=== PATIENT | female | born 1950 | race Caucasian/White ===

== ENCOUNTER 2016-08-31 20:30 | Observation (INO) ==
[2016-08-31] MEDS ORDERED: *HR* Dextrose 50 % in Water (Syg) 50 ML SYRINGE IVP ONE (20:49)
--- NOTE | 2016-08-31 20:56 | Emergency Department Note ---
Disposition Clinical Impression: Hypoglycemia associated with type 2 diabetes mellitus Disposition: Admitted As Inpatient General Adult HPI - General Chief complaint: ED General Medical Stated complaint: Low Blood Sugar Time Seen by Provider: 08/31/16 20:34 Source: EMS Limitations: no limitations Nursing Notes Reviewed: Yes Vital Signs Reviewed: Yes - History of Present Illness HPI Narrative: This is a 65-year-old female with a past medical history of lung cancer, COPD, type 2 diabetes, CAD. She presents to the emergency department because noted that her blood sugar was 30 today at home. He states that he noticed that yesterday it was around 60 but came back up after eating. He states that she takes metformin and glimeperide. She took her medications at 9 am this morning. He says she is somewhat confused. She was recently diagnosed with a sinus infection. She was given Cipro as well as a methylprednisolone dosepak. She is on day 3 of that. Her metformin was recently reduced. The glimepiride however was not Pain Scale: 0 - Related Data Home Medications Medication Instructions Recorded Confirmed Apixaban [Eliquis] 5 mg PO BID 12/08/15 08/23/16 Aspirin Enteric Coated [Aspirin EC] 81 mg PO DAILY 12/08/15 08/23/16 Atorvastatin Calcium [Lipitor] 80 mg PO HS 12/08/15 08/23/16 DULoxetine [Cymbalta] 30 mg PO BID 12/08/15 08/23/16 Furosemide [Lasix] 40 mg PO DAILY PRN 12/08/15 08/23/16 Nitroglycerin [Nitrostat] 0.4 mg SL AD PRN 12/08/15 08/23/16 Cranberry Fruit Extract/Vit C [Azo 1 each PO DAILY 02/01/16 08/23/16 Cranberry Softgel] Loratadine [Claritin] 10 mg PO DAILY 02/01/16 08/23/16 Losartan [Cozaar] 25 mg PO DAILY 02/01/16 08/23/16 Meclizine [Antivert] 12.5 mg PO TID PRN 02/01/16 08/23/16 Previous Rx's Medication Instructions Recorded Ondansetron HCl [Zofran] 4 mg PO Q6H PRN #30 tablet 01/26/16 Prochlorperazine Maleate 10 mg PO Q6HR PRN #60 tablet 01/26/16 [Compazine] metFORMIN [Glucophage] 500 mg PO BIDWM #60 tablet 03/03/16 Docusate Sodium [Colace] 100 mg PO BID #60 capsule 03/29/16 Guaifenesin [Mucinex] 600 mg PO BID #20 tab.er.12h 03/29/16 Polyethylene Glycol 3350 [MiraLAX 1 scoop PO DAILY #510 gm 03/29/16 Powder Bulk 17.9 Oz] Lidocaine Patch [Lidoderm 5% patch] 1 each TP DAILY PRN #30 adh..patch 04/07/16 Folic Acid 1 mg PO DAILY #30 tablet 04/27/16 Gabapentin [Neurontin] 800 mg PO QID #120 tablet 04/27/16 Magnesium Oxide [Magnesium] 400 mg PO DAILY #30 tablet 04/27/16 Potassium Chloride [K-Tab ER] 10 meq PO DAILY #30 tablet.er 04/27/16 Omeprazole [PriLOSEC] 1 tab PO DAILY #30 cap 05/23/16 Glimepiride [Amaryl] 1 mg PO BID #60 tablet 05/26/16 OXcarbazepine [Trileptal] 150 mg PO BID #60 tablet 05/26/16 Albuterol Sulfate [Proair 90 mcg IH Q4H PRN #1 aer.pow.ba 06/26/16 Respiclick] Magic Mouthwash [Magic Mouthwash 10 ml PO QID PRN #240 ml 08/02/16 BLM] Oxycodone HCl/Acetaminophen 1 tab PO Q6H PRN #120 tablet 08/02/16 [Percocet 10-325 mg Tablet] Metoprolol [Lopressor] 1 tab PO DAILY #30 tablet 08/16/16 Fluticasone Propionate Nasal 2 spr NS BID PRN #1 bottle 08/18/16 [Flonase] GuaiFENesin/Codeine [ROBITUSSIN 10 ml PO Q6HR PRN #300 liquid 08/25/16 w/CODEINE] Allergies Allergy/AdvReac Type Severity Reaction Status Date / Time dofetilide [From Tikosyn] Allergy Unresponsiv Verified 08/31/16 20:33 e Iodinated Contrast- Oral and Allergy Palpitation Verified 08/31/16 20:33 IV Dye s [Iodinated Contrast Media - IV Dye] red dye AdvReac Rash Verified 08/31/16 20:33 All systems ED: reviewed and negative except as stated. Constitutional: Reports: chills Cardiovascular: Denies: chest pain, palpitations, dyspnea on exertion Respiratory: Denies: cough, dyspnea, wheezes, hemoptysis Gastrointestinal: Denies: abdominal pain, nausea, vomiting Genitourinary: Denies: urgency, dysuria, frequency Musculoskeletal: Denies: back pain, neck pain, myalgia Integumentary: Denies: rash Neurological: Reports: weakness. Denies: headache Psychiatric: Denies: anxiety Endocrine: Reports: heat or cold intolerance (cold). Denies: fatigue Past Medical History - Past Medical History Medical history: Reports: arthritis, atrial fibrillation, cancer, CHF, COPD, coronary artery disease, diabetes, hypertension, myocardial infarction, RA Surgical history: Reports: cholecystectomy Psychiatric history: Reports: no psych history - Social History Smoking Status: Former smoker Smokeless Tobacco Status: No Alcohol use: Reports: none Drug use: Reports: none Physical Exam - General Limitations: no limitations General appearance: alert, other (This is a 65-year-old female that is diaphoretic, in moderate distress.) - Head Head exam: normocephalic - Eye Eye exam: Present: EOMI. Absent: scleral icterus, conjunctival injection - ENT ENT exam: normal oropharynx, mucous membranes moist - Neck Neck exam: Present: normal inspection, full ROM, trachea midline - Chest Chest inspection: Present: symmetric chest wall rise - Respiratory Respiratory exam: Present: normal lung sounds bilaterally. Absent: respiratory distress, wheezes, stridor - Cardiovascular Cardiovascular exam: Present: regular rate, normal rhythm, normal heart sounds - Abdominal Exam Abdominal exam: Present: soft, Non-Tender. Absent: distention, guarding, rebound, rigidity - Back Exam Back exam: Present: normal inspection, full ROM - Neurological Exam Neurological exam: Present: alert, oriented X3 (However her speech is a little sluggish.), other - Psychiatric Psychiatric exam: Present: normal affect, normal mood - Skin Skin exam: Present: intact, diaphoresis Course - Reevaluation(s) Reevaluation #1: One amp of D50 was given and this raised her blood glucose to 150. Her speech is more clear, she is no longer diaphoretic. Time: 21:19 Vital Signs Temperature 0 F L 08/31/16 20:33 Pulse Rate 79 08/31/16 20:33 Respiratory Rate 16 08/31/16 20:33 Blood Pressure 148/106 08/31/16 20:33 O2 Sat by Pulse Oximetry 97 08/31/16 20:33 Temperature 0 F L 08/31/16 20:33 Pulse Rate 79 08/31/16 21:22 Respiratory Rate 16 08/31/16 21:22 Blood Pressure 124/71 08/31/16 21:22 O2 Sat by Pulse Oximetry 99 08/31/16 21:22 Oxygen Delivery Oxygen Delivery Room Air Medical Decision Making - MDM Narrative Medical decision making narrative: This is a 65-year-old female with a past medical history of type 2 diabetes mellitus, breast cancer, and recent sinus infection. She presents to the emergency department with a blood glucose of 41 after her to take her blood glucose of 30. She immediately was provided R juice, crackers, peanut butter in an attempt to raise her blood glucose. After a second blood glucose of 43, she was provided 1 amp of D50. A repeat fingerstick glucose was performed, and it is now 150. She is no longer diaphoretic and her speech is clear. She currently takes glimepiride prior metformin for management of her diabetes. Our primary concern for this patient deals with the long half-life of glimepiride, I feel that it is in this patient's best interest to be admitted to the hospital for observation as a sulfonylurea can cause severe hypoglycemia later on. The hospitalist agreed to accept this admission. Vital Signs Temperature 0 F L 08/31/16 20:33 Pulse Rate 79 08/31/16 20:33 Respiratory Rate 16 08/31/16 20:33 Blood Pressure 148/106 08/31/16 20:33 O2 Sat by Pulse Oximetry 97 08/31/16 20:33 Temperature 0 F L 08/31/16 20:33 Pulse Rate 79 08/31/16 21:22 Respiratory Rate 16 08/31/16 21:22 Blood Pressure 124/71 08/31/16 21:22 O2 Sat by Pulse Oximetry 99 08/31/16 21:22 Oxygen Delivery Oxygen Delivery Room Air - Medical Records Medical records reviewed: Yes I reviewed the patient's medical records. - Lab Data Lab results reviewed: Yes I reviewed the patient's lab results. Result diagrams: 08/31/16 20:55 08/31/16 20:55 Lab Results 08/31/16 08/31/16 08/31/16 Range/Units 20:33 20:47 20:55 WBC 4.9 (4.3-11.1) K/mcL RBC 4.10 (3.82-4.97) M/mcL Hgb 11.0 L (11.5-15.4) g/dL Hct 36.0 (35.3-44.9) % MCV 87.8 (83.0-100.0) fL MCH 26.8 L (28.0-33.3) pg MCHC 30.6 L (31.6-35.5) g/dL RDW 16.7 H (11.5-14.5) % Plt Count 265 (140-400) K/mcL MPV 8.7 L (9.4-12.4) fL Immature Gran % 0.4 (0-4) % Seg Neutrophils % 69.3 % Lymphocytes % 14.8 % Monocytes % 13.1 % Eosinophils % 2.0 % Basophils % 0.4 % Neutrophils # 3.4 (1.6-8.9) K/mcL Lymphocytes # 0.7 (0.6-4.6) K/mcL Monocytes # 0.6 (0.0-1.3) K/mcL Eosinophils # 0.1 (0.0-0.6) K/mcL Basophils # 0.0 (0.0-0.2) K/mcL Sodium (136-145) mEq/L Potassium (3.5-4.5) mEq/L Chloride (98-109) mEq/L Carbon Dioxide (19-29) mEq/L BUN (7-20) mg/dL Creatinine (0.57-1.11) mg/dL Est GFR ( Amer) (> 60) Est GFR (Non-Af Amer) (> 60) BUN/Creatinine Ratio (6-26) Glucose (70-99) mg/dL POC Glucose 42 L* 43 L* (58-89) Calculated Osmolality (280-300) Calcium (8.6-10.8) mg/dL 08/31/16 08/31/16 08/31/16 Range/Units 20:55 21:17 21:56 WBC (4.3-11.1) K/mcL RBC (3.82-4.97) M/mcL Hgb (11.5-15.4) g/dL Hct (35.3-44.9) % MCV (83.0-100.0) fL MCH (28.0-33.3) pg MCHC (31.6-35.5) g/dL RDW (11.5-14.5) % Plt Count (140-400) K/mcL MPV (9.4-12.4) fL Immature Gran % (0-4) % Seg Neutrophils % % Lymphocytes % % Monocytes % % Eosinophils % % Basophils % % Neutrophils # (1.6-8.9) K/mcL Lymphocytes # (0.6-4.6) K/mcL Monocytes # (0.0-1.3) K/mcL Eosinophils # (0.0-0.6) K/mcL Basophils # (0.0-0.2) K/mcL Sodium 136 (136-145) mEq/L Potassium 3.6 (3.5-4.5) mEq/L Chloride 104 (98-109) mEq/L Carbon Dioxide 25 (19-29) mEq/L BUN 13 (7-20) mg/dL Creatinine 0.73 (0.57-1.11) mg/dL Est GFR ( Amer) > 60 (> 60) Est GFR (Non-Af Amer) > 60 (> 60) BUN/Creatinine Ratio 18 (6-26) Glucose 57 L (70-99) mg/dL POC Glucose 150 H 142 H (58-89) Calculated Osmolality 280 (280-300) Calcium 9.3 (8.6-10.8) mg/dL Attestation Statement - Attestation Attestation: I, Hilario Raman MD, personally evaluated this patient and discussed their management with the resident physician. I reviewed the resident's note and agree with the documented findings, medical decision making, and plan of care. 65-year-old female presents to the emergency department with an episode of hypoglycemia. Patient is diabetic and is on 2 oral agents. She is not on insulin. She denies any prior history of similar episodes. Patient apparently became very weak and confused and diaphoretic. Fingerstick blood sugar per EMS was around 40. On arrival here the patient was alert but somewhat confused. She was given orange juice and food but refuses to eat. She then received an amp of D50 with resolution of her symptoms. She denies any recent illness or vomiting or diarrhea. She is currently on chemotherapy for lung cancer. On examination the patient is a well-developed well-nourished elderly female in no acute distress. She is alert and oriented 3. There is no cyanosis or diaphoresis. Breath sounds are clear and equal bilaterally. Heart regular rate and rhythm. Abdomen soft and nontender with normal bowel sounds. Labs reviewed. The hospitalist, Dr. Grayson, was consulted and accepted admission of the patient.
[2016-08-31 21:05] LABS: Basophils % 0.4 %; Eosinophils # 0.1 K/mcL (0.0-0.6); Immature Granulocytes % 0.4 % (0-4); Lymphocytes # 0.7 K/mcL (0.6-4.6); Lymphocytes % 14.8 %; Mean Corpuscular HGB Conc 30.6 g/dL (31.6-35.5); Mean Corpuscular Hemoglobin 26.8 pg (28.0-33.3); Mean Corpuscular Volume 87.8 fL (83.0-100.0); Mean Platelet Volume 8.7 fL (9.4-12.4); Monocytes # 0.6 K/mcL (0.0-1.3); Monocytes % 13.1 %; Neutrophils # 3.4 K/mcL (1.6-8.9); Platelet Count 265 K/mcL (140-400); Red Cell Distribution Width 16.7 % (11.5-14.5); Segmented Neutrophils % 69.3 %
[2016-08-31 21:17] LABS: BUN/Creatinine Ratio 18 (6-26); Blood Urea Nitrogen 13 mg/dL (7-20); Calcium 9.3 mg/dL (8.6-10.8); Carbon Dioxide 25 mEq/L (19-29); Chloride 104 mEq/L (98-109); Glucose 57 mg/dL (70-99); Osmolality,Calculated 280 (280-300); Potassium 3.6 mEq/L (3.5-4.5); Sodium 136 mEq/L (136-145); eGFR For African Americans > 60 (> 60); eGFR For Non-African Americans > 60 (> 60)
[2016-08-31] MEDS ORDERED: Clotrimazole/Betameth Dip CRM 45 APPL/45 GM TUBE TP PRN (23:12)
[2016-08-31] MEDS ORDERED: Benzonatate 100 MG CAPSULE PO PRN (23:12)
[2016-08-31] MEDS ORDERED: Furosemide 40 MG TABLET PO PRN (23:12)
[2016-08-31] MEDS ORDERED: Fluticasone Propionate Nasal 50 MCG/SPRAY BOTTLE NS PRN (23:12)
[2016-08-31] MEDS ORDERED: Naloxone 0.4 MG/ML INJ IVP PRN ×2 (23:19→23:21)
[2016-08-31] MEDS ORDERED: Ondansetron ODT 4 MG TAB.RAPDIS SL PRN (23:21)
[2016-08-31] MEDS ORDERED: Magic Mouthwash 10 ML UD Cup PO PRN (23:22)
[2016-08-31] MEDS ORDERED: Polyethylene Glycol 3350 255 GM POWDER PO PRN (23:22)
[2016-08-31] MEDS ORDERED: Nitroglycerin 0.4 MG TAB.SUBL SL PRN (23:22)
[2016-08-31] MEDS ORDERED: Loratadine 10 MG TABLET PO PRN (23:22)
[2016-08-31] MEDS ORDERED: *HR* OxyCODONE/APAP 5/325 TABLET PO PRN (23:25)
[2016-08-31] MEDS ORDERED: NON-FORMULARY MEDICATION 1 EACH EACH (Oxygen [Oxygen] 3 L) NS SCH (23:30)
--- NOTE | 2016-08-31 23:32 | Internal Med History&Physical ---
<Doug Muniz - Last Filed: 09/01/16 03:33> Date of Encounter: 09/01/16 Time of Encounter: 23:00 Assessment and Plan (1) Hypoglycemia associated with type 2 diabetes mellitus Current visit: Yes Status: Acute Patient is known type II diabetic who is on a sulfonylurea and metformin for glucose control. She had been on these medications for a while but recently started having lower glucose levels and her stop giving her one of her metformin doses but continued the sulfonylurea. -Glucose as low as 30 upon arrival, most recent glucose check 140 after juice, crackers. Suspect hypoglycemia from sulfonylurea in the setting of immunocompromised patient. Plan: - Every hour glucose checks, address glucose less than 90 with oral intake this evening. - If patient remains stable continue to monitor but continue to hold her subcutaneous insulin unless patient demonstrates hyperglycemia. - Patient will likely need to discontinue sulfonylurea at the time of discharge for risk of hypoglycemic episodes (2) COPD (chronic obstructive pulmonary disease) Current visit: No Status: Acute 65-year-old female who quit smoking in November when she was diagnosed with adenocarcinoma of the lung. Prior she smoked from the age of [age] with a pack per day. ~Following function tests from April 2016: Spirometry shows moderate airway restrictive disease. Following Bronchodilator, there is 31 % increase in small airways/mid-flows. Lung Volumes are normal. Diffusion Capacity is moderately reduced. Flow Volume Loop: Restrictive. Plan: - Continue home inhalers - Duo nebs as necessary. Qualifiers: COPD type: emphysema Qualified Code(s): J43.0 - Unilateral pulmonary emphysema [MacLeod's syndrome] (3) Cutaneous abscess of abdominal wall Current visit: No Status: Acute Outpatient clinic chart reviewed. 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 - Stable. (4) Adenocarcinoma of right lung Current visit: No Status: Chronic Current adenocarcinoma of the right lung. Patient undergoing chemotherapy and radiation. (5) CAD (coronary artery disease) Current visit: No Status: Chronic No history of coronary artery disease with coronary stenting 2. Plan: - Continue to optimize cardiac medical therapy Qualifiers: Coronary Disease-Associated Artery/Lesion type: [place] artery [place] vs. transplanted heart: [place] heart Associated angina: without angina Qualified Code(s): I25.10 - Atherosclerotic heart disease of [place] coronary artery without angina pectoris (6) Sinusitis Current visit: Yes Status: Acute Recently diagnosed with Sinusitis. Continue levofloxacin 500mg PO daily. Qualifiers: Qualified Code(s): J01.01 - Acute recurrent maxillary sinusitis (7) Rheumatoid arthritis Current visit: No Status: Chronic Patient is a known history of rheumatoid arthritis with clinical exam findings. Patient is off Remicade and methotrexate due to chemotherapy and radiation. Qualifiers: Rheumatoid arthritis location: multiple sites Rheumatoid factor presence: with rheumatoid factor Qualified Code(s): M05.79 - Rheumatoid arthritis with rheumatoid factor of multiple sites without organ or systems involvement (8) DVT prophylaxis Current visit: Yes Status: Acute Patient on our request, will start SCDs. Internal Medicine - H&P: HPI Chief complaint: altered mental status Admitted From: Emergency Dept Plans for Post Hospital Care: Home History of present illness: Ms. Reynoso is a 65 year old female with current medical history of metastatic adenocarcinoma originating in the lung, type 2 diabetes, coronary artery disease presented to the emergency Department by squad after being found altered and hypoglycemic. Mrs. Reynoso is accompanied by her and family members at bedside. She says that she was not feeling well and was diaphoretic and having trouble with thoughts this evening. She had been taking her medications as usual a recently had reduced her metformin from 500 mg twice a day to once a day because her glucoses were in the 60s. She continues to take her sulfonylurea and 500 mg metformin daily. She had first noticed that her glucoses were low or since being diagnosed and treated for adenocarcinoma. She was recently diagnosed with a sinus infection due to having sinus pressure and green nasal discharge. She was placed on levofloxacin and a Medrol Dosepak 3 days ago. She been taking her medications as prescribed. She had improvement in her nasal discharge and sinus pressure. She denies ever having glucose levels this low in the past. She was diagnosed with adenocarcinoma of the lung in November 2015 and has been undergoing chemotherapy and radiation. She has had progression in metastatic spread. She recently saw Dr. Moreira in the outpatient setting due to a abdominal superficial mass for which she took a biopsy and resulted with adenocarcinoma. She says since arriving to the emergency department in having crackers and juice her glucoses been over 100 and stable. She denies any current blurry vision, altered mental status or trouble thinking, sweating or shaking. She denies any recent nausea, vomiting, diarrhea constipation, chest pains or palpitations or urinary changes. She denies use of any insulin or other medications. Past Med Surg Social Fam HX - Past Medical History Medical history: arthritis, atrial fibrillation, cancer, CHF, COPD, coronary artery disease, diabetes, hypertension, myocardial infarction, RA Psychiatric history: no psych history - Past Surgical History Surgical History: cholecystectomy - Social History Smoking Status: Former smoker Smokeless Tobacco Status: No Alcohol use: none Drug use: none - Family History Father Adopted: [place]: LEILANI Family Member Ethnicity: Non- Living Status: Age at : 69 Cause of : LUNG CANCER Hx Family Cardiac Disorders: Yes ([place]) Hx Family Respiratory Disorders: Yes Hx Family Cancer: Yes Hx Family GI Disorders: No Hx Family Genitourinary Disorders: No Hx Family Endocrine Disorder: No Hx Family Musculoskeletal Disorders: No Hx Family Neuromuscular Disorders: No Hx Family Neurologic Disorders: No Hx Family HEENT Disorders: No Hx Family Autoimmune Disorders: No Hx Family Reproductive Disorders: No Hx Family Psychosocial Disorders: No Hx Family Medical Disorders: No Internal Medicine - H&P: Meds Apixaban [Eliquis] 5 mg PO BID 12/08/15 [History] Aspirin Enteric Coated [Aspirin EC] 81 mg PO DAILY 12/08/15 [History] Atorvastatin Calcium [Lipitor] 80 mg PO HS 12/08/15 [History] DULoxetine [Cymbalta] 30 mg PO BID 12/08/15 [History] Furosemide [Lasix] 40 mg PO Q48H PRN 12/08/15 [History] Nitroglycerin [Nitrostat] 0.4 mg SL Q5M PRN 12/08/15 [History] Ondansetron HCl [Zofran] 4 mg PO Q6H PRN #30 tablet 01/26/16 [Rx] Prochlorperazine Maleate [Compazine] 10 mg PO Q6HR PRN #60 tablet 01/26/16 [Rx] Loratadine [Claritin] 10 mg PO DAILY PRN 02/01/16 [History] Meclizine [Antivert] 12.5 mg PO TID PRN 02/01/16 [History] metFORMIN [Glucophage] 500 mg PO BIDWM #60 tablet 03/03/16 [Rx] Guaifenesin [Mucinex] 600 mg PO BID #20 tab.er.12h 03/29/16 [Rx] Lidocaine Patch [Lidoderm 5% patch] 1 each TP DAILY PRN #30 adh..patch 04/07/16 [Rx] Folic Acid 1 mg PO DAILY #30 tablet 04/27/16 [Rx] Gabapentin [Neurontin] 800 mg PO QID #120 tablet 04/27/16 [Rx] Magnesium Oxide [Magnesium] 400 mg PO DAILY #30 tablet 04/27/16 [Rx] Potassium Chloride [K-Tab ER] 10 meq PO DAILY #30 tablet.er 04/27/16 [Rx] OXcarbazepine [Trileptal] 150 mg PO BID #60 tablet 05/26/16 [Rx] Magic Mouthwash [Magic Mouthwash BLM] 10 ml PO QID PRN #240 ml 08/02/16 [Rx] Oxycodone HCl/Acetaminophen [Percocet 10-325 mg Tablet] 1 tab PO Q6H PRN #120 tablet 08/02/16 [Rx] Fluticasone Propionate Nasal [Flonase] 2 spr NS BID PRN #1 bottle 08/18/16 [Rx] GuaiFENesin/Codeine [ROBITUSSIN w/CODEINE] 10 ml PO Q6HR PRN #300 liquid [Rx] Acetaminophen [Tylenol] 1,000 mg PO Q6HR PRN 08/31/16 [History] Albuterol Sulfate [Proair Respiclick] 2 puff IH Q4H PRN 08/31/16 [History] Benzonatate [Tessalon] 100 mg PO TID PRN 08/31/16 [History] Budesonide/Formoterol 160/4.5 [Symbicort 160/4.5] 2 puff IH BIDR 08/31/16 [ History] Clotrimazole 1% CRM [Lotrimin 1%] 1 appl TP HS 08/31/16 [History] Clotrimazole/Betamethasone Dip [Lotrisone Cream] 1 appl TP BID PRN 08/31/16 [ History] Cranberry Fruit [Cranberry] 400 mg PO DAILY 08/31/16 [History] Docusate Sodium [Colace] 100 mg PO DAILY 08/31/16 [History] Glimepiride [Amaryl] 4 mg PO DAILY 08/31/16 [History] Levofloxacin [Levaquin] 500 mg PO DAILY 08/31/16 [History] MethylPREDNISolone [MethylPREDNISolone Dose Pack] 4 mg PO PER PKG DI 08/31/16 [ History] Metoprolol [Lopressor] 50 mg PO DAILY 08/31/16 [History] Omeprazole [PriLOSEC] 20 mg PO DAILY 08/31/16 [History] Oxygen 3 l NS AD 08/31/16 [History] Polyethylene Glycol 3350 [MiraLAX Powder Bulk 17.9 Oz] 17 gm PO DAILY PRN [History] Psyllium Husk [Metamucil] 0.8 gm PO BID 08/31/16 [History] Tiotropium [Spiriva] 18 mcg IH 0700 08/31/16 [History] Allergies dofetilide [From Tikosyn] Allergy (Verified 08/31/16 20:33) Unresponsive Iodinated Contrast- Oral and IV Dye [Iodinated Contrast Media - IV Dye] Allergy (Verified 08/31/16 20:33) Palpitations lisinopril Adverse Reaction (Verified 08/31/16 22:16) See Comments unknown red dye Adverse Reaction (Verified 08/31/16 20:33) Rash All Systems PM: A 10-system review of systems was performed and is negative for pertinent findings except as documented above in the HPI. - Constitutional Constitutional: excessive sweating, lethargy, no chills, no fever(s), no night sweats - EENT Eyes: no change in vision, no discharge, no pain, no photophobia Ears: no ear discharge, no ear pain, no tinnitus Nose, mouth and throat: no dysphagia, no nasal discharge, no neck pain, no sore throat - Cardiovascular Cardiovascular ROS IM: no chest pain, no diaphoresis, no dyspnea, no lightheadedness, no palpitations, no syncope - Respiratory Respiratory: no cough, no dyspnea, no wheezing, no excessive phlegm production - Gastrointestinal Gastrointestinal: no abdominal pain, no diarrhea, no hematemesis, no hematochezia, no melena, no nausea, no vomiting - Genitourinary Genitourinary: no change in urinary stream, no dysuria, no flank pain, no hematuria - Musculoskeletal Musculoskeletal ROS IM: no numbness, no tingling - Integumentary Integumentary IM: no rash, no unusual bruising - Neurological Neurological ROS: tremor(s) (Resolved.), no confusion, no convulsions, no focal weakness, no numbness, no tingling - Hematologic/Lymphatic Hematologic/Lymphatic: no easy bruising - Constitutional Vitals: Temp Pulse Resp BP Pulse Ox 97.4 F L 79 16 146/85 100 08/31/16 23:19 08/31/16 23:19 08/31/16 23:19 08/31/16 23:19 08/31/16 23:19 General appearance: Present: A&O X 3 Exam: General: Patient alert, awake, oriented 3, interactive, in no acute distress HEENT: Normocephalic, atraumatic, pupils equal reactive to light, oral mucosa moist, neck supple trachea midline no palpable lymphadenopathy, no thyromegaly. Chest: Symmetric bilateral correlating with respiratory effort, effort nonlabored. Cardiac: Regular rate and rhythm, positive S1 and S2. no bruits appreciated bilateral carotids, Radial pulses 2+ bilateral, posterior tibial and dorsal pedal pulses 2+ bilateral. Respiratory: Patient is coughing frequently, diffuse inspiratory expiratory wheeze. Abdomen: Soft, nontender, positive bowel sounds, superficial erythematous mass in the right upper quadrant is nontender to palpation. Extremities: Symmetric bilateral, bilateral lower extremities without erythema or edema patient moving all 4 extremities spontaneously. She has olecranon bursa swelling bilaterally right greater than left Neurologic: No focal deficits appreciated on examination. Face symmetric, muscle strength symmetric bilateral upper and lower extremities. Internal Med - H&P Results - Labs CBC & Chem 7: 08/31/16 20:55 08/31/16 20:55 <Garcia Weinberg - Last Filed: 09/01/16 04:01> Date of Encounter: 09/01/16 Internal Medicine - H&P: HPI History of present illness: Ms. Reynoso is a 65 year old female All Systems PM: A 10-system review of systems was performed and is negative for pertinent findings except as documented above in the HPI. - Constitutional Vitals: Temp Pulse Resp BP Pulse Ox 98 F 92 18 135/82 99 09/01/16 03:11 09/01/16 03:11 09/01/16 03:11 09/01/16 03:11 07/21/17 03:11 Internal Med - H&P Results - Labs CBC & Chem 7: 08/31/16 20:55 08/31/16 20:55 - Attending Attestation I have seen and examined the patient. I have discussed about the patient with . I have reviewed the orders and the note. Patient is a 65-year-old female with past medical history of atrial fibrillation , CHF, COPD, coronary artery disease, diabetes, hypertension and metastatic adenocarcinoma of the lung. Patient presents to the ED with complaints of altered mental status. She was initially found to be altered and hypoglycemic. She was brought to the ED by EMS. Patient usually takes metformin and omeprazole for diabetes. She was initially found to be severely hypoglycemic. According to the patient's blood glucose has been running low ever since chemotherapy was started. Patient also complains of sinus infection with nasal discharge. Patient also has a small superficial abdominal mass which is due to metastatic adenocarcinoma. On examination patient is currently awake and alert. Not in any distress. Able to answer questions appropriately. No focal deficits. Patient is being admitted for hypoglycemia secondary to sulfonylurea use. She has been explained about her condition and plan of care. She understood and agreed. No unanswered questions. CODE STATUS full code.
[2016-09-01] MEDS ORDERED: Ipratropium/Albuterol Neb 3 ML IH PRN (03:36)
[2016-09-01] MEDS: Albuterol 2.5 MG/3 ML NEBULIZER IH SCH ×6 (03:38→23:23)
[2016-09-01 04:44] LABS: Basophils % 0.9 %; Eosinophils # 0.2 K/mcL (0.0-0.6); Eosinophils % 5.3 %; Hematocrit 31.7 % (35.3-44.9); Immature Granulocytes % 0.2 % (0-4); Lymphocytes # 0.9 K/mcL (0.6-4.6); Mean Corpuscular HGB Conc 31.5 g/dL (31.6-35.5); Mean Corpuscular Hemoglobin 27.2 pg (28.0-33.3); Mean Corpuscular Volume 86.1 fL (83.0-100.0); Mean Platelet Volume 8.6 fL (9.4-12.4); Monocytes # 0.6 K/mcL (0.0-1.3); Monocytes % 13.1 %; Neutrophils # 2.6 K/mcL (1.6-8.9); Platelet Count 237 K/mcL (140-400); Red Blood Count 3.68 M/mcL (3.82-4.97); Red Cell Distribution Width 16.5 % (11.5-14.5); Segmented Neutrophils % 59.5 %
[2016-09-01 04:58] LABS: BUN/Creatinine Ratio 17 (6-26); Blood Urea Nitrogen 12 mg/dL (7-20); Calcium 9.2 mg/dL (8.6-10.8); Carbon Dioxide 28 mEq/L (19-29); Chloride 103 mEq/L (98-109); Glucose 68 mg/dL (70-99); Osmolality,Calculated 282 (280-300); Potassium 3.4 mEq/L (3.5-4.5); Sodium 137 mEq/L (136-145); eGFR For African Americans > 60 (> 60); eGFR For Non-African Americans > 60 (> 60)
[2016-09-01] MEDS ORDERED: Tiotropium 18 MCG inhalation IH SCH (07:00)
[2016-09-01] MEDS: Gabapentin 400 MG CAPSULE PO SCH ×4 (07:46→21:26)
[2016-09-01] MEDS: Aspirin Enteric Coated 81 MG Tablet PO SCH (07:46)
[2016-09-01] MEDS: Magnesium Oxide 400 MG TABLET PO SCH (07:46)
[2016-09-01] MEDS: levoFLOXacin 500 MG TABLET PO SCH (07:46)
[2016-09-01] MEDS: APIXABAN 5 MG TABLET PO SCH ×2 (07:46→21:26)
[2016-09-01] MEDS: OXcarbazepine 150 MG TABLET PO SCH ×2 (07:46→21:26)
[2016-09-01] MEDS: Folic Acid 1 MG TABLET PO SCH (07:46)
[2016-09-01] MEDS: Budesonide/Formoterol 160/4.5 MDI IH SCH ×2 (08:00→20:12)
[2016-09-01] MEDS ORDERED: *HR* Dextrose 50 % in Water (Syg) 50 ML SYRINGE IVP PRN (08:05)
[2016-09-01] MEDS ORDERED: Dextrose Gel 15 GM PO PRN ×2 (08:05)
[2016-09-01] MEDS ORDERED: D5% in Water 1,000 ML IVC PRN (08:05)
[2016-09-01] MEDS: Insulin LISPRO 300 UNITS/3 ML VIAL SQ SCH ×5 (09:08→17:06)
--- NOTE | 2016-09-01 09:16 | Internal Med Progress Note ---
Date of Encounter: 09/01/16 Time of Encounter: 08:30 - Assessment and plan (1) Hypoglycemia associated with type 2 diabetes mellitus Current Visit: Yes Status: Acute Assessment and plan: BG improved will continue accuchecks q2h until Lunch time, if remain >100, will change to accuchecks ACHS continue sliding scale insulin algorithm monitor fingerstick and blood glucose closely continue to hold all oral antihyperglycemic agents at this time ADA diet (2) Hypokalemia Current Visit: No Status: Acute Assessment and plan: K supplemented continue to monitor electrolytes and replace as needed (3) Cutaneous abscess of abdominal wall Current Visit: No Status: Chronic Assessment and plan: secondary to metastatic disease outpatient follow up with primary oncology/surgery (4) Sinusitis Current Visit: Yes Status: Chronic Assessment and plan: continue home dose of levaquin Qualifiers: Sinusitis location: unspecified location Chronicity: chronic Qualified Code(s): J32.9 - Chronic sinusitis, unspecified (5) COPD (chronic obstructive pulmonary disease) Current Visit: No Status: Chronic Assessment and plan: not in acute exacerbation continue O2 supplementation and bronchodilator support Qualifiers: COPD type: emphysema Qualified Code(s): J43.0 - Unilateral pulmonary emphysema [MacLeod's syndrome] (6) CAD (coronary artery disease) Current Visit: No Status: Chronic Assessment and plan: No acute signs of angina present at this time continue home meds ASA, Plavix, Statin, BB Qualifiers: Coronary Disease-Associated Artery/Lesion type: [place] artery [place] vs. transplanted heart: [place] heart Associated angina: without angina Qualified Code(s): I25.10 - Atherosclerotic heart disease of [place] coronary artery without angina pectoris (7) Rheumatoid arthritis Current Visit: No Status: Chronic Qualifiers: Rheumatoid arthritis location: multiple sites Rheumatoid factor presence: with rheumatoid factor Qualified Code(s): M05.79 - Rheumatoid arthritis with rheumatoid factor of multiple sites without organ or systems involvement (8) Adenocarcinoma of right lung Current Visit: No Status: Chronic (9) Atrial fibrillation Current Visit: No Status: Chronic Assessment and plan: Rate controlled with BB anticoagulated with Eliquis Qualifiers: Atrial fibrillation type: paroxysmal Qualified Code(s): I48.0 - Paroxysmal atrial fibrillation (10) DVT prophylaxis Current Visit: Yes Status: Acute Assessment and plan: anticoagulated with Eliquis SCD as per patient's request - Subjective Interval history: Patient seen and examined at bedside. Resting in bed and reports of feeling better compared to previous day. Currently undergoing chemotherapy and had her last session last week. Complains of diffuse headache that is chronic in nature and is improved with tylenol. Denies any chest pain, sob, abd pain, n/v, fever or chills at this time. - Constitutional Vitals: Temp Pulse Resp BP Pulse Ox 97.7 F 98 18 115/69 98 09/01/16 07:26 09/01/16 07:26 09/01/16 07:26 09/01/16 07:26 09/01/16 07:55 General appearance: Present: disheveled, A&O X 3, no acute distress, answers questions appropriately - Head Head exam: Present: atraumatic, normocephalic - Eye Eye exam: Present: normal appearance, conjuntiva pink, sclera anicteric - Respiratory Respiratory exam: Present: CTAB. Absent: respiratory distress, wheezes - Cardiovascular Cardiovascular exam: Present: RRR, +S1, +S2. Absent: diastolic murmur, gallop, rubs, systolic murmur - GI/Abdominal GI/Abdominal exam: Present: normal bowel sounds, soft, no peritoneal signs. Absent: distended, tenderness - Extremities Exam Extremities exam: Present: warm, radial pulses palpable and symetrical. Absent : calf tenderness, cyanotic, pedal edema - Neurological Exam Neurological exam: Present: alert, oriented X3 - Psychiatric Psychiatric exam: Present: normal affect, normal mood Internal Medicine: Result - Labs CBC & Chem 7: 09/01/16 04:30 09/01/16 04:30 Labs: Short CBC 09/01/16 Range/Units 04:30 WBC 4.3 (4.3-11.1) K/mcL Hgb 10.0 L (11.5-15.4) g/dL Hct 31.7 L (35.3-44.9) % Plt Count 237 (140-400) K/mcL Neutrophils # 2.6 (1.6-8.9) K/mcL BMP 09/01/16 04:30 Sodium 137 Potassium 3.4 L Chloride 103 Carbon Dioxide 28 BUN 12 Creatinine 0.69 Glucose 68 L Calcium 9.2 Consult Discharge Plan - Plan Referrals: Bradley Montgomery MD [Primary Care Provider] -
[2016-09-01] MEDS ORDERED: Acetaminophen IV 1,000 MG/100 ML INFUS..BTL IVPB ONE (09:58)
[2016-09-01] MEDS ORDERED: methylPREDNISolone 4 MG TABLET PO ONE ×2 (12:30→21:00)
[2016-09-01] MEDS: Acetaminophen 325 MG TABLET PO PRN (17:06)
[2016-09-01] MEDS ORDERED: SUMAtriptan 6 MG/0.5 ML SQ ONE (17:45)
[2016-09-01] MEDS ORDERED: *HR* Promethazine 25 MG/ML VIAL IVP ONE (17:46)
[2016-09-01] MEDS ORDERED: Clotrimazole 1% CRM 15 GM TUBE TP SCH (21:00)
[2016-09-01] MEDS ORDERED: Insulin LISPRO 300 UNITS/3 ML VIAL SQ SCH (21:00)
[2016-09-02] MEDS: Acetaminophen 325 MG TABLET PO PRN (04:40)
[2016-09-02 04:46] LABS: Basophils % 0.8 %; Eosinophils # 0.2 K/mcL (0.0-0.6); Eosinophils % 4.2 %; Hematocrit 34.9 % (35.3-44.9); Hemoglobin 10.5 g/dL (11.5-15.4); Immature Granulocytes % 0.4 % (0-4); Lymphocytes % 20.4 %; Mean Corpuscular HGB Conc 30.1 g/dL (31.6-35.5); Mean Corpuscular Hemoglobin 26.1 pg (28.0-33.3); Mean Corpuscular Volume 86.8 fL (83.0-100.0); Mean Platelet Volume 8.6 fL (9.4-12.4); Monocytes # 0.6 K/mcL (0.0-1.3); Monocytes % 12.5 %; Neutrophils # 2.9 K/mcL (1.6-8.9); Platelet Count 238 K/mcL (140-400); Red Blood Count 4.02 M/mcL (3.82-4.97); Red Cell Distribution Width 16.8 % (11.5-14.5); Segmented Neutrophils % 61.7 %
[2016-09-02 04:55] LABS: BUN/Creatinine Ratio 14 (6-26); Blood Urea Nitrogen 12 mg/dL (7-20); Calcium 9.6 mg/dL (8.6-10.8); Carbon Dioxide 31 mEq/L (19-29); Chloride 104 mEq/L (98-109); Glucose 159 mg/dL (70-99); Osmolality,Calculated 293 (280-300); Phosphorous 3.4 mg/dL (2.3-4.7); Potassium 4.1 mEq/L (3.5-4.5); Sodium 140 mEq/L (136-145); eGFR For African Americans > 60 (> 60); eGFR For Non-African Americans > 60 (> 60)
[2016-09-02] MEDS: Albuterol 2.5 MG/3 ML NEBULIZER IH SCH ×2 (05:14→08:17)
[2016-09-02] MEDS ORDERED: methylPREDNISolone 4 MG TABLET PO SCH (07:30)
[2016-09-02 07:39] VITALS: BP 142/79
[2016-09-02] MEDS: levoFLOXacin 500 MG TABLET PO SCH (07:49)
[2016-09-02] MEDS: Aspirin Enteric Coated 81 MG Tablet PO SCH (07:49)
[2016-09-02] MEDS: Magnesium Oxide 400 MG TABLET PO SCH (07:50)
[2016-09-02] MEDS: APIXABAN 5 MG TABLET PO SCH (07:50)
[2016-09-02] MEDS: Gabapentin 400 MG CAPSULE PO SCH (07:50)
[2016-09-02] MEDS: Folic Acid 1 MG TABLET PO SCH (07:50)
[2016-09-02] MEDS: OXcarbazepine 150 MG TABLET PO SCH (07:50)
[2016-09-02] MEDS: Insulin LISPRO 300 UNITS/3 ML VIAL SQ SCH (07:51)
--- NOTE | 2016-09-02 08:12 | Discharge Summary ---
Date of Encounter: 09/02/16 Time of Encounter: 08:09 - Discharge Diagnosis (1) Hypoglycemia associated with type 2 diabetes mellitus Priority: Primary Status: Resolved (2) Hypokalemia Priority: Secondary Status: Resolved (3) Cutaneous abscess of abdominal wall Priority: Secondary Status: Chronic (4) Sinusitis Priority: Secondary Status: Chronic Qualifiers: Sinusitis location: unspecified location Chronicity: chronic Qualified Code(s): J32.9 - Chronic sinusitis, unspecified (5) COPD (chronic obstructive pulmonary disease) Priority: Secondary Status: Chronic Qualifiers: COPD type: emphysema Qualified Code(s): J43.0 - Unilateral pulmonary emphysema [MacLeod's syndrome] (6) CAD (coronary artery disease) Priority: Secondary Status: Chronic Qualifiers: Coronary Disease-Associated Artery/Lesion type: eek artery [place] vs. transplanted heart: eek heart Associated angina: without angina Qualified Code(s): I25.10 - Atherosclerotic heart disease of eek coronary artery without angina pectoris (7) Rheumatoid arthritis Priority: Secondary Status: Chronic Qualifiers: Rheumatoid arthritis location: multiple sites Rheumatoid factor presence: with rheumatoid factor Qualified Code(s): M05.79 - Rheumatoid arthritis with rheumatoid factor of multiple sites without organ or systems involvement (8) Adenocarcinoma of right lung Priority: Secondary Status: Chronic (9) Atrial fibrillation Priority: Secondary Status: Chronic Qualifiers: Atrial fibrillation type: paroxysmal Qualified Code(s): I48.0 - Paroxysmal atrial fibrillation (10) DVT prophylaxis Priority: Secondary Status: Acute - Discharge Medications Home Medications: Apixaban [Eliquis] 5 mg PO BID 12/08/15 [History] Aspirin Enteric Coated [Aspirin EC] 81 mg PO DAILY 12/08/15 [History] Atorvastatin Calcium [Lipitor] 80 mg PO HS 12/08/15 [History] DULoxetine [Cymbalta] 30 mg PO BID 12/08/15 [History] Furosemide [Lasix] 40 mg PO Q48H PRN 12/08/15 [History] Nitroglycerin [Nitrostat] 0.4 mg SL Q5M PRN 12/08/15 [History] Ondansetron HCl [Zofran] 4 mg PO Q6H PRN #30 tablet 01/26/16 [Rx] Prochlorperazine Maleate [Compazine] 10 mg PO Q6HR PRN #60 tablet 01/26/16 [Rx] Loratadine [Claritin] 10 mg PO DAILY PRN 02/01/16 [History] Meclizine [Antivert] 12.5 mg PO TID PRN 02/01/16 [History] metFORMIN [Glucophage] 500 mg PO BIDWM #60 tablet 03/03/16 [Rx] Guaifenesin [Mucinex] 600 mg PO BID #20 tab.er.12h 03/29/16 [Rx] Lidocaine Patch [Lidoderm 5% patch] 1 each TP DAILY PRN #30 adh..patch 04/07/16 [Rx] Folic Acid 1 mg PO DAILY #30 tablet 04/27/16 [Rx] Gabapentin [Neurontin] 800 mg PO QID #120 tablet 04/27/16 [Rx] Magnesium Oxide [Magnesium] 400 mg PO DAILY #30 tablet 04/27/16 [Rx] Potassium Chloride [K-Tab ER] 10 meq PO DAILY #30 tablet.er 04/27/16 [Rx] OXcarbazepine [Trileptal] 150 mg PO BID #60 tablet 05/26/16 [Rx] Magic Mouthwash [Magic Mouthwash BLM] 10 ml PO QID PRN #240 ml 08/02/16 [Rx] Oxycodone HCl/Acetaminophen [Percocet 10-325 mg Tablet] 1 tab PO Q6H PRN #120 tablet 08/02/16 [Rx] Fluticasone Propionate Nasal [Flonase] 2 spr NS BID PRN #1 bottle 08/18/16 [Rx] GuaiFENesin/Codeine [ROBITUSSIN w/CODEINE] 10 ml PO Q6HR PRN #300 liquid [Rx] Acetaminophen [Tylenol] 1,000 mg PO Q6HR PRN 08/31/16 [History] Albuterol Sulfate [Proair Respiclick] 2 puff IH Q4H PRN 08/31/16 [History] Benzonatate [Tessalon] 100 mg PO TID PRN 08/31/16 [History] Budesonide/Formoterol 160/4.5 [Symbicort 160/4.5] 2 puff IH BIDR 08/31/16 [ History] Clotrimazole 1% CRM [Lotrimin 1%] 1 appl TP HS 08/31/16 [History] Clotrimazole/Betamethasone Dip [Lotrisone Cream] 1 appl TP BID PRN 08/31/16 [ History] Cranberry Fruit [Cranberry] 400 mg PO DAILY 08/31/16 [History] Docusate Sodium [Colace] 100 mg PO DAILY 08/31/16 [History] Levofloxacin [Levaquin] 500 mg PO DAILY 08/31/16 [History] MethylPREDNISolone [MethylPREDNISolone Dose Pack] 4 mg PO PER PKG DI 08/31/16 [ History] Metoprolol [Lopressor] 50 mg PO DAILY 08/31/16 [History] Omeprazole [PriLOSEC] 20 mg PO DAILY 08/31/16 [History] Oxygen 3 l NS AD 08/31/16 [History] Polyethylene Glycol 3350 [MiraLAX Powder Bulk 17.9 Oz] 17 gm PO DAILY PRN [History] Psyllium Husk [Metamucil] 0.8 gm PO BID 08/31/16 [History] Tiotropium [Spiriva] 18 mcg IH 0700 08/31/16 [History] Allergies/Adverse Reactions: Allergies dofetilide [From Tikosyn] Allergy (Verified 08/31/16 20:33) Unresponsive Iodinated Contrast- Oral and IV Dye [Iodinated Contrast Media - IV Dye] Allergy (Verified 08/31/16 20:33) Palpitations lisinopril Adverse Reaction (Verified 08/31/16 22:16) See Comments unknown red dye Adverse Reaction (Verified 08/31/16 20:33) Rash Date of admission: 08/31/16 22:03 Primary care physician: Bradley Montgomery MD Discharging clinician: Roxana Griffin Anticipated date of discharge: 09/02/16 - Patient Status Disposition: Home, Self-Care Condition: Good Functional capacity at discharge: independent ambulation Overall status at discharge: patient is back to baseline - Discharge Instructions Follow Up With: Bradley Montgomery MD [Primary Care Provider] - Additional Instructions: Please follow up with your primary care physician within five days after your discharged from the hospital. Your home medication Glimipiride has been discontinued. Continue taking Metformin 500mg twice a day with meals. Closely monitor your fingerstick glucose at home and take this log with you to your primary care physician's appointment. If you are noted to have low blood glucose, please drink orange juice and inform your PCP. Please resume all your other medications as prescribed by your primary care physician. - Diet and Activity Activity: resume usual activities as tolerated, wear oxygen at all times Diet: diabetic diet Hospital course: Ms. 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 Patient was noted to be on Metformin and Glimepiride at home and states her fingerstick glucose were running low at home but she continued to take her oral antihyperglycemics. Patient's oral antihyperglycemics were placed on hold and she was closely monitored with frequent accuchecks. Her hypoglycemia resolved and she is back to her baseline health. She is AAO x 3 and demonstrates understanding of her diagnosis and treatment plan. Diabetic education is provided. At this time patient is hemodynamically stable and will be discharged to home with follow up with her PCP. - Time Spent with Patient Total time spent providing and/or coordinating discharge services: Less than 30 minutes - Constitutional Vitals: Temp Pulse Resp BP Pulse Ox 98.2 F 64 14 142/79 92 09/02/16 07:35 09/02/16 07:35 09/02/16 07:35 09/02/16 07:35 09/02/16 07:35 General appearance: Present: A&O X 3, no acute distress, answers questions appropriately - Head Head exam: Present: atraumatic, normocephalic - Eye Eye exam: Present: normal appearance, conjuntiva pink, sclera anicteric - Respiratory Respiratory exam: Present: CTAB. Absent: accessory muscle use, rales, rhonchi, wheezes - Cardiovascular Cardiovascular exam: Present: RRR, +S1, +S2. Absent: diastolic murmur, gallop, rubs, systolic murmur - GI/Abdominal GI/Abdominal exam: Present: normal bowel sounds, soft, no peritoneal signs. Absent: distended, tenderness - Extremities Exam Extremities exam: Present: warm, radial pulses palpable and symetrical. Absent : calf tenderness, cyanotic, pedal edema - Neurological Exam Neurological exam: Present: alert, oriented X3 - Psychiatric Psychiatric exam: Present: normal affect, normal mood
[2016-09-02] MEDS: Budesonide/Formoterol 160/4.5 MDI IH SCH (08:15)
[2016-09-03] MEDS ORDERED: methylPREDNISolone 4 MG TABLET PO ONE (07:30)
== END 2016-09-02 10:20 | disposition home or self-care (01) ==
LOC: EMEROO 20:30 → 3BNU 20:30
PROVIDERS: ADMIT Internal Medicine; ATTEND Registered Nurse

== ENCOUNTER 2016-09-23 10:05 | Inpatient (IN) ==
--- NOTE | 2016-09-23 10:31 | Emergency Department Note ---
Disposition Clinical Impression: Hemoptysis Disposition: Admitted As Inpatient Condition: Good Referrals: NONE,PCP [Non-Partnered Physician] - Forms: Work/School Release, ED Satisfaction Letter Time of Disposition: 13:06 General Adult HPI - General Chief complaint: ED General Medical Stated complaint: coughing blood Lung CA PT Time Seen by Provider: 09/23/16 10:14 Source: patient, family Limitations: no limitations Nursing Notes Reviewed: Yes Vital Signs Reviewed: Yes - History of Present Illness HPI Narrative: 65 year old female with metastatic lung cancer was diagnsoed on nov 15, 2015 at [facility] and followed through at [facility]. States that she has two complaints today: 1. Hemopytis: She has had intermittment episodes of light bright red blood that she has been coughing up but it it usually resolves. However since last night she has been couhging up continously bright red blood and small clots the size of pennies. She is currently on eliquis and another blood thinner for the two stents that she has in her heart. Patinet states that she does not have increased chest pain or shortness of breath at this time. 2. Patient is also expeiencing a headache which has been going on for the past one month and been followed up by ENT with a HCT last week which sohwed taht she had a met to the frontal sinus on the right side. Skynet states that her headache have been getting worse in character but not in location. Skynet denies any vision changes or neuro defecits at this time. Pain Scale: 8 - Related Data Home Medications Medication Instructions Recorded Confirmed Apixaban [Eliquis] 5 mg PO BID 12/08/15 09/18/16 Aspirin Enteric Coated [Aspirin EC] 81 mg PO DAILY 12/08/15 09/18/16 Atorvastatin Calcium [Lipitor] 80 mg PO HS 12/08/15 09/18/16 DULoxetine [Cymbalta] 30 mg PO BID 12/08/15 09/18/16 Furosemide [Lasix] 40 mg PO Q48H PRN 12/08/15 09/18/16 Nitroglycerin [Nitrostat] 0.4 mg SL Q5M PRN 12/08/15 09/18/16 Loratadine [Claritin] 10 mg PO DAILY PRN 02/01/16 09/18/16 Meclizine [Antivert] 12.5 mg PO TID PRN 02/01/16 09/18/16 Albuterol Sulfate [Proair 2 puff IH Q4H PRN 08/31/16 09/18/16 Respiclick] Benzonatate [Tessalon] 100 mg PO TID PRN 08/31/16 09/18/16 Budesonide/Formoterol 160/4.5 2 puff IH BIDR 08/31/16 09/18/16 [Symbicort 160/4.5] Clotrimazole 1% CRM [Lotrimin 1%] 1 appl TP HS 08/31/16 09/18/16 Clotrimazole/Betamethasone Dip 1 appl TP BID PRN 08/31/16 09/18/16 [Lotrisone Cream] Cranberry Fruit [Cranberry] 400 mg PO DAILY 08/31/16 09/18/16 Docusate Sodium [Colace] 100 mg PO DAILY PRN 08/31/16 09/05/16 Levofloxacin [Levaquin] 500 mg PO DAILY 08/31/16 09/18/16 MethylPREDNISolone 4 mg PO PER PKG DI 08/31/16 09/18/16 [MethylPREDNISolone Dose Pack] Metoprolol [Lopressor] 50 mg PO DAILY 08/31/16 09/18/16 Omeprazole [PriLOSEC] 20 mg PO DAILY 08/31/16 09/18/16 Oxygen 3 l NS AD 08/31/16 09/18/16 Polyethylene Glycol 3350 [MiraLAX 17 gm PO DAILY PRN 08/31/16 09/18/16 Powder Bulk 17.9 Oz] Psyllium Husk [Metamucil] 0.8 gm PO BID 08/31/16 09/18/16 Previous Rx's Medication Instructions Recorded Ondansetron HCl [Zofran] 4 mg PO Q6H PRN #30 tablet 01/26/16 Prochlorperazine Maleate 10 mg PO Q6HR PRN #60 tablet 01/26/16 [Compazine] metFORMIN [Glucophage] 500 mg PO BIDWM #60 tablet 03/03/16 Guaifenesin [Mucinex] 600 mg PO BID #20 tab.er.12h 03/29/16 Lidocaine Patch [Lidoderm 5% patch] 1 each TP DAILY PRN #30 adh..patch 04/07/16 Folic Acid 1 mg PO DAILY #30 tablet 04/27/16 Gabapentin [Neurontin] 800 mg PO QID #120 tablet 04/27/16 Magnesium Oxide [Magnesium] 400 mg PO DAILY #30 tablet 04/27/16 Potassium Chloride [K-Tab ER] 10 meq PO DAILY #30 tablet.er 04/27/16 OXcarbazepine [Trileptal] 150 mg PO BID #60 tablet 05/26/16 Oxycodone HCl/Acetaminophen 1 tab PO Q6H PRN #120 tablet 08/02/16 [Percocet 10-325 mg Tablet] Fluticasone Propionate Nasal 2 spr NS BID PRN #1 bottle 08/18/16 [Flonase] GuaiFENesin/Codeine [ROBITUSSIN 10 ml PO Q6HR PRN #300 liquid 08/25/16 w/CODEINE] Magic Mouthwash [Magic Mouthwash 10 ml PO QID PRN #240 ml 09/05/16 BLM] Allergies Allergy/AdvReac Type Severity Reaction Status Date / Time dofetilide [From Tikosyn] Allergy Unresponsiv Verified 09/23/16 10:09 e Iodinated Contrast- Oral and Allergy Palpitation Verified 09/23/16 10:09 IV Dye s [Iodinated Contrast Media - IV Dye] lisinopril AdvReac See Verified 09/23/16 10:09 Comments red dye AdvReac Rash Verified 09/23/16 10:09 Constitutional: Reports: weakness. Denies: fever, chills, weight change Eyes: Denies: eye pain, eye discharge, vision change ENT ED: Denies: ear pain, throat pain, dental pain, hearing loss, epistaxis, congestion, dysphagia Cardiovascular: Denies: chest pain, palpitations, dyspnea on exertion, edema, syncope Respiratory: Reports: hemoptysis. Denies: cough, dyspnea, wheezes, stridor Gastrointestinal: Denies: abdominal pain, nausea, vomiting, diarrhea, constipation, hematemesis, melena, hematochezia Genitourinary: Denies: dysuria, frequency, hematuria, discharge Musculoskeletal: Denies: back pain, neck pain, arthralgia, myalgia Integumentary: Denies: rash, abrasion, lesions Neurological: Reports: headache, weakness. Denies: numbness, paresthesias, confusion, abnormal gait, vertigo Psychiatric: Denies: anxiety, depression, suicidal thoughts, homicidal thoughts , auditory hallucinations, visual hallucinations Endocrine: Denies: fatigue Hematological/Lymphatic: Denies: easy bleeding, easy bruising Allergic/Immunologic: Denies: facial swelling, urticaria Past Medical History - Past Medical History Medical history: Reports: arthritis, atrial fibrillation, cancer, CHF, COPD, coronary artery disease, diabetes, hypertension, myocardial infarction, RA Surgical history: Reports: cholecystectomy Psychiatric history: Reports: no psych history 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 - Social History Smoking Status: Former smoker Smokeless Tobacco Status: No Alcohol use: Reports: none Drug use: Reports: none Physical Exam - General Limitations: no limitations General appearance: alert, in no apparent distress - Head Head exam: atraumatic, normocephalic, normal inspection, other (knot located on the right frontal sinus above the eyebrow, very tender to touch) - Eye Eye exam: Present: normal appearance, PERRL, EOMI - Expanded Eye Exam Pupils: Left: reactive - ENT ENT exam: normal exam, normal oropharynx, mucous membranes moist - Expanded ENT Exam External ear exam: Present: normal external inspection Mouth exam: Present: normal external inspection Teeth exam: Present: normal inspection Throat exam: Present: normal inspection - Neck Neck exam: Present: normal inspection, full ROM, trachea midline - Chest Chest inspection: Present: normal inspection, symmetric chest wall rise - Respiratory Respiratory exam: Present: normal lung sounds bilaterally - Cardiovascular Cardiovascular exam: Present: regular rate, normal rhythm, normal heart sounds - Abdominal Exam Abdominal exam: Present: soft, Non-Tender. Absent: tenderness, distention, guarding, rebound, rigidity - Extremities Exam Extremities exam: Present: normal inspection, full ROM. Absent: tenderness, pedal edema - Expanded Upper Extremity Exam Shoulder exam: Present: normal inspection, full ROM Arm exam: Present: normal inspection, full ROM Elbow exam: Present: normal inspection, full ROM Forearm/Wrist exam: Present: normal inspection, full ROM Hand exam: Present: normal inspection, full ROM Vascular exam: Normal: capillary refill, radial pulse - Expanded Lower Extremity Exam Hip/Pelvis exam: Present: normal inspection, full ROM Upper leg exam: Present: normal inspection, full ROM Knee exam: Present: normal inspection, full ROM Lower leg exam: Present: normal inspection, full ROM Ankle exam: Present: normal inspection, full ROM Foot/toe exam: Present: normal inspection, full ROM Neurovascular/Tendon exam: Absent: motor deficit, sensory deficit, tendon deficit - Back Exam Back exam: Present: normal inspection, full ROM. Absent: tenderness - Neurological Exam Neurological exam: Present: alert, oriented X3 - Expanded Neurological Exam Patient oriented to: Present: person, place, time Coma Scale Eye Opening: Spontaneous Coma Scale Motor Response: Obeys Commands Coma Scale Verbal Response: Oriented Coma Scale Total: 15 - Psychiatric Psychiatric exam: Present: normal affect, normal mood - Skin Skin exam: Present: warm, dry, intact, normal color Course Course Narrative: we will do a CT head and CTA chest. CT called stating that there was an allergy to the IV dye, upon discussion with patient she breaks out into a rash but denies any history of anaphylaxis or tongue swelling or difficulty in breathing or throat swelling. Marimar has agreed to do the allergy protocol before IV dye. - Consultations Consultation #1: discussed case with production welding supervisor pulmonolgist and he agrees that she needs to be admitted and kept NPO after midnight and treat any pulmonary infections of COPD excerbations there may be. We will admit to [facility]. Time: 13:06 Vital Signs Temperature 98.2 F 09/23/16 10:09 Pulse Rate 78 09/23/16 10:09 Respiratory Rate 15 09/23/16 10:09 Blood Pressure 101/70 09/23/16 10:09 O2 Sat by Pulse Oximetry 99 09/23/16 10:09 Temperature 98.2 F 09/23/16 10:09 Pulse Rate 73 09/23/16 12:16 Respiratory Rate 16 09/23/16 12:16 Blood Pressure 124/71 09/23/16 12:16 O2 Sat by Pulse Oximetry 96 09/23/16 12:16 Oxygen Delivery Oxygen Delivery Room Air Medical Decision Making - Lab Data Result diagrams: 09/23/16 10:37 09/23/16 10:37 Lab Results 09/23/16 09/23/16 09/23/16 Range/Units 10:37 10:37 10:37 WBC 1.8 L (4.3-11.1) K/mcL RBC 3.66 L (3.82-4.97) M/mcL Hgb 9.8 L (11.5-15.4) g/dL Hct 31.4 L (35.3-44.9) % MCV 85.8 (83.0-100.0) fL MCH 26.8 L (28.0-33.3) pg MCHC 31.2 L (31.6-35.5) g/dL RDW 16.7 H (11.5-14.5) % Plt Count 35 L (140-400) K/mcL MPV 10.0 (9.4-12.4) fL Seg Neutrophils % 30.0 % Lymphocytes % 40.0 % Monocytes % 14.0 % Eosinophils % 14.0 % Myelocytes % 2.0 H (0) % Neutrophils # 0.5 L (1.6-8.9) K/mcL Lymphocytes # 0.7 (0.6-4.6) K/mcL Monocytes # 0.3 (0.0-1.3) K/mcL Eosinophils # 0.3 (0.0-0.6) K/mcL Reactive Lymphocytes Present A (Not Present) PT 12.8 H (9.4-12.1) Seconds INR 1.2 APTT 80.9 H (26.0-36.0) Seconds Sodium (136-145) mEq/L Potassium (3.5-4.5) mEq/L Chloride (98-109) mEq/L Carbon Dioxide (19-29) mEq/L BUN (7-20) mg/dL Creatinine (0.57-1.11) mg/dL Est GFR ( Amer) (> 60) Est GFR (Non-Af Amer) (> 60) BUN/Creatinine Ratio (6-26) Glucose (70-99) mg/dL Calculated Osmolality (280-300) Calcium (8.6-10.8) mg/dL Total Bilirubin (0.2-1.2) mg/dL Direct Bilirubin (0.0-0.5) mg/dL Indirect Bilirubin (0.0-1.2) mg/dL AST (5-34) Units/L ALT (0-55) Units/L Alkaline Phosphatase (38-126) Units/L Troponin I (0-0.03) ng/mL B-Natriuretic Peptide 165 H (0-100) pg/mL Serum Total Protein (6.0-8.3) g/dL Albumin (3.5-5.0) g/dL Globulin (2.4-3.5) g/dL Albumin/Globulin Ratio (1.1-2.2) Lipase (8-78) Units/L Urine Color (Yellow) Urine Clarity (Clear) Urine pH (5.0-8.0) pH Units Ur Specific [place] (1.010-1.025) Urine Protein (Neg-Trace) mg/dL Urine Glucose (UA) (Normal) mg/dL Urine Ketones (Negative) mg/dL Urine Blood (Negative) Urine Nitrite (Negative) Urine Bilirubin (Negative) Urine Urobilinogen (Normal) mg/dL Ur Leukocyte Esterase (Negative) Urine Microscopic RBC (0-3) per hpf Urine Microscopic WBC (0-3) per hpf Ur Squamous Epith Cells (None-Few) per lpf Urine Bacteria (None-Few) per hpf Hyaline Casts (None-Few) per lpf Ur Culture Indicated? (NO) 09/23/16 09/23/16 09/23/16 Range/Units 10:37 10:37 11:47 WBC (4.3-11.1) K/mcL RBC (3.82-4.97) M/mcL Hgb (11.5-15.4) g/dL Hct (35.3-44.9) % MCV (83.0-100.0) fL MCH (28.0-33.3) pg MCHC (31.6-35.5) g/dL RDW (11.5-14.5) % Plt Count (140-400) K/mcL MPV (9.4-12.4) fL Seg Neutrophils % % Lymphocytes % % Monocytes % % Eosinophils % % Myelocytes % (0) % Neutrophils # (1.6-8.9) K/mcL Lymphocytes # (0.6-4.6) K/mcL Monocytes # (0.0-1.3) K/mcL Eosinophils # (0.0-0.6) K/mcL Reactive Lymphocytes (Not Present) PT (9.4-12.1) Seconds INR APTT (26.0-36.0) Seconds Sodium 133 L (136-145) mEq/L Potassium 4.0 (3.5-4.5) mEq/L Chloride 99 (98-109) mEq/L Carbon Dioxide 29 (19-29) mEq/L BUN 15 (7-20) mg/dL Creatinine 0.71 (0.57-1.11) mg/dL Est GFR ( Amer) > 60 (> 60) Est GFR (Non-Af Amer) > 60 (> 60) BUN/Creatinine Ratio 21 (6-26) Glucose 147 H (70-99) mg/dL Calculated Osmolality 280 (280-300) Calcium 9.2 (8.6-10.8) mg/dL Total Bilirubin 0.4 (0.2-1.2) mg/dL Direct Bilirubin 0.2 (0.0-0.5) mg/dL Indirect Bilirubin 0.2 (0.0-1.2) mg/dL AST 23 (5-34) Units/L ALT 24 (0-55) Units/L Alkaline Phosphatase 108 (38-126) Units/L Troponin I 0.00 (0-0.03) ng/mL B-Natriuretic Peptide (0-100) pg/mL Serum Total Protein 5.8 L (6.0-8.3) g/dL Albumin 2.9 L (3.5-5.0) g/dL Globulin 2.9 (2.4-3.5) g/dL Albumin/Globulin Ratio 1.0 L (1.1-2.2) Lipase 34 (8-78) Units/L Urine Color Yellow (Yellow) Urine Clarity Clear (Clear) Urine pH 6.5 (5.0-8.0) pH Units Ur Specific [place] > 1.030 H (1.010-1.025) Urine Protein 30 H (Neg-Trace) mg/dL Urine Glucose (UA) Normal (Normal) mg/dL Urine Ketones Negative (Negative) mg/dL Urine Blood Negative (Negative) Urine Nitrite Negative (Negative) Urine Bilirubin Negative (Negative) Urine Urobilinogen Normal (Normal) mg/dL Ur Leukocyte Esterase Negative (Negative) Urine Microscopic RBC 0-3 (0-3) per hpf Urine Microscopic WBC 0-3 (0-3) per hpf Ur Squamous Epith Cells Many H (None-Few) per lpf Urine Bacteria None Seen (None-Few) per hpf Hyaline Casts None Seen (None-Few) per lpf Ur Culture Indicated? NO (NO) - EKG Data EKG #1 EKG attestation: Yes I reviewed and interpreted this EKG. EKG results narrative: NSR with rate of 67. NO STEMI. normal intervals. no old EKG. 2030
[2016-09-23] MEDS ORDERED: methylPREDNISolone 125 MG/2 ML VIAL IVP ONE (10:34)
[2016-09-23] MEDS ORDERED: *HR* HYDROmorphone (PF) 1 MG/ML SYRINGE IVP ONE (10:38)
[2016-09-23 10:48] LABS: Hematocrit 31.4 % (35.3-44.9); Hemoglobin 9.8 g/dL (11.5-15.4); Mean Corpuscular HGB Conc 31.2 g/dL (31.6-35.5); Mean Corpuscular Hemoglobin 26.8 pg (28.0-33.3); Mean Corpuscular Volume 85.8 fL (83.0-100.0); Monocytes # 0.3 K/mcL (0.0-1.3); Neutrophils # 0.5 K/mcL (1.6-8.9); Red Blood Count 3.66 M/mcL (3.82-4.97); Red Cell Distribution Width 16.7 % (11.5-14.5)
[2016-09-23 10:54] LABS: INR 1.2; Prothrombin Time 12.8 Seconds (9.4-12.1)
[2016-09-23 10:56] LABS: Activated Partial Thrombo Time 80.9 Seconds (26.0-36.0)
[2016-09-23 11:04] LABS: Alanine Aminotransferase 24 Units/L (0-55); Albumin 2.9 g/dL (3.5-5.0); Alkaline Phosphatase 108 Units/L (38-126); Aspartate Amino Transferase 23 Units/L (5-34); BUN/Creatinine Ratio 21 (6-26); Bilirubin,Direct 0.2 mg/dL (0.0-0.5); Bilirubin,Indirect 0.2 mg/dL (0.0-1.2); Bilirubin,Total 0.4 mg/dL (0.2-1.2); Blood Urea Nitrogen 15 mg/dL (7-20); Calcium 9.2 mg/dL (8.6-10.8); Carbon Dioxide 29 mEq/L (19-29); Chloride 99 mEq/L (98-109); Globulin 2.9 g/dL (2.4-3.5); Glucose 147 mg/dL (70-99); Lipase 34 Units/L (8-78); Osmolality,Calculated 280 (280-300); Sodium 133 mEq/L (136-145); Total Protein 5.8 g/dL (6.0-8.3); eGFR For African Americans > 60 (> 60); eGFR For Non-African Americans > 60 (> 60)
[2016-09-23 11:13] LABS: Platelet Count 35 K/mcL (140-400)
[2016-09-23 11:19] LABS: Eosinophils # 0.3 K/mcL (0.0-0.6); Lymphocytes # 0.7 K/mcL (0.6-4.6); Reactive Lymphocytes Present (Not Present)
[2016-09-23 12:01] LABS: Bilirubin,Urine Negative (Negative); Blood,Urine Negative (Negative); Clarity,Urine Clear (Clear); Color,Urine Yellow (Yellow); Glucose,Urine (UA) Normal (Normal); Ketones,Urine Negative (Negative); Leukocyte Esterase,Urine Negative (Negative); Nitrite,Urine Negative (Negative); PH,Urine 6.5 pH Units (5.0-8.0); Protein,Urine 30 mg/dL (Neg-Trace); Specific Gravity,Urine > 1.030 (1.010-1.025); Urobilinogen,Urine Normal (Normal)
[2016-09-23 12:03] LABS: Bacteria,Urine None Seen per hpf (None-Few); Hyaline Casts,Urine None Seen per lpf (None-Few); RBC,Urine 0-3 per hpf (0-3); Squamous Epithelial Cell,Urine Many per lpf (None-Few); WBC,Urine 0-3 per hpf (0-3)
[2016-09-23] MEDS ORDERED: Naloxone 0.4 MG/ML INJ IVP PRN (13:22)
[2016-09-23] MEDS ORDERED: Benzonatate 100 MG CAPSULE PO PRN (13:24)
--- NOTE | 2016-09-23 14:21 | Internal Med History&Physical ---
Date of Encounter: 09/23/16 Time of Encounter: 14:18 Assessment and Plan (1) Hemoptysis Current visit: Yes Status: Acute started having hemoptysis last night. small amount and has BRB. possibel from the lung mass, CT does not show any pneumonia or alveolar hemorrhage at this time. will observe for today, h/h stable, monitor cbc. will hold elliquis for now, pulmonary has been consulted. NPO MN for possible bronchoscopy tomorrow. (2) Adenocarcinoma of right lung Current visit: No Status: Chronic follows with Dr. Fernando at [facility]. stage 4 right lung adenocarcinoma also followed by radiation oncology. (3) Atrial fibrillation Current visit: No Status: Chronic rate controlled. on elliquis , will hold for now given hemoptysis. Qualifiers: Atrial fibrillation type: paroxysmal Qualified Code(s): I48.0 - Paroxysmal atrial fibrillation (4) CAD (coronary artery disease) Current visit: No Status: Chronic h/o CAD s/p stents in 2008, plavix was taken off given prior ?hemoptysis . will continue home meds. Qualifiers: Coronary Disease-Associated Artery/Lesion type: [place] artery [place] vs. transplanted heart: [place] heart Associated angina: without angina Qualified Code(s): I25.10 - Atherosclerotic heart disease of [place] coronary artery without angina pectoris (5) COPD (chronic obstructive pulmonary disease) Current visit: No Status: Chronic stable, not in an any exacerbation. Qualifiers: COPD type: emphysema Qualified Code(s): J43.0 - Unilateral pulmonary emphysema [MacLeod's syndrome] (6) Diabetes mellitus Current visit: No Status: Chronic Qualifiers: Diabetes mellitus type: type 2 Diabetes mellitus complication status: with neurologic complications Diabetes mellitus complication detail: with mononeuropathy Diabetes mellitus assisted insulin use: without rodent exterminator use Qualified Code(s): E11.41 - Type 2 diabetes mellitus with diabetic mononeuropathy (7) Rheumatoid arthritis Current visit: No Status: Chronic was on methotrexate which has been stopped and is on infliximab now. Qualifiers: Rheumatoid arthritis location: multiple sites Rheumatoid factor presence: with rheumatoid factor Qualified Code(s): M05.79 - Rheumatoid arthritis with rheumatoid factor of multiple sites without organ or systems involvement (8) Sinusitis Current visit: No Status: Chronic recent CT showed possible sinusitis and has been treated with levoflox and steroids for 14 days now which she just finished. Qualifiers: Sinusitis location: unspecified location Chronicity: chronic Qualified Code(s): J32.9 - Chronic sinusitis, unspecified Internal Medicine - H&P: HPI Chief complaint: coughing blood Admitted From: Home Plans for Post Hospital Care: Home History of present illness: Ms. Reynoso is a 65 year old female with past medical history of lung cancer, CHF, CAD status post stents presented to ED after coughing up blood last night. She follows with Dr. Fernando at the [facility] and is undergoing active chemotherapy and radiation therapy. She started coughing up blood last night, small amounts but it was bright red blood. As per the , she had hemoptysis in the past but that resolved. She denies any chest pain or shortness of breath at this time, no history of fever or palpitations or dizziness or LOC. seh is awake and alert and is in no acute respiratory distress at this time. Past Med Surg Social Fam HX - Past Medical History Medical history: arthritis, atrial fibrillation, cancer, CHF, COPD, coronary artery disease, diabetes, hypertension, myocardial infarction, RA Psychiatric history: no psych history - Past Surgical History Surgical History: cholecystectomy - Social History Smoking Status: Former smoker Smokeless Tobacco Status: No Alcohol use: none Drug use: none - Family History Father Adopted: No Family Member Ethnicity: Non- Living Status: Hx Family Cardiac Disorders: Yes ([place]) Hx Family Respiratory Disorders: Yes Hx Family Cancer: Yes Hx Family GI Disorders: No Hx Family Endocrine Disorder: No Hx Family Neuromuscular Disorders: No Hx Family Neurologic Disorders: No Hx Family HEENT Disorders: No Hx Family Autoimmune Disorders: No Internal Medicine - H&P: Meds Apixaban [Eliquis] 5 mg PO BID 12/08/15 [History] Aspirin Enteric Coated [Aspirin EC] 81 mg PO DAILY 12/08/15 [History] Atorvastatin Calcium [Lipitor] 80 mg PO HS 12/08/15 [History] DULoxetine [Cymbalta] 30 mg PO BID 12/08/15 [History] Furosemide [Lasix] 40 mg PO Q48H PRN 12/08/15 [History] Nitroglycerin [Nitrostat] 0.4 mg SL Q5M PRN 12/08/15 [History] Ondansetron HCl [Zofran] 4 mg PO Q6H PRN #30 tablet 01/26/16 [Rx] Prochlorperazine Maleate [Compazine] 10 mg PO Q6HR PRN #60 tablet 01/26/16 [Rx] Loratadine [Claritin] 10 mg PO DAILY PRN 02/01/16 [History] Meclizine [Antivert] 12.5 mg PO TID PRN 02/01/16 [History] metFORMIN [Glucophage] 500 mg PO BIDWM #60 tablet 03/03/16 [Rx] Guaifenesin [Mucinex] 600 mg PO BID #20 tab.er.12h 03/29/16 [Rx] Lidocaine Patch [Lidoderm 5% patch] 1 each TP DAILY PRN #30 adh..patch 04/07/16 [Rx] Folic Acid 1 mg PO DAILY #30 tablet 04/27/16 [Rx] Gabapentin [Neurontin] 800 mg PO QID #120 tablet 04/27/16 [Rx] Magnesium Oxide [Magnesium] 400 mg PO DAILY #30 tablet 04/27/16 [Rx] Potassium Chloride [K-Tab ER] 10 meq PO DAILY #30 tablet.er 04/27/16 [Rx] OXcarbazepine [Trileptal] 150 mg PO BID #60 tablet 05/26/16 [Rx] Oxycodone HCl/Acetaminophen [Percocet 10-325 mg Tablet] 1 tab PO Q6H PRN #120 tablet 08/02/16 [Rx] GuaiFENesin/Codeine [ROBITUSSIN w/CODEINE] 10 ml PO Q6HR PRN #300 liquid [Rx] Albuterol Sulfate [Proair Respiclick] 2 puff IH Q4H PRN 08/31/16 [History] Benzonatate [Tessalon] 100 mg PO TID PRN 08/31/16 [History] Budesonide/Formoterol 160/4.5 [Symbicort 160/4.5] 2 puff IH BIDR 08/31/16 [ History] Cranberry Fruit [Cranberry] 400 mg PO DAILY 08/31/16 [History] Docusate Sodium [Colace] 100 mg PO DAILY PRN 08/31/16 [History] Metoprolol [Lopressor] 50 mg PO DAILY 08/31/16 [History] Omeprazole [PriLOSEC] 20 mg PO DAILY 08/31/16 [History] Oxygen 3 l NS AD 08/31/16 [History] Polyethylene Glycol 3350 [MiraLAX Powder Bulk 17.9 Oz] 17 gm PO DAILY PRN [History] Psyllium Husk [Metamucil] 0.8 gm PO BID 08/31/16 [History] Magic Mouthwash [Magic Mouthwash BLM] 10 ml PO QID PRN #240 ml 09/05/16 [Rx] Metformin HCl [Metformin HCl ER] 2,000 mg PO DAILY 09/23/16 [History] Allergies dofetilide [From Tikosyn] Allergy (Verified 09/23/16 10:09) Unresponsive Iodinated Contrast- Oral and IV Dye [Iodinated Contrast Media - IV Dye] Allergy (Verified 09/23/16 10:09) Palpitations lisinopril Adverse Reaction (Verified 09/23/16 10:09) See Comments unknown red dye Adverse Reaction (Verified 09/23/16 10:09) Rash All Systems PM: A 10-system review of systems was performed and is negative for pertinent findings except as documented above in the HPI. - Constitutional Constitutional: as per HPI - EENT Eyes: as per HPI Ears: as per HPI Nose, mouth and throat: as per HPI - Breasts Breasts: as per HPI - Cardiovascular Cardiovascular ROS IM: as per HPI - Respiratory Respiratory: as per HPI - Gastrointestinal Gastrointestinal: as per HPI - Genitourinary Genitourinary: as per HPI Menstruation: as per HPI - Musculoskeletal Musculoskeletal ROS IM: as per HPI - Integumentary Integumentary IM: as per HPI - Neurological Neurological ROS: as per HPI - Constitutional Vitals: Temp Pulse Resp BP Pulse Ox 98.2 F 73 18 150/89 96 09/23/16 10:09 09/23/16 12:16 09/23/16 13:30 09/23/16 13:30 09/23/16 12:16 General appearance: Present: A&O X 3, no acute distress Exam: neck- supple chest- b/l clear, no added sounds CVS-s1 and s2, no mr//g abd- soft ,non tender, bs are present ext- no edema neuro- no focal neuro defecits Internal Med - H&P Results - Labs CBC & Chem 7: 09/23/16 10:37 09/23/16 10:37 Labs: Short CBC 09/23/16 Range/Units 10:37 WBC 1.8 L (4.3-11.1) K/mcL Hgb 9.8 L (11.5-15.4) g/dL Hct 31.4 L (35.3-44.9) % Plt Count 35 L (140-400) K/mcL Neutrophils # 0.5 L (1.6-8.9) K/mcL BMP 09/23/16 10:37 Sodium 133 L Potassium 4.0 Chloride 99 Carbon Dioxide 29 BUN 15 Creatinine 0.71 Glucose 147 H Calcium 9.2 Cardiac Enzymes 09/23/16 Range/Units 10:37 Troponin I 0.00 (0-0.03) ng/mL Liver Function 09/23/16 Range/Units 10:37 Total Bilirubin 0.4 (0.2-1.2) mg/dL Direct Bilirubin 0.2 (0.0-0.5) mg/dL AST 23 (5-34) Units/L ALT 24 (0-55) Units/L Alkaline Phosphatase 108 (38-126) Units/L Albumin 2.9 L (3.5-5.0) g/dL Urine 09/23/16 Range/Units 11:47 Urine Color Yellow (Yellow) Urine Clarity Clear (Clear) Urine pH 6.5 (5.0-8.0) pH Units Ur Specific [place] > 1.030 H (1.010-1.025) Urine Protein 30 H (Neg-Trace) mg/dL Urine Glucose (UA) Normal (Normal) mg/dL - Impressions ITS Impressions Head CT 09/23/16 10:22 IMPRESSION: Findings compatible with a metastatic lesion involving the right frontal bone near the midline anteriorly. The abnormality has a permeative appearance with progressive erosion of the inner table since previous exam. In addition there is a small soft tissue component involving the outer table at this location which is now more prominent. Mild involutional changes present within the brain. Stable moderate right maxillary sinus disease. Stable right inferior mastoiditis. D/ / 09/23/2016 12:31:41 Joshua Conn MD / kye Interpreting Provider: Joshua Conn MD Chest CTA 09/23/16 10:23 IMPRESSION: 1. No evidence of pulmonary embolism 2. Stable appearance of right upper lobe mass, left upper lobe mass/parenchymal disease, pulmonary metastases, and mediastinal adenopathy 3. Interval decrease in right pleural effusion 4. Osteoblastic skeletal metastatic disease D/ / Thomas Caraballo MD / Thomas Caraballo MD Interpreting Provider: Thomas Caraballo MD Chest X-Ray 09/23/16 10:23 IMPRESSION: Improving right suprahilar mass. D/ / 09/23/2016 11:11:45 Joshua Conn MD / rober Interpreting Provider: Joshua Conn MD
[2016-09-23] MEDS ORDERED: Albuterol Neb 1.25 MG/3 ML VIAL IH PRN (14:41)
[2016-09-23] MEDS: *HR* OxyCODONE/APAP 5/325 TABLET PO PRN ×2 (15:04→21:19)
[2016-09-23] MEDS: Gabapentin 400 MG CAPSULE PO SCH ×2 (16:43→21:15)
[2016-09-23] MEDS ORDERED: D5% in Water 1,000 ML IVC PRN (17:37)
[2016-09-23] MEDS ORDERED: *HR* Dextrose 50 % in Water (Syg) 50 ML SYRINGE IVP PRN (17:37)
[2016-09-23] MEDS ORDERED: Dextrose Gel 15 GM PO PRN ×2 (17:37)
[2016-09-23] MEDS: Insulin LISPRO 300 UNITS/3 ML VIAL SQ SCH ×2 (18:11→21:16)
[2016-09-23 18:29] LABS: Hemoglobin A1C 6.4 %
[2016-09-23] MEDS: OXcarbazepine 150 MG TABLET PO SCH (21:14)
[2016-09-23] MEDS: Budesonide/Formoterol 160/4.5 MDI IH SCH (22:00)
[2016-09-24] MEDS: *HR* OxyCODONE/APAP 5/325 TABLET PO PRN ×3 (04:46→22:28)
[2016-09-24 05:50] LABS: Hemoglobin 9.7 g/dL (11.5-15.4)
[2016-09-24 05:51] LABS: Eosinophils % 1.6 %; Hematocrit 31.2 % (35.3-44.9); Lymphocytes # 0.7 K/mcL (0.6-4.6); Lymphocytes % 40.1 %; Mean Corpuscular HGB Conc 31.1 g/dL (31.6-35.5); Mean Corpuscular Volume 83.6 fL (83.0-100.0); Mean Platelet Volume 9.6 fL (9.4-12.4); Monocytes # 0.3 K/mcL (0.0-1.3); Monocytes % 18.1 %; Neutrophils # 0.7 K/mcL (1.6-8.9); Red Blood Count 3.73 M/mcL (3.82-4.97); Red Cell Distribution Width 16.7 % (11.5-14.5); Segmented Neutrophils % 40.2 %
[2016-09-24 06:00] LABS: BUN/Creatinine Ratio 15 (6-26); Blood Urea Nitrogen 11 mg/dL (7-20); Calcium 9.3 mg/dL (8.6-10.8); Carbon Dioxide 29 mEq/L (19-29); Chloride 100 mEq/L (98-109); Glucose 134 mg/dL (70-99); Osmolality,Calculated 283 (280-300); Sodium 136 mEq/L (136-145); eGFR For African Americans > 60 (> 60); eGFR For Non-African Americans > 60 (> 60)
[2016-09-24 06:04] LABS: Platelet Count 32 K/mcL (140-400)
[2016-09-24 06:21] LABS: Platelet Estimate Decreased (Normal); Reactive Lymphocytes Present (Not Present)
--- NOTE | 2016-09-24 06:56 | Pulmonology Consult Note ---
Date of Encounter: 09/24/16 Time of Encounter: 06:56 Assessment and Plan (1) Hemoptysis Current Visit: Yes Status: Acute This is a 65-year-old woman with COPD and metastatic adenocarcinoma of the lung presenting with minor hemoptysis which is secondary to bronchitis/lower respiratory tract infection chronic coughing coupled with long-term anticoagulation for atrial fibrillation. I will on possible options including conservative approach to treat upfront with antibiotics a couple of days of steroids along with cough suppression while holding anticoagulation versus proceeding with bronchoscopy this morning she said she favored the former approach which is reasonable we will continue to monitor her over the next 24- 48 hours from that standpoint Recs: -Quantify amount of hemoptysis at bedside with a base in her sputum cup -Send sputum culture -Cont daily MDIs and supplemental BDs as needed -Start levofloxacin 500 mg daily -Prednisone 40 mg daily -Continue cough suppression she is on Tessalon pearls I also added a codeine cough syrup -Agree with holding anticoagulation discussion will need to be had with patient at discharge regarding risk/benefit of continuing anticoagulation for atrial fibrillation likely in consultation with the tobacco primer machine operator -I would keep patient nothing by mouth at midnight for possibility of bronchoscopy if hemoptysis is persistent -Mechanical DVT prophylaxis for now given underlying hemoptysis Pulmonary Service will continue to follow (2) COPD (chronic obstructive pulmonary disease) Current Visit: Yes Status: Acute Qualifiers: Emphysema type: centrilobular Qualified Code(s): J43.2 - Centrilobular emphysema (3) Persistent cough for 3 weeks or longer Current Visit: No Status: Acute (4) Atrial fibrillation Current Visit: No Status: Chronic Qualifiers: Atrial fibrillation type: paroxysmal Qualified Code(s): I48.0 - Paroxysmal atrial fibrillation (5) Adenocarcinoma of right lung Current Visit: No Status: Chronic History of Present Illness Consult date: 09/24/16 Requesting physician: Michelle Funes Reason for consult: other (Hemoptysis ) Chief complaint: Coughing Up Blood History of present illness: Ms. Reynoso is a pleasant 65-year-old woman who unfortunately was diagnosed about 6 months ago with metastatic adenocarcinoma of the long period she presented for coughing up bright red blood that started approximately 24 hours prior to admission it was preceded by a worsening cough over the last week of purulent greenish sputum that progressed and resulted in hemoptysis. On admission to the ED a CTA was obtained which was negative for filling defect or clear evidence of pneumonia. Encouragingly about hemoptysis has decreased markedly with last episode noted last evening. She denies fevers or chills she does have chronic weight loss. From a cancer standpoint despite chemotherapy she is unfortunately had disease progression her current regimen regimen which was recently modified on 09/13 is Pembrolizumab Carboplatin and Alimta. She is also taking Eliquis for what appears to be stroke prevention from underlying atrial fibrillation with no prior history of VTE that I can see. She underwent bronchoscopy for chronic cough in July which was notable for chronic erythema of the airways which are noted to be friable she also had neovascular mucosa in the right upper lobe BAL was performed along with brushings which were not consistent with chronic inflammation. 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 Past Med Surg Social Fam HX - Past Medical History Medical history: arthritis, atrial fibrillation, cancer, CHF, COPD, coronary artery disease, diabetes, hypertension, myocardial infarction, RA Psychiatric history: no psych history - Past Surgical History Surgical History: cholecystectomy - Social History Smoking Status: Former smoker Smokeless Tobacco Status: No Alcohol use: none Drug use: none - Family History Father Adopted: No Family Member Ethnicity: Non- Living Status: Hx Family Cardiac Disorders: Yes ([place]) Hx Family Respiratory Disorders: Yes Hx Family Cancer: Yes Hx Family GI Disorders: No Hx Family Endocrine Disorder: No Hx Family Neuromuscular Disorders: No Hx Family Neurologic Disorders: No Hx Family HEENT Disorders: No Hx Family Autoimmune Disorders: No Medications and Allergies Apixaban [Eliquis] 5 mg PO BID 12/08/15 [History] Aspirin Enteric Coated [Aspirin EC] 81 mg PO DAILY 12/08/15 [History] Atorvastatin Calcium [Lipitor] 80 mg PO HS 12/08/15 [History] DULoxetine [Cymbalta] 30 mg PO BID 12/08/15 [History] Furosemide [Lasix] 40 mg PO Q48H PRN 12/08/15 [History] Nitroglycerin [Nitrostat] 0.4 mg SL Q5M PRN 12/08/15 [History] Ondansetron HCl [Zofran] 4 mg PO Q6H PRN #30 tablet 01/26/16 [Rx] Prochlorperazine Maleate [Compazine] 10 mg PO Q6HR PRN #60 tablet 01/26/16 [Rx] Loratadine [Claritin] 10 mg PO DAILY PRN 02/01/16 [History] Meclizine [Antivert] 12.5 mg PO TID PRN 02/01/16 [History] metFORMIN [Glucophage] 500 mg PO BIDWM #60 tablet 03/03/16 [Rx] Guaifenesin [Mucinex] 600 mg PO BID #20 tab.er.12h 03/29/16 [Rx] Lidocaine Patch [Lidoderm 5% patch] 1 each TP DAILY PRN #30 adh..patch 04/07/16 [Rx] Folic Acid 1 mg PO DAILY #30 tablet 04/27/16 [Rx] Gabapentin [Neurontin] 800 mg PO QID #120 tablet 04/27/16 [Rx] Magnesium Oxide [Magnesium] 400 mg PO DAILY #30 tablet 04/27/16 [Rx] Potassium Chloride [K-Tab ER] 10 meq PO DAILY #30 tablet.er 04/27/16 [Rx] OXcarbazepine [Trileptal] 150 mg PO BID #60 tablet 05/26/16 [Rx] Oxycodone HCl/Acetaminophen [Percocet 10-325 mg Tablet] 1 tab PO Q6H PRN #120 tablet 08/02/16 [Rx] GuaiFENesin/Codeine [ROBITUSSIN w/CODEINE] 10 ml PO Q6HR PRN #300 liquid [Rx] Albuterol Sulfate [Proair Respiclick] 2 puff IH Q4H PRN 08/31/16 [History] Benzonatate [Tessalon] 100 mg PO TID PRN 08/31/16 [History] Budesonide/Formoterol 160/4.5 [Symbicort 160/4.5] 2 puff IH BIDR 08/31/16 [ History] Cranberry Fruit [Cranberry] 400 mg PO DAILY 08/31/16 [History] Docusate Sodium [Colace] 100 mg PO DAILY PRN 08/31/16 [History] Metoprolol [Lopressor] 50 mg PO DAILY 08/31/16 [History] Omeprazole [PriLOSEC] 20 mg PO DAILY 08/31/16 [History] Oxygen 3 l NS HS 08/31/16 [History] Polyethylene Glycol 3350 [MiraLAX Powder Bulk 17.9 Oz] 17 gm PO DAILY PRN [History] Psyllium Husk [Metamucil] 0.8 gm PO BID 08/31/16 [History] Magic Mouthwash [Magic Mouthwash BLM] 10 ml PO QID PRN #240 ml 09/05/16 [Rx] Metformin HCl [Metformin HCl ER] 2,000 mg PO DAILY 09/23/16 [History] Allergies dofetilide [From Tikosyn] Allergy (Verified 09/23/16 10:09) Unresponsive Iodinated Contrast- Oral and IV Dye [Iodinated Contrast Media - IV Dye] Allergy (Verified 09/23/16 10:09) Palpitations lisinopril Adverse Reaction (Verified 09/23/16 10:09) See Comments unknown red dye Adverse Reaction (Verified 09/23/16 10:09) Rash All Systems: A 10-system review of systems was performed and is negative for pertinent findings except as documented above in the HPI. Physical Examination Vital Signs: Vital Signs, Last 4 Hours Temp Pulse Resp BP Pulse Ox 09/24/16 04:11 97.8 F 91 18 125/79 96 General appearance: no acute distress, appears uncomfortable Eyes: nonicteric ENT: oropharynx moist Auscultation: bilateral: rhonchi (no overt wheezing ) Cardiovascular: regular rate and rhythm Gastrointestinal: normoactive bowel sounds, soft, non-tender Extremities: no cyanosis, no edema, other (+ Clubbing ) Musculoskeletal: no deformities normal mental status, non-focal exam mood appropriate Results - Laboratory Findings CBC and BMP: 09/24/16 05:44 09/24/16 05:44 PT/INR, D-dimer PT 12.8 Seconds (9.4-12.1) H 09/23/16 10:37 Abnormal lab findings: Abnormal lab results WBC 1.8 K/mcL (4.3-11.1) L 09/24/16 05:44 RBC 3.73 M/mcL (3.82-4.97) L 09/24/16 05:44 Hgb 9.7 g/dL (11.5-15.4) L 09/24/16 05:44 Hct 31.2 % (35.3-44.9) L 09/24/16 05:44 MCH 26.0 pg (28.0-33.3) L 09/24/16 05:44 MCHC 31.1 g/dL (31.6-35.5) L 09/24/16 05:44 RDW 16.7 % (11.5-14.5) H 09/24/16 05:44 Plt Count 32 K/mcL (140-400) L 09/24/16 05:44 Myelocytes % 2.0 % (0) H 09/23/16 10:37 Neutrophils # 0.7 K/mcL (1.6-8.9) L 09/24/16 05:44 Reactive Lymphocytes Present (Not Present) A 09/24/16 05:44 Platelet Estimate Decreased (Normal) L 09/24/16 05:44 PT 12.8 Seconds (9.4-12.1) H 09/23/16 10:37 APTT 80.9 Seconds (26.0-36.0) H 09/23/16 10:37 Glucose 134 mg/dL (70-99) H 09/24/16 05:44 POC Glucose 179 (58-89) H 09/23/16 20:27 Hemoglobin A1c 6.4 % (-5.6) H 09/23/16 18:10 B-Natriuretic Peptide 165 pg/mL (0-100) H 09/23/16 10:37 Serum Total Protein 5.8 g/dL (6.0-8.3) L 09/23/16 10:37 Albumin 2.9 g/dL (3.5-5.0) L 09/23/16 10:37 Albumin/Globulin Ratio 1.0 (1.1-2.2) L 09/23/16 10:37 Ur Specific [place] > 1.030 (1.010-1.025) H 09/23/16 11:47 Urine Protein 30 mg/dL (Neg-Trace) H 09/23/16 11:47 Ur Squamous Epith Cells Many per lpf (None-Few) H 09/23/16 11:47 - Diagnostic Findings Chest x-ray: report reviewed, image reviewed CT scan - chest: report reviewed, image reviewed - Clinical Findings Intake & Output: Intake & Output 09/23/16 09/23/16 09/24/16 15:59 23:59 07:59 Output Total 800 / 800 500 / 500 Balance -800 / -800 -500 / -500 Weight 67.2 kg Consult Discharge Plan - Plan Referrals: Bradley Montgomery MD [Primary Care Provider] -
[2016-09-24] MEDS: OXcarbazepine 150 MG TABLET PO SCH ×2 (08:41→22:28)
[2016-09-24] MEDS: levoFLOXacin 500 MG TABLET PO SCH (08:41)
[2016-09-24] MEDS: Gabapentin 400 MG CAPSULE PO SCH ×4 (08:41→22:28)
[2016-09-24] MEDS: predniSONE 20 MG TABLET PO SCH (08:41)
[2016-09-24] MEDS: Insulin LISPRO 300 UNITS/3 ML VIAL SQ SCH ×4 (08:42→22:17)
[2016-09-24] MEDS ORDERED: Aspirin Enteric Coated 81 MG Tablet PO SCH (09:00)
--- NOTE | 2016-09-24 09:11 | Internal Med Progress Note ---
<Win Ge - Last Filed: 09/24/16 11:18> Date of Encounter: 09/24/16 Time of Encounter: 09:09 - Assessment and plan (1) Hemoptysis Current Visit: Yes Status: Acute Assessment and plan: Patient currently still having episodes of hemoptysis, likely secondary from lung CA s/p chemo/radiation Pulmonology consulted, recommended on bronchoscopy if symptoms persist; NPO at midnight Type and screen ordered, but no urgent need for transfusion at this time Continue to hold home Eliquis; will re-address medical terminologist AC prior to d/c Will recheck CBC in the AM (2) Atrial fibrillation Current Visit: No Status: Chronic Assessment and plan: Currently rate controlled on home Lopressor Holding Eliquis, will need to address medical terminologist anticoagulation prior to discharge Qualifiers: Atrial fibrillation type: paroxysmal Qualified Code(s): I48.0 - Paroxysmal atrial fibrillation (3) Non-insulin dependent type 2 diabetes mellitus Current Visit: Yes Status: Chronic Assessment and plan: Continue low dose SSI ACHS accuchecks (4) COPD (chronic obstructive pulmonary disease) Current Visit: Yes Status: Chronic Assessment and plan: Not currently in exacerbation Continue with supportive measures, oxygen, breathing treatments Qualifiers: Emphysema type: centrilobular Qualified Code(s): J43.2 - Centrilobular emphysema (5) CAD (coronary artery disease) Current Visit: No Status: Chronic Assessment and plan: No chest pain at this time Continue home ASA, Lipitor, BB Qualifiers: Coronary Disease-Associated Artery/Lesion type: [place] artery [place] vs. transplanted heart: [place] heart Associated angina: without angina Qualified Code(s): I25.10 - Atherosclerotic heart disease of [place] coronary artery without angina pectoris (6) Adenocarcinoma of right lung Current Visit: No Status: Chronic Assessment and plan: Management per oncology/radiation oncologist (7) DVT prophylaxis Current Visit: No Status: Acute Assessment and plan: EPCDs in setting of hemoptysis - Subjective Interval history: Patient seen and examined. She states she is still coughing up blood this morning. She denies any pain in her chest, shortness of breath, nausea, vomiting, diarrhea. She reports no blood loss from any other sites. - Constitutional Vitals: Temp Pulse Resp BP Pulse Ox 97.9 F 114 17 123/79 100 09/24/16 07:38 09/24/16 07:38 09/24/16 07:38 09/24/16 07:38 09/24/16 07:38 General appearance: Present: cooperative, A&O X 3, no acute distress, answers questions appropriately - Head Head exam: Present: atraumatic, normocephalic - Eye Eye exam: Present: PERRL, conjuntiva pink, sclera anicteric Pupils: Present: PERRL - Neck Neck exam general surgery: Present: supple, trachea midline. Absent: lymphadenopathy - Respiratory Respiratory exam: Present: decreased breath sounds. Absent: accessory muscle use, rales, rhonchi, wheezes - Cardiovascular Cardiovascular exam: Present: RRR, +S1, +S2. Absent: diastolic murmur, gallop, rubs, systolic murmur - GI/Abdominal GI/Abdominal exam: Present: normal bowel sounds, soft, no peritoneal signs. Absent: distended, tenderness - Extremities Exam Extremities exam: Present: warm, radial pulses palpable and symmetrical. Absent : calf tenderness, cyanotic, pedal edema - Neurological Exam Neurological exam: Present: alert, no focal deficits. Absent: facial droop, speech deficit - Skin Skin exam: Present: dry, intact Internal Medicine: Result - Labs CBC & Chem 7: 09/24/16 05:44 09/24/16 05:44 Labs: Short CBC 09/24/16 Range/Units 05:44 WBC 1.8 L (4.3-11.1) K/mcL Hgb 9.7 L (11.5-15.4) g/dL Hct 31.2 L (35.3-44.9) % Plt Count 32 L (140-400) K/mcL Neutrophils # 0.7 L (1.6-8.9) K/mcL BMP 09/24/16 05:44 Sodium 136 Potassium 4.0 Chloride 100 Carbon Dioxide 29 BUN 11 Creatinine 0.72 Glucose 134 H Calcium 9.3 - ABG Interpretation ABG results: PT/INR, D-dimer PT 12.8 Seconds (9.4-12.1) H 09/23/16 10:37 Consult Discharge Plan - Plan Referrals: Bradley Montgomery MD [Primary Care Provider] - <Tito Graham T - Last Filed: 09/24/16 14:23> Date of Encounter: 09/24/16 - Constitutional Vitals: Temp Pulse Resp BP Pulse Ox 97.6 F 72 17 127/81 98 09/24/16 11:03 09/24/16 11:03 09/24/16 11:03 09/24/16 11:03 09/24/16 11:03 Internal Medicine: Result - Labs CBC & Chem 7: 09/24/16 05:44 09/24/16 05:44 Labs: Short CBC 09/24/16 Range/Units 05:44 WBC 1.8 L (4.3-11.1) K/mcL Hgb 9.7 L (11.5-15.4) g/dL Hct 31.2 L (35.3-44.9) % Plt Count 32 L (140-400) K/mcL Neutrophils # 0.7 L (1.6-8.9) K/mcL BMP 09/24/16 05:44 Sodium 136 Potassium 4.0 Chloride 100 Carbon Dioxide 29 BUN 11 Creatinine 0.72 Glucose 134 H Calcium 9.3 - ABG Interpretation ABG results: PT/INR, D-dimer PT 12.8 Seconds (9.4-12.1) H 09/23/16 10:37 - Attending Attestation I examined this patient and my medical decision-making was reviewed with the Resident Physician on 09/24/16. I agree with the documented findings, disposition and treatment plan as described except to the extent set forth below. Seen and evaluated at bedside 65 F with Lung CA on chemoradiation, Afib, COPD, DM, RA, CAD She is admitted to observation for management of hempotysis She is hemodynamically stable at time of review She denies new complains Her Hb is stable Exam: VSS, not in distress, she is not wheezing at time of review, no rhonchi, air entry decreased bilaterally, S1, S2, no pedal edema, abdomen is benign Labs and Imaging reviewed: Hb stable at baseline, neutropenia, chronic and stable, UA clear, Chem WNL, CT scan with no evidence of alveoalr Hge Plan: Continue current care and follow pulmonary eval Rest of details as in resident physician's documentation
[2016-09-24] MEDS: Budesonide/Formoterol 160/4.5 MDI IH SCH ×2 (10:49→22:33)
[2016-09-24] MEDS: GuaiFENesin/Codeine Oral Soln 5 ML UDC PO PRN ×2 (11:22→17:25)
--- NOTE | 2016-09-24 17:27 | Electrocardiograph Report ---
[address] [address] Test Date: 2016-09-23 Pat Name: Barbara Reynoso Department: 104 Room: 2A23 Gender: F Ophthalmic Pathologist: DAISY : 1950 Requested By: Elyse Adame Order Number: [id number] Reading MD: Renee Lawler Measurements Intervals [place] Rate: 67 P: 29 CO: 151 QRS: -15 QRSD: 92 T: 48 QT: 397 QTc: 412 Interpretive Statements SINUS RHYTHM Electronically Signed On 09-24-2016 17:25:31 EDT by Renee Lawler
[2016-09-25] MEDS: GuaiFENesin/Codeine Oral Soln 5 ML UDC PO PRN ×3 (00:07→23:30)
[2016-09-25] MEDS: *HR* OxyCODONE/APAP 5/325 TABLET PO PRN ×4 (05:17→23:29)
[2016-09-25 05:42] LABS: BUN/Creatinine Ratio 17 (6-26); Blood Urea Nitrogen 12 mg/dL (7-20); Calcium 9.1 mg/dL (8.6-10.8); Carbon Dioxide 29 mEq/L (19-29); Chloride 101 mEq/L (98-109); Glucose 130 mg/dL (70-99); Osmolality,Calculated 286 (280-300); Sodium 137 mEq/L (136-145); eGFR For African Americans > 60 (> 60); eGFR For Non-African Americans > 60 (> 60)
[2016-09-25 06:37] LABS: Hematocrit 30.3 % (35.3-44.9); Hemoglobin 9.4 g/dL (11.5-15.4); Mean Corpuscular Hemoglobin 26.9 pg (28.0-33.3); Mean Corpuscular Volume 86.6 fL (83.0-100.0); Mean Platelet Volume 10.2 fL (9.4-12.4); Red Cell Distribution Width 16.8 % (11.5-14.5)
[2016-09-25 07:03] LABS: Platelet Count 24 K/mcL (140-400)
[2016-09-25 07:50] LABS: Lymphocytes # 1.4 K/mcL (0.6-4.6); Monocytes # 0.1 K/mcL (0.0-1.3); Neutrophils # 0.4 K/mcL (1.6-8.9)
[2016-09-25 07:51] LABS: Anisocytosis 1+ (Not Present); Platelet Estimate Decreased (Normal)
[2016-09-25] MEDS: Insulin LISPRO 300 UNITS/3 ML VIAL SQ SCH ×4 (07:56→23:30)
[2016-09-25] MEDS: levoFLOXacin 500 MG TABLET PO SCH (08:25)
[2016-09-25] MEDS: OXcarbazepine 150 MG TABLET PO SCH ×2 (08:25→23:29)
[2016-09-25] MEDS: predniSONE 20 MG TABLET PO SCH (08:26)
[2016-09-25] MEDS: Gabapentin 400 MG CAPSULE PO SCH ×4 (08:26→23:30)
--- NOTE | 2016-09-25 10:53 | Internal Med Progress Note ---
<Win Ge - Last Filed: 09/25/16 14:08> Date of Encounter: 09/25/16 Time of Encounter: 10:00 - Assessment and plan (1) Hemoptysis Current Visit: Yes Status: Acute Assessment and plan: Patient currently still having episodes of hemoptysis, likely secondary from lung CA s/p chemo/radiation Pulmonology consulted, will plan on bronchoscopy once platelets are above 50,000 Type and screen ordered, but no urgent need for transfusion at this time Continue to hold home Eliquis; will re-address exterminator helper termite AC prior to d/c Will recheck CBC in the afternoon and again in the AM (2) Atrial fibrillation Current Visit: No Status: Chronic Assessment and plan: Currently rate controlled on home Lopressor Holding Eliquis, will need to address intermediate anticoagulation prior to discharge Qualifiers: Atrial fibrillation type: paroxysmal Qualified Code(s): I48.0 - Paroxysmal atrial fibrillation (3) Non-insulin dependent type 2 diabetes mellitus Current Visit: Yes Status: Chronic Assessment and plan: Continue low dose SSI ACHS accuchecks (4) COPD (chronic obstructive pulmonary disease) Current Visit: Yes Status: Chronic Assessment and plan: Not currently in exacerbation Continue with supportive measures, oxygen, breathing treatments Qualifiers: Emphysema type: unspecified Qualified Code(s): J43.9 - Emphysema, unspecified (5) CAD (coronary artery disease) Current Visit: No Status: Chronic Assessment and plan: No chest pain at this time Continue home Lipitor, BB; ASA on hold for upcoming procedure Qualifiers: Coronary Disease-Associated Artery/Lesion type: [place] artery [place] vs. transplanted heart: [place] heart Associated angina: without angina Qualified Code(s): I25.10 - Atherosclerotic heart disease of [place] coronary artery without angina pectoris (6) Adenocarcinoma of right lung Current Visit: No Status: Chronic Assessment and plan: Management per oncology/radiation oncologist (7) DVT prophylaxis Current Visit: No Status: Acute Assessment and plan: EPCDs in setting of hemoptysis - Subjective Interval history: Patient seen and examined. She states she is still coughing up blood this afternoon after she had her radiation therapy. She denies any pain in her chest , shortness of breath, nausea, vomiting, diarrhea. She reports no blood loss from any other sites. Patient is complaining of bruising in her feet but denies any pain in them. - Constitutional Vitals: Temp Pulse Resp BP Pulse Ox 98.0 F 84 16 126/73 98 09/25/16 07:01 09/25/16 07:01 09/25/16 07:01 09/25/16 07:01 09/25/16 08:35 General appearance: Present: cooperative, A&O X 3, pleasant, no acute distress, answers questions appropriately - Head Head exam: Present: atraumatic, normocephalic - Eye Eye exam: Present: PERRL, conjuntiva pink, sclera anicteric - Neck Neck exam general surgery: Present: supple, trachea midline. Absent: lymphadenopathy - Respiratory Respiratory exam: Present: CTAB. Absent: accessory muscle use, rales, rhonchi, wheezes - Cardiovascular Cardiovascular exam: Present: RRR, +S1, +S2. Absent: diastolic murmur, gallop, rubs, systolic murmur - GI/Abdominal GI/Abdominal exam: Present: normal bowel sounds, soft, no peritoneal signs. Absent: distended, tenderness - Extremities Exam Extremities exam: Present: warm, radial pulses palpable and symmetrical. Absent : calf tenderness, cyanotic, pedal edema - Neurological Exam Neurological exam: Present: alert, no focal deficits. Absent: pronater drift, facial droop, speech deficit - Skin Skin exam: Present: erythema (noted in the dorsum of her feet bilaterally) Additional comments: bruises noted in her feet bilaterally, bandaged Internal Medicine: Result - Labs CBC & Chem 7: 09/25/16 Unknown 09/25/16 Unknown Labs: Short CBC 09/25/16 Range/Units Unknown WBC 1.9 L (4.3-11.1) K/mcL Hgb 9.4 L (11.5-15.4) g/dL Hct 30.3 L (35.3-44.9) % Plt Count 24 L* (140-400) K/mcL Neutrophils # 0.4 L (1.6-8.9) K/mcL BMP 09/25/16 Unknown Sodium 137 Potassium 4.0 Chloride 101 Carbon Dioxide 29 BUN 12 Creatinine 0.72 Glucose 130 H Calcium 9.1 - ABG Interpretation ABG results: PT/INR, D-dimer PT 12.8 Seconds (9.4-12.1) H 09/23/16 10:37 Consult Discharge Plan - Plan Referrals: Bradley Montgomery MD [Primary Care Provider] - <Tito Graham T - Last Filed: 09/25/16 15:30> Date of Encounter: 09/25/16 - Constitutional Vitals: Temp Pulse Resp BP Pulse Ox 98.2 F 70 16 131/79 100 09/25/16 14:35 09/25/16 14:35 09/25/16 14:35 09/25/16 14:35 09/25/16 14:35 Internal Medicine: Result - Labs CBC & Chem 7: 09/25/16 Unknown 09/25/16 Unknown Labs: Short CBC 09/25/16 09/25/16 Range/Units 14:48 Unknown WBC 0.8 L* D 1.9 L (4.3-11.1) K/mcL Hgb 8.5 L 9.4 L (11.5-15.4) g/dL Hct 27.2 L 30.3 L (35.3-44.9) % Plt Count 34 L 24 L* (140-400) K/mcL Neutrophils # 0.4 L (1.6-8.9) K/mcL BMP 09/25/16 Unknown Sodium 137 Potassium 4.0 Chloride 101 Carbon Dioxide 29 BUN 12 Creatinine 0.72 Glucose 130 H Calcium 9.1 - ABG Interpretation ABG results: PT/INR, D-dimer PT 12.8 Seconds (9.4-12.1) H 09/23/16 10:37 - Attending Attestation I examined this patient and my medical decision-making was reviewed with the Resident Physician on 09/25/16. I agree with the documented findings, disposition and treatment plan as described except to the extent set forth below. Seen and evaluated at bedside 65 F with Lung CA on chemo-radiation, Afib, COPD, DM, RA, CAD She is admitted to observation for management of hemoptysis She is hemodynamically stable at time of review and is s/p radiation at this time Her PLT dropped to 24 this a.m and she meets requirement for PLT transfusion for bronchoscopy She denies new complains Exam: VSS, not in distress, she is not wheezing at time of review, no rhonchi, air entry decreased bilaterally, S1, S2, no pedal edema, abdomen is benign, R foot with petechiae, L foot with chronic venous changes and some bruises from compression stockings, pulses are present bilaterally, and healed diabetic ulcers Labs and Imaging reviewed: pancytopenia, Chem at baseline transfuse PLT till >50, pul for bronch, continue to hold Eliquis, wound care consult for her diabetic ulcers. Other chronic conditions are stable, she is not wheezing at this time Rest of details as in resident physician's documentation
[2016-09-25] MEDS: Budesonide/Formoterol 160/4.5 MDI IH SCH ×2 (11:01→22:19)
[2016-09-25] MEDS ORDERED: 0.9 % Sodium Chloride 250 ML ONE ×2 (12:05→22:58)
[2016-09-25 15:04] LABS: Mean Platelet Volume 9.1 fL (9.4-12.4)
[2016-09-25 15:05] LABS: Hematocrit 27.2 % (35.3-44.9); Hemoglobin 8.5 g/dL (11.5-15.4); Immature Granulocytes % 1.2 % (0-4); Lymphocytes # 0.3 K/mcL (0.6-4.6); Lymphocytes % 38.1 %; Mean Corpuscular HGB Conc 31.3 g/dL (31.6-35.5); Mean Corpuscular Volume 86.3 fL (83.0-100.0); Monocytes # 0.1 K/mcL (0.0-1.3); Monocytes % 14.3 %; Neutrophils # 0.4 K/mcL (1.6-8.9); Red Blood Count 3.15 M/mcL (3.82-4.97); Red Cell Distribution Width 16.8 % (11.5-14.5); Segmented Neutrophils % 46.4 %
[2016-09-25 15:09] LABS: Platelet Count 34 K/mcL (140-400)
[2016-09-25 15:43] LABS: Platelet Estimate Marked Decrease (Normal)
--- NOTE | 2016-09-25 17:17 | Pulmonology Progress Note ---
Date of Encounter: 09/25/16 Time of Encounter: 04:30 Assessment and Plan (1) Hemoptysis Current Visit: Yes Status: Acute This is most likely secondary to thrombocytopenia and also patient was taking aspirin and anticoagulation. I have stopped her aspirin and discussed with primary team regarding platelets transfusion. Due to hemoptysis it is recommended platelets number to be above 50,000 if possible. If she continued to have hemoptysis after that, then will consider bronchoscopy. (2) COPD (chronic obstructive pulmonary disease) Current Visit: Yes Status: Chronic Qualifiers: Emphysema type: unspecified Qualified Code(s): J43.9 - Emphysema, unspecified (3) Adenocarcinoma of right lung Current Visit: No Status: Chronic Patient is getting radiation treatment, which I hope it will help hemoptysis as well, however sometimes it could get worse and close monitoring is recommended. Subjective Principal diagnosis: Hemoptysis Interval history: Patient is to have some hemoptysis, however is improved after platelet transfusion. Objective PUL Vital signs: Last Vital Signs Temp 98.4 F 09/25/16 15:29 Pulse 69 09/25/16 15:29 Resp 17 09/25/16 15:29 BP 144/84 09/25/16 15:29 Pulse Ox 100 09/25/16 15:29 General appearance: appears uncomfortable Eyes: nonicteric ENT: oropharynx dry Neck: supple, no JVD Effort: normal Auscultation: bilateral: diminished breath sounds Percussion: bilateral: not dull Cardiovascular: regular rate and rhythm Gastrointestinal: normoactive bowel sounds, non-distended Extremities: no cyanosis normal mental status, non-focal exam mood appropriate Results - Laboratory Findings CBC and BMP: 09/25/16 Unknown 09/25/16 Unknown PT/INR, D-dimer PT 12.8 Seconds (9.4-12.1) H 09/23/16 10:37 Abnormal lab findings: Abnormal lab results WBC 1.9 K/mcL (4.3-11.1) L 09/25/16 Unknown RBC 3.50 M/mcL (3.82-4.97) L 09/25/16 Unknown Hgb 9.4 g/dL (11.5-15.4) L 09/25/16 Unknown Hct 30.3 % (35.3-44.9) L 09/25/16 Unknown MCH 26.9 pg (28.0-33.3) L 09/25/16 Unknown MCHC 31.0 g/dL (31.6-35.5) L 09/25/16 Unknown RDW 16.8 % (11.5-14.5) H 09/25/16 Unknown Plt Count 24 K/mcL (140-400) L* 09/25/16 Unknown Myelocytes % 2.0 % (0) H 09/23/16 10:37 Neutrophils # 0.4 K/mcL (1.6-8.9) L 09/25/16 Unknown Reactive Lymphocytes Present (Not Present) A 09/24/16 05:44 Platelet Estimate Decreased (Normal) L 09/25/16 Unknown Anisocytosis 1+ (Not Present) A 09/25/16 Unknown PT 12.8 Seconds (9.4-12.1) H 09/23/16 10:37 APTT 80.9 Seconds (26.0-36.0) H 09/23/16 10:37 Glucose 130 mg/dL (70-99) H 09/25/16 Unknown POC Glucose 191 (58-89) H 09/24/16 20:26 Hemoglobin A1c 6.4 % (-5.6) H 09/23/16 18:10 B-Natriuretic Peptide 165 pg/mL (0-100) H 09/23/16 10:37 Serum Total Protein 5.8 g/dL (6.0-8.3) L 09/23/16 10:37 Albumin 2.9 g/dL (3.5-5.0) L 09/23/16 10:37 Albumin/Globulin Ratio 1.0 (1.1-2.2) L 09/23/16 10:37 Ur Specific [place] > 1.030 (1.010-1.025) H 09/23/16 11:47 Urine Protein 30 mg/dL (Neg-Trace) H 09/23/16 11:47 Ur Squamous Epith Cells Many per lpf (None-Few) H 09/23/16 11:47 - Microbiology Findings Microbiology Findings: Microbiology, Last 48 Hours 09/24/16 08:47 Sputum Culture - Preliminary Sputum - Diagnostic Findings CT scan - chest: report reviewed, image reviewed - Clinical Findings Intake & Output: Intake & Output 09/25/16 09/25/16 09/25/16 07:59 15:59 23:59 Intake Total 402 / 402 Balance 402 / 402 Weight 67.6 kg Consult Discharge Plan - Plan Referrals: Bradley Montgomery MD [Primary Care Provider] -
[2016-09-26 05:21] LABS: Eosinophils # 0.1 K/mcL (0.0-0.6); Hematocrit 26.6 % (35.3-44.9); Hemoglobin 8.3 g/dL (11.5-15.4); Mean Corpuscular HGB Conc 31.2 g/dL (31.6-35.5); Mean Corpuscular Hemoglobin 26.6 pg (28.0-33.3); Mean Corpuscular Volume 85.3 fL (83.0-100.0); Mean Platelet Volume 9.5 fL (9.4-12.4); Red Blood Count 3.12 M/mcL (3.82-4.97); Red Cell Distribution Width 16.6 % (11.5-14.5)
[2016-09-26 05:22] LABS: Platelet Count 50 K/mcL (140-400)
[2016-09-26 05:31] LABS: BUN/Creatinine Ratio 19 (6-26); Blood Urea Nitrogen 12 mg/dL (7-20); Calcium 9.3 mg/dL (8.6-10.8); Carbon Dioxide 31 mEq/L (19-29); Chloride 103 mEq/L (98-109); Glucose 112 mg/dL (70-99); Osmolality,Calculated 289 (280-300); Potassium 3.7 mEq/L (3.5-4.5); Sodium 139 mEq/L (136-145); eGFR For African Americans > 60 (> 60); eGFR For Non-African Americans > 60 (> 60)
[2016-09-26 05:41] LABS: Monocytes # 0.2 K/mcL (0.0-1.3); Neutrophils # 0.3 K/mcL (1.6-8.9); Platelet Estimate Decreased (Normal)
[2016-09-26 05:42] LABS: Anisocytosis 1+ (Not Present); Macrocytosis Present (Not Present); Microcytosis Present (Not Present)
[2016-09-26] MEDS: Budesonide/Formoterol 160/4.5 MDI IH SCH ×2 (08:03→20:00)
[2016-09-26] MEDS: Insulin LISPRO 300 UNITS/3 ML VIAL SQ SCH ×4 (08:09→20:50)
[2016-09-26] MEDS: *HR* OxyCODONE/APAP 5/325 TABLET PO PRN ×3 (08:15→22:51)
[2016-09-26] MEDS: GuaiFENesin/Codeine Oral Soln 5 ML UDC PO PRN (11:33)
[2016-09-26] MEDS: OXcarbazepine 150 MG TABLET PO SCH ×2 (11:34→20:50)
[2016-09-26] MEDS: predniSONE 20 MG TABLET PO SCH (11:34)
[2016-09-26] MEDS: levoFLOXacin 500 MG TABLET PO SCH (11:34)
[2016-09-26] MEDS: Gabapentin 400 MG CAPSULE PO SCH ×4 (11:37→20:49)
[2016-09-26] MEDS ORDERED: Silvasorb 44.4 ML TUBE TP SCH (13:15)
--- NOTE | 2016-09-26 15:48 | Pulmonology Progress Note ---
Date of Encounter: 09/26/16 Time of Encounter: 03:00 Assessment and Plan (1) Hemoptysis Current Visit: Yes Status: Acute This is most likely secondary to thrombocytopenia and also patient was taking aspirin and anticoagulation. I have stopped her aspirin and discussed with primary team regarding platelets transfusion. Due to hemoptysis it is recommended platelets number to be above 50,000 if possible. If she continued to have hemoptysis after that, then will consider bronchoscopy. 09/26 overall hemoptysis is improving with platelet transfusion. One more time no plan for bronchoscopy at this time and treatment with radiation therapy. We will continue follow-up and this was explained to the patient. (2) COPD (chronic obstructive pulmonary disease) Current Visit: Yes Status: Chronic Qualifiers: Emphysema type: unspecified Qualified Code(s): J43.9 - Emphysema, unspecified (3) Adenocarcinoma of right lung Current Visit: No Status: Chronic Patient is getting radiation treatment, which I hope it will help hemoptysis as well, however sometimes it could get worse and close monitoring is recommended. Subjective Principal diagnosis: Hemoptysis Interval history: Patient is not having any significant hemoptysis now after correction of her platelets. She has received second radiation therapy. Objective PUL Vital signs: Last Vital Signs Temp 97.6 F 09/26/16 11:00 Pulse 81 09/26/16 11:00 Resp 16 09/26/16 11:00 BP 139/83 09/26/16 11:00 Pulse Ox 100 09/26/16 11:00 General appearance: no acute distress Eyes: nonicteric ENT: oropharynx moist Neck: supple Effort: normal Auscultation: bilateral: rhonchi Percussion: bilateral: not dull Cardiovascular: regular rate and rhythm Gastrointestinal: normoactive bowel sounds, non-distended Extremities: no cyanosis normal mental status, non-focal exam mood appropriate Results - Laboratory Findings CBC and BMP: 09/26/16 05:16 09/26/16 05:16 PT/INR, D-dimer PT 12.8 Seconds (9.4-12.1) H 09/23/16 10:37 Abnormal lab findings: Abnormal lab results WBC 1.5 K/mcL (4.3-11.1) L D 09/26/16 05:16 RBC 3.12 M/mcL (3.82-4.97) L 09/26/16 05:16 Hgb 8.3 g/dL (11.5-15.4) L 09/26/16 05:16 Hct 26.6 % (35.3-44.9) L 09/26/16 05:16 MCH 26.6 pg (28.0-33.3) L 09/26/16 05:16 MCHC 31.2 g/dL (31.6-35.5) L 09/26/16 05:16 RDW 16.6 % (11.5-14.5) H 09/26/16 05:16 Plt Count 50 K/mcL (140-400) L 09/26/16 05:16 Myelocytes % 2.0 % (0) H 09/23/16 10:37 Neutrophils # 0.3 K/mcL (1.6-8.9) L 09/26/16 05:16 Reactive Lymphocytes Present (Not Present) A 09/24/16 05:44 Platelet Estimate Decreased (Normal) L 09/26/16 05:16 Anisocytosis 1+ (Not Present) A 09/26/16 05:16 Microcytosis Present (Not Present) A 09/26/16 05:16 Macrocytosis Present (Not Present) A 09/26/16 05:16 PT 12.8 Seconds (9.4-12.1) H 09/23/16 10:37 APTT 80.9 Seconds (26.0-36.0) H 09/23/16 10:37 Carbon Dioxide 31 mEq/L (19-29) H 09/26/16 05:16 Glucose 112 mg/dL (70-99) H 09/26/16 05:16 POC Glucose 143 (58-89) H 09/26/16 11:56 Hemoglobin A1c 6.4 % (-5.6) H 09/23/16 18:10 B-Natriuretic Peptide 165 pg/mL (0-100) H 09/23/16 10:37 Serum Total Protein 5.8 g/dL (6.0-8.3) L 09/23/16 10:37 Albumin 2.9 g/dL (3.5-5.0) L 09/23/16 10:37 Albumin/Globulin Ratio 1.0 (1.1-2.2) L 09/23/16 10:37 Ur Specific [place] > 1.030 (1.010-1.025) H 09/23/16 11:47 Urine Protein 30 mg/dL (Neg-Trace) H 09/23/16 11:47 Ur Squamous Epith Cells Many per lpf (None-Few) H 09/23/16 11:47 - Microbiology Findings Microbiology Findings: Microbiology, Last 48 Hours 09/24/16 08:47 Sputum Culture - Final Sputum - Clinical Findings Intake & Output: Intake & Output 09/25/16 09/26/16 09/26/16 23:59 07:59 15:59 Intake Total 240 / 240 265 / 265 Balance 240 / 240 265 / 265 Weight 67.8 kg Consult Discharge Plan - Plan Referrals: Bradley Montgomery MD [Primary Care Provider] - 10/02/16 9:45 am
--- NOTE | 2016-09-26 16:16 | Internal Med Progress Note ---
<Win Ge - Last Filed: 09/26/16 16:13> Date of Encounter: 09/26/16 Time of Encounter: 16:13 - Assessment and plan (1) Hemoptysis Current Visit: Yes Status: Acute Assessment and plan: Patient's hemoptysis likely secondary from lung CA s/p chemo/radiation Pulmonology consulted, but will hold off on bronchoscopy for now Type and screen ordered, but no urgent need for transfusion at this time Continue to hold home Eliquis; she is leaning towards stopping Eliquis upon DC and just be on ASA alone Will recheck CBC in the afternoon and again in the AM (2) Pancytopenia Current Visit: Yes Status: Acute Assessment and plan: Likely from chemotherapy as she previously did not have any thrombocytopenia or leukopenia prior to this visit Oncology saw patient today while she was in radiation and has decreased her Carboplatin dose Appreciate recommendations of Oncology (3) Atrial fibrillation Current Visit: No Status: Chronic Assessment and plan: Currently rate controlled on home Lopressor Holding Eliquis as above Qualifiers: Atrial fibrillation type: paroxysmal Qualified Code(s): I48.0 - Paroxysmal atrial fibrillation (4) Non-insulin dependent type 2 diabetes mellitus Current Visit: Yes Status: Chronic Assessment and plan: Continue low dose SSI ACHS accuchecks (5) COPD (chronic obstructive pulmonary disease) Current Visit: Yes Status: Chronic Assessment and plan: Not currently in exacerbation Continue with supportive measures, oxygen, breathing treatments Qualifiers: Emphysema type: unspecified Qualified Code(s): J43.9 - Emphysema, unspecified (6) CAD (coronary artery disease) Current Visit: No Status: Chronic Assessment and plan: No chest pain at this time Continue home Lipitor, BB; ASA on hold while she still has hemoptysis Qualifiers: Coronary Disease-Associated Artery/Lesion type: [place] artery [place] vs. transplanted heart: [place] heart Associated angina: without angina Qualified Code(s): I25.10 - Atherosclerotic heart disease of [place] coronary artery without angina pectoris (7) Adenocarcinoma of right lung Current Visit: No Status: Chronic Assessment and plan: Management per oncology/radiation oncologist Dr. Fernando did see patient during her radiation treatment today and is aware of pancytopenia and has decreased her Carboplatin dose (8) Severe protein-calorie malnutrition Current Visit: Yes Status: Acute (9) DVT prophylaxis Current Visit: No Status: Acute Assessment and plan: EPCDs in setting of hemoptysis - Subjective Interval history: Patient seen and examined. She states she had an episode of coughing up blood earlier this morning when she had her radiation, but has not had any since then. She denies any pain, shortness of breath, nausea, vomiting, fevers, diarrhea. She is willing to go home tomorrow. - Constitutional Vitals: Temp Pulse Resp BP Pulse Ox 97.6 F 81 16 139/83 100 09/26/16 11:00 09/26/16 11:00 09/26/16 11:00 09/26/16 11:00 09/26/16 11:00 General appearance: Present: cooperative, A&O X 3, pleasant, no acute distress, answers questions appropriately - Head Head exam: Present: atraumatic, normocephalic - Eye Eye exam: Present: PERRL, conjuntiva pink, sclera anicteric - Neck Neck exam general surgery: Present: supple, trachea midline. Absent: lymphadenopathy - Respiratory Respiratory exam: Present: CTAB. Absent: accessory muscle use, rales, rhonchi, wheezes - Cardiovascular Cardiovascular exam: Present: RRR, +S1, +S2. Absent: diastolic murmur, gallop, rubs, systolic murmur - GI/Abdominal GI/Abdominal exam: Present: normal bowel sounds, soft, no peritoneal signs. Absent: distended, tenderness - Extremities Exam Extremities exam: Present: warm, radial pulses palpable and symmetrical. Absent : calf tenderness, cyanotic, pedal edema - Neurological Exam Neurological exam: Present: alert, no focal deficits. Absent: facial droop, speech deficit - Skin Skin exam: Present: dry, intact Internal Medicine: Result - Labs CBC & Chem 7: 09/26/16 05:16 09/26/16 05:16 Labs: Short CBC 09/26/16 Range/Units 05:16 WBC 1.5 L D (4.3-11.1) K/mcL Hgb 8.3 L (11.5-15.4) g/dL Hct 26.6 L (35.3-44.9) % Plt Count 50 L (140-400) K/mcL Neutrophils # 0.3 L (1.6-8.9) K/mcL BMP 09/26/16 05:16 Sodium 139 Potassium 3.7 Chloride 103 Carbon Dioxide 31 H BUN 12 Creatinine 0.63 Glucose 112 H Calcium 9.3 - ABG Interpretation ABG results: PT/INR, D-dimer PT 12.8 Seconds (9.4-12.1) H 09/23/16 10:37 Consult Discharge Plan - Plan Referrals: Bradley Montgomery MD [Primary Care Provider] - 10/02/16 9:45 am <Higinio Charles P - Last Filed: 09/26/16 17:07> Date of Encounter: 09/26/16 - Constitutional Vitals: Temp Pulse Resp BP Pulse Ox 97.6 F 81 16 139/83 100 09/26/16 11:00 09/26/16 11:00 09/26/16 11:00 09/26/16 11:00 09/26/16 11:00 Internal Medicine: Result - Labs CBC & Chem 7: 09/26/16 05:16 09/26/16 05:16 - ABG Interpretation ABG results: PT/INR, D-dimer PT 12.8 Seconds (9.4-12.1) H 09/23/16 10:37 - Attending Attestation I examined this patient and my medical decision-making was reviewed with the Resident Physician. I agree with the documented findings, disposition and treatment plan as described except to the extent set forth below.
[2016-09-27] MEDS: GuaiFENesin/Codeine Oral Soln 5 ML UDC PO PRN (00:13)
[2016-09-27 04:00] LABS: Eosinophils % 1.3 %; Hematocrit 27.7 % (35.3-44.9); Hemoglobin 8.6 g/dL (11.5-15.4); Immature Granulocytes % 0.6 % (0-4); Immature Platelets 4.5 % (1.1-6.1); Lymphocytes # 0.7 K/mcL (0.6-4.6); Lymphocytes % 48.1 %; Mean Corpuscular Hemoglobin 26.7 pg (28.0-33.3); Monocytes # 0.3 K/mcL (0.0-1.3); Monocytes % 21.4 %; Neutrophils # 0.4 K/mcL (1.6-8.9); Red Blood Count 3.22 M/mcL (3.82-4.97); Red Cell Distribution Width 16.9 % (11.5-14.5); Segmented Neutrophils % 28.6 %
[2016-09-27 04:15] LABS: BUN/Creatinine Ratio 25 (6-26); Blood Urea Nitrogen 16 mg/dL (7-20); Carbon Dioxide 27 mEq/L (19-29); Chloride 102 mEq/L (98-109); Glucose 132 mg/dL (70-99); Osmolality,Calculated 285 (280-300); Potassium 4.2 mEq/L (3.5-4.5); Sodium 136 mEq/L (136-145); eGFR For African Americans > 60 (> 60); eGFR For Non-African Americans > 60 (> 60)
[2016-09-27 04:21] LABS: Platelet Count 55 K/mcL (140-400)
[2016-09-27 04:24] LABS: Platelet Estimate Decreased (Normal)
[2016-09-27 04:25] LABS: Anisocytosis 1+ (Not Present)
[2016-09-27] MEDS ORDERED: Acetaminophen 325 MG TABLET PO PRN (04:29)
[2016-09-27 07:14] VITALS: BP 165/92
[2016-09-27] MEDS: Budesonide/Formoterol 160/4.5 MDI IH SCH (07:51)
--- NOTE | 2016-09-27 08:05 | Internal Med Progress Note ---
Date of Encounter: 09/27/16 Time of Encounter: 08:05 - Assessment and plan (1) Hemoptysis Current Visit: Yes Status: Acute (2) Pancytopenia Current Visit: Yes Status: Acute (3) Atrial fibrillation Current Visit: No Status: Chronic Qualifiers: Atrial fibrillation type: paroxysmal Qualified Code(s): I48.0 - Paroxysmal atrial fibrillation (4) Non-insulin dependent type 2 diabetes mellitus Current Visit: Yes Status: Chronic (5) COPD (chronic obstructive pulmonary disease) Current Visit: Yes Status: Chronic Qualifiers: Emphysema type: unspecified Qualified Code(s): J43.9 - Emphysema, unspecified (6) CAD (coronary artery disease) Current Visit: No Status: Chronic Qualifiers: Coronary Disease-Associated Artery/Lesion type: [place] artery [place] vs. transplanted heart: [place] heart Associated angina: without angina Qualified Code(s): I25.10 - Atherosclerotic heart disease of [place] coronary artery without angina pectoris (7) Adenocarcinoma of right lung Current Visit: No Status: Chronic (8) Severe protein-calorie malnutrition Current Visit: Yes Status: Acute (9) DVT prophylaxis Current Visit: No Status: Acute - Subjective Interval history: Patient seen and examined. She states she had an episode of coughing up blood earlier this morning when she had her radiation, but has not had any since then. She denies any pain, shortness of breath, nausea, vomiting, fevers, diarrhea. She is willing to go home tomorrow. - Constitutional Vitals: Temp Pulse Resp BP Pulse Ox 98 F 70 18 165/92 97 09/27/16 07:13 09/27/16 07:13 09/27/16 07:53 09/27/16 07:13 09/27/16 07:53 General appearance: Present: cooperative, A&O X 3, pleasant, no acute distress, answers questions appropriately Internal Medicine: Result - Labs CBC & Chem 7: 09/27/16 03:08 09/27/16 03:08 Labs: Short CBC 09/27/16 Range/Units 03:08 WBC 1.5 L (4.3-11.1) K/mcL Hgb 8.6 L (11.5-15.4) g/dL Hct 27.7 L (35.3-44.9) % Plt Count 55 L (140-400) K/mcL Neutrophils # 0.4 L (1.6-8.9) K/mcL BMP 09/27/16 03:08 Sodium 136 Potassium 4.2 Chloride 102 Carbon Dioxide 27 BUN 16 Creatinine 0.64 Glucose 132 H Calcium 9.0 - ABG Interpretation ABG results: PT/INR, D-dimer PT 12.8 Seconds (9.4-12.1) H 09/23/16 10:37 Consult Discharge Plan - Plan Referrals: Bradley Montgomery MD [Primary Care Provider] - 10/02/16 9:45 am
--- NOTE | 2016-09-27 08:17 | Discharge Summary ---
<Win Ge - Last Filed: 09/27/16 15:28> Date of Encounter: 09/27/16 Time of Encounter: 08:16 - Discharge Diagnosis (1) Hemoptysis Priority: Primary Status: Resolved (2) Pancytopenia Priority: Secondary Status: Acute (3) Atrial fibrillation Priority: Secondary Status: Chronic Qualifiers: Atrial fibrillation type: paroxysmal Qualified Code(s): I48.0 - Paroxysmal atrial fibrillation (4) Non-insulin dependent type 2 diabetes mellitus Priority: Secondary Status: Chronic (5) COPD (chronic obstructive pulmonary disease) Priority: Secondary Status: Chronic Qualifiers: Emphysema type: unspecified Qualified Code(s): J43.9 - Emphysema, unspecified (6) CAD (coronary artery disease) Priority: Secondary Status: Chronic Qualifiers: Coronary Disease-Associated Artery/Lesion type: [place] artery [place] vs. transplanted heart: [place] heart Associated angina: without angina Qualified Code(s): I25.10 - Atherosclerotic heart disease of [place] coronary artery without angina pectoris (7) Adenocarcinoma of right lung Priority: Secondary Status: Chronic (8) Severe protein-calorie malnutrition Priority: Secondary Status: Acute (9) DVT prophylaxis Priority: Secondary Status: Acute - Discharge Medications Prescriptions: Aspirin Enteric Coated [Aspirin EC] 81 mg PO DAILY #30 tablet.dr Home Medications: Atorvastatin Calcium [Lipitor] 80 mg PO HS 12/08/15 [History] DULoxetine [Cymbalta] 30 mg PO BID 12/08/15 [History] Furosemide [Lasix] 40 mg PO Q48H PRN 12/08/15 [History] Nitroglycerin [Nitrostat] 0.4 mg SL Q5M PRN 12/08/15 [History] Ondansetron HCl [Zofran] 4 mg PO Q6H PRN #30 tablet 01/26/16 [Rx] Prochlorperazine Maleate [Compazine] 10 mg PO Q6HR PRN #60 tablet 01/26/16 [Rx] Loratadine [Claritin] 10 mg PO DAILY PRN 02/01/16 [History] Meclizine [Antivert] 12.5 mg PO TID PRN 02/01/16 [History] metFORMIN [Glucophage] 500 mg PO BIDWM #60 tablet 03/03/16 [Rx] Guaifenesin [Mucinex] 600 mg PO BID #20 tab.er.12h 02/15/17 [Rx] Lidocaine Patch [Lidoderm 5% patch] 1 each TP DAILY PRN #30 adh..patch 04/07/16 [Rx] Folic Acid 1 mg PO DAILY #30 tablet 04/27/16 [Rx] Gabapentin [Neurontin] 800 mg PO QID #120 tablet 04/27/16 [Rx] Magnesium Oxide [Magnesium] 400 mg PO DAILY #30 tablet 04/27/16 [Rx] Potassium Chloride [K-Tab ER] 10 meq PO DAILY #30 tablet.er 04/27/16 [Rx] OXcarbazepine [Trileptal] 150 mg PO BID #60 tablet 05/26/16 [Rx] Oxycodone HCl/Acetaminophen [Percocet 10-325 mg Tablet] 1 tab PO Q6H PRN #120 tablet 08/02/16 [Rx] GuaiFENesin/Codeine [ROBITUSSIN w/CODEINE] 10 ml PO Q6HR PRN #300 liquid [Rx] Albuterol Sulfate [Proair Respiclick] 2 puff IH Q4H PRN 08/31/16 [History] Benzonatate [Tessalon] 100 mg PO TID PRN 08/31/16 [History] Budesonide/Formoterol 160/4.5 [Symbicort 160/4.5] 2 puff IH BIDR 08/31/16 [ History] Cranberry Fruit [Cranberry] 400 mg PO DAILY 08/31/16 [History] Docusate Sodium [Colace] 100 mg PO DAILY PRN 08/31/16 [History] Metoprolol [Lopressor] 50 mg PO DAILY 08/31/16 [History] Omeprazole [PriLOSEC] 20 mg PO DAILY 08/31/16 [History] Oxygen 3 l NS HS 08/31/16 [History] Polyethylene Glycol 3350 [MiraLAX Powder Bulk 17.9 Oz] 17 gm PO DAILY PRN [History] Psyllium Husk [Metamucil] 0.8 gm PO BID 08/31/16 [History] Magic Mouthwash [Magic Mouthwash BLM] 10 ml PO QID PRN #240 ml 09/05/16 [Rx] Aspirin Enteric Coated [Aspirin EC] 81 mg PO DAILY #30 tablet. 09/27/16 [Rx] Allergies/Adverse Reactions: dofetilide [From Tikosyn] Allergy (Verified 09/26/16 09:24) Unresponsive Iodinated Contrast- Oral and IV Dye [Iodinated Contrast Media - IV Dye] Allergy (Verified 09/26/16 09:24) Palpitations lisinopril Adverse Reaction (Verified 09/26/16 09:24) See Comments unknown red dye Adverse Reaction (Verified 09/26/16 09:24) Rash Date of admission: 09/26/16 16:32 Primary care physician: Bradley Montgomery MD - Patient Status Disposition: Home, Self-Care Condition: Good Functional capacity at discharge: independent ambulation Overall status at discharge: patient is progressing back to baseline - Discharge Instructions Instructions: Diabetes Mellitus Type 2 in Adults (DC), Chronic Obstructive Pulmonary Disease (DC), Anemia (GEN) Follow Up With: Bradley Montgomery MD [Primary Care Provider] - 10/02/16 9:45 am Additional Instructions: Please follow up with PCP within 1 week. If hemoptysis comes back, please return to the ED and you will need to establish with a script coordinator. - Diet and Activity Activity: increase activity as tolerated Diet: advance to your usual diet Interval History: Pt seen and examined. She is comfortable eating in bed this morning. She has no more coughing up blood since yesterday morning and is eager to go today. No chest pain, shortness of breath, fever, nausea, vomiting, diarrhea. Hospital course: Ms. Reynoso is a 65 year old female who presented with hemoptysis that started last Sunday. She has history of adenocarcinoma of the lungs and is currently on chemo/radiation at [facility]. She had been on Eliquis for Afib which was stopped. Blood work found that she was pancytopenic, which is new for her, and her platelets were 35 and hemoglobin was 9.8. She did not receive any blood as she remained hemodynamically stable, but she did require platelet transfusion as pulmonology was planning on possible bronchscopy. However, they elected that she did not need it as the procedure may have caused more harm that benefit as they believed the bleeding was secondary to her chemotherapy. Her oncologist was consulted as she was doing radiation during the week of discharge and decided to give her a break from the chemo. Her platelets increased slightly after this was stopped and she did not any additional intervention for this hemopytsis as it had resolved for the last couple days. She also takes ASA and Plavix for h/o CAD but her stent was in 2008 so it was recommended she only take low dose ASA and hold her Plavix. Risks and benefits were discussed for the Eliquis and she elected to hold it for now and would discuss with her PCP within 1 week of discharge. - Time Spent with Patient Total time spent providing and/or coordinating discharge services: - Constitutional Vitals: Temp Pulse Resp BP Pulse Ox 98 F 70 18 165/92 97 09/27/16 07:13 09/27/16 07:13 09/27/16 07:53 09/27/16 07:13 09/27/16 07:53 General appearance: Present: cooperative, A&O X 3, pleasant, no acute distress, answers questions appropriately - Head Head exam: Present: atraumatic, normocephalic - Eye Eye exam: Present: PERRL, conjuntiva pink, sclera anicteric - Neck Neck exam general surgery: Present: supple, trachea midline. Absent: lymphadenopathy - Respiratory Respiratory exam: Present: CTAB. Absent: accessory muscle use, rales, rhonchi, wheezes - Cardiovascular Cardiovascular exam: Present: RRR, +S1, +S2. Absent: diastolic murmur, gallop, rubs, systolic murmur - GI/Abdominal GI/Abdominal exam: Present: normal bowel sounds, soft, no peritoneal signs. Absent: distended, tenderness - Extremities Exam Extremities exam: Present: warm, radial pulses palpable and symmetrical. Absent : calf tenderness, cyanotic, pedal edema - Neurological Exam Neurological exam: Present: alert, no focal deficits. Absent: facial droop, speech deficit - Skin Skin exam: Present: dry, intact <Araceli,Higinio P - Last Filed: 09/27/16 17:38> Date of Encounter: 09/27/16 Date of admission: 09/26/16 16:32 Primary care physician: Bradley Montgomery MD Hospital course: Ms. Reynoso is a 65 year old female - Time Spent with Patient Total time spent providing and/or coordinating discharge services: - Constitutional Vitals: Temp Pulse Resp BP Pulse Ox 98 F 70 18 165/92 97 09/27/16 07:13 09/27/16 07:13 09/27/16 07:53 09/27/16 07:13 09/27/16 09:11 - Attending Attestation I examined this patient and my medical decision-making was reviewed with the Resident Physician. I agree with the documented findings, disposition and treatment plan as described except to the extent set forth below.
[2016-09-27] MEDS: Insulin LISPRO 300 UNITS/3 ML VIAL SQ SCH (08:58)
[2016-09-27] MEDS: levoFLOXacin 500 MG TABLET PO SCH (09:02)
[2016-09-27] MEDS: predniSONE 20 MG TABLET PO SCH (09:02)
[2016-09-27] MEDS: Gabapentin 400 MG CAPSULE PO SCH (09:02)
[2016-09-27] MEDS: OXcarbazepine 150 MG TABLET PO SCH (09:02)
--- NOTE | 2016-09-27 09:41 | Pulmonology Progress Note ---
Date of Encounter: 09/27/16 Time of Encounter: 08:00 Assessment and Plan (1) Hemoptysis Current Visit: Yes Status: Resolved This is most likely secondary to thrombocytopenia and also patient was taking aspirin and anticoagulation. I have stopped her aspirin and discussed with primary team regarding platelets transfusion. Due to hemoptysis it is recommended platelets number to be above 50,000 if possible. If she continued to have hemoptysis after that, then will consider bronchoscopy. 09/26 overall hemoptysis is improving with platelet transfusion. One more time no plan for bronchoscopy at this time and treatment with radiation therapy. We will continue follow-up and this was explained to the patient. 09/27 there is no evidence of hemoptysis since platelets numbers stay above 50, 000. Discussed with primary team if no hemoptysis and platelets stays stable then can use low-dose baby aspirin. (2) COPD (chronic obstructive pulmonary disease) Current Visit: Yes Status: Chronic Patient can follow-up in the office as scheduled Qualifiers: Emphysema type: unspecified Qualified Code(s): J43.9 - Emphysema, unspecified (3) Adenocarcinoma of right lung Current Visit: No Status: Chronic Patient is getting radiation treatment, which I hope it will help hemoptysis as well, however sometimes it could get worse and close monitoring is recommended. Subjective Principal diagnosis: Hemoptysis Interval history: Patient denies any hemoptysis and she is feeling better Objective PUL Vital signs: Last Vital Signs Temp 98 F 09/27/16 07:13 Pulse 70 09/27/16 07:13 Resp 18 09/27/16 07:53 BP 165/92 09/27/16 07:13 Pulse Ox 97 09/27/16 09:11 General appearance: no acute distress Eyes: nonicteric ENT: oropharynx moist Neck: supple Effort: normal Auscultation: bilateral: rhonchi Percussion: bilateral: not dull Cardiovascular: regular rate and rhythm Gastrointestinal: normoactive bowel sounds, non-distended Extremities: no cyanosis normal mental status, non-focal exam mood appropriate Results - Laboratory Findings CBC and BMP: 09/27/16 03:08 09/27/16 03:08 PT/INR, D-dimer PT 12.8 Seconds (9.4-12.1) H 09/23/16 10:37 Abnormal lab findings: Abnormal lab results WBC 1.5 K/mcL (4.3-11.1) L 09/27/16 03:08 RBC 3.22 M/mcL (3.82-4.97) L 09/27/16 03:08 Hgb 8.6 g/dL (11.5-15.4) L 09/27/16 03:08 Hct 27.7 % (35.3-44.9) L 09/27/16 03:08 MCH 26.7 pg (28.0-33.3) L 09/27/16 03:08 MCHC 31.0 g/dL (31.6-35.5) L 09/27/16 03:08 RDW 16.9 % (11.5-14.5) H 09/27/16 03:08 Plt Count 55 K/mcL (140-400) L 09/27/16 03:08 Myelocytes % 2.0 % (0) H 09/23/16 10:37 Neutrophils # 0.4 K/mcL (1.6-8.9) L 09/27/16 03:08 Reactive Lymphocytes Present (Not Present) A 09/24/16 05:44 Platelet Estimate Decreased (Normal) L 09/27/16 03:08 Anisocytosis 1+ (Not Present) A 09/27/16 03:08 Microcytosis Present (Not Present) A 09/26/16 05:16 Macrocytosis Present (Not Present) A 09/26/16 05:16 PT 12.8 Seconds (9.4-12.1) H 09/23/16 10:37 APTT 80.9 Seconds (26.0-36.0) H 09/23/16 10:37 Glucose 132 mg/dL (70-99) H 09/27/16 03:08 POC Glucose 244 (58-89) H 09/26/16 16:35 Hemoglobin A1c 6.4 % (-5.6) H 09/23/16 18:10 B-Natriuretic Peptide 165 pg/mL (0-100) H 09/23/16 10:37 Serum Total Protein 5.8 g/dL (6.0-8.3) L 09/23/16 10:37 Albumin 2.9 g/dL (3.5-5.0) L 09/23/16 10:37 Albumin/Globulin Ratio 1.0 (1.1-2.2) L 09/23/16 10:37 Ur Specific [place] > 1.030 (1.010-1.025) H 09/23/16 11:47 Urine Protein 30 mg/dL (Neg-Trace) H 09/23/16 11:47 Ur Squamous Epith Cells Many per lpf (None-Few) H 09/23/16 11:47 - Clinical Findings Intake & Output: Intake & Output 09/26/16 09/27/16 09/27/16 23:59 07:59 15:59 Weight 67.676 kg Consult Discharge Plan - Plan Referrals: Bradley Montgomery MD [Primary Care Provider] - 10/02/16 9:45 am
--- NOTE | 2016-09-27 10:34 | On Treatment Visit ---
- Radiation On Treatment Visit Oncology history: Diagnosis: Adenocarcinoma of the right upper lobe, [id number] with osseous, axillary allison, and subcutaneous metastases Previous Treatment: 11/26/2015: CT-guided lung biopsy 12/01/2015: Bronchoscopy with endobronchial ultrasound and biopsy 02/21/2015 - 12/29/2015: Palliative radiotherapy to L5/Sacrum, 2,000 cGy in 5 fractions 01/05/2016 - 07/2016: Keytruda 04/04/2016 - 04/10/2016: Palliative Radiotherapy to Left ilium, 2000 cGy in 5 fractions 08/14/2016: Right abdominal wall biopsy (metastatic adenocarcinoma) 08/23/2016 - 08/29/2016: Palliative radiotherapy to the right upper lobe and right abdominal wall, 2000 cGy in 5 fractions to each site 09/13/2016: Start Carboplatin/Alimpta/Keytruda Current treatment: Palliative radiotherapy to frontal skull Current dose: 1200 cGy of 2000 cGy Subjective: Admitted for hemoptysis. Being discharged today. Eliquis stopped. Bronchoscopy deferred. Forehead pain stable. Persistent cough with no further hemoptysis. Vital Signs: Last Vital Signs Temp 98 F 09/27/16 07:13 Pulse 70 09/27/16 07:13 Resp 18 09/27/16 07:53 BP 165/92 09/27/16 07:13 Pulse Ox 97 09/27/16 09:11 - Imaging Imaging completed: PORT FILM Image notes: The above images have been reviewed weekly. The set up was reviewed. The dosimetry, dose delivery, and treatment parameters have been reviewed. - Assessment Assessment: Assessment: Undergoing palliative radiotherapy to right frontal bone metastasis. Plan: Continue palliative radiotherapy as planned. Edmund Reynoso MD Radiation Oncologist [facility] [address] [place] [address] This report was generated using [employer] dictation.
== END 2016-09-27 11:14 | disposition home or self-care (01) | DRG 204 ==
LOC: 2ANU 10:05 → EMEROO 10:05 → SUATTDRO 13:48 → 2ANU 14:11
PROVIDERS: ADMIT Internal Medicine Endocrinology, Diabetes & Metabolism; ATTEND Internal Medicine

== ENCOUNTER 2016-11-30 09:21 | Inpatient (IN) ==
--- NOTE | 2016-11-30 10:43 | Emergency Department Note ---
Disposition Clinical Impression: Cellulitis Qualifiers: Site of cellulitis: extremity Site of cellulitis of extremity: toe Laterality: left Qualified Code(s): L03.032 - Cellulitis of left toe Anemia Qualifiers: Anemia type: unspecified type Qualified Code(s): D64.9 - Anemia, unspecified Disposition: Admitted As Inpatient Condition: Fair Referrals: Bradley Montgomery MD [Primary Care Provider] - Forms: ED Satisfaction Letter Extremity Problem HPI - General Chief complaint: ED Extremity Problem,Nontraumatic Stated complaint: left foot edema Time Seen by Provider: 11/30/16 09:53 Source: patient, family Limitations: no limitations Nursing Notes Reviewed: Yes Vital Signs Reviewed: Yes - History of Present Illness HPI Narrative: Patient does have a history of a left great toe ulceration which is improved however for the last 2 or 3 days does have erythema and swelling of the left foot. They called their hot worker however he is on his way to a conference today and so recommended they come to the emergency department. She denies any fevers or vomiting or there is no confusion. Patient does not have any chest pain or shortness of breath. Social history: Smoker. The patient does have history of lung cancer and is undergoing chemotherapy Pain Scale: 8 - Related Data Home Medications Medication Instructions Recorded Confirmed Atorvastatin Calcium [Lipitor] 80 mg PO HS 12/08/15 11/30/16 DULoxetine [Cymbalta] 30 mg PO BID 12/08/15 11/30/16 Furosemide [Lasix] 40 mg PO Q48H PRN 12/08/15 11/30/16 Nitroglycerin [Nitrostat] 0.4 mg SL Q5M PRN 12/08/15 11/30/16 Loratadine [Claritin] 10 mg PO DAILY PRN 02/01/16 11/30/16 Meclizine [Antivert] 12.5 mg PO TID PRN 02/01/16 11/30/16 Albuterol Sulfate [Proair 2 puff IH Q4H PRN 08/31/16 11/30/16 Respiclick] Budesonide/Formoterol 160/4.5 2 puff IH BIDR 08/31/16 11/30/16 [Symbicort 160/4.5] Cranberry Fruit [Cranberry] 400 mg PO DAILY 08/31/16 11/30/16 Docusate Sodium [Colace] 100 mg PO DAILY PRN 08/31/16 11/30/16 Oxygen 3 l NS HS 08/31/16 11/30/16 Polyethylene Glycol 3350 [MiraLAX 17 gm PO DAILY PRN 08/31/16 11/30/16 Powder Bulk 17.9 Oz] Psyllium Husk [Metamucil] 0.8 gm PO BID 08/31/16 11/30/16 Metformin HCl [Metformin HCl ER] 500 mg PO BID 11/30/16 11/30/16 Metoprolol [Lopressor] 25 mg PO DAILY 11/30/16 11/30/16 Nitrofurantoin (BID) [Macrobid] 100 mg PO DAILY 11/30/16 11/30/16 Previous Rx's Medication Instructions Recorded Ondansetron HCl [Zofran] 4 mg PO Q6H PRN #30 tablet 01/26/16 Prochlorperazine Maleate 10 mg PO Q6HR PRN #60 tablet 01/26/16 [Compazine] Lidocaine Patch [Lidoderm 5% patch] 1 each TP DAILY PRN #30 adh..patch 04/07/16 Gabapentin [Neurontin] 800 mg PO QID #120 tablet 04/27/16 OXcarbazepine [Trileptal] 150 mg PO BID #60 tablet 05/26/16 Aspirin Enteric Coated [Aspirin EC] 81 mg PO DAILY #30 tablet.dr 09/27/16 Folic Acid 1 mg PO DAILY #30 tablet 10/10/16 Magnesium Oxide [Magnesium] 400 mg PO DAILY #30 tablet 10/10/16 Oxycodone HCl/Acetaminophen 1 tab PO Q6H PRN #120 tablet 10/10/16 [Percocet 10-325 mg Tablet] Potassium Chloride [K-Tab ER] 10 meq PO DAILY #30 tablet.er 10/10/16 Omeprazole [PriLOSEC] 20 mg PO DAILY #30 10/23/16 Magic Mouthwash [Magic Mouthwash 10 ml PO QID PRN #500 ml 11/14/16 BLM] Allergies Allergy/AdvReac Type Severity Reaction Status Date / Time dofetilide [From Tikosyn] Allergy Unresponsiv Verified 11/30/16 09:46 e Iodinated Contrast- Oral and Allergy Palpitation Verified 11/30/16 09:46 IV Dye s [Iodinated Contrast Media - IV Dye] lisinopril AdvReac See Verified 11/30/16 09:46 Comments red dye AdvReac Rash Verified 11/30/16 09:46 Review of Systems: No fevers or vomiting or confusion Constitutional: No fever Vision: No blurred vision ENT: No rhinorrhea Respiratory: No cough Allergic: No allergies : No blood in urine GI: No blood in stool Hematologic: No bruising Dermatologic: No skin rash except for the redness of the left foot Musculoskeletal: No pain in the extremities Neuro: No new numbness of the extremities Past Medical History - Past Medical History Medical history: Reports: arthritis, atrial fibrillation, cancer, CHF, COPD, coronary artery disease, diabetes, hypertension, myocardial infarction, RA Surgical history: Reports: cholecystectomy Psychiatric history: Reports: no psych history MUSHROOM CULTIVATOR history: Reports: no MUSHROOM CULTIVATOR history - Social History Smoking Status: Former smoker Smokeless Tobacco Status: No Alcohol use: Reports: none Drug use: Reports: none Physical Exam CONSTITUTIONAL: Alert and oriented X3, well-nourished, well appearing, in no apparent distress HEAD: Normocephalic; atraumatic. EYES: PERRL, no scleral icterus. NOSE: The nose is normal in appearance without rhinorrhea RESP: Normal chest excursion with respiration; breath sounds clear and equal bilaterally; no wheezes, rhonchi, or rales CARD: Regular rhythm, without murmurs, rub or gallop ABD: Non-distended; non-tender, soft,without rigidity, rebound or guarding SKIN: Normal for age and race; warm and dry; no apparent lesions Extremities: There is minimal erythema of the left foot but it is warm and is not cyanotic. There is a small ulceration over the plantar aspect of the left great toe laterally and it does not look infected. No erythema or purulence. No crepitus or necrosis. Doppler pulse is positive for pulsations - General Limitations: no limitations General appearance: alert, in no apparent distress Course Vital Signs Temperature 97.7 F 11/30/16 09:46 Pulse Rate 90 11/30/16 09:46 Respiratory Rate 18 11/30/16 09:46 Blood Pressure 86/55 11/30/16 09:46 O2 Sat by Pulse Oximetry 99 11/30/16 09:46 Temperature 97.7 F 11/30/16 09:46 Pulse Rate 85 11/30/16 12:56 Respiratory Rate 18 11/30/16 12:56 Blood Pressure 121/75 11/30/16 12:56 O2 Sat by Pulse Oximetry 97 11/30/16 12:56 Oxygen Delivery Oxygen Delivery Room Air Extremity Problem, Nontraumati - MDM Narrative Medical decision making narrative: The patient likely has a cellulitis of her left foot and will hopefully be able to be treated as an outpatient as she does have an appointment later today to look at a mass in the pelvis which is thought to be likely metastatic. She does have an appointment with her primary care physician and with her hot worker on Sunday, in 4 days. Patient is bright and alert and nontoxic in appearance. She is here with her 1043 I did go back and spoke again with the patient and her . She will be admitted based on the fact that her lactate is significantly elevated as well as the fact that she was initially hypotensive I did start the patient on IV vancomycin. She does have good Doppler pulse. 1254 I did speak with the hospitalist who accepts the patient for admission. Patient received 1 L IV fluid. Hemoglobin will followed as an inpatient. 1326 - Medical Records Medical records reviewed: Yes I reviewed the patient's medical records. - Lab Data Lab results reviewed: Yes I reviewed the patient's lab results. Result diagrams: 11/30/16 11:33 11/30/16 11:33 Lab Results 11/30/16 11/30/16 11/30/16 Range/Units 11:33 11:33 11:33 WBC 7.1 (4.3-11.1) K/mcL RBC 2.44 L (3.82-4.97) M/mcL Hgb 7.5 L (11.5-15.4) g/dL Hct 24.2 L (35.3-44.9) % MCV 99.2 (83.0-100.0) fL MCH 30.7 (28.0-33.3) pg MCHC 31.0 L (31.6-35.5) g/dL RDW 24.7 H (11.5-14.5) % Plt Count 146 (140-400) K/mcL MPV 10.1 (9.4-12.4) fL Sodium 132 L (136-145) mEq/L Potassium 3.5 (3.5-4.5) mEq/L Chloride 96 L (98-109) mEq/L Carbon Dioxide 26 (19-29) mEq/L BUN 13 (7-20) mg/dL Creatinine 0.75 (0.57-1.11) mg/dL Est GFR ( Amer) > 60 (> 60) Est GFR (Non-Af Amer) > 60 (> 60) BUN/Creatinine Ratio 17 (6-26) Glucose 111 H (70-99) mg/dL Calculated Osmolality 275 L (280-300) Lactic Acid 2.9 H (0.5-2.2) mmol/L Calcium 8.6 (8.6-10.8) mg/dL - Radiology Data Radiology results reviewed: Yes I reviewed the patient's radiology results.
[2016-11-30 11:51] LABS: BUN/Creatinine Ratio 17 (6-26); Blood Urea Nitrogen 13 mg/dL (7-20); Calcium 8.6 mg/dL (8.6-10.8); Carbon Dioxide 26 mEq/L (19-29); Chloride 96 mEq/L (98-109); Glucose 111 mg/dL (70-99); Osmolality,Calculated 275 (280-300); Potassium 3.5 mEq/L (3.5-4.5); Sodium 132 mEq/L (136-145); eGFR For African Americans > 60 (> 60); eGFR For Non-African Americans > 60 (> 60)
[2016-11-30 11:56] LABS: Hematocrit 24.2 % (35.3-44.9); Mean Corpuscular Hemoglobin 30.7 pg (28.0-33.3); Mean Corpuscular Volume 99.2 fL (83.0-100.0); Mean Platelet Volume 10.1 fL (9.4-12.4); Platelet Count 146 K/mcL (140-400); Red Blood Count 2.44 M/mcL (3.82-4.97); Red Cell Distribution Width 24.7 % (11.5-14.5)
[2016-11-30 12:12] LABS: Hemoglobin 7.5 g/dL (11.5-15.4)
[2016-11-30] MEDS ORDERED: Vancomycin 1,000 MG in D5% in Water 250 ML IVPB ONE ×2 (12:19→12:29)
[2016-11-30] MEDS ORDERED: 0.9 % Sodium Chloride 1,000 ML IVC ONE (13:25)
[2016-11-30] MEDS ORDERED: Ondansetron 4 MG/2 ML VIAL IVP PRN (15:11)
[2016-11-30] MEDS ORDERED: Naloxone 0.4 MG/ML INJ IVP PRN (15:11)
[2016-11-30] MEDS ORDERED: *HR* Morphine 2 MG/ML SYRINGE IVP PRN (15:11)
[2016-11-30] MEDS ORDERED: Acetaminophen 325 MG TABLET PO PRN (15:11)
[2016-11-30] MEDS ORDERED: D5% in Water 1,000 ML IVC PRN (15:17)
[2016-11-30] MEDS ORDERED: *HR* Dextrose 50 % in Water (Syg) 50 ML SYRINGE IVP PRN (15:17)
[2016-11-30] MEDS ORDERED: Dextrose Gel 15 GM PO PRN ×2 (15:17)
[2016-11-30] MEDS ORDERED: Furosemide 40 MG TABLET PO PRN (15:18)
[2016-11-30] MEDS ORDERED: Loratadine 10 MG TABLET PO PRN (15:18)
[2016-11-30] MEDS ORDERED: Nitroglycerin 0.4 MG TAB.SUBL SL PRN (15:18)
[2016-11-30] MEDS ORDERED: Benzonatate 100 MG CAPSULE PO PRN (15:21)
--- NOTE | 2016-11-30 15:38 | Internal Med History&Physical ---
<Doug Lucia - Last Filed: 11/30/16 18:30> Date of Encounter: 11/30/16 Time of Encounter: 14:30 Assessment and Plan (1) Cellulitis Current visit: Yes Status: Acute Cellulitis of top of left great toe w/purulent drainage. Painful to touch. Toe and inner portion of foot erythematous/edematous. Wound culture ordered. Blood cultures x2. Wound Care consult and daily wound care. IVPB vancomycin w/ pharmacy dosing and Zosyn 3.375 gm Q8 for infection coverage. Pt. not sepsis criteria at this time. Monitor f/u labs. Adjust abx coverage based on culture results. Pt. at high risk for increased infection/sepsis based on current sx/hx/ risk factors. Inpatient status. Qualifiers: Site of cellulitis: extremity Site of cellulitis of extremity: toe Laterality: left Qualified Code(s): L03.032 - Cellulitis of left toe (2) Encounter for chemotherapy management Current visit: Yes Status: Acute Pt. takes chemo/radiation for lung CA. Reports chemotherapy encounter tomorrow. Oncology consult ordered. (3) Acute exacerbation of chronic obstructive airways disease Current visit: Yes Status: Acute Hx of chronic COPD with acute exacerbation. Supplemental O2 w/titration, SpO2 monitoring, tessalon 100 mg TID for cough, DuoNebs Q4 scheduled. Continue pts. inhalers and PO steroid. (4) Anemia Current visit: Yes Status: Chronic Hx of chronic anemia. Hgb 7.5, Hct 24.2, down from 9.5 and 30.4 on 10/31/16. Fecal hemoccult ordered. Trend H/H Q6. Continue patient's B supplementation. Type and screen ordered. Qualifiers: Anemia type: unspecified type Qualified Code(s): D64.9 - Anemia, unspecified (5) Severe protein-calorie malnutrition Current visit: Yes Status: Chronic Protein calorie malnutrition d/t current lung CA dx. Nutrition consult for PO supplementation. (6) CAD (coronary artery disease) Current visit: Yes Status: Chronic Hx of CAD. Continuous telemetry. Continue Lipitor, Lopressor, and aspirin therapy. Qualifiers: Coronary Disease-Associated Artery/Lesion type: [place] artery [place] vs. transplanted heart: [place] heart Associated angina: without angina Qualified Code(s): I25.10 - Atherosclerotic heart disease of [place] coronary artery without angina pectoris (7) Diabetes mellitus Current visit: Yes Status: Chronic Hx of chronic diabetes controlled by oral medications. Administer low-dose correction insulin sliding scale with hypoglycemic protocol. BG checks ACHS. A1c ordered in a.m. labs. Qualifiers: Diabetes mellitus type: type 2 Diabetes mellitus complication status: with neurologic complications Diabetes mellitus complication detail: with mononeuropathy Diabetes mellitus terminal worker insulin use: without terminal worker use Qualified Code(s): E11.41 - Type 2 diabetes mellitus with diabetic mononeuropathy (8) Decubitus ulcer Current visit: Yes Status: Chronic Hx of chronic decubitus ulcer of left great toe. Wound Care consult, dailyu wound care, diabetes education consult ordered. Qualifiers: Pressure ulcer location: toe Pressure ulcer stage: stage 3 Laterality: left Qualified Code(s): L89.893 - Pressure ulcer of other site, stage 3 (9) DVT prophylaxis Current visit: Yes Status: Acute Mechanical SCDs on bilateral calves for DVT prophylaxis d/t drop in Hgb/Hct over past month and possible GI bleed. Fecal hemoccult ordered. Internal Medicine - H&P: HPI Chief complaint: Painful sore on left great toe Admitted From: Emergency Dept Plans for Post Hospital Care: Home History of present illness: Ms. Reynoso is a 66 year old female with medical history of arthritis, atrial fibrillation, lung cancer (currently taking chemotherapy and radiation), CHF, COPD, CAD, diabetes controlled with oral antihyperglycemic, HTN, previous IA 4 years ago with placement of 2 stents, and RA presents the ED with chief complaint of painful sore on left great toe for the past week. Patient states she has a decubitus ulcer on the underside of her left great toe as well that has been healing. States she receives wound care. Reports Hx of falls and weight loss over the past several months greater than 30 pounds. reports dizziness w/ambulation and SOB r/t lung cancer and COPD. Reports smoking 1 PPD and quitting this month but now smoking again. Patient reports pain but denies recent illness, fever, chills, nausea, vomiting, chest pain, changes in vision, unusual bleeding, lightheadedness, presyncope, or syncope. Past Med Surg Social Fam HX - Past Medical History Source: patient, old records reviewed Medical history: arthritis, atrial fibrillation, cancer, CHF, COPD, coronary artery disease, diabetes, hypertension, myocardial infarction, RA Psychiatric history: no psych history - Past Surgical History Surgical History: cholecystectomy - Social History Smoking Status: Current some day smoker Packs per day: 1 PPD Smokeless Tobacco Status: No Alcohol use: none Drug use: none Current living situation: Home Activity Level: Independent ambulation, Uses cane/walker Recent Out of Country Travel Within the Last 8 Weeks: No Exposure or Possible Exposure to Illness During Travel: No - Family History Father Adopted: No Race: Family Member Ethnicity: Non- Living Status: Age at : 57 Cause of : Lung cancer Hx Family Cardiac Disorders: Yes (CAD) Hx Family Cancer: Yes (Lung) Hx Family Endocrine Disorder: Yes (DM) Mother Adopted: No Race: Family Member Ethnicity: Non- Living Status: Age at : 57 Cause of : Lung cancer Hx Family Cardiac Disorders: Yes (CAD) Hx Family Cancer: Yes (Lung) Brother Race: Family Member Ethnicity: Non- Living Status: Still Living Hx Family Cardiac Disorders: Yes (CAD) Hx Family Cancer: Yes (Lung) Sister Race: Family Member Ethnicity: Non- Living Status: Still Living Hx Family Cardiac Disorders: Yes (CAD) Hx Family Cancer: Yes (Lung) Internal Medicine - H&P: Meds Atorvastatin Calcium [Lipitor] 80 mg PO HS 12/08/15 [History] DULoxetine [Cymbalta] 30 mg PO BID 12/08/15 [History] Furosemide [Lasix] 40 mg PO Q48H PRN 12/08/15 [History] Nitroglycerin [Nitrostat] 0.4 mg SL Q5M PRN 12/08/15 [History] Ondansetron HCl [Zofran] 4 mg PO Q6H PRN #30 tablet 01/26/16 [Rx] Prochlorperazine Maleate [Compazine] 10 mg PO Q6HR PRN #60 tablet 01/26/16 [Rx] Loratadine [Claritin] 10 mg PO DAILY PRN 02/01/16 [History] Meclizine [Antivert] 12.5 mg PO TID PRN 02/01/16 [History] Lidocaine Patch [Lidoderm 5% patch] 1 each TP DAILY PRN #30 adh..patch 04/07/16 [Rx] Gabapentin [Neurontin] 800 mg PO QID #120 tablet 04/27/16 [Rx] OXcarbazepine [Trileptal] 150 mg PO BID #60 tablet 05/26/16 [Rx] Albuterol Sulfate [Proair Respiclick] 2 puff IH Q4H PRN 08/31/16 [History] Budesonide/Formoterol 160/4.5 [Symbicort 160/4.5] 2 puff IH BIDR 08/31/16 [ History] Cranberry Fruit [Cranberry] 400 mg PO DAILY 08/31/16 [History] Docusate Sodium [Colace] 100 mg PO DAILY PRN 08/31/16 [History] Oxygen 3 l NS HS 08/31/16 [History] Polyethylene Glycol 3350 [MiraLAX Powder Bulk 17.9 Oz] 17 gm PO DAILY PRN [History] Psyllium Husk [Metamucil] 0.8 gm PO BID 08/31/16 [History] Aspirin Enteric Coated [Aspirin EC] 81 mg PO DAILY #30 tablet. 09/27/16 [Rx] Folic Acid 1 mg PO DAILY #30 tablet 10/10/16 [Rx] Magnesium Oxide [Magnesium] 400 mg PO DAILY #30 tablet 10/10/16 [Rx] Oxycodone HCl/Acetaminophen [Percocet 10-325 mg Tablet] 1 tab PO Q6H PRN #120 tablet 10/10/16 [Rx] Potassium Chloride [K-Tab ER] 10 meq PO DAILY #30 tablet.er 10/10/16 [Rx] Omeprazole [PriLOSEC] 20 mg PO DAILY #30 10/23/16 [Rx] Magic Mouthwash [Magic Mouthwash BLM] 10 ml PO QID PRN #500 ml 11/14/16 [Rx] Metformin HCl [Metformin HCl ER] 500 mg PO BID 11/30/16 [History] Metoprolol [Lopressor] 25 mg PO DAILY 11/30/16 [History] Nitrofurantoin (BID) [Macrobid] 100 mg PO DAILY 11/30/16 [History] 3 Allergy/AdvReac Type Severity Reaction Status Date / Time dofetilide [From Tikosyn] Allergy Unresponsiv Verified 11/30/16 09:46 e Iodinated Contrast- Oral and Allergy Palpitation Verified 11/30/16 09:46 IV Dye s [Iodinated Contrast Media - IV Dye] lisinopril AdvReac See Verified 11/30/16 09:46 Comments red dye AdvReac Rash Verified 11/30/16 09:46 All Systems PM: A 10-system review of systems was performed and is negative for pertinent findings except as documented above in the HPI. - Constitutional Constitutional: as per HPI, falls, weight loss, no chills, no fever(s), no night sweats - EENT Eyes: no change in vision, no discharge, no pain, no photophobia Ears: no ear discharge, no ear pain, no tinnitus Nose, mouth and throat: no dysphagia, no nasal discharge, no neck pain, no sore throat - Breasts Breasts: as per HPI - Cardiovascular Cardiovascular ROS IM: as per HPI, dyspnea, dyspnea on exertion, no chest pain, no diaphoresis, no lightheadedness, no palpitations, no syncope - Respiratory Respiratory: as per HPI, cough, dyspnea, dyspnea on exertion, wheezing, change in phlegm color - Gastrointestinal Gastrointestinal: no abdominal pain, no diarrhea, no hematemesis, no hematochezia, no melena, no nausea, no vomiting - Genitourinary Genitourinary: no change in urinary stream, no dysuria, no flank pain, no hematuria Menstruation: as per HPI - Musculoskeletal Musculoskeletal ROS IM: as per HPI, arthralgias, no numbness, no tingling - Integumentary Integumentary IM: sores (Left great toe ), no rash, no unusual bruising - Neurological Neurological ROS: no confusion, no convulsions, no focal weakness, no numbness, no tingling, no tremor(s) - Psychiatric Psychiatric: as per HPI - Endocrine Endocrine IM: as per HPI - Hematologic/Lymphatic Hematologic/Lymphatic: no easy bruising - Allergic/Immunologic Allergic/Immunologic: as per HPI - Constitutional Vitals: Temp Pulse Resp BP Pulse Ox 97.7 F 87 18 120/76 97 11/30/16 14:28 11/30/16 14:28 11/30/16 14:28 11/30/16 14:28 11/30/16 14:28 General appearance: Present: cooperative, A&O X 3, pleasant, no acute distress, loss of weight (Reports loss of weight >30 lbs over the past several months), answers questions appropriately - Head Head exam: Present: atraumatic, normocephalic - Eye Eye exam: Present: PERRL, conjuntiva pink, sclera anicteric Pupils: Present: PERRL - ENT ENT exam: Present: normal exam, normal external ear exam - Neck Neck exam general surgery: Present: normal inspection, supple, trachea midline. Absent: lymphadenopathy - Respiratory Respiratory exam: Present: accessory muscle use, decreased breath sounds, wheezes. Absent: rales, rhonchi - Cardiovascular Cardiovascular exam: Present: tachycardia - GI/Abdominal GI/Abdominal exam: Present: normal bowel sounds, soft, no peritoneal signs. Absent: distended, tenderness - Rectal Rectal exam: Present: deferred - Additional comments: exam deferred. - Extremities Exam Extremities exam: Present: warm, radial pulses palpable and symmetrical. Absent : calf tenderness, cyanotic, pedal edema - Back Exam Back exam: Present: normal inspection - Neurological Exam Neurological exam: Present: CN II-XII intact, oriented X3, no focal deficits. Absent: pronater drift, facial droop, speech deficit - Psychiatric Psychiatric exam: Present: normal affect, normal mood - Skin Skin exam: Present: dry, intact Internal Med - H&P Results - Labs CBC & Chem 7: 11/30/16 16:10 11/30/16 11:33 - Diagnostic Studies Other Images Additional comments: Impressions Foot X-Ray 11/30/16 12:10 IMPRESSION: 1. 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 2. 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 D/ / 11/30/2016 13:37:50 Ted Iraheta MD / [facility] Interpreting Provider: Ted Iraheta MD - [facility] Documentation of Mechanical Device: Intermittent pneumatic compression device <Hemant Rico - Last Filed: 11/30/16 20:16> Date of Encounter: 11/30/16 Internal Medicine - H&P: HPI History of present illness: Ms. Reynoso is a 66 year old female All Systems PM: A 10-system review of systems was performed and is negative for pertinent findings except as documented above in the HPI. - Constitutional Vitals: Temp Pulse Resp BP Pulse Ox 97.7 F 87 20 120/76 94 11/30/16 14:28 11/30/16 14:28 11/30/16 19:25 11/30/16 19:25 11/30/16 19:25 Internal Med - H&P Results - Labs CBC & Chem 7: 11/30/16 19:10 11/30/16 11:33 Labs: Short CBC 11/30/16 11/30/16 Range/Units 16:10 19:10 Hgb 7.7 L 7.1 L (11.5-15.4) g/dL Hct 24.7 L 22.3 L (35.3-44.9) % - ABG Interpretation ABG results: 11/30/16 19:47 ABG pH 7.44 ABG pCO2 40 ABG pO2 79 L ABG HCO3 27 ABG Total CO2 29 H ABG O2 Saturation 96 ABG Base Excess 3 - Attending Attestation I independently obtained history and examined this patient and my medical decision-making was reviewed with the nurse practitioner. I agree with the documented findings, disposition and treatment plan as described. My findings are summarized below: The patient is septic with elevated lactic acid fitting criteria for severe sepsis secondary to left great toe abscess. When I evaluated the patient at the bedside she appears somnolent and fidgety, cannot stay awake. Heart distant tachycardic, respirations are is shallow and rapid. She appears flashed and in moderate distress. Her left great toe has a superficial pocket of fluid in findings consistent with cellulitis. There is scars from previous surgeries. Assessment: Severe sepsis secondary to cellulitis and abscess of the left great toe Plan: I will switch her antibiotic coverage to meropenem to cover ESBL resistant to Zosyn. Continued with vancomycin. Continue IV fluids. Check ABG. Recheck lactic acid. Consult podiatry in the morning. We will obtain MRI in the morning. If her mental status does not improve will consider head CT given history of lung cancer she intracranial disease. Hemant Rico MD
[2016-11-30] MEDS ORDERED: *HR* Heparin 5,000 UNIT/ML VIAL SQ SCH (16:00)
[2016-11-30] MEDS ORDERED: Vancomycin 1,000 MG in D5% in Water 250 ML IVPB SCH (16:00)
[2016-11-30] MEDS ORDERED: Piperacillin/Tazobactam 3.375 GM in D5% in Water (Mini-Bag+) 100 ML IVPB SCH (16:00)
[2016-11-30] MEDS: 0.9 % Sodium Chloride 1,000 ML IVC SCH (16:35)
[2016-11-30] MEDS: Pantoprazole 40 MG VIAL IVP SCH (16:35)
[2016-11-30 16:48] LABS: Hematocrit 24.7 % (35.3-44.9); Hemoglobin 7.7 g/dL (11.5-15.4)
[2016-11-30] MEDS: Ipratropium/Albuterol Neb 3 ML IH SCH ×2 (16:57→19:40)
[2016-11-30] MEDS: Gabapentin 400 MG CAPSULE PO SCH ×2 (17:02→21:47)
[2016-11-30] MEDS: Insulin LISPRO 300 UNITS/3 ML VIAL SQ SCH ×2 (17:34→21:40)
[2016-11-30 19:24] LABS: Hematocrit 22.3 % (35.3-44.9); Hemoglobin 7.1 g/dL (11.5-15.4)
[2016-11-30] MEDS ORDERED: Lidocaine 1% 20 ML MDV INFILT ONE (19:45)
[2016-11-30 19:52] LABS: ABG Base Excess 3 mEq/L (-2 to 3); ABG HCO3 27 mEq/L (21-27); ABG Oxygen Saturation 96 % (95-98); ABG PCO2 40 mmHg (35-45); ABG PH 7.44 pH Units (7.32-7.45); ABG PO2 79 mmHg (85-104); ABG TCO2 29 mEq/L (20-26)
[2016-11-30] MEDS ORDERED: 0.9 % Sodium Chloride 250 ML ONE (19:59)
[2016-11-30] MEDS: *HR* OxyCODONE/APAP 10/325 TABLET PO PRN (20:15)
[2016-11-30] MEDS: OXcarbazepine 150 MG TABLET PO SCH (21:41)
[2016-11-30] MEDS: Psyllium 1 PACKET POWD.PACK PO SCH (21:47)
[2016-11-30] MEDS: Ipratropium Neb 0.5 MG NEBULIZER IH SCH (23:23)
[2016-11-30] MEDS: Budesonide/Formoterol 160/4.5 MDI IH SCH (23:23)
[2016-12-01] MEDS: 0.9 % Sodium Chloride 1,000 ML IVC SCH ×3 (01:11→15:38)
[2016-12-01] MEDS: Meropenem 1,000 MG in 0.9 % Sodium Chloride Mini Bag 100 ML IVPB SCH ×3 (01:15→17:30)
[2016-12-01] MEDS: *HR* OxyCODONE/APAP 10/325 TABLET PO PRN ×2 (02:10→18:11)
[2016-12-01 02:19] LABS: Basophils % 0.5 %; Eosinophils # 0.2 K/mcL (0.0-0.6); Eosinophils % 3.8 %; Hematocrit 20.9 % (35.3-44.9); Hemoglobin 6.7 g/dL (11.5-15.4); Immature Granulocytes % 0.3 % (0-4); Immature Platelets 4.7 % (1.1-6.1); Lymphocytes # 0.4 K/mcL (0.6-4.6); Lymphocytes % 6.1 %; Mean Corpuscular HGB Conc 32.1 g/dL (31.6-35.5); Mean Corpuscular Hemoglobin 31.2 pg (28.0-33.3); Mean Corpuscular Volume 97.2 fL (83.0-100.0); Mean Platelet Volume 10.1 fL (9.4-12.4); Monocytes # 0.7 K/mcL (0.0-1.3); Monocytes % 10.7 %; Neutrophils # 4.8 K/mcL (1.6-8.9); Platelet Count 139 K/mcL (140-400); Red Blood Count 2.15 M/mcL (3.82-4.97); Segmented Neutrophils % 78.6 %
[2016-12-01] MEDS: Vancomycin 750 MG in D5% in Water 250 ML IVPB SCH ×2 (02:30→15:38)
[2016-12-01 02:35] LABS: Alanine Aminotransferase 10 Units/L (0-55); Albumin/Globulin Ratio 0.8 (1.1-2.2); Alkaline Phosphatase 109 Units/L (38-126); Aspartate Amino Transferase 16 Units/L (5-34); BUN/Creatinine Ratio 15 (6-26); Bilirubin,Total 0.6 mg/dL (0.2-1.2); Blood Urea Nitrogen 13 mg/dL (7-20); Calcium 7.4 mg/dL (8.6-10.8); Carbon Dioxide 29 mEq/L (19-29); Chloride 101 mEq/L (98-109); Chol/HDL Ratio 2.9 (0-4.9); Globulin 2.4 g/dL (2.4-3.5); Glucose 141 mg/dL (70-99); HDL Cholesterol 17 mg/dL (40-59); LDL Cholesterol,Calculated 16 mg/dL (0-99); Magnesium 1.3 mg/dL (1.6-2.6); Osmolality,Calculated 284 (280-300); Potassium 2.9 mEq/L (3.5-4.5); Sodium 136 mEq/L (136-145); Total Protein 4.2 g/dL (6.0-8.3); Triglycerides 82 mg/dL (< 150); eGFR For African Americans > 60 (> 60); eGFR For Non-African Americans > 60 (> 60)
[2016-12-01 02:36] LABS: Albumin/Globulin Ratio 0.8 (1.1-2.2); Bilirubin,Direct 0.4 mg/dL (0.0-0.5); Bilirubin,Indirect 0.2 mg/dL (0.0-1.2); Bilirubin,Total 0.6 mg/dL (0.2-1.2); Globulin 2.4 g/dL (2.4-3.5); Total Protein 4.2 g/dL (6.0-8.3)
[2016-12-01 02:48] LABS: Albumin 1.8 g/dL (3.5-5.0)
[2016-12-01 02:49] LABS: Hemoglobin A1C 5.6 %
[2016-12-01 02:56] LABS: Albumin 1.8 g/dL (3.5-5.0); Cholesterol 49 mg/dL (< 200)
[2016-12-01] MEDS: Ipratropium Neb 0.5 MG NEBULIZER IH SCH ×5 (04:09→20:08)
[2016-12-01] MEDS ORDERED: Potassium Effervescent 25 MEQ TABLET.EFF PO ONE (04:36)
[2016-12-01] MEDS ORDERED: Magnesium Sulfate 2 GM in D5% in Water 100 ML IVPB ONE (04:38)
[2016-12-01 04:55] LABS: Phosphorous 3.5 mg/dL (2.3-4.7)
[2016-12-01] MEDS ORDERED: 0.9 % Sodium Chloride 250 ML ONE (04:59)
[2016-12-01] MEDS: Insulin LISPRO 300 UNITS/3 ML VIAL SQ SCH ×4 (07:53→20:48)
[2016-12-01] MEDS: Budesonide/Formoterol 160/4.5 MDI IH SCH ×2 (08:09→20:08)
[2016-12-01] MEDS: Pantoprazole 40 MG VIAL IVP SCH (08:10)
[2016-12-01] MEDS: Gabapentin 400 MG CAPSULE PO SCH ×4 (08:15→20:52)
[2016-12-01] MEDS: Magnesium Oxide 400 MG TABLET PO SCH (08:15)
[2016-12-01] MEDS: Psyllium 1 PACKET POWD.PACK PO SCH ×2 (08:15→20:53)
[2016-12-01] MEDS: Folic Acid 1 MG TABLET PO SCH (08:16)
[2016-12-01] MEDS: Aspirin Enteric Coated 81 MG Tablet PO SCH (08:16)
[2016-12-01] MEDS: OXcarbazepine 150 MG TABLET PO SCH ×2 (08:19→20:52)
[2016-12-01] MEDS ORDERED: Aminoglycoside Consult 1 EACH MC ONE (08:57)
[2016-12-01] MEDS ORDERED: 0.9 % Sodium Chloride 500 ML IVC ONE (09:36)
[2016-12-01 10:41] LABS: Hematocrit 23.9 % (35.3-44.9); Hemoglobin 7.7 g/dL (11.5-15.4)
[2016-12-01 10:48] LABS: Magnesium 1.7 mg/dL (1.6-2.6); Potassium 3.5 mEq/L (3.5-4.5)
--- NOTE | 2016-12-01 11:51 | Internal Med Progress Note ---
<Lucia Rome - Last Filed: 12/01/16 15:47> Date of Encounter: 12/01/16 Time of Encounter: 11:49 - Assessment and plan (1) Decubitus ulcer Current Visit: Yes Status: Chronic Assessment and plan: Decubitis ulcer on plantar surface of left big toe ulcer is erythematous, purulent discharge, very tender patient is afebrile, WBC WNL Foot MRI showed dorsal fluid suspicious for abscess. Osteomyelitis cannot be excluded. Foot x-ray showed status post secondary mutation and osteoarthritis wound culture shows staph aureus -Continue meropenem -continue vancomycin -Podiatry consulted -blood culture pending -wound care -PT/OT Qualifiers: Pressure ulcer location: toe Pressure ulcer stage: stage 3 Laterality: left Qualified Code(s): L89.893 - Pressure ulcer of other site, stage 3 (2) Cellulitis Current Visit: Yes Status: Acute Assessment and plan: Cellulitis on top of left great toe -see plan above Qualifiers: Site of cellulitis: extremity Site of cellulitis of extremity: toe Laterality: left Qualified Code(s): L03.032 - Cellulitis of left toe (3) Mass of right hip region Current Visit: Yes Status: Acute Assessment and plan: Patient complaints of right hip mass that has been present for 2 weeks mass is firm, no erythema, non-fluctuate -CT right hip ordered (4) Encounter for chemotherapy management Current Visit: Yes Status: Acute Assessment and plan: Patient has lung cancer for which she is receiving chemotherapy and radiation. Oncologist is Dr. Fernando (5) Acute exacerbation of chronic obstructive airways disease Current Visit: Yes Status: Acute Assessment and plan: Patient has a history of COPD patient reports a cough -supplemental oxygen is needed -Lida james -paul ceballos (6) Anemia Current Visit: Yes Status: Chronic Assessment and plan: Most likely anemia of chronic disease from chemo and radiation At admission hemoglobin had decreased to 6.7 Patient received 1 unit PRBC Hgb 7.7 no active bleeding -continue to monitor H&H -fecal heme occult ordered Qualifiers: Anemia type: unspecified type Qualified Code(s): D64.9 - Anemia, unspecified (7) Severe protein-calorie malnutrition Current Visit: Yes Status: Chronic Assessment and plan: Most likely due to current lung cancer -nutrition consult (8) CAD (coronary artery disease) Current Visit: Yes Status: Chronic Assessment and plan: History of CAD, ID x 2 stent -Continuous telemetry -continue Lopressor, aspirin Qualifiers: Coronary Disease-Associated Artery/Lesion type: [place] artery [place] vs. transplanted heart: [place] heart Associated angina: without angina Qualified Code(s): I25.10 - Atherosclerotic heart disease of [place] coronary artery without angina pectoris (9) Diabetes mellitus Current Visit: Yes Status: Chronic Assessment and plan: Patient has a history of diabetes -continue low dose sliding scale insulin Qualifiers: Diabetes mellitus type: type 2 Diabetes mellitus complication status: with neurologic complications Diabetes mellitus complication detail: with mononeuropathy Diabetes mellitus fdc insulin use: without fdc use Qualified Code(s): E11.41 - Type 2 diabetes mellitus with diabetic mononeuropathy (10) DVT prophylaxis Current Visit: Yes Status: Acute Assessment and plan: ESCD - Subjective Interval history: 66-year-old female sitting up in bed receiving a 1 unit PRBC. She denies fever , chills, chest pain, shortness of breath. Her only complaint is right hip pain from a visible non-erythematous bump on her right hip. - Constitutional Vitals: Temp Pulse Resp BP Pulse Ox 97.8 F 96 18 111/75 100 12/01/16 11:32 12/01/16 11:32 12/01/16 11:32 12/01/16 11:32 12/01/16 11:32 General appearance: Present: cooperative, A&O X 3, pleasant, no acute distress, loss of weight (Reports loss of weight >30 lbs over the past several months), answers questions appropriately Exam: Gen.: Vitals noted. No acute distress. AAOx3 HEENT: oropharynx clear, Normocephalic, atraumatic Cardiac: RRR, no murmur, +S1/S2 Pulmonary: CTA bilaterally, no wheezes, +bibasilar rales . no rhonchi, equal chest expansion Abdomen: soft, nontender, Bowel sounds noted, no guarding Extremities: right hip tenderness and firmness. no BLE edema, nontender calf, no cyanosis or clubbing. Left toe ulcer exuded his, erythema, warm Neuro: A&Ox3, moves all extremities Psych: Appropriate mood and behavior Internal Medicine: Result - Labs CBC & Chem 7: 12/01/16 10:31 12/01/16 10:31 Labs: Short CBC 11/30/16 11/30/16 12/01/16 Range/Units 16:10 19:10 02:15 WBC 6.1 (4.3-11.1) K/mcL Hgb 7.7 L 7.1 L 6.7 L (11.5-15.4) g/dL Hct 24.7 L 22.3 L 20.9 L (35.3-44.9) % Plt Count 139 L (140-400) K/mcL Neutrophils # 4.8 (1.6-8.9) K/mcL 12/01/16 Range/Units 10:31 WBC (4.3-11.1) K/mcL Hgb 7.7 L (11.5-15.4) g/dL Hct 23.9 L (35.3-44.9) % Plt Count (140-400) K/mcL Neutrophils # (1.6-8.9) K/mcL BMP 12/01/16 12/01/16 02:15 10:31 Sodium 136 Potassium 2.9 L 3.5 Chloride 101 Carbon Dioxide 29 BUN 13 Creatinine 0.84 Glucose 141 H Calcium 7.4 L Liver Function 12/01/16 Range/Units 02:15 Total Bilirubin 0.6 (0.2-1.2) mg/dL AST 16 (5-34) Units/L ALT 10 (0-55) Units/L Alkaline Phosphatase 109 (38-126) Units/L Albumin 1.8 L (3.5-5.0) g/dL - ABG Interpretation ABG results: ABG ABG pH 7.44 pH Units (7.32-7.45) 11/30/16 19:47 ABG pCO2 40 mmHg (35-45) 11/30/16 19:47 ABG pO2 79 mmHg (85-104) L 11/30/16 19:47 ABG O2 Saturation 96 % (95-98) 11/30/16 19:47 - Impressions Impressions Head CT 12/01/16 07:44 IMPRESSION: 1. No acute intracranial abnormality. 2. Cerebral and cerebellar parenchymal volume loss and chronic microvascular white matter ischemic disease, stable. 3. Findings suspicious for acute right maxillary and sphenoid sinusitis. 4. Permeative lesion noted along the right frontal bone which may represent metastasis, not appreciably changed. The metastatic lesion in the left parietal bone is occult on CT imaging. D/ / 12/01/2016 10:58:06 Matthew Chung MD / Marina Martins Interpreting Provider: Matthew Chung MD Foot MRI 12/01/16 21:44 IMPRESSION: 1. Small dorsal fluid collection at the great toe suspicious for abscess measuring 1.5 x 0.9 x 0.7 cm. 2. Osteomyelitis of the 1st distal phalanx cannot be excluded on the basis of this exam. The examination is severely compromised due to patient motion in addition to metallic susceptibility artifact. D/ / 12/01/2016 10:33:12 Mohit Stephen MD / robin Interpreting Provider: Mohit Stephen MD - VTE Documentation of Mechanical Device: Intermittent pneumatic compression device Consult Discharge Plan - Plan Referrals: Bradley Montgomery MD [Primary Care Provider] - <Neil Armenta H - Last Filed: 12/01/16 16:32> Date of Encounter: 12/01/16 - Constitutional Vitals: Temp Pulse Resp BP Pulse Ox 98.0 F 93 16 104/61 100 12/01/16 14:58 12/01/16 14:58 12/01/16 16:13 12/01/16 14:58 12/01/16 16:13 Internal Medicine: Result - Labs CBC & Chem 7: 12/01/16 10:31 12/01/16 10:31 Labs: Short CBC 11/30/16 11/30/16 12/01/16 Range/Units 16:10 19:10 02:15 WBC 6.1 (4.3-11.1) K/mcL Hgb 7.7 L 7.1 L 6.7 L (11.5-15.4) g/dL Hct 24.7 L 22.3 L 20.9 L (35.3-44.9) % Plt Count 139 L (140-400) K/mcL Neutrophils # 4.8 (1.6-8.9) K/mcL 12/01/16 Range/Units 10:31 WBC (4.3-11.1) K/mcL Hgb 7.7 L (11.5-15.4) g/dL Hct 23.9 L (35.3-44.9) % Plt Count (140-400) K/mcL Neutrophils # (1.6-8.9) K/mcL BMP 12/01/16 12/01/16 02:15 10:31 Sodium 136 Potassium 2.9 L 3.5 Chloride 101 Carbon Dioxide 29 BUN 13 Creatinine 0.84 Glucose 141 H Calcium 7.4 L Liver Function 12/01/16 Range/Units 02:15 Total Bilirubin 0.6 (0.2-1.2) mg/dL AST 16 (5-34) Units/L ALT 10 (0-55) Units/L Alkaline Phosphatase 109 (38-126) Units/L Albumin 1.8 L (3.5-5.0) g/dL - ABG Interpretation ABG results: ABG ABG pH 7.44 pH Units (7.32-7.45) 11/30/16 19:47 ABG pCO2 40 mmHg (35-45) 11/30/16 19:47 ABG pO2 79 mmHg (85-104) L 11/30/16 19:47 ABG O2 Saturation 96 % (95-98) 11/30/16 19:47 - Impressions Impressions Head CT 12/01/16 07:44 IMPRESSION: 1. No acute intracranial abnormality. 2. Cerebral and cerebellar parenchymal volume loss and chronic microvascular white matter ischemic disease, stable. 3. Findings suspicious for acute right maxillary and sphenoid sinusitis. 4. Permeative lesion noted along the right frontal bone which may represent metastasis, not appreciably changed. The metastatic lesion in the left parietal bone is occult on CT imaging. D/ / 12/01/2016 10:58:06 Matthew Chung MD / Marina Martins Interpreting Provider: Matthew Chung MD Hip CT 12/01/16 14:26 IMPRESSION: 1. No focal soft tissue mass identified. 2. No acute right hip osseous abnormality or focal proximal femur lesion. 3. Evidence of metastatic disease is re-identified within the sacrum and iliac bones. D/ / 12/01/2016 16:21:13 Mohit Stephen MD / robin Interpreting Provider: Mohit Stephen MD Foot MRI 12/01/16 21:44 IMPRESSION: 1. Small dorsal fluid collection at the great toe suspicious for abscess measuring 1.5 x 0.9 x 0.7 cm. 2. Osteomyelitis of the 1st distal phalanx cannot be excluded on the basis of this exam. The examination is severely compromised due to patient motion in addition to metallic susceptibility artifact. D/ / 12/01/2016 10:33:12 Mohit Stephen MD / robin Interpreting Provider: Mohit Stephen MD - Attending Attestation Left foot abscess/osteomyelitis Podiatry consulted Continue meropenem and vancomycin I examined this patient and my medical decision-making was reviewed with the Resident Physician. I agree with the documented findings, disposition and treatment plan as described except to the extent set forth below.
--- NOTE | 2016-12-01 18:06 | Oncology Inp Consult Note ---
Date of Encounter: 12/04/16 Time of Encounter: 18:03 Assessment and Plan (1) Cellulitis Status: Acute Assessment and plan: Currently she is on IV antibiotics. Treatment changed to clindamycin after sensitivity results Cultures grew staph aureus (MSSA) sensitive to all antibiotics including vancomycin and clindamycin Qualifiers: Site of cellulitis: extremity Site of cellulitis of extremity: toe Laterality: left Qualified Code(s): L03.032 - Cellulitis of left toe (2) Anemia Status: Chronic Assessment and plan: Anemia hemoglobin 7.7 and she received 2 units packed RBC since admission. Qualifiers: Anemia type: unspecified type Qualified Code(s): D64.9 - Anemia, unspecified (3) Adenocarcinoma of right lung Status: Chronic Assessment and plan: Currently receiving palliative chemotherapy carboplatin Alimta and Pembrolizumab. Cycle 5 scheduled for 12/01/2016. We will postpone that until she improves from her cellulitis Meanwhile we will obtain CT chest contrast to assess the disease If she has disease progression may switch treatment to single agent Tarceva are at her sister did respond well to Tarceva Likely soft tissue metastasis right hip lateral aspect it spoke with Dr. Reynoso radiation oncology and she may benefit from palliative radiation to that area - Data of Consult Patient: known to practice within the last 3 years Requesting Physician: Neil Armenta Primary Care Provider: Bradley Montgomery MD - Consult Narrative Reason for consult: Metastatic non-small cell lung cancer History of present illness: Ms. Reynoso is a 66 year old female admitted with left great toe cellulitis. MRI of the foot without contrast 12/01/2016 Small dorsal fluid collection at the great toe suspicious for abscess measuring 1.5 x 0.9 x 0.7 cm. Osteomyelitis of the 1st distal phalanx cannot be excluded on the basis of this exam. Treatment Metropenem every 8 hours and vancomycin 750 mg IV every 12 hours. Wound culture showed abundant staph aureus CT hip right side on 12/01/2016 showed sacral metastasis. No acute abnormalities area Clinically she does have a soft tissue mass subcutaneous about 6 cm near neck of femur area right hip lateral aspect CT head 12/01/2016 negative Oncological history Diagnosis: Right lung adenocarcinoma stage IV. TX, N3, M1 CT chest showed right upper lobe lung mass CT abdomen and pelvis with IV contrast on 11/22/2015 was negative for metastases in the abdomen. MRI 12/13/2015 with and without contrast negative for brain metastasis PET scan 12/15/2015 showed right lower neck lymph node 16 mm SUV 8.5 Precarinal lymph nodes 3 cm SUV 7.6. High paratracheal lymph node SUV 9.4 size 2 cm. AP window lymph node 14 mm SUV 9.1. Right upper lobe mass 5.4 x 4.6 cm with SUV 14.6 which abuts the right mediastinal border. Multiple bony metastasis. Involving T7. Left iliac wing. Left sacrum 2.6 x 2 cm lesion SUV 10.3 with a soft tissue destructive mass 3.5 cm. And she is symptomatic with pain. Biopsies CT-guided biopsy of the lung mass done 11/26/2015 and it showed fibrotic lung parenchyma with necrosis and histiocytic inflammation Bronchoscopy 12/01/2015 showed right upper lobe mass and biopsy of the. TTF 1 and Napsin A, positive P40 negative. 4R and 4L lymph nodes showed adenocarcinoma TTF-1 and napsin A and positive. P40 negative Also right axilla subcutaneous nodule 1.6 m PET active. Surgical pathology on 01/03/16 shows TTF-1 is positive, CK7 is positive Enlarging subcutaneous nodule right lower chest wall. Its red erythematous tender presenting like an abscess. Did not improve with antibiotics Core biopsy by Dr. Moreira 08/14/2016 showed differentiated adenocarcinoma TTF- 1 and Napsin A A+ Genetic testing Biospy [facility] and right axillary lymph node returned insufficient material for next generation sequencing Genetic testing from lower right chest wall metastasis on 08/24/2016 showed a PDL expression about 90%. K-madie mutation-positive EGFR, ALK and ROS-1 negative Treatments 1. She was evaluated by Dr. Reynoso and completed 2000 cGy over 5 fractions to the L5/sacrum Treatment dates 12/22/2015 to 12/28/2015. PDL1 staining from [facility] showed 50% of tumor cells positive for membrane PDL1 staining on 12/01/2015 2. Pembrolizumab 200 mg IV every 3 weeks. Cycle one 01/05/2016. She had a good response initially but she had disease progression as mentioned Had port placed through interventional radiology 02/15/2016 3. 08/23/2016 - 08/29/2016: Palliative radiotherapy to the right upper lobe and right abdominal wall, 2000 cGy in 5 fractions to each site 4. Palliative chemotherapy. Carboplatin AUC 4 day 1 and Alimta 400 mg/m day 1 IV with Pembrolizumab 200 mg IV day 1. Cycle 1 on 09/13/2016 She developed grade 3 thrombocytopenia and grade 3 neutropenia. From cycle to reduce carboplatin dosed to about 350 mg from 380 mg and Alimta at 350 mg/m. Neulasta dose also reduced to 3 mg on day 2 Completed 4 cycles so far and she did well with the dose reduction 5. Right frontal bone metastasis symptomatic with headaches . Completed palliative radiation to that area for 5 days from 09/25/2016 to 09/29/2016 Supportive treatment. Zometa 4 mg IV Cycle one 01/05/2016. Currently every 6 weeks. Had a dose on 08/23/2016. Scheduled for 10/10/2016. May change to every 3 months in the future Past Med Surg Social Fam HX - Past Medical History Medical history: arthritis, atrial fibrillation, cancer, CHF, COPD, coronary artery disease, diabetes, hypertension, myocardial infarction, RA Psychiatric history: no psych history - Past Surgical History Surgical History: cholecystectomy - Social History Smoking Status: Current some day smoker Packs per day: 1 PPD Smokeless Tobacco Status: No Alcohol use: none Drug use: none - Family History Father Adopted: No Age: 57 Race: Family Member Ethnicity: Non- Living Status: Age at : 57 Cause of : Lung cancer Hx Family Cardiac Disorders: Yes (CAD) Hx Family Respiratory Disorders: Yes Hx Family Cancer: Yes (Lung) Hx Family GI Disorders: No Hx Family Endocrine Disorder: Yes (DM) Hx Family Neuromuscular Disorders: No Hx Family Neurologic Disorders: No Hx Family HEENT Disorders: No Hx Family Autoimmune Disorders: No Mother Adopted: No Age: 57 Race: Family Member Ethnicity: Non- Living Status: Age at : 57 Cause of : Lung cancer Hx Family Cardiac Disorders: Yes (CAD) Hx Family Respiratory Disorders: Yes Hx Family Cancer: Yes (Lung) Brother Race: Family Member Ethnicity: Non- Living Status: Still Living Hx Family Cardiac Disorders: Yes (CAD) Hx Family Cancer: Yes (Lung) Sister Race: Family Member Ethnicity: Non- Living Status: Still Living Hx Family Cardiac Disorders: Yes (CAD) Hx Family Cancer: Yes (Lung) Medications and Allergies Atorvastatin Calcium [Lipitor] 80 mg PO HS 12/08/15 [History] DULoxetine [Cymbalta] 30 mg PO BID 12/08/15 [History] Furosemide [Lasix] 40 mg PO Q48H PRN 12/08/15 [History] Nitroglycerin [Nitrostat] 0.4 mg SL Q5M PRN 12/08/15 [History] Ondansetron HCl [Zofran] 4 mg PO Q6H PRN #30 tablet 01/26/16 [Rx] Prochlorperazine Maleate [Compazine] 10 mg PO Q6HR PRN #60 tablet 01/26/16 [Rx] Loratadine [Claritin] 10 mg PO DAILY PRN 02/01/16 [History] Meclizine [Antivert] 12.5 mg PO TID PRN 02/01/16 [History] Lidocaine Patch [Lidoderm 5% patch] 1 each TP DAILY PRN #30 adh..patch 04/07/16 [Rx] Gabapentin [Neurontin] 800 mg PO QID #120 tablet 04/27/16 [Rx] OXcarbazepine [Trileptal] 150 mg PO BID #60 tablet 05/26/16 [Rx] Albuterol Sulfate [Proair Respiclick] 2 puff IH Q4H PRN 08/31/16 [History] Budesonide/Formoterol 160/4.5 [Symbicort 160/4.5] 2 puff IH BIDR 08/31/16 [ History] Cranberry Fruit [Cranberry] 400 mg PO DAILY 08/31/16 [History] Docusate Sodium [Colace] 100 mg PO DAILY PRN 08/31/16 [History] Oxygen 3 l NS HS 08/31/16 [History] Polyethylene Glycol 3350 [MiraLAX Powder Bulk 17.9 Oz] 17 gm PO DAILY PRN [History] Psyllium Husk [Metamucil] 0.8 gm PO BID 08/31/16 [History] Aspirin Enteric Coated [Aspirin EC] 81 mg PO DAILY #30 tablet. 09/27/16 [Rx] Folic Acid 1 mg PO DAILY #30 tablet 10/10/16 [Rx] Magnesium Oxide [Magnesium] 400 mg PO DAILY #30 tablet 10/10/16 [Rx] Oxycodone HCl/Acetaminophen [Percocet 10-325 mg Tablet] 1 tab PO Q6H PRN #120 tablet 10/10/16 [Rx] Potassium Chloride [K-Tab ER] 10 meq PO DAILY #30 tablet.er 10/10/16 [Rx] Omeprazole [PriLOSEC] 20 mg PO DAILY #30 10/23/16 [Rx] Magic Mouthwash [Magic Mouthwash BLM] 10 ml PO QID PRN #500 ml 11/14/16 [Rx] Metformin HCl [Metformin HCl ER] 500 mg PO BID 11/30/16 [History] Metoprolol [Lopressor] 25 mg PO DAILY 11/30/16 [History] Nitrofurantoin (BID) [Macrobid] 100 mg PO DAILY 11/30/16 [History] 3 Allergy/AdvReac Type Severity Reaction Status Date / Time dofetilide [From Tikosyn] Allergy Unresponsiv Verified 11/30/16 09:46 e Iodinated Contrast- Oral and Allergy Palpitation Verified 11/30/16 09:46 IV Dye s [Iodinated Contrast Media - IV Dye] lisinopril AdvReac See Verified 11/30/16 09:46 Comments red dye AdvReac Rash Verified 11/30/16 09:46 Review of systems: Continuous nodule area and pain in the right first to the main complaints. Fatigue. Breathing is stable. Denied chest pain Oncology - Exam - Constitutional Vitals: Temp Pulse Resp BP Pulse Ox 98.0 F 93 16 104/61 100 12/01/16 14:58 12/01/16 14:58 12/01/16 16:13 12/01/16 14:58 12/01/16 16:13 Exam: GENERAL: Alert and oriented, well appearing. Mental Status: Affect appropriate for circumstances HEENT: Sclerae anicteric. No mucositis or thrush. No other oral or pharyngeal lesions or erythema. Skin: No rashes or petechiae. No evidence of skin malignancy Lymph nodes: No cervical, supraclavicular, axillary, or inguinal adenopathy. Lungs: Air entry normal with normal breath sounds. No rhonchi or wheezing Cardiovascular: Regular rate and rhythm. No skipped beats Abdomen: Soft, nontender; no organomegaly or masses palpable. Extremities: Left foot mainly left great toe tenderness and swelling ulceration Neurologic: Alert, cranial nerves II-XII intact; normal gait; no focal weakness or sensory abnormalities Soft tissue mass about 6 cm right hip lateral aspect near the neck of femur Cellulitis right first toe but she has a dressing Oncology - Results Labs: Short CBC 11/30/16 12/01/16 12/01/16 Range/Units 19:10 02:15 10:31 WBC 6.1 (4.3-11.1) K/mcL Hgb 7.1 L 6.7 L 7.7 L (11.5-15.4) g/dL Hct 22.3 L 20.9 L 23.9 L (35.3-44.9) % Plt Count 139 L (140-400) K/mcL Neutrophils # 4.8 (1.6-8.9) K/mcL BMP 12/01/16 12/01/16 02:15 10:31 Sodium 136 Potassium 2.9 L 3.5 Chloride 101 Carbon Dioxide 29 BUN 13 Creatinine 0.84 Glucose 141 H Calcium 7.4 L Liver Function 12/01/16 Range/Units 02:15 Total Bilirubin 0.6 (0.2-1.2) mg/dL AST 16 (5-34) Units/L ALT 10 (0-55) Units/L Alkaline Phosphatase 109 (38-126) Units/L Albumin 1.8 L (3.5-5.0) g/dL Consult Discharge Plan - Plan Referrals: Bradley Montgomery MD [Primary Care Provider] -
[2016-12-01] MEDS: Magic Mouthwash 10 ML UD Cup PO PRN (19:17)
[2016-12-01 22:19] LABS: Hematocrit 26.8 % (35.3-44.9); Hemoglobin 8.7 g/dL (11.5-15.4)
[2016-12-02] MEDS: Meropenem 1,000 MG in 0.9 % Sodium Chloride Mini Bag 100 ML IVPB SCH ×2 (00:15→19:30)
[2016-12-02] MEDS: Ipratropium Neb 0.5 MG NEBULIZER IH SCH ×7 (00:55→23:23)
[2016-12-02] MEDS: Vancomycin 750 MG in D5% in Water 250 ML IVPB SCH (02:09)
[2016-12-02] MEDS: 0.9 % Sodium Chloride 1,000 ML IVC SCH ×4 (05:46→19:29)
[2016-12-02 06:12] LABS: Basophils # 0.1 K/mcL (0.0-0.2); Basophils % 0.9 %; Eosinophils # 0.8 K/mcL (0.0-0.6); Hemoglobin 8.5 g/dL (11.5-15.4); Immature Granulocytes % 0.6 % (0-4); Immature Platelets 3.9 % (1.1-6.1); Lymphocytes # 0.7 K/mcL (0.6-4.6); Lymphocytes % 13.4 %; Mean Corpuscular HGB Conc 31.5 g/dL (31.6-35.5); Mean Corpuscular Hemoglobin 30.7 pg (28.0-33.3); Mean Corpuscular Volume 97.5 fL (83.0-100.0); Mean Platelet Volume 9.6 fL (9.4-12.4); Monocytes # 0.8 K/mcL (0.0-1.3); Monocytes % 14.9 %; Platelet Count 168 K/mcL (140-400); Red Blood Count 2.77 M/mcL (3.82-4.97); Red Cell Distribution Width 23.1 % (11.5-14.5); Segmented Neutrophils % 56.2 %
[2016-12-02 06:30] LABS: Anisocytosis 2+ (Not Present); Microcytosis Present (Not Present); Platelet Estimate Normal (Normal)
[2016-12-02 07:50] LABS: Alanine Aminotransferase 15 Units/L (0-55); Albumin/Globulin Ratio 0.7 (1.1-2.2); Alkaline Phosphatase 130 Units/L (38-126); Aspartate Amino Transferase 24 Units/L (5-34); BUN/Creatinine Ratio 11 (6-26); Bilirubin,Total 0.4 mg/dL (0.2-1.2); Blood Urea Nitrogen 10 mg/dL (7-20); Calcium 7.8 mg/dL (8.6-10.8); Carbon Dioxide 28 mEq/L (19-29); Chloride 104 mEq/L (98-109); Globulin 2.7 g/dL (2.4-3.5); Glucose 115 mg/dL (70-99); Osmolality,Calculated 284 (280-300); Potassium 3.4 mEq/L (3.5-4.5); Sodium 137 mEq/L (136-145); Total Protein 4.7 g/dL (6.0-8.3); eGFR For African Americans > 60 (> 60); eGFR For Non-African Americans > 60 (> 60)
[2016-12-02] MEDS: Budesonide/Formoterol 160/4.5 MDI IH SCH ×2 (08:04→19:53)
[2016-12-02] MEDS: Insulin LISPRO 300 UNITS/3 ML VIAL SQ SCH ×4 (08:49→21:01)
[2016-12-02] MEDS: Clindamycin 600 MG/50 ML 600 MG/50 ML IV.SOLN IVPB SCH ×2 (08:55→16:27)
[2016-12-02] MEDS: Gabapentin 400 MG CAPSULE PO SCH ×4 (08:56→21:01)
[2016-12-02] MEDS: Magnesium Oxide 400 MG TABLET PO SCH (08:56)
[2016-12-02] MEDS: OXcarbazepine 150 MG TABLET PO SCH ×2 (08:56→21:01)
[2016-12-02] MEDS: Metoprolol XL (24 HR) Succ 25 MG TAB.ER.24H PO SCH (08:56)
[2016-12-02] MEDS: Folic Acid 1 MG TABLET PO SCH (08:56)
[2016-12-02] MEDS: Pantoprazole 40 MG VIAL IVP SCH (08:56)
[2016-12-02] MEDS: Aspirin Enteric Coated 81 MG Tablet PO SCH (08:56)
[2016-12-02] MEDS: Psyllium 1 PACKET POWD.PACK PO SCH ×2 (08:57→21:01)
--- NOTE | 2016-12-02 09:43 | Internal Med Progress Note ---
<Lucia Rome - Last Filed: 12/02/16 09:39> Date of Encounter: 12/02/16 Time of Encounter: 09:39 - Assessment and plan (1) Osteomyelitis Current Visit: Yes Status: Acute Assessment and plan: Possible osteomyelitis of left 1st distal phalanx Decubitis ulcer on plantar surface of left big toe patient is afebrile, WBC WNL Foot MRI showed dorsal fluid suspicious for abscess. Osteomyelitis cannot be excluded. Foot x-ray showed status post secondary amputation and osteoarthritis wound culture shows staph aureus- sensitive to clindamycin blood culture shows no growth (preliminary) -start clindamycin -Stop meropenem -stop vancomycin -Podiatry following -wound care treating -PT/OT Qualifiers: Qualified Code(s): M86.9 - Osteomyelitis, unspecified (2) Decubitus ulcer Current Visit: Yes Status: Chronic Assessment and plan: Decubitis ulcer on plantar surface of left big toe patient is afebrile, WBC WNL Foot MRI showed dorsal fluid suspicious for abscess. Osteomyelitis cannot be excluded. Foot x-ray showed status post secondary amputation and osteoarthritis wound culture shows staph aureus- sensitive to clindamycin blood culture shows no growth (preliminary) -see plan above Qualifiers: Pressure ulcer location: toe Pressure ulcer stage: stage 3 Laterality: left Qualified Code(s): L89.893 - Pressure ulcer of other site, stage 3 (3) Adenocarcinoma of right lung Current Visit: No Status: Chronic Assessment and plan: Patient has lung cancer for which she is receiving chemotherapy. Oncologist is Dr. Fernando CT right hip showed metastatic disease to sacrum and iliac bone -Oncology's following (4) Cellulitis Current Visit: Yes Status: Acute Assessment and plan: Cellulitis on top of left great toe -see plan above Qualifiers: Site of cellulitis: extremity Site of cellulitis of extremity: toe Laterality: left Qualified Code(s): L03.032 - Cellulitis of left toe (5) Mass of right hip region Current Visit: Yes Status: Acute Assessment and plan: Patient complaints of right hip mass that has been present for 2 weeks mass is firm, no erythema, non-fluctuate CT right hip showed metastatic disease to sacrum and iliac bone. And subcutaneous edema of right hip. (6) Acute exacerbation of chronic obstructive airways disease Current Visit: Yes Status: Acute Assessment and plan: Patient has a history of COPD -supplemental oxygen is needed -Lida james -paul ceballos (7) Anemia Current Visit: Yes Status: Chronic Assessment and plan: Most likely anemia of chronic disease from chemo and radiation At admission hemoglobin had decreased to 6.7 Patient received 1 unit PRBC Hgb 8.5 no active bleeding -continue to monitor H&H -fecal heme occult ordered Qualifiers: Anemia type: unspecified type Qualified Code(s): D64.9 - Anemia, unspecified (8) Severe protein-calorie malnutrition Current Visit: Yes Status: Chronic Assessment and plan: Most likely due to current lung cancer -nutrition consult (9) CAD (coronary artery disease) Current Visit: Yes Status: Chronic Assessment and plan: History of CAD, [place] x 2 stent -Continuous telemetry -continue Lopressor, aspirin Qualifiers: Coronary Disease-Associated Artery/Lesion type: [place] artery [place] vs. transplanted heart: [place] heart Associated angina: without angina Qualified Code(s): I25.10 - Atherosclerotic heart disease of [place] coronary artery without angina pectoris (10) Diabetes mellitus Current Visit: Yes Status: Chronic Assessment and plan: Patient has a history of diabetes -continue low dose sliding scale insulin Qualifiers: Diabetes mellitus type: type 2 Diabetes mellitus complication status: with neurologic complications Diabetes mellitus complication detail: with mononeuropathy Diabetes mellitus prison insulin use: without prison use Qualified Code(s): E11.41 - Type 2 diabetes mellitus with diabetic mononeuropathy (11) DVT prophylaxis Current Visit: Yes Status: Acute Assessment and plan: ESCD - Subjective Interval history: 66-year-old female sitting up in bed comfortably in no acute distress. She admitted shortness of breath however her supplemental oxygen was not on her at the time. I gave her the supplemental oxygen to put on which is 3 L. She denies fever, chills, chest pain. She has no complaints at this time - Constitutional Vitals: Temp Pulse Resp BP Pulse Ox 97.6 F 101 16 146/72 100 12/02/16 07:04 12/02/16 07:04 12/02/16 08:05 12/02/16 07:04 12/02/16 08:05 General appearance: Present: cooperative, A&O X 3, pleasant, no acute distress, loss of weight (Reports loss of weight >30 lbs over the past several months), answers questions appropriately Exam: Gen.: Vitals noted. No acute distress. AAOx3 HEENT: oropharynx clear, Normocephalic, atraumatic Cardiac: RRR, no murmur, +S1/S2 Pulmonary: decreased breath sounds bilaterally, + rales. no wheezes or rhonchi, equal chest expansion Abdomen: soft, nontender, Bowel sounds noted, no guarding Extremities: no BLE edema, nontender calf, no cyanosis or clubbing, Left toe ulcer Neuro: A&Ox3, moves all extremities, no focal deficits Psych: Appropriate mood and behavior Internal Medicine: Result - Labs CBC & Chem 7: 12/02/16 05:40 12/02/16 05:40 Labs: Short CBC 12/01/16 12/01/16 12/02/16 Range/Units 10:31 22:05 05:40 WBC 5.4 (4.3-11.1) K/mcL Hgb 7.7 L 8.7 L 8.5 L (11.5-15.4) g/dL Hct 23.9 L 26.8 L 27.0 L (35.3-44.9) % Plt Count 168 (140-400) K/mcL Neutrophils # 3.0 (1.6-8.9) K/mcL BMP 12/01/16 12/02/16 10:31 05:40 Sodium 137 Potassium 3.5 3.4 L Chloride 104 Carbon Dioxide 28 BUN 10 Creatinine 0.90 Glucose 115 H Calcium 7.8 L Liver Function 12/02/16 Range/Units 05:40 Total Bilirubin 0.4 (0.2-1.2) mg/dL AST 24 (5-34) Units/L ALT 15 (0-55) Units/L Alkaline Phosphatase 130 H (38-126) Units/L Albumin 2.0 L (3.5-5.0) g/dL - ABG Interpretation ABG results: ABG ABG pH 7.44 pH Units (7.32-7.45) 11/30/16 19:47 ABG pCO2 40 mmHg (35-45) 11/30/16 19:47 ABG pO2 79 mmHg (85-104) L 11/30/16 19:47 ABG O2 Saturation 96 % (95-98) 11/30/16 19:47 - Impressions Impressions Head CT 12/01/16 07:44 IMPRESSION: 1. No acute intracranial abnormality. 2. Cerebral and cerebellar parenchymal volume loss and chronic microvascular white matter ischemic disease, stable. 3. Findings suspicious for acute right maxillary and sphenoid sinusitis. 4. Permeative lesion noted along the right frontal bone which may represent metastasis, not appreciably changed. The metastatic lesion in the left parietal bone is occult on CT imaging. D/ / 12/01/2016 10:58:06 Matthew Chung MD / [facility] Interpreting Provider: Matthew Chung MD Hip CT 12/01/16 14:26 IMPRESSION: 1. No focal soft tissue mass identified. 2. No acute right hip osseous abnormality or focal proximal femur lesion. 3. Evidence of metastatic disease is re-identified within the sacrum and iliac bones. D/ / 12/01/2016 16:21:13 Mohit Stephen MD / [facility] Interpreting Provider: Mohit Stephen MD Foot MRI 12/01/16 21:44 IMPRESSION: 1. Small dorsal fluid collection at the great toe suspicious for abscess measuring 1.5 x 0.9 x 0.7 cm. 2. Osteomyelitis of the 1st distal phalanx cannot be excluded on the basis of this exam. The examination is severely compromised due to patient motion in addition to metallic susceptibility artifact. D/ / 12/01/2016 10:33:12 Mohit Stephen MD / [facility] Interpreting Provider: Mohit Stephen MD - VTE Documentation of Mechanical Device: Intermittent pneumatic compression device Consult Discharge Plan - Plan Referrals: Bradley Montgomery MD [Primary Care Provider] - <Neil Armenta - Last Filed: 12/02/16 12:29> Date of Encounter: 12/02/16 - Constitutional Vitals: Temp Pulse Resp BP Pulse Ox 97.5 F L 112 20 142/83 100 12/02/16 10:38 12/02/16 10:38 12/02/16 10:40 12/02/16 10:38 12/02/16 10:40 Internal Medicine: Result - Labs CBC & Chem 7: 12/02/16 05:40 12/02/16 05:40 Labs: Short CBC 12/01/16 12/02/16 Range/Units 22:05 05:40 WBC 5.4 (4.3-11.1) K/mcL Hgb 8.7 L 8.5 L (11.5-15.4) g/dL Hct 26.8 L 27.0 L (35.3-44.9) % Plt Count 168 (140-400) K/mcL Neutrophils # 3.0 (1.6-8.9) K/mcL BMP 12/02/16 05:40 Sodium 137 Potassium 3.4 L Chloride 104 Carbon Dioxide 28 BUN 10 Creatinine 0.90 Glucose 115 H Calcium 7.8 L Liver Function 12/02/16 Range/Units 05:40 Total Bilirubin 0.4 (0.2-1.2) mg/dL AST 24 (5-34) Units/L ALT 15 (0-55) Units/L Alkaline Phosphatase 130 H (38-126) Units/L Albumin 2.0 L (3.5-5.0) g/dL - ABG Interpretation ABG results: ABG ABG pH 7.44 pH Units (7.32-7.45) 11/30/16 19:47 ABG pCO2 40 mmHg (35-45) 11/30/16 19:47 ABG pO2 79 mmHg (85-104) L 11/30/16 19:47 ABG O2 Saturation 96 % (95-98) 11/30/16 19:47 - Impressions Impressions Hip CT 12/01/16 14:26 IMPRESSION: 1. No focal soft tissue mass identified. 2. No acute right hip osseous abnormality or focal proximal femur lesion. 3. Evidence of metastatic disease is re-identified within the sacrum and iliac bones. D/ / 12/01/2016 16:21:13 [facility] Interpreting Provider: Mohit Stephen MD Foot MRI 12/01/16 21:44 IMPRESSION: 1. Small dorsal fluid collection at the great toe suspicious for abscess measuring 1.5 x 0.9 x 0.7 cm. 2. Osteomyelitis of the 1st distal phalanx cannot be excluded on the basis of this exam. The examination is severely compromised due to patient motion in addition to metallic susceptibility artifact. D/ / 12/01/2016 10:33:12 Mohit Stephen MD / [facility] Interpreting Provider: Mohit Stephen MD - Attending Attestation Further a chest x-ray, may add other antibiotic if chest x-ray shows suspicious for pneumonia/postobstructive pneumonia Continue clindamycin Podiatry recommendations are appreciated I examined this patient and my medical decision-making was reviewed with the Resident Physician. I agree with the documented findings, disposition and treatment plan as described except to the extent set forth below.
[2016-12-02] MEDS: *HR* OxyCODONE/APAP 10/325 TABLET PO PRN (12:02)
[2016-12-02] MEDS: *HR* Codeine Sulfate 30 MG TABLET PO PRN (17:25)
[2016-12-03] MEDS: Clindamycin 600 MG/50 ML 600 MG/50 ML IV.SOLN IVPB SCH ×3 (00:16→14:22)
[2016-12-03] MEDS: 0.9 % Sodium Chloride 1,000 ML IVC SCH ×2 (02:42→02:44)
[2016-12-03] MEDS: Ipratropium Neb 0.5 MG NEBULIZER IH SCH ×6 (03:53→23:17)
[2016-12-03 04:25] LABS: BUN/Creatinine Ratio 10 (6-26); Blood Urea Nitrogen 10 mg/dL (7-20); Calcium 8.2 mg/dL (8.6-10.8); Carbon Dioxide 25 mEq/L (19-29); Chloride 108 mEq/L (98-109); Glucose 133 mg/dL (70-99); Osmolality,Calculated 291 (280-300); Sodium 140 mEq/L (136-145); eGFR For African Americans > 60 (> 60); eGFR For Non-African Americans 53 (> 60)
[2016-12-03 04:27] LABS: Basophils # 0.1 K/mcL (0.0-0.2); Eosinophils # 0.6 K/mcL (0.0-0.6); Eosinophils % 9.8 %; Hematocrit 28.9 % (35.3-44.9); Hemoglobin 9.1 g/dL (11.5-15.4); Immature Granulocytes % 0.7 % (0-4); Lymphocytes # 0.8 K/mcL (0.6-4.6); Lymphocytes % 12.6 %; Mean Corpuscular HGB Conc 31.5 g/dL (31.6-35.5); Mean Corpuscular Hemoglobin 31.2 pg (28.0-33.3); Mean Platelet Volume 9.9 fL (9.4-12.4); Monocytes # 0.8 K/mcL (0.0-1.3); Monocytes % 13.7 %; Neutrophils # 3.8 K/mcL (1.6-8.9); Platelet Count 155 K/mcL (140-400); Red Blood Count 2.92 M/mcL (3.82-4.97); Red Cell Distribution Width 22.8 % (11.5-14.5); Segmented Neutrophils % 62.2 %
[2016-12-03] MEDS: Budesonide/Formoterol 160/4.5 MDI IH SCH ×2 (07:58→20:50)
[2016-12-03] MEDS: Insulin LISPRO 300 UNITS/3 ML VIAL SQ SCH ×4 (08:38→20:45)
[2016-12-03] MEDS: Metoprolol XL (24 HR) Succ 25 MG TAB.ER.24H PO SCH (09:01)
[2016-12-03] MEDS: Magnesium Oxide 400 MG TABLET PO SCH (09:01)
[2016-12-03] MEDS: Gabapentin 400 MG CAPSULE PO SCH ×4 (09:01→20:54)
[2016-12-03] MEDS: OXcarbazepine 150 MG TABLET PO SCH ×2 (09:01→20:54)
[2016-12-03] MEDS: Psyllium 1 PACKET POWD.PACK PO SCH ×2 (09:02→20:46)
[2016-12-03] MEDS: Pantoprazole 40 MG VIAL IVP SCH (09:02)
[2016-12-03] MEDS: Folic Acid 1 MG TABLET PO SCH (09:02)
[2016-12-03] MEDS: Aspirin Enteric Coated 81 MG Tablet PO SCH (09:02)
--- NOTE | 2016-12-03 09:35 | Internal Med Progress Note ---
<Lucia Rome - Last Filed: 12/03/16 13:12> Date of Encounter: 12/03/16 Time of Encounter: 09:32 - Assessment and plan (1) Osteomyelitis Current Visit: Yes Status: Acute Assessment and plan: Possible osteomyelitis of left 1st distal phalanx Decubitis ulcer on plantar surface of left big toe patient is afebrile, WBC WNL Foot MRI showed dorsal fluid suspicious for abscess. Osteomyelitis cannot be excluded. Foot x-ray showed status post secondary amputation and osteoarthritis CXR- showed no acute process wound culture shows staph aureus- sensitive to clindamycin blood culture shows no growth (preliminary) -clindamycin day 2 -Call Infectious disease tomorrow so that they will manage out patient -Podiatry following -wound care treating -PT/OT Qualifiers: Qualified Code(s): M86.9 - Osteomyelitis, unspecified (2) Decubitus ulcer Current Visit: Yes Status: Chronic Assessment and plan: Decubitis ulcer on plantar surface of left big toe patient is afebrile, WBC WNL Foot MRI showed dorsal fluid suspicious for abscess. Osteomyelitis cannot be excluded. Foot x-ray showed status post secondary amputation and osteoarthritis wound culture shows staph aureus- sensitive to clindamycin blood culture shows no growth (preliminary) -see plan above Qualifiers: Pressure ulcer location: toe Pressure ulcer stage: stage 3 Laterality: left Qualified Code(s): L89.893 - Pressure ulcer of other site, stage 3 (3) Adenocarcinoma of right lung Current Visit: No Status: Chronic Assessment and plan: Patient has lung cancer for which she is receiving chemotherapy. Oncologist is Dr. Fernando CT right hip showed metastatic disease to sacrum and iliac bone -Oncology's following -will need to inform patient of new metastases to sacrum and iliac bone (4) Cellulitis Current Visit: Yes Status: Acute Assessment and plan: Cellulitis on top of left great toe -see plan above Qualifiers: Site of cellulitis: extremity Site of cellulitis of extremity: toe Laterality: left Qualified Code(s): L03.032 - Cellulitis of left toe (5) Mass of right hip region Current Visit: Yes Status: Acute Assessment and plan: Patient complaints of right hip mass that has been present for 2 weeks mass is firm, no erythema, non-fluctuate CT right hip showed metastatic disease to sacrum and iliac bone. And subcutaneous edema of right hip. (6) Acute exacerbation of chronic obstructive airways disease Current Visit: Yes Status: Acute Assessment and plan: Patient has a history of COPD -supplemental oxygen is needed -Lida james -paul ceballos (7) Anemia Current Visit: Yes Status: Chronic Assessment and plan: Most likely anemia of chronic disease from chemo and radiation At admission hemoglobin had decreased to 6.7 so patient received 1 unit PRBC Hgb 9.1 no active bleeding -continue to monitor H&H -fecal heme occult ordered Qualifiers: Anemia type: unspecified type Qualified Code(s): D64.9 - Anemia, unspecified (8) Severe protein-calorie malnutrition Current Visit: Yes Status: Chronic Assessment and plan: Most likely due to current lung cancer patient eating well -nutrition consult (9) CAD (coronary artery disease) Current Visit: Yes Status: Chronic Assessment and plan: History of CAD, [place] x 2 stent -Continuous telemetry -continue Lopressor, aspirin Qualifiers: Coronary Disease-Associated Artery/Lesion type: [place] artery [place] vs. transplanted heart: [place] heart Associated angina: without angina Qualified Code(s): I25.10 - Atherosclerotic heart disease of [place] coronary artery without angina pectoris (10) Diabetes mellitus Current Visit: Yes Status: Chronic Assessment and plan: Patient has a history of diabetes -continue low dose sliding scale insulin Qualifiers: Diabetes mellitus type: type 2 Diabetes mellitus complication status: with neurologic complications Diabetes mellitus complication detail: with mononeuropathy Diabetes mellitus [place] insulin use: without detention use Qualified Code(s): E11.41 - Type 2 diabetes mellitus with diabetic mononeuropathy (11) DVT prophylaxis Current Visit: Yes Status: Acute Assessment and plan: EPCD - Subjective Interval history: 66-year-old female sitting on the side of the bed comfortably in no acute distress. She denies shortness of breath, on 3 theaters the supplemental oxygen. She denies fever, chills, chest pain. She has no complaints at this time only that her foot is a little sore. - Constitutional Vitals: Temp Pulse Resp BP Pulse Ox 97.3 F L 90 18 144/89 95 12/03/16 06:57 12/03/16 06:57 12/03/16 07:59 12/03/16 06:57 12/03/16 09:22 General appearance: Present: cooperative, A&O X 3, pleasant, no acute distress, loss of weight (Reports loss of weight >30 lbs over the past several months), answers questions appropriately Exam: Gen.: Vitals noted. No acute distress. AAOx3 HEENT: oropharynx clear, Normocephalic, atraumatic Cardiac: RRR, no murmur, +S1/S2 Pulmonary: CTA bilaterally, no wheezes, rales or rhonchi, equal chest expansion Abdomen: soft, nontender, Bowel sounds noted, no guarding MSK: ROM intact Extremities: minimal BLE edema, nontender calf, no cyanosis or clubbing, left toe ulcer Neuro: A&Ox3, moves all extremities Psych: Appropriate mood and behavior Internal Medicine: Result - Labs CBC & Chem 7: 12/03/16 04:03 12/03/16 04:03 Labs: Short CBC 12/03/16 Range/Units 04:03 WBC 6.0 (4.3-11.1) K/mcL Hgb 9.1 L (11.5-15.4) g/dL Hct 28.9 L (35.3-44.9) % Plt Count 155 (140-400) K/mcL Neutrophils # 3.8 (1.6-8.9) K/mcL BMP 12/03/16 04:03 Sodium 140 Potassium 4.0 Chloride 108 Carbon Dioxide 25 BUN 10 Creatinine 1.04 Glucose 133 H Calcium 8.2 L - ABG Interpretation ABG results: ABG ABG pH 7.44 pH Units (7.32-7.45) 11/30/16 19:47 ABG pCO2 40 mmHg (35-45) 11/30/16 19:47 ABG pO2 79 mmHg (85-104) L 11/30/16 19:47 ABG O2 Saturation 96 % (95-98) 11/30/16 19:47 - Impressions Impressions Hip CT 12/01/16 14:26 IMPRESSION: 1. No focal soft tissue mass identified. 2. No acute right hip osseous abnormality or focal proximal femur lesion. 3. Evidence of metastatic disease is re-identified within the sacrum and iliac bones. D/ / 12/01/2016 16:21:13 Mohit Stephen MD / [facility] Interpreting Provider: Mohit Stephen MD Foot MRI 12/01/16 21:44 IMPRESSION: 1. Small dorsal fluid collection at the great toe suspicious for abscess measuring 1.5 x 0.9 x 0.7 cm. 2. Osteomyelitis of the 1st distal phalanx cannot be excluded on the basis of this exam. The examination is severely compromised due to patient motion in addition to metallic susceptibility artifact. D/ / 12/01/2016 10:33:12 Mohit Stephen MD / [facility] Interpreting Provider: Mohit Stephen MD Chest X-Ray 12/02/16 12:26 IMPRESSION: Stable chest with no new acute process. D/ / Kevin Gonzalez MD / Kevin Gonzalez MD Interpreting Provider: Kevin Gonzalez MD - VTE Documentation of Mechanical Device: Intermittent pneumatic compression device Consult Discharge Plan - Plan Referrals: Bradley Montgomery MD [Primary Care Provider] - <LaryNeil Serrano H - Last Filed: 12/03/16 14:15> Date of Encounter: 12/03/16 - Constitutional Vitals: Temp Pulse Resp BP Pulse Ox 97.9 F 83 17 128/76 100 12/03/16 10:37 12/03/16 10:37 12/03/16 11:29 12/03/16 10:37 12/03/16 11:29 Internal Medicine: Result - Labs CBC & Chem 7: 12/03/16 04:03 12/03/16 04:03 Labs: Short CBC 12/03/16 Range/Units 04:03 WBC 6.0 (4.3-11.1) K/mcL Hgb 9.1 L (11.5-15.4) g/dL Hct 28.9 L (35.3-44.9) % Plt Count 155 (140-400) K/mcL Neutrophils # 3.8 (1.6-8.9) K/mcL BMP 12/03/16 04:03 Sodium 140 Potassium 4.0 Chloride 108 Carbon Dioxide 25 BUN 10 Creatinine 1.04 Glucose 133 H Calcium 8.2 L - ABG Interpretation ABG results: ABG ABG pH 7.44 pH Units (7.32-7.45) 11/30/16 19:47 ABG pCO2 40 mmHg (35-45) 11/30/16 19:47 ABG pO2 79 mmHg (85-104) L 11/30/16 19:47 ABG O2 Saturation 96 % (95-98) 11/30/16 19:47 - Attending Attestation Continue clindamycin Podiatry recommendations are appreciated May consult infectious diseases to continue outpatient therapy/management I examined this patient and my medical decision-making was reviewed with the Resident Physician. I agree with the documented findings, disposition and treatment plan as described except to the extent set forth below.
[2016-12-03] MEDS: *HR* OxyCODONE/APAP 10/325 TABLET PO PRN (13:16)
[2016-12-03] MEDS: Furosemide 20 MG/2 ML VIAL IVP SCH (14:22)
[2016-12-03] MEDS: *HR* Codeine Sulfate 30 MG TABLET PO PRN (14:39)
--- NOTE | 2016-12-03 22:47 | Podiatry Progress Note ---
Date of Encounter: 12/03/16 Time of Encounter: 22:44 - Assessment and Plan (1) Osteomyelitis Current Visit: Yes Status: Acute At this time we will continue dressing changes with Betadine to the great toe of the left foot. Patient will minimize weightbearing and continue IV antibiotics. We will continue to monitor this for any changes. At this time no amputation will be performed. Qualifiers: Qualified Code(s): M86.9 - Osteomyelitis, unspecified Subjective Principal diagnosis: Abscess left great toe Interval history: Patient relates improvement from previous exam. Patient states that she thinks is doing much better. Patient denies any other pedal complaints. Objective - Vital Signs Vital Signs: Vital Signs Temp Pulse Resp BP Pulse Ox 12/03/16 19:28 98.1 F 84 16 135/73 100 12/03/16 16:08 17 99 12/03/16 14:46 86 16 148/77 98 12/03/16 11:29 17 100 12/03/16 10:37 97.9 F 83 16 128/76 100 12/03/16 09:22 95 12/03/16 07:59 18 95 12/03/16 07:23 100 12/03/16 06:57 97.3 F L 90 16 144/89 100 12/03/16 03:54 14 100 12/03/16 03:49 97.4 F L 89 18 134/84 95 12/02/16 23:46 98.3 F 91 15 114/74 100 12/02/16 23:23 13 100 Intake and Output 12/03/16 12/03/16 12/03/16 07:59 15:59 23:59 Intake Total 1290 / 1290 530 / 530 50 / 50 Output Total 600 / 600 1400 / 1400 Balance 1290 / 1290 -70 / -70 -1350 / -1350 Intake: IV Fluids 1050 / 1050 50 / 50 50 / 50 0.9 % Sodium Chloride 1,000 ML 1000 / 1000 @ 100 mls/hr IVC .Q10H [facility] Rx#: [id number] Cleocin Premix 600 MG/50 ML 600 50 / 50 50 / 50 50 / 50 mg In 50 ml @ 50 mls/hr IVPB Q8HR [facility]ZQUE[facility] Rx#:[id number] Oral 240 / 240 480 / 480 0 / 0 Output: Urine 600 / 600 1400 / 1400 Other: Meal Lunch Percent of Meal Consumed 100% Stool Size Small Stool Consistency formed Stool Characteristics Normal for Patient Stool Color Brown # Voids 1 Weight 65.2 kg Blood Glucose* 129 136 137 Patient Weight 12/03/16 23:59 Weight 65.2 kg - Exam Exam: The ulceration on the dorsal aspect of the first digit of the left great toe measures approximately 1.7 cm in diameter and full-thickness. There is less purulent drainage/erythema today on exam. Little to no purulence. Overall the wound looks significantly better. Decreased sensation to bilateral lower extremity is consistent with peripheral neuropathy. Small chronic ulceration noted on the plantar aspect of the great toe of the right foot measures approximately 9 mm in diameter and full-thickness in depth. - Lab Result Diagrams: 12/03/16 04:03 12/03/16 04:03 Labs: Abnormal lab results RBC 2.92 M/mcL (3.82-4.97) L 12/03/16 04:03 Hgb 9.1 g/dL (11.5-15.4) L 12/03/16 04:03 Hct 28.9 % (35.3-44.9) L 12/03/16 04:03 MCHC 31.5 g/dL (31.6-35.5) L 12/03/16 04:03 RDW 22.8 % (11.5-14.5) H 12/03/16 04:03 Anisocytosis 2+ (Not Present) A 12/02/16 05:40 Microcytosis Present (Not Present) A 12/02/16 05:40 ABG pO2 79 mmHg (85-104) L 11/30/16 19:47 ABG Total CO2 29 mEq/L (20-26) H 11/30/16 19:47 Est GFR (Non-Af Amer) 53 (> 60) L 12/03/16 04:03 Glucose 133 mg/dL (70-99) H 12/03/16 04:03 POC Glucose 165 (58-89) H 12/02/16 20:26 Calcium 8.2 mg/dL (8.6-10.8) L 12/03/16 04:03 Alkaline Phosphatase 130 Units/L (38-126) H 12/02/16 05:40 Serum Total Protein 4.7 g/dL (6.0-8.3) L 12/02/16 05:40 Albumin 2.0 g/dL (3.5-5.0) L 12/02/16 05:40 Albumin/Globulin Ratio 0.7 (1.1-2.2) L 12/02/16 05:40 HDL Cholesterol 17 mg/dL (40-59) L 12/01/16 02:15 Microbiology, Last 48 Hours 11/30/16 16:28 Blood Culture - Preliminary Peripheral Venipuncture No growth. 11/30/16 16:28 Blood Culture - Preliminary Peripheral Venipuncture No growth. - VTE Documentation of Mechanical Device: Intermittent pneumatic compression device Consult Discharge Plan - Plan Referrals: Bradley Montgomery MD [Primary Care Provider] -
--- NOTE | 2016-12-03 22:57 | Podiatry Consult Note ---
Date of Encounter: 12/01/16 Time of Encounter: 12:54 Assessment and Plan (1) Osteomyelitis Current visit: Yes Status: Acute Qualifiers: Qualified Code(s): M86.9 - Osteomyelitis, unspecified (2) Cellulitis Current visit: Yes Status: Acute Betadine dressings will be applied to the site. No surgery at this time. We will continue to monitor the site for any increasing infection. Continue IV antibiotics and local wound care. Qualifiers: Site of cellulitis: extremity Site of cellulitis of extremity: toe Laterality: left Qualified Code(s): L03.032 - Cellulitis of left toe History of Present Illness Chief complaint: toe ulcer HPI: Ms. Reynoso is a 66 year old female who relates that she has an ulcer on her toe. Patient relates that overall it is not significantly painful. Patient relates that it was aggressively debrided previously. Patient denies any other pedal complaints. Past Med Surg Social Fam HX - Past Medical History Medical history: arthritis, atrial fibrillation, cancer, CHF, COPD, coronary artery disease, diabetes, hypertension, myocardial infarction, RA Psychiatric history: no psych history - Past Surgical History Surgical History: cholecystectomy - Social History Smoking Status: Current some day smoker Packs per day: 1 PPD Smokeless Tobacco Status: No Alcohol use: none Drug use: none - Family History Father Adopted: No Age: 57 Race: Family Member Ethnicity: Non- Living Status: Age at : 57 Cause of : Lung cancer Hx Family Cardiac Disorders: Yes (CAD) Hx Family Respiratory Disorders: Yes Hx Family Cancer: Yes (Lung) Hx Family GI Disorders: No Hx Family Endocrine Disorder: Yes (DM) Hx Family Neuromuscular Disorders: No Hx Family Neurologic Disorders: No Hx Family HEENT Disorders: No Hx Family Autoimmune Disorders: No Mother Adopted: No Age: 57 Race: Family Member Ethnicity: Non- Living Status: Age at : 57 Cause of : Lung cancer Hx Family Cardiac Disorders: Yes (CAD) Hx Family Respiratory Disorders: Yes Hx Family Cancer: Yes (Lung) Brother Race: Family Member Ethnicity: Non- Living Status: Still Living Hx Family Cardiac Disorders: Yes (CAD) Hx Family Cancer: Yes (Lung) Sister Race: Family Member Ethnicity: Non- Living Status: Still Living Hx Family Cardiac Disorders: Yes (CAD) Hx Family Cancer: Yes (Lung) Medications and Allergies Atorvastatin Calcium [Lipitor] 80 mg PO HS 12/08/15 [History] DULoxetine [Cymbalta] 30 mg PO BID 12/08/15 [History] Furosemide [Lasix] 40 mg PO Q48H PRN 12/08/15 [History] Nitroglycerin [Nitrostat] 0.4 mg SL Q5M PRN 12/08/15 [History] Ondansetron HCl [Zofran] 4 mg PO Q6H PRN #30 tablet 01/26/16 [Rx] Prochlorperazine Maleate [Compazine] 10 mg PO Q6HR PRN #60 tablet 01/26/16 [Rx] Loratadine [Claritin] 10 mg PO DAILY PRN 02/01/16 [History] Meclizine [Antivert] 12.5 mg PO TID PRN 02/01/16 [History] Lidocaine Patch [Lidoderm 5% patch] 1 each TP DAILY PRN #30 adh..patch 04/07/16 [Rx] Gabapentin [Neurontin] 800 mg PO QID #120 tablet 04/27/16 [Rx] OXcarbazepine [Trileptal] 150 mg PO BID #60 tablet 05/26/16 [Rx] Albuterol Sulfate [Proair Respiclick] 2 puff IH Q4H PRN 08/31/16 [History] Budesonide/Formoterol 160/4.5 [Symbicort 160/4.5] 2 puff IH BIDR 08/31/16 [ History] Cranberry Fruit [Cranberry] 400 mg PO DAILY 08/31/16 [History] Docusate Sodium [Colace] 100 mg PO DAILY PRN 08/31/16 [History] Oxygen 3 l NS HS 08/31/16 [History] Polyethylene Glycol 3350 [MiraLAX Powder Bulk 17.9 Oz] 17 gm PO DAILY PRN [History] Psyllium Husk [Metamucil] 0.8 gm PO BID 08/31/16 [History] Aspirin Enteric Coated [Aspirin EC] 81 mg PO DAILY #30 tablet. 09/27/16 [Rx] Folic Acid 1 mg PO DAILY #30 tablet 10/10/16 [Rx] Magnesium Oxide [Magnesium] 400 mg PO DAILY #30 tablet 10/10/16 [Rx] Oxycodone HCl/Acetaminophen [Percocet 10-325 mg Tablet] 1 tab PO Q6H PRN #120 tablet 10/10/16 [Rx] Potassium Chloride [K-Tab ER] 10 meq PO DAILY #30 tablet.er 10/10/16 [Rx] Omeprazole [PriLOSEC] 20 mg PO DAILY #30 10/23/16 [Rx] Magic Mouthwash [Magic Mouthwash BLM] 10 ml PO QID PRN #500 ml 11/14/16 [Rx] Metformin HCl [Metformin HCl ER] 500 mg PO BID 11/30/16 [History] Metoprolol [Lopressor] 25 mg PO DAILY 11/30/16 [History] Nitrofurantoin (BID) [Macrobid] 100 mg PO DAILY 11/30/16 [History] 3 Allergy/AdvReac Type Severity Reaction Status Date / Time dofetilide [From Tikosyn] Allergy Unresponsiv Verified 11/30/16 09:46 e Iodinated Contrast- Oral and Allergy Palpitation Verified 11/30/16 09:46 IV Dye s [Iodinated Contrast Media - IV Dye] lisinopril AdvReac See Verified 11/30/16 09:46 Comments red dye AdvReac Rash Verified 11/30/16 09:46 All Systems Reviewed: A 10-system review of systems was performed and is negative for pertinent findings except as documented above in the HPI. Physical Exam - Constitutional Vitals: Temp Pulse Resp BP Pulse Ox 98.1 F 84 16 135/73 100 12/03/16 19:28 12/03/16 19:28 12/03/16 19:28 12/03/16 19:28 12/03/16 19:28 Exam: Pedal pulses faintly palpable. Capillary fill time intact to the digits. No open lesions, abrasions, or ulcerations besides the small ulcer on the plantar aspect of the left great toe which appears to be chronic in nature but full- thickness. The abscess site on the dorsal aspect of the left great toe has been deroofed and drained adequately. Sensation decreased at the level of the digits consistent with peripheral neuropathy. Cellulitis noted to the left great toe. Results - Labs Result Diagrams: 12/03/16 04:03 12/03/16 04:03 Labs: Abnormal lab results RBC 2.92 M/mcL (3.82-4.97) L 12/03/16 04:03 Hgb 9.1 g/dL (11.5-15.4) L 12/03/16 04:03 Hct 28.9 % (35.3-44.9) L 12/03/16 04:03 MCHC 31.5 g/dL (31.6-35.5) L 12/03/16 04:03 RDW 22.8 % (11.5-14.5) H 12/03/16 04:03 Anisocytosis 2+ (Not Present) A 12/02/16 05:40 Microcytosis Present (Not Present) A 12/02/16 05:40 ABG pO2 79 mmHg (85-104) L 11/30/16 19:47 ABG Total CO2 29 mEq/L (20-26) H 11/30/16 19:47 Est GFR (Non-Af Amer) 53 (> 60) L 12/03/16 04:03 Glucose 133 mg/dL (70-99) H 12/03/16 04:03 POC Glucose 165 (58-89) H 12/02/16 20:26 Calcium 8.2 mg/dL (8.6-10.8) L 12/03/16 04:03 Alkaline Phosphatase 130 Units/L (38-126) H 12/02/16 05:40 Serum Total Protein 4.7 g/dL (6.0-8.3) L 12/02/16 05:40 Albumin 2.0 g/dL (3.5-5.0) L 12/02/16 05:40 Albumin/Globulin Ratio 0.7 (1.1-2.2) L 12/02/16 05:40 HDL Cholesterol 17 mg/dL (40-59) L 12/01/16 02:15 H & H 12/03/16 Range/Units 04:03 Hgb 9.1 L (11.5-15.4) g/dL Hct 28.9 L (35.3-44.9) % All other labs normal. Consult Discharge Plan - Plan Referrals: Bradley Montgomery MD [Primary Care Provider] -
[2016-12-04] MEDS: 0.9 % Sodium Chloride 1,000 ML IVC SCH (00:16)
[2016-12-04] MEDS: Clindamycin 600 MG/50 ML 600 MG/50 ML IV.SOLN IVPB SCH ×3 (00:29→15:45)
[2016-12-04] MEDS: *HR* Codeine Sulfate 30 MG TABLET PO PRN (00:29)
[2016-12-04 03:41] LABS: Basophils # 0.1 K/mcL (0.0-0.2); Basophils % 1.4 %; Eosinophils # 0.5 K/mcL (0.0-0.6); Hematocrit 27.3 % (35.3-44.9); Hemoglobin 8.6 g/dL (11.5-15.4); Immature Granulocytes % 0.9 % (0-4); Lymphocytes # 0.9 K/mcL (0.6-4.6); Lymphocytes % 16.2 %; Mean Corpuscular HGB Conc 31.5 g/dL (31.6-35.5); Mean Corpuscular Volume 98.6 fL (83.0-100.0); Mean Platelet Volume 9.2 fL (9.4-12.4); Monocytes # 0.8 K/mcL (0.0-1.3); Monocytes % 15.1 %; Neutrophils # 3.2 K/mcL (1.6-8.9); Nucleated Red Blood Cells 0.4 /100 WBC (0); Platelet Count 161 K/mcL (140-400); Red Blood Count 2.77 M/mcL (3.82-4.97); Red Cell Distribution Width 22.3 % (11.5-14.5); Segmented Neutrophils % 57.4 %
[2016-12-04 03:52] LABS: BUN/Creatinine Ratio 12 (6-26); Blood Urea Nitrogen 11 mg/dL (7-20); Calcium 8.5 mg/dL (8.6-10.8); Carbon Dioxide 29 mEq/L (19-29); Chloride 105 mEq/L (98-109); Glucose 118 mg/dL (70-99); Osmolality,Calculated 290 (280-300); Potassium 3.5 mEq/L (3.5-4.5); Sodium 140 mEq/L (136-145); eGFR For African Americans > 60 (> 60); eGFR For Non-African Americans > 60 (> 60)
[2016-12-04] MEDS: Ipratropium Neb 0.5 MG NEBULIZER IH SCH ×6 (04:40→23:09)
[2016-12-04] MEDS: Budesonide/Formoterol 160/4.5 MDI IH SCH ×2 (07:43→19:56)
[2016-12-04] MEDS: Insulin LISPRO 300 UNITS/3 ML VIAL SQ SCH ×4 (08:46→20:54)
[2016-12-04] MEDS: Gabapentin 400 MG CAPSULE PO SCH ×4 (08:52→21:11)
[2016-12-04] MEDS: OXcarbazepine 150 MG TABLET PO SCH ×2 (08:52→21:11)
[2016-12-04] MEDS: Folic Acid 1 MG TABLET PO SCH (08:52)
[2016-12-04] MEDS: Furosemide 20 MG/2 ML VIAL IVP SCH (08:52)
[2016-12-04] MEDS: Magnesium Oxide 400 MG TABLET PO SCH (08:52)
[2016-12-04] MEDS: Metoprolol XL (24 HR) Succ 25 MG TAB.ER.24H PO SCH (08:52)
[2016-12-04] MEDS: Aspirin Enteric Coated 81 MG Tablet PO SCH (08:53)
[2016-12-04] MEDS: Psyllium 1 PACKET POWD.PACK PO SCH ×2 (08:53→21:11)
[2016-12-04] MEDS: *HR* OxyCODONE/APAP 10/325 TABLET PO PRN ×2 (11:36→21:25)
[2016-12-04] MEDS: Magic Mouthwash 10 ML UD Cup PO PRN (11:37)
--- NOTE | 2016-12-04 16:21 | Infectious Disease Consult ---
Date of Encounter: 12/04/16 Time of Encounter: 16:15 Assessment and Plan (1) Osteomyelitis Status: Acute Assessment and plan: Location: Left foot great toe. Causative organism MSSA. Likely secondary to diabetic foot ulcer. MRI of the left foot showed findings consistent with osteomyelitis of the distal phalanx of the great toe. No inflammatory markers have been checked. Podiatry has been consulted: Recommend conservative management at this time. Check ESR and CRP. Discontinue Clindamycin. Start cefazolin 2 grams IV Q8H. Continue wound care and activity restrictions per the podiatry team. Duration of treatment depends on the clinical picture, but likely 6 weeks of IV antibiotics. Monitor renal function and dose-adjust antibiotics. Consult VAT for EPIV placement. Consult social media assistant for discharge planning. Qualifiers: Qualified Code(s): M86.9 - Osteomyelitis, unspecified (2) Cellulitis Status: Acute Assessment and plan: Location: Left foot. Causative organism: MSSA. Improved. Continue antibiotics as above. Qualifiers: Site of cellulitis: extremity Site of cellulitis of extremity: toe Laterality: left Qualified Code(s): L03.032 - Cellulitis of left toe (3) Diabetic foot ulcer Status: Acute Assessment and plan: Secondary to poor-fitting shoed. Continue wound care per podiatry's recommendations. Qualifiers: Diabetic foot ulcer location: toe Diabetes mellitus type: type 2 Laterality: left Non-pressure ulcer stage: with fat layer exposed Qualified Code(s): E11.621 - Type 2 diabetes mellitus with foot ulcer; L97.522 - Non- pressure chronic ulcer of other part of left foot with fat layer exposed; L97.522 - Non-pressure chronic ulcer of other part of left foot with fat layer exposed; L97.522 - Non-pressure chronic ulcer of other part of left foot with fat layer exposed; L97.522 - Non-pressure chronic ulcer of other part of left foot with fat layer exposed (4) Sinusitis Status: Chronic Assessment and plan: CT head shows right maxillary and sphenoid sinusitis. Patient is asymptomatic at this time. No indication to treat, but would start doxycycline 100mg PO BID if the patient were to become symptomatic. Qualifiers: Sinusitis location: unspecified location Chronicity: chronic Qualified Code(s): J32.9 - Chronic sinusitis, unspecified (5) Anemia Status: Chronic Qualifiers: Anemia type: unspecified type Qualified Code(s): D64.9 - Anemia, unspecified (6) Atrial fibrillation Status: Chronic Qualifiers: Atrial fibrillation type: paroxysmal Qualified Code(s): I48.0 - Paroxysmal atrial fibrillation (7) CAD (coronary artery disease) Status: Chronic Qualifiers: Coronary Disease-Associated Artery/Lesion type: [place] artery [place] vs. transplanted heart: [place] heart Associated angina: without angina Qualified Code(s): I25.10 - Atherosclerotic heart disease of [place] coronary artery without angina pectoris (8) Diabetes mellitus Status: Chronic Assessment and plan: Controlled. HgA1C 5.6%. Recommend aggressive glucose monitoring and control to promote wound healing and prevent re-infection. Consider ABIs to evaluate arterial flow. Qualifiers: Diabetes mellitus type: type 2 Diabetes mellitus complication status: with neurologic complications Diabetes mellitus complication detail: with mononeuropathy Diabetes mellitus [facility] insulin use: without [facility] use Qualified Code(s): E11.41 - Type 2 diabetes mellitus with diabetic mononeuropathy (9) Rheumatoid arthritis Status: Chronic Assessment and plan: Not currently on treatment. Qualifiers: Rheumatoid arthritis location: multiple sites Rheumatoid factor presence: with rheumatoid factor Qualified Code(s): M05.79 - Rheumatoid arthritis with rheumatoid factor of multiple sites without organ or systems involvement (10) Adenocarcinoma of right lung Status: Chronic Assessment and plan: Diagnosed in 2016. Stage IV with mets to the sacrum, iliac crest, and frontal bone. Follows with the [facility]. Was to get cycle 5 of carboplatin/alimta/pembrolizumab 12/01/16, but this is currently on hold. Hem/Onc consulted and following. Infectious Disease HPI - Data of Consult Patient: new to practice Consult date: 12/04/16 Requesting Physician: Neil Armenta Primary Care Provider: Bradley Montgomery MD - Consult Narrative Reason for consult: left foot osteomyelitis History of present illness: Ms. Reynoso is a 66 year old female asked medical history of right lung adenocarcinoma stage IV currently on palliative chemotherapy and radiation, A. fib, CHF, COPD, CAD, diabetes, and rheumatoid arthritis not currently on treatment. The patient was admitted to the hospital November 30 for left foot cellulitis. We are consult December 04 for antibiotic recommendations regarding left foot osteomyelitis. Patient is a 66-year-old female with past medical history as stated above. The patient presented to the emergency department with complaints of left foot swelling and worsening of the left great toe ulcer of the 2-3 days prior to admission. Upon arrival, the patient was afebrile, but was mildly hypotensive. Her white blood cell count was normal. She did have an elevated lactic acid at 2.9. A foot x-ray was negative. Ultra's were obtained 2 sets. The patient was started on empiric IV antibiotics. A wound culture was obtained and grew out MSSA. The patient was admitted to the hospital for further evaluation. Later that evening, the patient became febrile tachycardic. Since admission, she has been evaluated by podiatry who has opted to pursue conservative therapy with no surgical intervention at this time. A foot MRI revealed a fluid collection on the dorsal aspect of the left great toe concerning for abscess and osteomyelitis of the first distal phalanx of the left great toe. She has had some altered mental status and a CT of the head revealed right maxillary and sphenoid sinusitis, but no other acute intracranial abnormality. Since the patient has been in the hospital, but cell count has remained normal. She had a chest x-ray December 02 that was negative. She has had some intermittent tachycardia, but has been afebrile for over [address] of the chest earlier today that stable from prior exams. Shortly, he has been seeing the patient and following her clinical course. She was scheduled for her fifth cycle of chemotherapy on December 01, but this is been placed on hold. Currently , the patient is on IV clindamycin. We've asked to evaluate and make further recommendations. Exam today, the patient is resting in bed and is somewhat difficult to get awake and to keep her awake. Her provides most of the information as well as the medical record. The patient's states that they've been dealing with this ulcer for several weeks with Dr. Clayton at [place]. The ulcer was doing well until late last week. He states he attempted to contact Dr. Clayton he was out of town and advised to come to the emergency department. The patient's states she is not having any fevers or chills or rigors. She was in her usual state of health until the day of admission. No recent illness. No neck shortness of breath, wheezing, and cough secondary to COPD and lung cancer. Complaints of nausea, vomiting, diarrhea, or constipation. She did not complain of any abdominal pain or urinary complaints. He states her appetite is good. He states that sometimes she gets a little confused when she is very tired, but this seems to resolve after she gets a good night's rest. Eyes any additional skin lesions or oral thrush. The patient does have a remote history of having her right foot second toe amputated due to what sounds like dry gangrene up at [place]. CC: Neil Armenta Past Med Surg Social Fam HX - Past Medical History Attestation: Yes The following information was validated with the patient. Source: old records reviewed, obtained from family, nursing notes reviewed Medical history: arthritis, atrial fibrillation, cancer (Stage IV right lung adenocarcinoma with mets), CHF, COPD, coronary artery disease, diabetes, hypertension, myocardial infarction, RA Psychiatric history: no psych history - Past Surgical History Surgical History: cholecystectomy, other (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) - Social History Smoking Status: Current some day smoker Packs per day: <0.5 Smokeless Tobacco Status: No Alcohol use: none Drug use: none Occupational status: unemployed Current living situation: Home - Independent Activity Level: Independent ambulation Recent Out of Country Travel Within the Last 8 Weeks: No Exposure or Possible Exposure to Illness During Travel: No - Family History Father Adopted: No Age: 57 Race: Family Member Ethnicity: Non- Living Status: Age at : 57 Cause of : Lung cancer Hx Family Cardiac Disorders: Yes (CAD) Hx Family Respiratory Disorders: Yes Hx Family Cancer: Yes (Lung) Hx Family GI Disorders: No Hx Family Endocrine Disorder: Yes (DM) Hx Family Neuromuscular Disorders: No Hx Family Neurologic Disorders: No Hx Family HEENT Disorders: No Hx Family Autoimmune Disorders: No Mother Adopted: No Age: 57 Race: Family Member Ethnicity: Non- Living Status: Age at : 57 Cause of : Lung cancer Hx Family Cardiac Disorders: Yes (CAD) Hx Family Respiratory Disorders: Yes Hx Family Cancer: Yes (Lung) Brother Race: Family Member Ethnicity: Non- Living Status: Still Living Hx Family Cardiac Disorders: Yes (CAD) Hx Family Cancer: Yes (Lung) Sister Race: Family Member Ethnicity: Non- Living Status: Still Living Hx Family Cardiac Disorders: Yes (CAD) Hx Family Cancer: Yes (Lung) Infectious Disease-CN:Meds Atorvastatin Calcium [Lipitor] 80 mg PO HS 12/08/15 [History] DULoxetine [Cymbalta] 30 mg PO BID 12/08/15 [History] Furosemide [Lasix] 40 mg PO Q48H PRN 12/08/15 [History] Nitroglycerin [Nitrostat] 0.4 mg SL Q5M PRN 12/08/15 [History] Ondansetron HCl [Zofran] 4 mg PO Q6H PRN #30 tablet 01/26/16 [Rx] Prochlorperazine Maleate [Compazine] 10 mg PO Q6HR PRN #60 tablet 01/26/16 [Rx] Loratadine [Claritin] 10 mg PO DAILY PRN 02/01/16 [History] Meclizine [Antivert] 12.5 mg PO TID PRN 02/01/16 [History] Lidocaine Patch [Lidoderm 5% patch] 1 each TP DAILY PRN #30 adh..patch 04/07/16 [Rx] Gabapentin [Neurontin] 800 mg PO QID #120 tablet 04/27/16 [Rx] OXcarbazepine [Trileptal] 150 mg PO BID #60 tablet 05/26/16 [Rx] Albuterol Sulfate [Proair Respiclick] 2 puff IH Q4H PRN 08/31/16 [History] Budesonide/Formoterol 160/4.5 [Symbicort 160/4.5] 2 puff IH BIDR 08/31/16 [ History] Cranberry Fruit [Cranberry] 400 mg PO DAILY 08/31/16 [History] Docusate Sodium [Colace] 100 mg PO DAILY PRN 08/31/16 [History] Oxygen 3 l NS HS 08/31/16 [History] Polyethylene Glycol 3350 [MiraLAX Powder Bulk 17.9 Oz] 17 gm PO DAILY PRN [History] Psyllium Husk [Metamucil] 0.8 gm PO BID 08/31/16 [History] Aspirin Enteric Coated [Aspirin EC] 81 mg PO DAILY #30 tablet. 09/27/16 [Rx] Folic Acid 1 mg PO DAILY #30 tablet 10/10/16 [Rx] Magnesium Oxide [Magnesium] 400 mg PO DAILY #30 tablet 10/10/16 [Rx] Oxycodone HCl/Acetaminophen [Percocet 10-325 mg Tablet] 1 tab PO Q6H PRN #120 tablet 10/10/16 [Rx] Potassium Chloride [K-Tab ER] 10 meq PO DAILY #30 tablet.er 10/10/16 [Rx] Omeprazole [PriLOSEC] 20 mg PO DAILY #30 10/23/16 [Rx] Magic Mouthwash [Magic Mouthwash BLM] 10 ml PO QID PRN #500 ml 11/14/16 [Rx] Metformin HCl [Metformin HCl ER] 500 mg PO BID 11/30/16 [History] Metoprolol [Lopressor] 25 mg PO DAILY 11/30/16 [History] Nitrofurantoin (BID) [Macrobid] 100 mg PO DAILY 11/30/16 [History] 3 Allergy/AdvReac Type Severity Reaction Status Date / Time dofetilide [From Tikosyn] Allergy Unresponsiv Verified 11/30/16 09:46 e Iodinated Contrast- Oral and Allergy Palpitation Verified 11/30/16 09:46 IV Dye s [Iodinated Contrast Media - IV Dye] lisinopril AdvReac See Verified 11/30/16 09:46 Comments red dye AdvReac Rash Verified 11/30/16 09:46 ROS unobtainable: due to mental status Exam - Constitutional Vitals: Temp Pulse Resp BP Pulse Ox 97.3 F L 87 18 129/71 97 12/04/16 15:42 12/04/16 15:42 12/04/16 15:42 12/04/16 15:42 12/04/16 15:42 General appearance: average body habitus, cooperative, no acute distress - Head Head exam: Present: atraumatic, normal inspection, normocephalic - Eye Eye exam: Present: EOMI, normal appearance, PERRL Pupils: Present: normal accommodation - ENT ENT exam: Present: mucous membranes moist - Neck Neck exam: Present: normal inspection - Respiratory Respiratory exam: Present: wheezes (Coarse, exiratory ). Absent: rales, respiratory distress, rhonchi, tachypnea - Cardiovascular Cardiovascular exam: Present: irregular rhythm. Absent: tachycardia - GI/Abdominal GI/Abdominal exam: Present: normal bowel sounds, soft. Absent: distended, tenderness - Extremities Exam Extremities exam: Absent: pedal edema, tenderness Additional comments: Left foot great toe with stage II ulcer to the dorsal aspect and the plantar aspect. Mild erythema with 1+ edema noted. No purulent drainage, bleeding, or foul odor noted. No fluctuance or tenderness noted. - Neurological Exam Neurological exam: Present: alert, no focal deficits (THOMAS x 4.). Absent: oriented X3 (Oriented to time and place only, would not answer when her birthday was.) - Psychiatric Psychiatric exam: Present: normal affect, normal mood - Skin Skin exam: Present: dry, intact, normal color, warm Infectious Disease CN: Results - Labs CBC & Chem 7: 12/04/16 03:32 12/04/16 03:32 Cultures: Cultures 12/01/16 08:00 Anaerobic Culture - Preliminary Left Great Toe At this time, no anaerobic growth is present. The culture will be finalized after 5 days of incubation. 11/30/16 16:28 Blood Culture - Preliminary Peripheral Venipuncture No growth. 11/30/16 16:28 Blood Culture - Preliminary Peripheral Venipuncture No growth. - VTE Documentation of Mechanical Device: Intermittent pneumatic compression device Consult Discharge Plan - Plan Referrals: Bradley Montgomery MD [Primary Care Provider] -
--- NOTE | 2016-12-04 16:24 | Internal Med Progress Note ---
Date of Encounter: 12/04/16 Time of Encounter: 16:22 - Time Spent With Patient (1) Osteomyelitis Current Visit: Yes Status: Acute Assessment and plan: Possible osteomyelitis of left 1st distal phalanx Decubitis ulcer on plantar surface of left big toe patient is afebrile, WBC WNL Foot MRI showed dorsal fluid suspicious for abscess. Osteomyelitis cannot be excluded. Foot x-ray showed status post secondary amputation and osteoarthritis CXR- showed no acute process wound culture shows staph aureus- sensitive to clindamycin blood culture shows no growth (preliminary) -clindamycin day 3 - Infectious disease consulted, recommendations appreciated -Podiatry following -wound care treating -PT/OT Qualifiers: Qualified Code(s): M86.9 - Osteomyelitis, unspecified (2) Decubitus ulcer Current Visit: Yes Status: Chronic Assessment and plan: Decubitis ulcer on plantar surface of left big toe patient is afebrile, WBC WNL Foot MRI showed dorsal fluid suspicious for abscess. Osteomyelitis cannot be excluded. Foot x-ray showed status post secondary amputation and osteoarthritis wound culture shows staph aureus- sensitive to clindamycin blood culture shows no growth (preliminary) -see plan above Qualifiers: Pressure ulcer location: toe Pressure ulcer stage: stage 3 Laterality: left Qualified Code(s): L89.893 - Pressure ulcer of other site, stage 3 (3) Adenocarcinoma of right lung Current Visit: No Status: Chronic Assessment and plan: Patient has lung cancer for which she is receiving chemotherapy. Oncologist is Dr. Fernando CT right hip showed metastatic disease to sacrum and iliac bone -Oncology's following -will need to inform patient of new metastases to sacrum and iliac bone (4) Cellulitis Current Visit: Yes Status: Acute Assessment and plan: Cellulitis on top of left great toe -see plan above Qualifiers: Site of cellulitis: extremity Site of cellulitis of extremity: toe Laterality: left Qualified Code(s): L03.032 - Cellulitis of left toe (5) Mass of right hip region Current Visit: Yes Status: Acute Assessment and plan: Patient complaints of right hip mass that has been present for 2 weeks mass is firm, no erythema, non-fluctuate CT right hip showed metastatic disease to sacrum and iliac bone. And subcutaneous edema of right hip. (6) Acute exacerbation of chronic obstructive airways disease Current Visit: Yes Status: Acute Assessment and plan: Patient has a history of COPD -supplemental oxygen is needed -Lida james -paul ceballos (7) Anemia Current Visit: Yes Status: Chronic Assessment and plan: Most likely anemia of chronic disease from chemo and radiation At admission hemoglobin had decreased to 6.7 so patient received 1 unit PRBC Hgb 9.1 no active bleeding -continue to monitor H&H -fecal heme occult ordered Qualifiers: Anemia type: unspecified type Qualified Code(s): D64.9 - Anemia, unspecified (8) Severe protein-calorie malnutrition Current Visit: Yes Status: Chronic Assessment and plan: Most likely due to current lung cancer patient eating well -nutrition consult (9) CAD (coronary artery disease) Current Visit: Yes Status: Chronic Assessment and plan: History of CAD, [place] x 2 stent -Continuous telemetry -continue Lopressor, aspirin Qualifiers: Coronary Disease-Associated Artery/Lesion type: [place] artery [place] vs. transplanted heart: [place] heart Associated angina: without angina Qualified Code(s): I25.10 - Atherosclerotic heart disease of [place] coronary artery without angina pectoris (10) Diabetes mellitus Current Visit: Yes Status: Chronic Assessment and plan: Patient has a history of diabetes -continue low dose sliding scale insulin Qualifiers: Diabetes mellitus type: type 2 Diabetes mellitus complication status: with neurologic complications Diabetes mellitus complication detail: with mononeuropathy Diabetes mellitus detention insulin use: without termite treater helper use Qualified Code(s): E11.41 - Type 2 diabetes mellitus with diabetic mononeuropathy (11) DVT prophylaxis Current Visit: Yes Status: Acute Assessment and plan: EPCD - Subjective Interval history: Feeling better, denies any chest pressures of breath, left toe draining less. Denies any fevers, no abdominal pain - Constitutional Vitals: Temp Pulse Resp BP Pulse Ox 97.3 F L 87 18 129/71 97 12/04/16 15:42 12/04/16 15:42 12/04/16 15:42 12/04/16 15:42 12/04/16 15:42 General appearance: Present: cooperative, A&O X 3, pleasant, no acute distress, loss of weight (Reports loss of weight >30 lbs over the past several months), answers questions appropriately - Head Head exam: Present: atraumatic, normocephalic - Eye Eye exam: Present: PERRL, conjuntiva pink, sclera anicteric Pupils: Present: PERRL - Neck Neck exam general surgery: Present: supple, trachea midline. Absent: lymphadenopathy - Respiratory Respiratory exam: Present: decreased breath sounds (Right upper chest port), CTAB. Absent: accessory muscle use, rales, rhonchi, wheezes - Cardiovascular Cardiovascular exam: Present: RRR, +S1, +S2. Absent: diastolic murmur, gallop, rubs, systolic murmur - GI/Abdominal GI/Abdominal exam: Present: normal bowel sounds, soft, no peritoneal signs. Absent: distended, tenderness - Extremities Exam Extremities exam: Present: warm, radial pulses palpable and symmetrical. Absent : calf tenderness, cyanotic, pedal edema - Neurological Exam Neurological exam: Present: CN II-XII intact, oriented X3, no focal deficits. Absent: pronater drift, facial droop, speech deficit - Skin Skin exam: Present: dry. Absent: intact (Left first toe ulcer swollen but improving, less drainage,) Internal Medicine: Result - Labs CBC & Chem 7: 12/04/16 03:32 12/04/16 03:32 Labs: Short CBC 12/04/16 Range/Units 03:32 WBC 5.6 (4.3-11.1) K/mcL Hgb 8.6 L (11.5-15.4) g/dL Hct 27.3 L (35.3-44.9) % Plt Count 161 (140-400) K/mcL Neutrophils # 3.2 (1.6-8.9) K/mcL BMP 12/04/16 03:32 Sodium 140 Potassium 3.5 Chloride 105 Carbon Dioxide 29 BUN 11 Creatinine 0.89 Glucose 118 H Calcium 8.5 L - ABG Interpretation ABG results: ABG ABG pH 7.44 pH Units (7.32-7.45) 11/30/16 19:47 ABG pCO2 40 mmHg (35-45) 11/30/16 19:47 ABG pO2 79 mmHg (85-104) L 11/30/16 19:47 ABG O2 Saturation 96 % (95-98) 11/30/16 19:47 - Impressions Impressions Chest CT 12/04/16 11:30 IMPRESSION: 1. Stable right upper lobe paramediastinal masslike consolidation. No interval progressive or new thoracic lymphadenopathy. 2. 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 There is some progressive patchy consolidation with interstitial changes of the right upper lobe which may represent mild edema or possible lymphangitic carcinomatosis. 3. Bilateral new subcentimeter pulmonary nodules. Mixed response of previously identified bilateral irregular pulmonary nodules, these are primarily stable on the left. 4. Progressive right pleural effusion which now is mild-moderate and new trace left pleural effusion. 5. Stable blastic skeletal metastasis. D/ / 12/04/2016 15:44:33 Tate Montes MD / Marina Martins Interpreting Provider: Tate Montes MD - VTE Documentation of Mechanical Device: Intermittent pneumatic compression device Consult Discharge Plan - Plan Referrals: Bradley Montgomery MD [Primary Care Provider] -
[2016-12-04 16:57] LABS: C-Reactive Protein 37 mg/L (Less than 5)
--- NOTE | 2016-12-04 19:33 | Oncology Inp Progress Note ---
Date of Encounter: 12/05/16 Time of Encounter: 19:31 (1) Cellulitis Current Visit: Yes Status: Acute Assessment and plan: Currently she is on IV antibiotics. Treatment changed to clindamycin after sensitivity results Cultures grew staph aureus (MSSA) sensitive to all antibiotics including vancomycin and clindamycin Qualifiers: Qualified Code(s): L03.032 - Cellulitis of left toe (2) Anemia Current Visit: Yes Status: Chronic Assessment and plan: Anemia hemoglobin 7.7 and she received 2 units packed RBC since admission. Current hemoglobin 8.6 Qualifiers: Qualified Code(s): D64.9 - Anemia, unspecified (3) Adenocarcinoma of right lung Current Visit: No Status: Chronic Assessment and plan: Overall she has disease progression mainly some subcutaneous metastasis. Chest disease fairly stable as mentioned below Currently receiving palliative chemotherapy carboplatin Alimta and Pembrolizumab. Cycle 5 scheduled for 12/01/2016. We will postpone that until she improves from her cellulitis CT chest with contrast 12/04/2016 stable right upper lobe consolidative mass. Most likely post radiation changes right lower lobe and new right lung pleural effusion. Subcentimeter new nodules are nonspecific. Overall chest disease appears stable Will discuss about continuing further chemotherapy to total of 6 cycles versus switching her to [place] an outpatient. Likely soft tissue metastasis right hip lateral aspect it spoke with Dr. Reynoso radiation oncology and she may benefit from palliative radiation to that area Oncology: Subj Interval history: Osteomyelitis right great toe improving on IV clindamycin. Clinically showing improvement. She is sleepy and tired from all the procedures she had throughout the day. - Constitutional Vitals: Vital Signs Temp Pulse Resp BP Pulse Ox 12/04/16 19:08 97.9 F 95 18 124/80 95 12/04/16 16:56 18 97 12/04/16 15:42 97.3 F L 87 18 129/71 97 12/04/16 11:13 97.6 F 88 18 138/84 93 12/04/16 11:05 18 93 12/04/16 07:44 18 92 12/04/16 06:24 97.9 F 93 18 122/80 93 12/04/16 04:40 15 85 12/04/16 03:00 98.2 F 65 15 135/73 93 12/03/16 23:17 16 99 12/03/16 20:49 15 100 Intake and Output 12/04/16 12/04/16 12/04/16 07:59 15:59 23:59 Intake Total 50 / 50 650 / 650 0 / 0 Output Total 850 / 850 300 / 300 300 / 300 Balance -800 / -800 350 / 350 -300 / -300 Intake: IV Fluids 50 / 50 50 / 50 Cleocin Premix 600 MG/50 ML 600 50 / 50 50 / 50 mg In 50 ml @ 50 mls/hr IVPB Q8HR [facility] Rx#:[id number] Oral 0 / 0 600 / 600 0 / 0 Output: Urine 850 / 850 300 / 300 300 / 300 Other: Meal Breakfast Percent of Meal Consumed 75% Stool Size Small Stool Consistency loose Stool Color Brown Weight 65 kg Blood Glucose* 126 212 108 Patient Weight 12/04/16 23:59 Weight 65 kg Exam: GENERAL: Alert and oriented, well appearing. Mental Status: Affect appropriate for circumstances HEENT: Sclerae anicteric. No mucositis or thrush. No other oral or pharyngeal lesions or erythema. Skin: No rashes or petechiae. No evidence of skin malignancy Lymph nodes: No cervical, supraclavicular, axillary, or inguinal adenopathy. Lungs: Air entry normal with normal breath sounds. No rhonchi or wheezing Cardiovascular: Regular rate and rhythm. No skipped beats Abdomen: Soft, nontender; no organomegaly or masses palpable. Extremities: Osteomyelitis right great toe. Also possible subcutaneous metastases right lateral thigh. Neurologic: Alert, cranial nerves II-XII intact; normal gait; no focal weakness or sensory abnormalities Oncology: Obj Data - Labs CBC & Chem 7: 12/05/16 03:17 12/05/16 03:17 Labs: Laboratory Results - last 24 hr 12/04/16 12/04/16 12/04/16 03:22 03:32 03:32 WBC 5.6 RBC 2.77 L Hgb 8.6 L Hct 27.3 L MCV 98.6 MCH 31.0 MCHC 31.5 L RDW 22.3 H Plt Count 161 MPV 9.2 L Immature Gran % 0.9 Seg Neutrophils % 57.4 Lymphocytes % 16.2 Monocytes % 15.1 Eosinophils % 9.0 Basophils % 1.4 Neutrophils # 3.2 Lymphocytes # 0.9 Monocytes # 0.8 Eosinophils # 0.5 Basophils # 0.1 Nucleated RBCs/100 WBC 0.4 H ESR 21 H Sodium 140 Potassium 3.5 Chloride 105 Carbon Dioxide 29 BUN 11 Creatinine 0.89 Est GFR ( Amer) > 60 Est GFR (Non-Af Amer) > 60 BUN/Creatinine Ratio 12 Glucose 118 H POC Glucose Calculated Osmolality 290 Calcium 8.5 L C-Reactive Protein 37 H 12/04/16 12/04/16 12/04/16 07:18 11:17 16:11 WBC RBC Hgb Hct MCV MCH MCHC RDW Plt Count MPV Immature Gran % Seg Neutrophils % Lymphocytes % Monocytes % Eosinophils % Basophils % Neutrophils # Lymphocytes # Monocytes # Eosinophils # Basophils # Nucleated RBCs/100 WBC ESR Sodium Potassium Chloride Carbon Dioxide BUN Creatinine Est GFR ( Amer) Est GFR (Non-Af Amer) BUN/Creatinine Ratio Glucose POC Glucose 126 H 212 H 108 H Calculated Osmolality Calcium C-Reactive Protein - Impressions Impressions Chest CT 12/04/16 11:30 IMPRESSION: 1. Stable right upper lobe paramediastinal masslike consolidation. No interval progressive or new thoracic lymphadenopathy. 2. 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 Progressive patchy consolidation with interstitial changes of the right upper lobe which may represent mild edema or possible lymphangitic carcinomatosis. 3. Bilateral new subcentimeter pulmonary nodules. Stable left pulmonary nodules. Stable to mildly improved left pulmonary nodules. 4. Progressive right pleural effusion which now is mild-moderate and new trace left pleural effusion. 5. Stable blastic skeletal metastasis. D/ / 12/04/2016 15:44:33 Tate Montes MD / Marina Martins Interpreting Provider: Tate Montes MD - ABG Interpretation ABG results: ABG ABG pH 7.44 pH Units (7.32-7.45) 11/30/16 19:47 ABG pCO2 40 mmHg (35-45) 11/30/16 19:47 ABG pO2 79 mmHg (85-104) L 11/30/16 19:47 ABG O2 Saturation 96 % (95-98) 11/30/16 19:47 Consult Discharge Plan - Plan Referrals: Bradley Montgomery MD [Primary Care Provider] -
[2016-12-04] MEDS: ceFAZolin 2,000 MG in D5% in Water 100 ML IVPB SCH (23:57)
[2016-12-05 03:43] LABS: Basophils # 0.1 K/mcL (0.0-0.2); Hematocrit 27.2 % (35.3-44.9); Hemoglobin 8.5 g/dL (11.5-15.4); Mean Corpuscular HGB Conc 31.3 g/dL (31.6-35.5); Mean Corpuscular Hemoglobin 30.6 pg (28.0-33.3); Mean Corpuscular Volume 97.8 fL (83.0-100.0); Mean Platelet Volume 9.5 fL (9.4-12.4); Platelet Count 192 K/mcL (140-400); Red Blood Count 2.78 M/mcL (3.82-4.97); Red Cell Distribution Width 22.5 % (11.5-14.5)
[2016-12-05 03:47] LABS: BUN/Creatinine Ratio 12 (6-26); Blood Urea Nitrogen 10 mg/dL (7-20); Calcium 8.4 mg/dL (8.6-10.8); Carbon Dioxide 32 mEq/L (19-29); Chloride 103 mEq/L (98-109); Glucose 115 mg/dL (70-99); Osmolality,Calculated 296 (280-300); Potassium 3.2 mEq/L (3.5-4.5); Sodium 143 mEq/L (136-145); eGFR For African Americans > 60 (> 60); eGFR For Non-African Americans > 60 (> 60)
[2016-12-05] MEDS: Ipratropium Neb 0.5 MG NEBULIZER IH SCH ×5 (03:50→20:30)
[2016-12-05 04:05] LABS: Eosinophils # 0.5 K/mcL (0.0-0.6); Lymphocytes # 0.5 K/mcL (0.6-4.6); Monocytes # 0.7 K/mcL (0.0-1.3); Neutrophils # 2.5 K/mcL (1.6-8.9)
[2016-12-05 04:06] LABS: Anisocytosis 2+ (Not Present); Hypochromasia Present (Not Present); Microcytosis Present (Not Present); Platelet Estimate Normal (Normal)
[2016-12-05] MEDS: Budesonide/Formoterol 160/4.5 MDI IH SCH ×2 (07:52→20:30)
[2016-12-05] MEDS: Insulin LISPRO 300 UNITS/3 ML VIAL SQ SCH ×4 (07:53→21:07)
[2016-12-05] MEDS: OXcarbazepine 150 MG TABLET PO SCH ×2 (08:01→21:07)
[2016-12-05] MEDS: Folic Acid 1 MG TABLET PO SCH (08:02)
[2016-12-05] MEDS: Gabapentin 400 MG CAPSULE PO SCH ×4 (08:02→21:06)
[2016-12-05] MEDS: Aspirin Enteric Coated 81 MG Tablet PO SCH (08:02)
[2016-12-05] MEDS: Magnesium Oxide 400 MG TABLET PO SCH (08:02)
[2016-12-05] MEDS: ceFAZolin 2,000 MG in D5% in Water 100 ML IVPB SCH ×2 (08:03→16:45)
[2016-12-05] MEDS: Furosemide 20 MG/2 ML VIAL IVP SCH (08:03)
[2016-12-05] MEDS: Metoprolol XL (24 HR) Succ 25 MG TAB.ER.24H PO SCH (08:03)
[2016-12-05] MEDS: Psyllium 1 PACKET POWD.PACK PO SCH ×2 (08:15→21:06)
--- NOTE | 2016-12-05 10:06 | Infectious Disease Progress No ---
Date of Encounter: 12/05/16 Time of Encounter: 10:04 - Assessment and Plan (1) Osteomyelitis Current Visit: Yes Status: Acute Location: Left foot great toe. Causative organism MSSA. Likely secondary to diabetic foot ulcer. MRI of the left foot showed findings consistent with osteomyelitis of the distal phalanx of the great toe. No inflammatory markers have been checked. Podiatry has been consulted: Recommend conservative management at this time. ESR 21, CRP 37. Continue cefazolin 2 grams IV Q8H. Continue wound care and activity restrictions per the podiatry team. Duration of treatment depends on the clinical picture, but likely 6 weeks of IV antibiotics. Monitor renal function and dose-adjust antibiotics. No EPIV consult required. The patient has an a-port that we can use for her IV antibiotics. Consult mental health social worker for discharge planning. The patient is agreeable to rehab placement for her IV antibiotics. Get weekly CBC, BUN/Cr, ESR, and CRP every Sunday for the duration of IV antibiotic therapy. Weekly a-port care per protocol. Follow up with ID 12/19/16 at 0920. Qualifiers: Qualified Code(s): M86.9 - Osteomyelitis, unspecified (2) Cellulitis Current Visit: Yes Status: Acute Location: Left foot. Causative organism: MSSA. Improved. Continue antibiotics as above. Qualifiers: Site of cellulitis: extremity Site of cellulitis of extremity: toe Laterality: left Qualified Code(s): L03.032 - Cellulitis of left toe (3) Diabetic foot ulcer Current Visit: Yes Status: Acute Secondary to poor-fitting shoed. Continue wound care per podiatry's recommendations. Qualifiers: Diabetic foot ulcer location: toe Diabetes mellitus type: type 2 Laterality: left Non-pressure ulcer stage: with fat layer exposed Qualified Code(s): E11.621 - Type 2 diabetes mellitus with foot ulcer; L97.522 - Non- pressure chronic ulcer of other part of left foot with fat layer exposed; L97.522 - Non-pressure chronic ulcer of other part of left foot with fat layer exposed; L97.522 - Non-pressure chronic ulcer of other part of left foot with fat layer exposed; L97.522 - Non-pressure chronic ulcer of other part of left foot with fat layer exposed (4) Sinusitis Current Visit: No Status: Chronic CT head shows right maxillary and sphenoid sinusitis. Patient is asymptomatic at this time. No indication to treat, but would start doxycycline 100mg PO BID if the patient were to become symptomatic. Qualifiers: Sinusitis location: unspecified location Chronicity: chronic Qualified Code(s): J32.9 - Chronic sinusitis, unspecified (5) Anemia Current Visit: Yes Status: Chronic Qualifiers: Anemia type: unspecified type Qualified Code(s): D64.9 - Anemia, unspecified (6) Atrial fibrillation Current Visit: No Status: Chronic Qualifiers: Atrial fibrillation type: paroxysmal Qualified Code(s): I48.0 - Paroxysmal atrial fibrillation (7) CAD (coronary artery disease) Current Visit: Yes Status: Chronic Qualifiers: Coronary Disease-Associated Artery/Lesion type: [place] artery [place] vs. transplanted heart: [place] heart Associated angina: without angina Qualified Code(s): I25.10 - Atherosclerotic heart disease of [place] coronary artery without angina pectoris (8) Diabetes mellitus Current Visit: Yes Status: Chronic Controlled. HgA1C 5.6%. Recommend aggressive glucose monitoring and control to promote wound healing and prevent re-infection. Consider ABIs to evaluate arterial flow. Qualifiers: Diabetes mellitus type: type 2 Diabetes mellitus complication status: with neurologic complications Diabetes mellitus complication detail: with mononeuropathy Diabetes mellitus buttermaker continuous churn insulin use: without care home use Qualified Code(s): E11.41 - Type 2 diabetes mellitus with diabetic mononeuropathy (9) Rheumatoid arthritis Current Visit: No Status: Chronic Not currently on treatment. Qualifiers: Rheumatoid arthritis location: multiple sites Rheumatoid factor presence: with rheumatoid factor Qualified Code(s): M05.79 - Rheumatoid arthritis with rheumatoid factor of multiple sites without organ or systems involvement (10) Adenocarcinoma of right lung Current Visit: No Status: Chronic Diagnosed in 2016. Stage IV with mets to the sacrum, iliac crest, and frontal bone. Follows with the [facility]. Was to get cycle 5 of carboplatin/alimta/pembrolizumab 12/01/16, but this is currently on hold. Hem/Onc consulted and following. - Subjective Interval history: Patient seen and examined. No acute events noted overnight. Patient sitting up on the side of the bed. States she feels much better today. Denies pain, fevers , or chills. Reports dyspnea on exertion that improves with rest and nasal cannula O2. She denies cough or wheezing. Denies nausea, vomiting, diarrhea, or abdominal pain. States her last BM was yesterday. Denies urinary complaints and states her appetite is good. Denies oral thrush or skin lesions. Infect Dis PN-Objective Data - Labs CBC & Chem 7: 12/05/16 03:17 12/05/16 03:17 Labs: Laboratory Results - last 24 hr 12/03/16 12/03/16 12/03/16 07:04 11:47 15:35 WBC RBC Hgb Hct MCV MCH MCHC RDW Plt Count MPV Seg Neutrophils % Lymphocytes % Monocytes % Eosinophils % Basophils % Neutrophils # Lymphocytes # Monocytes # Eosinophils # Basophils # Platelet Estimate Immature Plt Fraction Hypochromasia Anisocytosis Microcytosis ESR Sodium Potassium Chloride Carbon Dioxide BUN Creatinine Est GFR ( Amer) Est GFR (Non-Af Amer) BUN/Creatinine Ratio Glucose POC Glucose 129 H 146 H 136 H Calculated Osmolality Calcium C-Reactive Protein 12/03/16 12/04/16 12/04/16 20:04 03:22 03:32 WBC RBC Hgb Hct MCV MCH MCHC RDW Plt Count MPV Seg Neutrophils % Lymphocytes % Monocytes % Eosinophils % Basophils % Neutrophils # Lymphocytes # Monocytes # Eosinophils # Basophils # Platelet Estimate Immature Plt Fraction Hypochromasia Anisocytosis Microcytosis ESR 21 H Sodium 140 Potassium 3.5 Chloride 105 Carbon Dioxide 29 BUN 11 Creatinine 0.89 Est GFR ( Amer) > 60 Est GFR (Non-Af Amer) > 60 BUN/Creatinine Ratio 12 Glucose 118 H POC Glucose 137 H Calculated Osmolality 290 Calcium 8.5 L C-Reactive Protein 37 H 12/04/16 12/04/16 12/04/16 11:17 16:11 20:31 WBC RBC Hgb Hct MCV MCH MCHC RDW Plt Count MPV Seg Neutrophils % Lymphocytes % Monocytes % Eosinophils % Basophils % Neutrophils # Lymphocytes # Monocytes # Eosinophils # Basophils # Platelet Estimate Immature Plt Fraction Hypochromasia Anisocytosis Microcytosis ESR Sodium Potassium Chloride Carbon Dioxide BUN Creatinine Est GFR ( Amer) Est GFR (Non-Af Amer) BUN/Creatinine Ratio Glucose POC Glucose 212 H 108 H 145 H Calculated Osmolality Calcium C-Reactive Protein 12/05/16 12/05/16 03:17 03:17 WBC 4.3 RBC 2.78 L Hgb 8.5 L Hct 27.2 L MCV 97.8 MCH 30.6 MCHC 31.3 L RDW 22.5 H Plt Count 192 MPV 9.5 Seg Neutrophils % 58.0 Lymphocytes % 12.0 Monocytes % 16.0 Eosinophils % 12.0 Basophils % 2.0 Neutrophils # 2.5 Lymphocytes # 0.5 L Monocytes # 0.7 Eosinophils # 0.5 Basophils # 0.1 Platelet Estimate Normal Immature Plt Fraction 3.0 Hypochromasia Present A Anisocytosis 2+ A Microcytosis Present A ESR Sodium 143 Potassium 3.2 L Chloride 103 Carbon Dioxide 32 H BUN 10 Creatinine 0.85 Est GFR ( Amer) > 60 Est GFR (Non-Af Amer) > 60 BUN/Creatinine Ratio 12 Glucose 115 H POC Glucose Calculated Osmolality 296 Calcium 8.4 L C-Reactive Protein Cultures: Cultures 12/01/16 08:00 Anaerobic Culture - Preliminary Left Great Toe At this time, no anaerobic growth is present. The culture will be finalized after 5 days of incubation. 11/30/16 16:28 Blood Culture - Preliminary Peripheral Venipuncture No growth. 11/30/16 16:28 Blood Culture - Preliminary Peripheral Venipuncture No growth. - Impressions Impressions Chest CT 12/04/16 11:30 IMPRESSION: 1. Stable right upper lobe paramediastinal masslike consolidation. No interval progressive or new thoracic lymphadenopathy. 2. 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 Progressive patchy consolidation with interstitial changes of the right upper lobe which may represent mild edema or possible lymphangitic carcinomatosis. 3. Bilateral new subcentimeter pulmonary nodules. Stable left pulmonary nodules. Stable to mildly improved left pulmonary nodules. 4. Progressive right pleural effusion which now is mild-moderate and new trace left pleural effusion. 5. Stable blastic skeletal metastasis. D/ / 12/04/2016 15:44:33 Tate Montes MD / Marina Martins Interpreting Provider: Tate Montes MD Exam - Constitutional Vitals: Temp Pulse Resp BP Pulse Ox 98.1 F 91 18 127/79 94 12/05/16 07:58 12/05/16 07:58 12/05/16 07:58 12/05/16 07:58 12/05/16 07:58 General appearance: average body habitus, cooperative, no acute distress - Head Head exam: Present: atraumatic, normal inspection, normocephalic - Eye Eye exam: Present: EOMI, normal appearance, PERRL Pupils: Present: normal accommodation - ENT ENT exam: Present: mucous membranes moist - Neck Neck exam: Present: normal inspection - Respiratory Respiratory exam: Present: decreased breath sounds (throughout). Absent: rales , respiratory distress, rhonchi, wheezes - Cardiovascular Cardiovascular exam: Present: RRR, +S1, +S2 - GI/Abdominal GI/Abdominal exam: Present: normal bowel sounds, soft. Absent: distended, tenderness - Extremities Exam Extremities exam: Present: normal inspection. Absent: joint swelling, pedal edema, tenderness Additional comments: Left foot dressing C/D/I. - Neurological Exam Neurological exam: Present: alert, oriented X3, no focal deficits - Psychiatric Psychiatric exam: Present: normal affect, normal mood - Skin Skin exam: Present: dry, intact, normal color, warm - Additional findings Additional findings: A-port noted to the right upper chest, currently accessed with 19g [place] needle with transparent dressing C/D/I. - VTE Documentation of Mechanical Device: Intermittent pneumatic compression device Consult Discharge Plan - Plan Referrals: Bradley Montgomery MD [Primary Care Provider] - Ankita Holloway CNP [Advanced Practice Nurse] - 12/19/16 9:20 am
[2016-12-05] MEDS: *HR* OxyCODONE/APAP 10/325 TABLET PO PRN (10:18)
--- NOTE | 2016-12-05 11:24 | Discharge Summary ---
Date of Encounter: 12/05/16 Time of Encounter: 11:23 - Discharge Diagnosis (1) Diabetic foot ulcer Priority: Primary Status: Acute Qualifiers: Diabetic foot ulcer location: toe Diabetes mellitus type: type 2 Laterality: left Non-pressure ulcer stage: with fat layer exposed Qualified Code(s): E11.621 - Type 2 diabetes mellitus with foot ulcer; L97.522 - Non- pressure chronic ulcer of other part of left foot with fat layer exposed; L97.522 - Non-pressure chronic ulcer of other part of left foot with fat layer exposed; L97.522 - Non-pressure chronic ulcer of other part of left foot with fat layer exposed; L97.522 - Non-pressure chronic ulcer of other part of left foot with fat layer exposed (2) Osteomyelitis Priority: Primary Status: Acute Qualifiers: Qualified Code(s): M86.9 - Osteomyelitis, unspecified (3) Decubitus ulcer Priority: Secondary Status: Chronic Qualifiers: Pressure ulcer location: toe Pressure ulcer stage: stage 3 Laterality: left Qualified Code(s): L89.893 - Pressure ulcer of other site, stage 3 (4) COPD (chronic obstructive pulmonary disease) Priority: Secondary Status: Chronic Qualifiers: Emphysema type: unspecified Qualified Code(s): J43.9 - Emphysema, unspecified (5) Severe protein-calorie malnutrition Priority: Secondary Status: Chronic (6) Atrial fibrillation Priority: Secondary Status: Chronic Qualifiers: Atrial fibrillation type: paroxysmal Qualified Code(s): I48.0 - Paroxysmal atrial fibrillation (7) CAD (coronary artery disease) Priority: Secondary Status: Chronic Qualifiers: Coronary Disease-Associated Artery/Lesion type: [place] artery [place] vs. transplanted heart: [place] heart Associated angina: without angina Qualified Code(s): I25.10 - Atherosclerotic heart disease of [place] coronary artery without angina pectoris (8) Diabetes mellitus Priority: Secondary Status: Chronic Qualifiers: Diabetes mellitus type: type 2 Diabetes mellitus complication status: with neurologic complications Diabetes mellitus complication detail: with mononeuropathy Diabetes mellitus extermination inspector insulin use: without extermination inspector use Qualified Code(s): E11.41 - Type 2 diabetes mellitus with diabetic mononeuropathy (9) Adenocarcinoma of right lung Priority: Secondary Status: Chronic - Discharge Medications Prescriptions: CeFAZolin Pre 2,000 MG/100 ML [Ancef Premix 2,000 MG/100 ML] 2,000 mg IV Q8HR 36 Days bag Oxycodone HCl/Acetaminophen [Percocet 10-325 mg Tablet] 1 tab PO Q6H PRN #20 tablet PRN Reason: Pain Saccharomyces Boulardii [Florastor] 250 mg PO BID #80 capsule Home Medications: Atorvastatin Calcium [Lipitor] 80 mg PO HS 12/08/15 [History] DULoxetine [Cymbalta] 30 mg PO BID 12/08/15 [History] Furosemide [Lasix] 40 mg PO Q48H PRN 12/08/15 [History] Nitroglycerin [Nitrostat] 0.4 mg SL Q5M PRN 12/08/15 [History] Ondansetron HCl [Zofran] 4 mg PO Q6H PRN #30 tablet 01/26/16 [Rx] Prochlorperazine Maleate [Compazine] 10 mg PO Q6HR PRN #60 tablet 01/26/16 [Rx] Loratadine [Claritin] 10 mg PO DAILY PRN 02/01/16 [History] Meclizine [Antivert] 12.5 mg PO TID PRN 02/01/16 [History] Lidocaine Patch [Lidoderm 5% patch] 1 each TP DAILY PRN #30 adh..patch 04/07/16 [Rx] Gabapentin [Neurontin] 800 mg PO QID #120 tablet 04/27/16 [Rx] OXcarbazepine [Trileptal] 150 mg PO BID #60 tablet 05/26/16 [Rx] Albuterol Sulfate [Proair Respiclick] 2 puff IH Q4H PRN 08/31/16 [History] Budesonide/Formoterol 160/4.5 [Symbicort 160/4.5] 2 puff IH BIDR 08/31/16 [ History] Cranberry Fruit [Cranberry] 400 mg PO DAILY 08/31/16 [History] Docusate Sodium [Colace] 100 mg PO DAILY PRN 08/31/16 [History] Oxygen 3 l NS HS 08/31/16 [History] Polyethylene Glycol 3350 [MiraLAX Powder Bulk 17.9 Oz] 17 gm PO DAILY PRN [History] Psyllium Husk [Metamucil] 0.8 gm PO BID 08/31/16 [History] Aspirin Enteric Coated [Aspirin EC] 81 mg PO DAILY #30 tablet. 09/27/16 [Rx] Folic Acid 1 mg PO DAILY #30 tablet 10/10/16 [Rx] Magnesium Oxide [Magnesium] 400 mg PO DAILY #30 tablet 10/10/16 [Rx] Potassium Chloride [K-Tab ER] 10 meq PO DAILY #30 tablet.er 10/10/16 [Rx] Omeprazole [PriLOSEC] 20 mg PO DAILY #30 10/23/16 [Rx] Magic Mouthwash [Magic Mouthwash BLM] 10 ml PO QID PRN #500 ml 11/14/16 [Rx] Metformin HCl [Metformin HCl ER] 500 mg PO BID 11/30/16 [History] CeFAZolin Pre 2,000 MG/100 ML [Ancef Premix 2,000 MG/100 ML] 2,000 mg IV Q8HR 36 Days bag 12/05/16 [Rx] Metoprolol [Lopressor] 25 mg PO BID #0 12/05/16 [Rx] Oxycodone HCl/Acetaminophen [Percocet 10-325 mg Tablet] 1 tab PO Q6H PRN #20 tablet 12/05/16 [Rx] Saccharomyces Boulardii [Florastor] 250 mg PO BID #80 capsule 12/05/16 [Rx] Allergies/Adverse Reactions: 3 Allergy/AdvReac Type Severity Reaction Status Date / Time dofetilide [From Tikosyn] Allergy Unresponsiv Verified 11/30/16 09:46 e Iodinated Contrast- Oral and Allergy Palpitation Verified 11/30/16 09:46 IV Dye s [Iodinated Contrast Media - IV Dye] lisinopril AdvReac See Verified 11/30/16 09:46 Comments red dye AdvReac Rash Verified 11/30/16 09:46 Procedures/tests Complete & Pending: Procedures Performed prior 72 hours Category Date Time Status CT chest wo con [CT] Routine Cat Scan 12/04/16 11:30 Completed Date of admission: 11/30/16 15:11 Primary care physician: Bradley Montgomery MD Consults: 11/30/16 15:22 Consult to Wound Care [CONS] Routine Reason for Consult: Patient has cellulitis of the left great toe as well as decubitus ulcer of left great toe. Call Completed: No 11/30/16 15:23 Consult to Nutrition [CONS] Routine Comment: Consulting Provider: NUTRITION Reason for Dietary Consult: PO Supplementation Consult to Oncology [CONS] Routine Consulting Provider: On[facility] Reason for Consult: Patient has lung cancer and reports she is supposed to have chemotherapy tomorrow. Call Completed: No 11/30/16 16:09 Consult to Tin Roofer [CONS] Routine Comment: Reason for Consult: Patient is diabetic with ulceration of left great toe. 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 Educate pt. regarding skin/foot care, diet, etc. 11/30/16 21:43 Consult to Podiatry [CONS] Routine Consulting Provider: Podiatry [facility] Reason for Consult: Patient has cellulitis of the left great toe and also a decubitus ulcer of the left great toe. Purulent drainage. Wound culture, Consult, and daily care ordered. Call Completed: No 12/04/16 13:10 Consult to Infectious Diseases [CONS] Routine Consulting Provider: Infectious Disease [place] Reason for Consult: osteomyelitis Call Completed: Yes 12/04/16 17:04 Consult to Medical Office Clerk [CONS] Routine Reason for SW Consult: Needs IV atbs on discharge. - Patient Status Disposition: Transfer SNF Condition: Good Overall status at discharge: patient is back to baseline - Discharge Instructions Follow Up With: Bradley Montgomery MD [Primary Care Provider] - Ankita Holloway CNP [Advanced Practice Nurse] - 12/19/16 9:20 am Sessions,Manuelito Conway DPM [Partnered Physician] - Additional Instructions: Need to f/u with PCP in one week need to f/u with ID Dr. Yang in 1 week Need to f/u with [employer] Dr. Brumfield in 1-2 weeks Need Q weekly CBC, BMP, ESR, CRP - Diet and Activity Activity: as per physical therapy, increase activity as tolerated, wear oxygen at all times Diet: low salt diet Hospital course: Ms. Reynoso is a 66 year old female asked medical history of right lung adenocarcinoma stage IV currently on palliative chemotherapy and radiation, A. fib, CHF, COPD, CAD, diabetes, and rheumatoid arthritis not currently on treatment. The patient was admitted to the hospital November 30 for left foot cellulitis. The patient presented to the emergency department with complaints of left foot swelling and worsening of the left great toe ulcer of the 2-3 days prior to admission. Upon arrival, her white blood cell count was normal. She did have an elevated lactic acid at 2.9. A foot x-ray was negative. She was started on empiric IV antibiotics. A wound culture was obtained and grew out MSSA. She has been evaluated by podiatry who has opted to pursue conservative therapy with no surgical intervention at this time. A foot MRI revealed a fluid collection on the dorsal aspect of the left great toe concerning for abscess and osteomyelitis of the first distal phalanx of the left great toe. She has had some altered mental status and a CT of the head revealed right maxillary and sphenoid sinusitis, but no other acute intracranial abnormality. Since the patient has been in the hospital, but cell count has remained normal. She had a chest x-ray December 02 that was negative. She has had some intermittent tachycardia, but has been afebrile for over [address] of the chest earlier today that stable from prior exams. Shortly, he has been seeing the patient and following her clinical course. She was scheduled for her fifth cycle of chemotherapy on December 01, but this is been placed on hold. Pt was evaluated by ID, who recommend IV Ancef 2gm Q8hr for total 42 days course. Will dc her to ECF today in stable condition and recommend to f/u with ID and [employer] as an out pt. - Time Spent with Patient Total time spent providing and/or coordinating discharge services: Greater than 30 minutes (Spend 45 minutes on discharge summaru due to her complicated and complex medical problems) - Constitutional Vitals: Temp Pulse Resp BP Pulse Ox 98.1 F 91 18 127/79 94 12/05/16 07:58 12/05/16 07:58 12/05/16 07:58 12/05/16 07:58 12/05/16 07:58 General appearance: Present: cooperative, A&O X 3, pleasant, no acute distress, loss of weight (Reports loss of weight >30 lbs over the past several months), answers questions appropriately - Head Head exam: Present: atraumatic, normal inspection - Respiratory Respiratory exam: Present: decreased breath sounds, wheezes (mild). Absent: rales, respiratory distress, rhonchi - Cardiovascular Cardiovascular exam: Present: RRR, +S1, +S2. Absent: systolic murmur - GI/Abdominal GI/Abdominal exam: Present: normal bowel sounds, soft. Absent: rebound, rigid, tenderness - Extremities Exam Extremities exam: Present: pedal edema. Absent: calf tenderness, tenderness Additional comments: iLeft foot great toe with stage II ulcer to the dorsal aspect and the plantar aspect. Mild erythema with 1+ edema noted. No purulent drainage, bleeding, or foul odor noted. No fluctuance or tenderness noted. - Neurological Exam Neurological exam: Present: alert, oriented X3 - Psychiatric Psychiatric exam: Present: normal affect, normal mood - VTE Documentation of Mechanical Device: Intermittent pneumatic compression device
[2016-12-05] MEDS: Magic Mouthwash 10 ML UD Cup PO PRN (12:59)
--- NOTE | 2016-12-05 15:08 | Podiatry Progress Note ---
Date of Encounter: 12/05/16 Time of Encounter: 12:00 - Assessment and Plan (1) Cellulitis Current Visit: Yes Status: Acute Continue with current antibiotic therapy appears to be improving Qualifiers: Site of cellulitis: extremity Site of cellulitis of extremity: toe Laterality: left Qualified Code(s): L03.032 - Cellulitis of left toe (2) Diabetic foot ulcer Current Visit: Yes Status: Acute Assessment: Diabetic foot ulcerations Measurements as documented Will continue with current conservative treatment at this time- betadine dressing changes and dry dressing ID following for antibiotic management for osteomyelitis. Will likely need 6 weeks of IV antibiotic therapy- currently on cefazolin 2g Q8 for MSSA Will need followed in clinic after discharge with . Qualifiers: Diabetic foot ulcer location: toe Diabetes mellitus type: type 2 Laterality: left Non-pressure ulcer stage: with fat layer exposed Qualified Code(s): E11.621 - Type 2 diabetes mellitus with foot ulcer; L97.522 - Non- pressure chronic ulcer of other part of left foot with fat layer exposed; L97.522 - Non-pressure chronic ulcer of other part of left foot with fat layer exposed; L97.522 - Non-pressure chronic ulcer of other part of left foot with fat layer exposed; L97.522 - Non-pressure chronic ulcer of other part of left foot with fat layer exposed Subjective Principal diagnosis: Abscess left great toe Interval history: We have been following regarding edema of left foot and ulcerations of left great toe. She states that pain has significantly decreased and she does believe it looks better. [facility] hospitalist services changed it this morning and it was painted with betadine as ordered. Patient denies any fevers, chills, n/v or flu like symptoms. Objective - Vital Signs Vital Signs: Vital Signs Temp Pulse Resp BP Pulse Ox 12/05/16 11:29 86 18 115/70 94 12/05/16 07:58 98.1 F 91 18 127/79 94 12/05/16 07:52 18 94 12/05/16 04:00 98.0 F 92 14 131/83 95 12/05/16 03:50 18 89 12/05/16 00:35 98.1 F 65 14 142/75 93 12/04/16 23:09 18 97 12/04/16 21:30 99 12/04/16 19:56 18 98 12/04/16 19:08 97.9 F 95 18 124/80 95 12/04/16 16:56 18 97 12/04/16 15:42 97.3 F L 87 18 129/71 97 Intake and Output 12/04/16 12/05/16 12/05/16 23:59 07:59 15:59 Intake Total 0 / 0 100 / 100 1320 / 1320 Output Total 650 / 650 0 / 0 0 / 0 Balance -650 / -650 100 / 100 1320 / 1320 Intake: IV Fluids 100 / 100 Ancef 2,000 MG In Dextrose 5% 100 / 100 100 ML @ 200 mls/hr IVPB Q8HR [facility] Rx#:[id number] Oral 0 / 0 0 / 0 1320 / 1320 Output: Urine 650 / 650 0 / 0 0 / 0 Other: Meal Lunch Percent of Meal Consumed 100% Weight 64.864 kg Blood Glucose* 145 119 186 Patient Weight 12/05/16 23:59 Weight 64.864 kg - Exam Exam: Left lower extremity Noted 2+/4 edema from mid tibial region - distal There is minimal erythema to leg and no noted streaking or clinical signs concerning of worsening Pedal pulses palpable DP/PT Minimal sensation to light or moderate touch There are 2 ulcerations of left great toe, dorsal and plantar aspect. dorsal measures 2.5x2x0.3cm with probe to bone and fibrous slough base Plantar measures 1.5cmx1.5cmx0.2cm with probe to bone. There is mild serous drainage There is associated edema and erythema to toe. Mild warmth. - Lab Result Diagrams: 12/05/16 03:17 12/05/16 03:17 Labs: Abnormal lab results RBC 2.78 M/mcL (3.82-4.97) L 12/05/16 03:17 Hgb 8.5 g/dL (11.5-15.4) L 12/05/16 03:17 Hct 27.2 % (35.3-44.9) L 12/05/16 03:17 MCHC 31.3 g/dL (31.6-35.5) L 12/05/16 03:17 RDW 22.5 % (11.5-14.5) H 12/05/16 03:17 Lymphocytes # 0.5 K/mcL (0.6-4.6) L 12/05/16 03:17 Nucleated RBCs/100 WBC 0.4 /100 WBC (0) H 12/04/16 03:32 Hypochromasia Present (Not Present) A 12/05/16 03:17 Anisocytosis 2+ (Not Present) A 12/05/16 03:17 Microcytosis Present (Not Present) A 12/05/16 03:17 ESR 21 mm/hr (0-15) H 12/04/16 03:22 ABG pO2 79 mmHg (85-104) L 11/30/16 19:47 ABG Total CO2 29 mEq/L (20-26) H 11/30/16 19:47 Potassium 3.2 mEq/L (3.5-4.5) L 12/05/16 03:17 Carbon Dioxide 32 mEq/L (19-29) H 12/05/16 03:17 Glucose 115 mg/dL (70-99) H 12/05/16 03:17 POC Glucose 186 (58-89) H 12/05/16 11:36 Calcium 8.4 mg/dL (8.6-10.8) L 12/05/16 03:17 Alkaline Phosphatase 130 Units/L (38-126) H 12/02/16 05:40 C-Reactive Protein 37 mg/L (Less than 5) H 12/04/16 03:32 Serum Total Protein 4.7 g/dL (6.0-8.3) L 12/02/16 05:40 Albumin 2.0 g/dL (3.5-5.0) L 12/02/16 05:40 Albumin/Globulin Ratio 0.7 (1.1-2.2) L 12/02/16 05:40 HDL Cholesterol 17 mg/dL (40-59) L 12/01/16 02:15 Microbiology, Last 48 Hours 12/01/16 08:00 Anaerobic Culture - Preliminary Left Great Toe At this time, no anaerobic growth is present. The culture will be finalized after 5 days of incubation. - VTE Documentation of Mechanical Device: Intermittent pneumatic compression device Consult Discharge Plan - Plan Additional Instructions: Need to f/u with PCP in one week need to f/u with ID Dr. Yang in 1 week Need to f/u with [employer] Dr. Sessions in 1-2 weeks Need Q weekly CBC, BMP, ESR, CRP Referrals: Bradley Montgomery MD [Primary Care Provider] - Octaviano,Manuelito Conway DPM [Partnered Physician] - Ankita Holloway CNP [Advanced Practice Nurse] - 12/19/16 9:20 am Prescriptions: CeFAZolin Pre 2,000 MG/100 ML [Ancef Premix 2,000 MG/100 ML] 2,000 mg IV Q8HR 36 Days bag Oxycodone HCl/Acetaminophen [Percocet 10-325 mg Tablet] 1 tab PO Q6H PRN #20 tablet PRN Reason: Pain Saccharomyces Boulardii [Florastor] 250 mg PO BID #80 capsule
[2016-12-05] MEDS: *HR* Codeine Sulfate 30 MG TABLET PO PRN (16:45)
[2016-12-06] MEDS: ceFAZolin 2,000 MG in D5% in Water 100 ML IVPB SCH ×2 (00:25→09:20)
[2016-12-06] MEDS: Ipratropium Neb 0.5 MG NEBULIZER IH SCH ×3 (00:32→07:41)
[2016-12-06] MEDS: Budesonide/Formoterol 160/4.5 MDI IH SCH (07:41)
[2016-12-06 08:00] VITALS: BP 130/82
[2016-12-06] MEDS: Insulin LISPRO 300 UNITS/3 ML VIAL SQ SCH (08:47)
[2016-12-06] MEDS: Folic Acid 1 MG TABLET PO SCH (09:01)
[2016-12-06] MEDS: Aspirin Enteric Coated 81 MG Tablet PO SCH (09:01)
[2016-12-06] MEDS: Gabapentin 400 MG CAPSULE PO SCH (09:02)
[2016-12-06] MEDS: Psyllium 1 PACKET POWD.PACK PO SCH (09:02)
[2016-12-06] MEDS: Magnesium Oxide 400 MG TABLET PO SCH (09:02)
[2016-12-06] MEDS: OXcarbazepine 150 MG TABLET PO SCH (09:02)
[2016-12-06] MEDS: Metoprolol XL (24 HR) Succ 25 MG TAB.ER.24H PO SCH (09:02)
--- NOTE | 2016-12-06 09:02 | Physician Discharge Referral ---
ExtendedCare Referral Info Transfer To: SNF Provider in Charge after Transfer: PCP Institutional Level of Care: Skilled - Diagnosis (1) Diabetic foot ulcer Status: Acute (2) Osteomyelitis Status: Acute (3) Decubitus ulcer Status: Chronic (4) COPD (chronic obstructive pulmonary disease) Status: Chronic (5) Severe protein-calorie malnutrition Status: Chronic (6) Atrial fibrillation Status: Chronic (7) CAD (coronary artery disease) Status: Chronic (8) Diabetes mellitus Status: Chronic (9) Adenocarcinoma of right lung Status: Chronic - Transfer Medications Prescriptions: CeFAZolin Pre 2,000 MG/100 ML [Ancef Premix 2,000 MG/100 ML] 2,000 mg IV Q8HR 36 Days bag Oxycodone HCl/Acetaminophen [Percocet 10-325 mg Tablet] 1 tab PO Q6H PRN #20 tablet PRN Reason: Pain Saccharomyces Boulardii [Florastor] 250 mg PO BID #80 capsule Home Medications: Atorvastatin Calcium [Lipitor] 80 mg PO HS 12/08/15 [History] DULoxetine [Cymbalta] 30 mg PO BID 12/08/15 [History] Furosemide [Lasix] 40 mg PO Q48H PRN 12/08/15 [History] Nitroglycerin [Nitrostat] 0.4 mg SL Q5M PRN 12/08/15 [History] Ondansetron HCl [Zofran] 4 mg PO Q6H PRN #30 tablet 01/26/16 [Rx] Prochlorperazine Maleate [Compazine] 10 mg PO Q6HR PRN #60 tablet 01/26/16 [Rx] Loratadine [Claritin] 10 mg PO DAILY PRN 02/01/16 [History] Meclizine [Antivert] 12.5 mg PO TID PRN 02/01/16 [History] Lidocaine Patch [Lidoderm 5% patch] 1 each TP DAILY PRN #30 adh..patch 04/07/16 [Rx] Gabapentin [Neurontin] 800 mg PO QID #120 tablet 04/27/16 [Rx] OXcarbazepine [Trileptal] 150 mg PO BID #60 tablet 05/26/16 [Rx] Albuterol Sulfate [Proair Respiclick] 2 puff IH Q4H PRN 08/31/16 [History] Budesonide/Formoterol 160/4.5 [Symbicort 160/4.5] 2 puff IH BIDR 08/31/16 [ History] Cranberry Fruit [Cranberry] 400 mg PO DAILY 08/31/16 [History] Docusate Sodium [Colace] 100 mg PO DAILY PRN 08/31/16 [History] Oxygen 3 l NS HS 08/31/16 [History] Polyethylene Glycol 3350 [MiraLAX Powder Bulk 17.9 Oz] 17 gm PO DAILY PRN [History] Psyllium Husk [Metamucil] 0.8 gm PO BID 08/31/16 [History] Aspirin Enteric Coated [Aspirin EC] 81 mg PO DAILY #30 tablet. 09/27/16 [Rx] Folic Acid 1 mg PO DAILY #30 tablet 10/10/16 [Rx] Magnesium Oxide [Magnesium] 400 mg PO DAILY #30 tablet 10/10/16 [Rx] Potassium Chloride [K-Tab ER] 10 meq PO DAILY #30 tablet.er 10/10/16 [Rx] Omeprazole [PriLOSEC] 20 mg PO DAILY #30 10/23/16 [Rx] Magic Mouthwash [Magic Mouthwash BLM] 10 ml PO QID PRN #500 ml 11/14/16 [Rx] Metformin HCl [Metformin HCl ER] 500 mg PO BID 11/30/16 [History] CeFAZolin Pre 2,000 MG/100 ML [Ancef Premix 2,000 MG/100 ML] 2,000 mg IV Q8HR 36 Days bag 12/05/16 [Rx] Metoprolol [Lopressor] 25 mg PO BID #0 12/05/16 [Rx] Oxycodone HCl/Acetaminophen [Percocet 10-325 mg Tablet] 1 tab PO Q6H PRN #20 tablet 12/05/16 [Rx] Saccharomyces Boulardii [Florastor] 250 mg PO BID #80 capsule 12/05/16 [Rx] Allergies/Adverse Reactions: 3 Allergy/AdvReac Type Severity Reaction Status Date / Time dofetilide [From Tikosyn] Allergy Unresponsiv Verified 11/30/16 09:46 e Iodinated Contrast- Oral and Allergy Palpitation Verified 11/30/16 09:46 IV Dye s [Iodinated Contrast Media - IV Dye] lisinopril AdvReac See Verified 11/30/16 09:46 Comments red dye AdvReac Rash Verified 11/30/16 09:46 - Respiratory Orders Smoking Cessation: Smoking cessation has been advised. For more information, call the [place] Tobacco Quit Line at 3-779-IVTW-NOW. CERTIFICATION: I certify that the transfer of the above named patient to an Extended Care Facility is necessary for the continuing treatment of the diagnosis listed. The above information is true and accurate reflection of patient's current condition. Confidential - Redisclosure prohibited without a patient's written consent.
== END 2016-12-06 10:31 | DRG 637 ==
LOC: EMEROO 09:21 → 3ANU 09:21 → SUATTDRO 15:11 → 3ANU 12-01 18:33
PROVIDERS: ADMIT Nurse Practitioner Family; ATTEND Family Medicine

== ENCOUNTER 2017-01-04 14:35 | Observation (INO) ==
--- NOTE | 2017-01-04 14:55 | Emergency Department Note ---
Disposition Clinical Impression: Anemia, Pancytopenia, Adenocarcinoma of right lung Disposition: Admitted As Inpatient Condition: Undetermined General Adult HPI - General Chief complaint: ED Recheck/Abnormal Lab/Rx Stated complaint: needs transfused Time Seen by Provider: 01/04/17 14:47 Source: patient, family Limitations: physical limitation - History of Present Illness Pain Scale: 0 - Related Data Home Medications Medication Instructions Recorded Confirmed Atorvastatin Calcium [Lipitor] 80 mg PO HS 12/08/15 01/04/17 DULoxetine [Cymbalta] 30 mg PO BID 12/08/15 01/04/17 Furosemide [Lasix] 40 mg PO DAILY PRN 12/08/15 01/04/17 Nitroglycerin [Nitrostat] 0.4 mg SL Q5M PRN 12/08/15 01/04/17 Loratadine [Claritin] 10 mg PO DAILY PRN 02/01/16 01/04/17 Meclizine [Antivert] 12.5 mg PO TID PRN 02/01/16 01/04/17 Albuterol Sulfate [Proair 2 puff IH Q4H PRN 08/31/16 01/04/17 Respiclick] Cranberry Fruit [Cranberry] 400 mg PO DAILY 08/31/16 01/04/17 Docusate Sodium [Colace] 100 mg PO DAILY PRN 08/31/16 01/04/17 Oxygen 3 l NS HS 08/31/16 01/04/17 Polyethylene Glycol 3350 [MiraLAX 17 gm PO DAILY PRN 08/31/16 01/04/17 Powder Bulk 17.9 Oz] Metformin HCl [Metformin HCl ER] 500 mg PO BID 11/30/16 01/04/17 Ammonium Lactate [Dianelys-Hydrolac] 1 appl TP DAILY 01/04/17 01/04/17 Budesonide/Formoterol 160/4.5 2 puff IH BIDR 01/04/17 01/04/17 [Symbicort 160/4.5] Collagenase Oint [Santyl] 1 appl TP DAILY PRN 01/04/17 01/04/17 Glucagon,Human Recombinant 1 mg IJ DAILY PRN 01/04/17 01/04/17 [Glucagen] Guaifenesin [Diabetic Tussin Ex] 10 ml PO Q6H PRN 01/04/17 01/04/17 Insulin LISPRO [Humalog] 0 unit SQ QID PRN 01/04/17 01/04/17 Ipratropium/Albuterol Neb [Duoneb] 3 ml IH Q4H PRN 01/04/17 01/04/17 Methyl Salicylate/Menth/Camph 1 patch TP DAILY PRN 01/04/17 01/04/17 [Salonpas Large Patch] Previous Rx's Medication Instructions Recorded Ondansetron HCl [Zofran] 4 mg PO Q6H PRN #30 tablet 01/26/16 Prochlorperazine Maleate 10 mg PO Q6HR PRN #60 tablet 01/26/16 [Compazine] Gabapentin [Neurontin] 800 mg PO QID #120 tablet 04/27/16 OXcarbazepine [Trileptal] 150 mg PO BID #60 tablet 05/26/16 Aspirin Enteric Coated [Aspirin EC] 81 mg PO DAILY #30 tablet. 09/27/16 Folic Acid 1 mg PO DAILY #30 tablet 10/10/16 Magnesium Oxide [Magnesium] 400 mg PO DAILY #30 tablet 10/10/16 Potassium Chloride [K-Tab ER] 10 meq PO DAILY #30 tablet.er 10/10/16 Omeprazole [PriLOSEC] 20 mg PO DAILY #30 10/23/16 Magic Mouthwash [Magic Mouthwash 10 ml PO QID PRN #500 ml 11/14/16 BLM] CeFAZolin Pre 2,000 MG/100 ML 2,000 mg IV Q8HR 36 Days bag 12/05/16 [Ancef Premix 2,000 MG/100 ML] Metoprolol [Lopressor] 25 mg PO BID #0 12/05/16 Oxycodone HCl/Acetaminophen 1 tab PO Q6H PRN #20 tablet 12/05/16 [Percocet 10-325 mg Tablet] Saccharomyces Boulardii [Florastor] 250 mg PO BID #80 capsule 12/05/16 Allergies Allergy/AdvReac Type Severity Reaction Status Date / Time dofetilide [From Tikosyn] Allergy Unresponsiv Verified 01/04/17 15:22 e Iodinated Contrast- Oral and Allergy Palpitation Verified 01/04/17 15:22 IV Dye s [Iodinated Contrast Media - IV Dye] lisinopril AdvReac See Verified 01/04/17 15:22 Comments red dye AdvReac Rash Verified 01/04/17 15:22 Past Medical History - Past Medical History Medical history: Reports: arthritis, atrial fibrillation, cancer, CHF, COPD, coronary artery disease, diabetes, hypertension, myocardial infarction, RA Surgical history: Reports: cholecystectomy, other (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 ) Psychiatric history: Reports: no psych history CAR 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: no CAR 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 - Social History Smoking Status: Current some day smoker Smokeless Tobacco Status: No Alcohol use: Reports: none Drug use: Reports: none Physical Exam - General Limitations: physical limitation General appearance: alert, in no apparent distress Course Vital Signs Temperature 98.1 F 01/04/17 14:44 Pulse Rate 85 01/04/17 14:44 Respiratory Rate 15 01/04/17 14:44 Blood Pressure 94/68 01/04/17 14:44 O2 Sat by Pulse Oximetry 97 01/04/17 14:44 Temperature 99.4 F 01/04/17 18:03 Pulse Rate 67 01/04/17 18:03 Respiratory Rate 16 01/04/17 18:03 Blood Pressure 117/74 01/04/17 18:03 O2 Sat by Pulse Oximetry 92 01/04/17 18:03 Oxygen Delivery Oxygen Delivery Room Air Medical Decision Making - Lab Data Lab Results 01/04/17 Range/Units 15:12 Blood Type O POSITIVE Antibody Screen NEGATIVE Crossmatch See Detail Critical Care Time Critical Care Time: Yes Total Critical Care Time: 30 Attestation: Anemia requiring transfusion of packed red blood cells Attestation Statement - Attestation Attestation: I examined this patient and my medical decision-making was reviewed with the Resident Physician. I agree with the documented findings, disposition and treatment plan as described except to the extent set forth below. [id number] time provided Patient with history of lung cancer presents with outpatient labs indicating a hemoglobin of 6.8. Her hemoglobin has been trending down from a baseline anemia. She was sent for a transfusion. She appears pale and frail but otherwise no acute distress. Patient consented after risks, benefits of packed red blood cell transfusion discussed.
--- NOTE | 2017-01-04 15:00 | Emergency Department Note ---
Disposition Clinical Impression: Pancytopenia, Adenocarcinoma of right lung Anemia Qualifiers: Anemia type: other cause Other causes of anemia: other cause, not classified Qualified Code(s): D64.89 - Other specified anemias Disposition: Admitted As Inpatient Condition: Undetermined Referrals: Bradley Montgomery MD [Primary Care Provider] - Forms: ED Satisfaction Letter Time of Disposition: 15:56 Recheck wound or abnormal lab - General Chief Complaint: ED Recheck/Abnormal Lab/Rx Stated Complaint: needs transfused Time Seen by Provider: 01/04/17 14:47 Source: patient, family Mode of arrival: private vehicle Limitations: no limitations Nursing Notes Reviewed: Yes Vital Signs Reviewed: Yes - History of Present Illness HPI Narrative: 66-year-old female with history of stage IV lung cancer with metastasis arrives to [facility] emergency department with concern for anemia. The patient has a history of chronic anemia but was noted on labs within the last 24 hours to have a hemoglobin of 6.8. The patient is complaining of generalized weakness. She denies any other complaints of chest pain, difficulty breathing, abdominal pain. The patient has a chronic wound that she is currently receiving IV antibiotics for at rehabilitation facility. She states there is no new concern for pain or complaints associated with this. Pt Subjective Complaint: abnormal lab(s) Symptoms Since Prior Visit: no new symptoms Associated symptoms: malaise - Related Data Home Medications Medication Instructions Recorded Confirmed Atorvastatin Calcium [Lipitor] 80 mg PO HS 12/08/15 12/11/16 DULoxetine [Cymbalta] 30 mg PO BID 12/08/15 12/11/16 Furosemide [Lasix] 40 mg PO Q48H PRN 12/08/15 12/11/16 Nitroglycerin [Nitrostat] 0.4 mg SL Q5M PRN 12/08/15 12/11/16 Loratadine [Claritin] 10 mg PO DAILY PRN 02/01/16 12/11/16 Meclizine [Antivert] 12.5 mg PO TID PRN 02/01/16 12/11/16 Albuterol Sulfate [Proair 2 puff IH Q4H PRN 08/31/16 12/11/16 Respiclick] Cranberry Fruit [Cranberry] 400 mg PO DAILY 08/31/16 12/11/16 Docusate Sodium [Colace] 100 mg PO DAILY PRN 08/31/16 12/11/16 Oxygen 3 l NS HS 08/31/16 12/11/16 Polyethylene Glycol 3350 [MiraLAX 17 gm PO DAILY PRN 08/31/16 12/11/16 Powder Bulk 17.9 Oz] Metformin HCl [Metformin HCl ER] 500 mg PO BID 11/30/16 12/11/16 Ammonium Lactate [Dianelys-Hydrolac] 1 appl TP DAILY 01/04/17 01/04/17 Budesonide/Formoterol 160/4.5 2 puff IH BIDR 01/04/17 01/04/17 [Symbicort 160/4.5] Collagenase Oint [Santyl] 1 appl TP DAILY PRN 01/04/17 01/04/17 Glucagon,Human Recombinant 1 mg IJ DAILY PRN 01/04/17 01/04/17 [Glucagen] Guaifenesin [Diabetic Tussin Ex] 10 ml PO Q6H PRN 01/04/17 01/04/17 Insulin LISPRO [Humalog] 0 unit SQ QID PRN 01/04/17 01/04/17 Ipratropium/Albuterol Neb [Duoneb] 3 ml IH Q4H PRN 01/04/17 01/04/17 Methyl Salicylate/Menth/Camph 1 patch TP DAILY PRN 01/04/17 01/04/17 [Salonpas Large Patch] Previous Rx's Medication Instructions Recorded Ondansetron HCl [Zofran] 4 mg PO Q6H PRN #30 tablet 01/26/16 Prochlorperazine Maleate 10 mg PO Q6HR PRN #60 tablet 01/26/16 [Compazine] Gabapentin [Neurontin] 800 mg PO QID #120 tablet 04/27/16 OXcarbazepine [Trileptal] 150 mg PO BID #60 tablet 05/26/16 Aspirin Enteric Coated [Aspirin EC] 81 mg PO DAILY #30 tablet. 09/27/16 Folic Acid 1 mg PO DAILY #30 tablet 10/10/16 Magnesium Oxide [Magnesium] 400 mg PO DAILY #30 tablet 10/10/16 Potassium Chloride [K-Tab ER] 10 meq PO DAILY #30 tablet.er 10/10/16 Omeprazole [PriLOSEC] 20 mg PO DAILY #30 10/23/16 Magic Mouthwash [Magic Mouthwash 10 ml PO QID PRN #500 ml 11/14/16 BLM] CeFAZolin Pre 2,000 MG/100 ML 2,000 mg IV Q8HR 36 Days bag 12/05/16 [Ancef Premix 2,000 MG/100 ML] Metoprolol [Lopressor] 25 mg PO BID #0 12/05/16 Oxycodone HCl/Acetaminophen 1 tab PO Q6H PRN #20 tablet 12/05/16 [Percocet 10-325 mg Tablet] Saccharomyces Boulardii [Florastor] 250 mg PO BID #80 capsule 12/05/16 Allergies Allergy/AdvReac Type Severity Reaction Status Date / Time dofetilide [From Tikosyn] Allergy Unresponsiv Verified 01/04/17 15:22 e Iodinated Contrast- Oral and Allergy Palpitation Verified 01/04/17 15:22 IV Dye s [Iodinated Contrast Media - IV Dye] lisinopril AdvReac See Verified 01/04/17 15:22 Comments red dye AdvReac Rash Verified 01/04/17 15:22 All systems ED: reviewed and negative except as stated. Constitutional: Reports: weakness. Denies: fever, chills ENT ED: Denies: congestion Cardiovascular: Denies: chest pain Respiratory: Denies: dyspnea Gastrointestinal: Denies: abdominal pain, nausea, vomiting Musculoskeletal: Denies: back pain, arthralgia, myalgia Neurological: Reports: weakness. Denies: headache Past Medical History - Past Medical History Attestation: Yes The following information was validated with the patient. 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 history: Reports: no SENIOR CARE MANAGER history - Social History Smoking Status: Current some day smoker Smokeless Tobacco Status: No Alcohol use: Reports: none Drug use: Reports: none Physical Exam - General Limitations: no limitations General appearance: alert, in no apparent distress - Head Head exam: atraumatic, normocephalic, normal inspection - Eye Eye exam: Present: normal appearance, PERRL, EOMI - ENT ENT exam: normal exam, normal oropharynx, mucous membranes moist - Neck Neck exam: Present: normal inspection, full ROM, trachea midline - Chest Chest inspection: Present: normal inspection, symmetric chest wall rise - Respiratory Respiratory exam: Present: normal lung sounds bilaterally - Cardiovascular Cardiovascular exam: Present: regular rate, normal rhythm, normal heart sounds - Abdominal Exam Abdominal exam: Present: soft, Non-Tender. Absent: tenderness, distention, guarding, rebound, rigidity - Extremities Exam Extremities exam: Present: full ROM, other (Chronic wound located in the left foot. No new changes associated with it.) Course Vital Signs Temperature 98.1 F 01/04/17 14:44 Pulse Rate 85 01/04/17 14:44 Respiratory Rate 15 01/04/17 14:44 Blood Pressure 94/68 01/04/17 14:44 O2 Sat by Pulse Oximetry 97 01/04/17 14:44 Temperature 98.1 F 01/04/17 14:44 Pulse Rate 85 01/04/17 14:44 Respiratory Rate 15 01/04/17 14:44 Blood Pressure 94/68 01/04/17 14:44 O2 Sat by Pulse Oximetry 97 01/04/17 14:44 Oxygen Delivery Oxygen Delivery Room Air Recheck wound or abnormal lab - MDM Narrative Medical decision making narrative: Patient noted to be acutely anemic with a hemoglobin of 6.8. The patient was administered 2 units of packed red blood cells and will be admitted to the hospitalist service. The patient was accepted by Dr. Charles. - Medical Records Medical records reviewed: Yes I reviewed the patient's medical records. - Lab Data Lab results reviewed: Yes I reviewed the patient's lab results. Lab Results 01/04/17 Range/Units 15:12 Blood Type O POSITIVE - EKG Data EKG attestation: Yes I reviewed and interpreted this EKG. EKG results narrative: Heart rate 88 bpm. ID [id number] ms. QTc 421 ms. Normal axis. Normal sinus rhythm. No ST elevation or ST depression noted. Changes noted.
[2017-01-04] MEDS ORDERED: *HR* FentaNYL (PF) 100 MCG/2 ML VIAL IVP ONE (16:06)
[2017-01-04] MEDS ORDERED: 0.9 % Sodium Chloride 250 ML ONE ×2 (16:10→22:32)
--- NOTE | 2017-01-04 16:10 | Internal Med History&Physical ---
<Doug Lucia - Last Filed: 01/04/17 17:05> Date of Encounter: 01/04/17 Time of Encounter: 16:00 Assessment and Plan (1) Generalized weakness Current visit: Yes Status: Acute Acute generalized weakness and fatigue d/t current anemia and metastatic lung cancer. Pt. reports her next chemotherapy tx is January 12. Hgb is 6.8 today. Pt. denies unusual bleeding. Fecal hemoccult ordered. Monitor H/H Q6HR. Pt. typed and screened and will receive 2 units PRBCs. Monitor pt. and f/u labs. Falls/safety precautions. Pt. is at high risk for further morbidity based on current anemia requiring transfusions, sx, hx of metastatic lung cancer, and risk factors. Observation. (2) Anemia Current visit: Yes Status: Acute Acute on chronic anemia. Pts. Hgb was 6.8 today at [facility] and sent to ED. Was 8.8 on 12.21. Pt. currently takes chemotherapy tx for metastatic lung cancer. Type and screen ordered. 2 units of PRBCs ordered for transfusion. Monitor H/H Q6 and f/u labs. Monitor pt. closely. Qualifiers: Anemia type: other cause Other causes of anemia: other cause, not classified Qualified Code(s): D64.89 - Other specified anemias (3) Metastatic lung cancer (metastasis from lung to other site) Current visit: Yes Status: Chronic Hx of lung cancer with metastases to other sites. Pt. reports she is currently taking chemotherapy tx with next one scheduled for January 12. Pt. to follow up w/oncology on OP basis. Qualifiers: Laterality: unspecified laterality Qualified Code(s): C34.90 - Malignant neoplasm of unspecified part of unspecified bronchus or lung (4) Diabetic foot ulcer Current visit: Yes Status: Chronic Chronic diabetic foot ulcer of the left foot. Pt. is currently receiving abx at [facility] as tx. Will continue IV abx through discharge and pt. to return to [facility] for completion of abx tx. Monitor f/u labs. Qualifiers: Diabetic foot ulcer location: toe Diabetes mellitus type: type 2 Laterality: left Non-pressure ulcer stage: with fat layer exposed Qualified Code(s): E11.621 - Type 2 diabetes mellitus with foot ulcer; L97.522 - Non- pressure chronic ulcer of other part of left foot with fat layer exposed; L97.522 - Non-pressure chronic ulcer of other part of left foot with fat layer exposed; L97.522 - Non-pressure chronic ulcer of other part of left foot with fat layer exposed; L97.522 - Non-pressure chronic ulcer of other part of left foot with fat layer exposed (5) Severe protein-calorie malnutrition Current visit: Yes Status: Chronic Protein-calorie malnutrition due to current metastatic lung cancer dx. Nutrition consult for PO supplementation ordered. (6) Atrial fibrillation Current visit: Yes Status: Chronic Hx of paroxysmal atrial fibrillation. Stable. Current EKG shows sinus rhythm.. Continuous cardiac telemetry. Qualifiers: Atrial fibrillation type: paroxysmal Qualified Code(s): I48.0 - Paroxysmal atrial fibrillation (7) CAD (coronary artery disease) Current visit: Yes Status: Chronic Hx of chronic CAD. Continuous cardiac telemetry. Continue patient's daily aspirin therapy, Lopressor, Lipitor, and Lasix. Qualifiers: Coronary Disease-Associated Artery/Lesion type: [place] artery [place] vs. transplanted heart: [place] heart Associated angina: without angina Qualified Code(s): I25.10 - Atherosclerotic heart disease of [place] coronary artery without angina pectoris (8) COPD (chronic obstructive pulmonary disease) Current visit: Yes Status: Chronic Hx of chronic COPD r/t long-term tobacco abuse. Stable. Pt. reports smoking 1 PPD for many years but quit in November 2016 w/dx of cancer. Qualifiers: COPD type: emphysema Emphysema type: unspecified Qualified Code(s): J43.9 - Emphysema, unspecified (9) Diabetes mellitus Current visit: Yes Status: Chronic Hx of chronic diabetes controlled w/oral anti-hyperglycemic medications. Will hold oral medications and administer low-dose correction insulin sliding scale and hypoglycemic protocol. BG checks ACHS. A1c in a.m. labs. Qualifiers: Diabetes mellitus type: type 2 Diabetes mellitus complication status: with neurologic complications Diabetes mellitus complication detail: with mononeuropathy Diabetes mellitus fdc insulin use: without fdc use Qualified Code(s): E11.41 - Type 2 diabetes mellitus with diabetic mononeuropathy (10) DVT prophylaxis Current visit: Yes Status: Acute Bilateral SCDs on LEs for DVT prophylaxis. Pharmacologic DVT prophylaxis contraindicated due to patient's current drop in Hgb of unknown cause. Monitor pt. for signs of bleeding. Internal Medicine - H&P: HPI Chief complaint: Weakness/Fatigue Admitted From: Emergency Dept Plans for Post Hospital Care: Home History of present illness: Ms. Reynoso is a 66 year old female with medical history of arthritis, atrial fibrillation, metastatic cancer, CHF, COPD, CAD, diabetes controlled by oral antihyperglycemic medications HTN, previous myocardial infarction resulting with stent placement 2, and are a presents from the ED with chief complaint of generalized weakness and fatigue. Patient states she is currently at [facility] receiving IV antibiotic treatment for wound on her foot and labs today showed she had a hemoglobin level .8 so she was sent to ED. Patient is currently taking chemotherapy treatments for metastatic lung cancer and states her next tx is January 12. Patient reports cough, dizziness, generalized weakness and fatigue, shortness of breath but denies recent illness, nausea, vomiting, fever , chills, chest pain, palpitations, abdominal pain, diarrhea, constipation, changes in vision, unusual bleeding, pre-syncope, or syncope. 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) - Social History Smoking Status: Former smoker Packs per day: 1 PPD - Reports quitting November 14 Smokeless Tobacco Status: No Alcohol use: none Drug use: none Current living situation: Home, With Family Activity Level: Independent ambulation Recent Out of Country Travel Within the Last 8 Weeks: No Exposure or Possible Exposure to Illness During Travel: No - Family History Father Adopted: No Race: Family Member Ethnicity: Non- Living Status: Hx Family Cardiac Disorders: Yes (CAD) Hx Family Respiratory Disorders: Yes Hx Family Cancer: Yes (Lung) Hx Family GI Disorders: No Hx Family Endocrine Disorder: Yes (DM) Hx Family Neuromuscular Disorders: No Hx Family Neurologic Disorders: No Hx Family HEENT Disorders: No Hx Family Autoimmune Disorders: No Mother Adopted: No Race: Family Member Ethnicity: Non- Living Status: Hx Family Cardiac Disorders: Yes (CAD) Hx Family Respiratory Disorders: Yes Hx Family Cancer: Yes (Lung) Brother Race: Family Member Ethnicity: Non- Living Status: Still Living Hx Family Cardiac Disorders: Yes (CAD) Hx Family Cancer: Yes (Lung) Sister Race: Family Member Ethnicity: Non- Living Status: Still Living Hx Family Cardiac Disorders: Yes (CAD) Hx Family Cancer: Yes (Lung) Internal Medicine - H&P: Meds Atorvastatin Calcium [Lipitor] 80 mg PO HS 12/08/15 [History] DULoxetine [Cymbalta] 30 mg PO BID 12/08/15 [History] Furosemide [Lasix] 40 mg PO DAILY PRN 12/08/15 [History] Nitroglycerin [Nitrostat] 0.4 mg SL Q5M PRN 12/08/15 [History] Ondansetron HCl [Zofran] 4 mg PO Q6H PRN #30 tablet 01/26/16 [Rx] Prochlorperazine Maleate [Compazine] 10 mg PO Q6HR PRN #60 tablet 01/26/16 [Rx] Loratadine [Claritin] 10 mg PO DAILY PRN 02/01/16 [History] Meclizine [Antivert] 12.5 mg PO TID PRN 02/01/16 [History] Gabapentin [Neurontin] 800 mg PO QID #120 tablet 04/27/16 [Rx] OXcarbazepine [Trileptal] 150 mg PO BID #60 tablet 05/26/16 [Rx] Albuterol Sulfate [Proair Respiclick] 2 puff IH Q4H PRN 08/31/16 [History] Cranberry Fruit [Cranberry] 400 mg PO DAILY 08/31/16 [History] Docusate Sodium [Colace] 100 mg PO DAILY PRN 08/31/16 [History] Oxygen 3 l NS HS 08/31/16 [History] Polyethylene Glycol 3350 [MiraLAX Powder Bulk 17.9 Oz] 17 gm PO DAILY PRN [History] Aspirin Enteric Coated [Aspirin EC] 81 mg PO DAILY #30 tablet. 09/27/16 [Rx] Folic Acid 1 mg PO DAILY #30 tablet 10/10/16 [Rx] Magnesium Oxide [Magnesium] 400 mg PO DAILY #30 tablet 10/10/16 [Rx] Potassium Chloride [K-Tab ER] 10 meq PO DAILY #30 tablet.er 10/10/16 [Rx] Omeprazole [PriLOSEC] 20 mg PO DAILY #30 10/23/16 [Rx] Magic Mouthwash [Magic Mouthwash BLM] 10 ml PO QID PRN #500 ml 11/14/16 [Rx] Metformin HCl [Metformin HCl ER] 500 mg PO BID 11/30/16 [History] CeFAZolin Pre 2,000 MG/100 ML [Ancef Premix 2,000 MG/100 ML] 2,000 mg IV Q8HR 36 Days bag 12/05/16 [Rx] Metoprolol [Lopressor] 25 mg PO BID #0 12/05/16 [Rx] Oxycodone HCl/Acetaminophen [Percocet 10-325 mg Tablet] 1 tab PO Q6H PRN #20 tablet 12/05/16 [Rx] Saccharomyces Boulardii [Florastor] 250 mg PO BID #80 capsule 12/05/16 [Rx] Ammonium Lactate [Dianelys-Hydrolac] 1 appl TP DAILY 01/04/17 [History] Budesonide/Formoterol 160/4.5 [Symbicort 160/4.5] 2 puff IH BIDR 01/04/17 [ History] Collagenase Oint [Santyl] 1 appl TP DAILY PRN 01/04/17 [History] Glucagon,Human Recombinant [Glucagen] 1 mg IJ DAILY PRN 01/04/17 [History] Guaifenesin [Diabetic Tussin Ex] 10 ml PO Q6H PRN 01/04/17 [History] Insulin LISPRO [Humalog] 0 unit SQ QID PRN 01/04/17 [History] Ipratropium/Albuterol Neb [Duoneb] 3 ml IH Q4H PRN 01/04/17 [History] Methyl Salicylate/Menth/Camph [Salonpas Large Patch] 1 patch TP DAILY PRN [History] 3 Allergy/AdvReac Type Severity Reaction Status Date / Time dofetilide [From Tikosyn] Allergy Unresponsiv Verified 01/04/17 15:22 e Iodinated Contrast- Oral and Allergy Palpitation Verified 01/04/17 15:22 IV Dye s [Iodinated Contrast Media - IV Dye] lisinopril AdvReac See Verified 01/04/17 15:22 Comments red dye AdvReac Rash Verified 01/04/17 15:22 All Systems PM: A 10-system review of systems was performed and is negative for pertinent findings except as documented above in the HPI. - Constitutional Constitutional: as per HPI, fatigue, weakness, no chills, no fever(s), no night sweats - EENT Eyes: no change in vision, no discharge, no pain, no photophobia Ears: no ear discharge, no ear pain, no tinnitus Nose, mouth and throat: no dysphagia, no nasal discharge, no neck pain, no sore throat - Breasts Breasts: as per HPI - Cardiovascular Cardiovascular ROS IM: diaphoresis, dyspnea, edema (Bilateral pedal edema of LEs ), no chest pain, no lightheadedness, no palpitations, no syncope - Respiratory Respiratory: cough, dyspnea, dyspnea on exertion, no wheezing, no excessive phlegm production - Gastrointestinal Gastrointestinal: no abdominal pain, no diarrhea, no hematemesis, no hematochezia, no melena, no nausea, no vomiting - Genitourinary Genitourinary: no change in urinary stream, no dysuria, no flank pain, no hematuria Menstruation: as per HPI - Musculoskeletal Musculoskeletal ROS IM: no numbness, no tingling - Integumentary Integumentary IM: no rash, no unusual bruising - Neurological Neurological ROS: no confusion, no convulsions, no focal weakness, no numbness, no tingling, no tremor(s) - Psychiatric Psychiatric: as per HPI, change in appetite (Reports nothing tastes good) - Endocrine Endocrine IM: as per HPI - Hematologic/Lymphatic Hematologic/Lymphatic: no easy bruising - Allergic/Immunologic Allergic/Immunologic: as per HPI - Constitutional Vitals: Temp Pulse Resp BP Pulse Ox 98.1 F 85 15 94/68 97 01/04/17 14:44 01/04/17 14:44 01/04/17 14:44 01/04/17 14:44 01/04/17 14:44 General appearance: Present: cooperative, mild distress, A&O X 3, pleasant, loss of weight, answers questions appropriately - Head Head exam: Present: atraumatic, normal inspection, normocephalic - Eye Eye exam: Present: PERRL, conjuntiva pink, sclera anicteric Pupils: Present: PERRL - ENT ENT exam: Present: normal exam, normal external ear exam - Neck Neck exam general surgery: Present: normal inspection, supple, trachea midline. Absent: lymphadenopathy - Respiratory Respiratory exam: Present: decreased breath sounds. Absent: accessory muscle use, rales, rhonchi, wheezes - Cardiovascular Cardiovascular exam: Present: RRR, +S1, +S2. Absent: diastolic murmur, gallop, rubs, systolic murmur - GI/Abdominal GI/Abdominal exam: Present: normal bowel sounds, soft, no peritoneal signs. Absent: distended, tenderness - Rectal Rectal exam: Present: deferred - Additional comments: exam deferred. - Extremities Exam Extremities exam: Present: pedal edema, warm, radial pulses palpable and symmetrical. Absent: calf tenderness, cyanotic - Back Exam Back exam: Present: normal inspection - Neurological Exam Neurological exam: Present: CN II-XII intact, oriented X3, no focal deficits. Absent: pronater drift, facial droop, speech deficit - Psychiatric Psychiatric exam: Present: normal affect, normal mood - Skin Skin exam: Present: dry, intact Internal Med - H&P Results - EKG Data EKG shows normal: sinus rhythm - EKG Data Prior EKG available for review: no EKG comments: 01/04/17 16:40 EKG dated 01/04/17 shows sinus rhythm and normal ECG. <Higinio Charles P - Last Filed: 01/05/17 07:41> Date of Encounter: 01/05/17 Internal Medicine - H&P: HPI History of present illness: Ms. Reynoso is a 66 year old female All Systems PM: A 10-system review of systems was performed and is negative for pertinent findings except as documented above in the HPI. - Constitutional Vitals: Temp Pulse Resp BP Pulse Ox 99.6 F 85 14 132/73 99 01/05/17 02:00 01/05/17 02:00 01/05/17 03:51 01/05/17 02:00 01/05/17 03:51 Internal Med - H&P Results - Labs CBC & Chem 7: 01/05/17 03:08 01/05/17 03:08 Labs: Short CBC 01/04/17 01/05/17 Range/Units 22:59 03:08 WBC 6.0 (4.3-11.1) K/mcL Hgb 8.1 L 9.4 L (11.5-15.4) g/dL Hct 25.0 L 28.9 L (35.3-44.9) % Plt Count 41 L (140-400) K/mcL Neutrophils # 3.9 (1.6-8.9) K/mcL BMP 01/05/17 03:08 Sodium 139 Potassium 3.9 Chloride 103 Carbon Dioxide 29 BUN 8 Creatinine 0.70 Glucose 127 H Calcium 9.0 Liver Function 01/05/17 Range/Units 03:08 Total Bilirubin 0.6 (0.2-1.2) mg/dL AST 16 (5-34) Units/L ALT < 6 (0-55) Units/L Alkaline Phosphatase 172 H (38-126) Units/L Albumin 2.7 L (3.5-5.0) g/dL - Attending Attestation I examined this patient and my medical decision-making was reviewed with the Resident Physician/AGENT TELEGRAPHER. I agree with the documented findings, disposition and treatment plan as described except to the extent set forth below. I have them in this patient independently. Case examined. Chart reviewed. Patient has advanced metastatic stage IV lung cancer. Patient is in correction presently for antibiotic therapy. Admitted for symptomatic anemia. Patient received blood transfusion in the emergency room. Close observation for tonight. Likely home tomorrow/back to correction for continuation of antibiotic therapy.
[2017-01-04] MEDS ORDERED: Naloxone 0.4 MG/ML INJ IVP PRN (17:08)
[2017-01-04] MEDS ORDERED: *HR* OxyCODONE/APAP 10/325 TABLET PO PRN (17:11)
[2017-01-04] MEDS ORDERED: Loratadine 10 MG TABLET PO PRN (17:11)
[2017-01-04] MEDS ORDERED: Collagenase Oint 1 APPL GRAM TP PRN (17:11)
[2017-01-04] MEDS ORDERED: GuaiFENesin Liq 200 MG/10 ML UDC PO PRN (17:11)
[2017-01-04] MEDS ORDERED: Nitroglycerin 0.4 MG TAB.SUBL SL PRN (17:11)
[2017-01-04] MEDS ORDERED: Furosemide 40 MG TABLET PO PRN (17:11)
[2017-01-04] MEDS ORDERED: Ondansetron ODT 4 MG TAB.RAPDIS PO PRN (17:11)
[2017-01-04] MEDS ORDERED: Magic Mouthwash 10 ML UD Cup PO PRN (17:11)
[2017-01-04] MEDS ORDERED: Dextrose Gel 15 GM PO PRN ×2 (17:18)
[2017-01-04] MEDS ORDERED: D5% in Water 1,000 ML IVC PRN (17:18)
[2017-01-04] MEDS ORDERED: *HR* Dextrose 50 % in Water (Syg) 50 ML SYRINGE IVP PRN (17:18)
[2017-01-04] MEDS ORDERED: Insulin LISPRO 300 UNITS/3 ML VIAL SQ SCH (21:00)
[2017-01-04] MEDS: (Saccharomyces Boulardii [Florastor] 250 MG) PO SCH (21:37)
[2017-01-04] MEDS: Gabapentin 400 MG CAPSULE PO SCH (21:37)
[2017-01-04] MEDS: OXcarbazepine 150 MG TABLET PO SCH (21:38)
[2017-01-04] MEDS: Ipratropium/Albuterol Neb 3 ML IH SCH (22:59)
[2017-01-04] MEDS: Budesonide/Formoterol 160/4.5 MDI IH SCH (22:59)
[2017-01-04 23:04] LABS: Hemoglobin 8.1 g/dL (11.5-15.4)
[2017-01-05] MEDS: CeFAZolin Premix DUPLEX 2,000 MG/50 ML BAG IVPB SCH ×2 (02:15→08:26)
[2017-01-05] MEDS: Ipratropium/Albuterol Neb 3 ML IH SCH ×2 (03:50→10:42)
[2017-01-05 04:48] LABS: Hemoglobin 9.4 g/dL (11.5-15.4)
[2017-01-05 04:50] LABS: Basophils % 0.3 %; Eosinophils # 0.3 K/mcL (0.0-0.6); Eosinophils % 4.8 %; Hematocrit 28.9 % (35.3-44.9); Immature Granulocytes % 0.8 % (0-4); Immature Platelets 8.5 % (1.1-6.1); Lymphocytes # 1.2 K/mcL (0.6-4.6); Lymphocytes % 19.9 %; Mean Corpuscular HGB Conc 32.5 g/dL (31.6-35.5); Mean Corpuscular Hemoglobin 31.9 pg (28.0-33.3); Mean Platelet Volume 10.9 fL (9.4-12.4); Monocytes # 0.5 K/mcL (0.0-1.3); Neutrophils # 3.9 K/mcL (1.6-8.9); Red Blood Count 2.95 M/mcL (3.82-4.97); Red Cell Distribution Width 17.2 % (11.5-14.5); Segmented Neutrophils % 65.2 %
[2017-01-05 04:57] LABS: INR 1.1; Platelet Count 41 K/mcL (140-400); Prothrombin Time 11.3 Seconds (9.4-12.1)
[2017-01-05 05:00] LABS: Activated Partial Thrombo Time 29.9 Seconds (26.0-36.0)
[2017-01-05 05:08] LABS: Albumin 2.7 g/dL (3.5-5.0); Albumin/Globulin Ratio 0.8 (1.1-2.2); Alkaline Phosphatase 172 Units/L (38-126); Aspartate Amino Transferase 16 Units/L (5-34); BUN/Creatinine Ratio 11 (6-26); Bilirubin,Total 0.6 mg/dL (0.2-1.2); Blood Urea Nitrogen 8 mg/dL (7-20); Carbon Dioxide 29 mEq/L (19-29); Chloride 103 mEq/L (98-109); Chol/HDL Ratio 2.9 (0-4.9); Cholesterol 112 mg/dL (< 200); Globulin 3.6 g/dL (2.4-3.5); Glucose 127 mg/dL (70-99); HDL Cholesterol 39 mg/dL (40-59); LDL Cholesterol,Calculated 52 mg/dL (0-99); Magnesium 1.8 mg/dL (1.6-2.6); Osmolality,Calculated 288 (280-300); Potassium 3.9 mEq/L (3.5-4.5); Sodium 139 mEq/L (136-145); Total Protein 6.3 g/dL (6.0-8.3); Triglycerides 106 mg/dL (< 150); eGFR For African Americans > 60 (> 60); eGFR For Non-African Americans > 60 (> 60)
[2017-01-05 05:11] LABS: Alanine Aminotransferase < 6 Units/L (0-55)
[2017-01-05 05:16] LABS: Hemoglobin A1C 5.6 %
[2017-01-05] MEDS ORDERED: Insulin LISPRO 300 UNITS/3 ML VIAL SQ SCH (07:30)
--- NOTE | 2017-01-05 07:43 | Discharge Summary ---
Date of Encounter: 01/05/17 Time of Encounter: 07:41 - Discharge Diagnosis (1) Anemia Priority: Primary Status: Acute Qualifiers: Anemia type: other cause Other causes of anemia: other cause, not classified Qualified Code(s): D64.89 - Other specified anemias (2) Diabetic foot ulcer Priority: Secondary Status: Chronic Qualifiers: Diabetic foot ulcer location: toe Diabetes mellitus type: type 2 Laterality: left Non-pressure ulcer stage: with fat layer exposed Qualified Code(s): E11.621 - Type 2 diabetes mellitus with foot ulcer; L97.522 - Non- pressure chronic ulcer of other part of left foot with fat layer exposed; L97.522 - Non-pressure chronic ulcer of other part of left foot with fat layer exposed; L97.522 - Non-pressure chronic ulcer of other part of left foot with fat layer exposed; L97.522 - Non-pressure chronic ulcer of other part of left foot with fat layer exposed (3) Metastatic lung cancer (metastasis from lung to other site) Priority: Secondary Status: Chronic Qualifiers: Laterality: unspecified laterality Qualified Code(s): C34.90 - Malignant neoplasm of unspecified part of unspecified bronchus or lung (4) Severe protein-calorie malnutrition Priority: Secondary Status: Chronic (5) COPD (chronic obstructive pulmonary disease) Priority: Secondary Status: Chronic Qualifiers: COPD type: emphysema Emphysema type: unspecified Qualified Code(s): J43.9 - Emphysema, unspecified (6) CAD (coronary artery disease) Priority: Secondary Status: Chronic Qualifiers: Coronary Disease-Associated Artery/Lesion type: [place] artery [place] vs. transplanted heart: [place] heart Associated angina: without angina Qualified Code(s): I25.10 - Atherosclerotic heart disease of [place] coronary artery without angina pectoris - Discharge Medications Home Medications: Atorvastatin Calcium [Lipitor] 80 mg PO HS 12/08/15 [History] DULoxetine [Cymbalta] 30 mg PO BID 12/08/15 [History] Furosemide [Lasix] 40 mg PO DAILY PRN 12/08/15 [History] Nitroglycerin [Nitrostat] 0.4 mg SL Q5M PRN 12/08/15 [History] Ondansetron HCl [Zofran] 4 mg PO Q6H PRN #30 tablet 01/26/16 [Rx] Prochlorperazine Maleate [Compazine] 10 mg PO Q6HR PRN #60 tablet 01/26/16 [Rx] Loratadine [Claritin] 10 mg PO DAILY PRN 02/01/16 [History] Meclizine [Antivert] 12.5 mg PO TID PRN 02/01/16 [History] Gabapentin [Neurontin] 800 mg PO QID #120 tablet 04/27/16 [Rx] OXcarbazepine [Trileptal] 150 mg PO BID #60 tablet 05/26/16 [Rx] Albuterol Sulfate [Proair Respiclick] 2 puff IH Q4H PRN 08/31/16 [History] Cranberry Fruit [Cranberry] 400 mg PO DAILY 08/31/16 [History] Docusate Sodium [Colace] 100 mg PO DAILY PRN 08/31/16 [History] Oxygen 3 l NS HS 08/31/16 [History] Polyethylene Glycol 3350 [MiraLAX Powder Bulk 17.9 Oz] 17 gm PO DAILY PRN [History] Aspirin Enteric Coated [Aspirin EC] 81 mg PO DAILY #30 tablet.dr 09/27/16 [Rx] Folic Acid 1 mg PO DAILY #30 tablet 10/10/16 [Rx] Magnesium Oxide [Magnesium] 400 mg PO DAILY #30 tablet 10/10/16 [Rx] Potassium Chloride [K-Tab ER] 10 meq PO DAILY #30 tablet.er 10/10/16 [Rx] Omeprazole [PriLOSEC] 20 mg PO DAILY #30 10/23/16 [Rx] Magic Mouthwash [Magic Mouthwash BLM] 10 ml PO QID PRN #500 ml 11/14/16 [Rx] Metformin HCl [Metformin HCl ER] 500 mg PO BID 11/30/16 [History] CeFAZolin Pre 2,000 MG/100 ML [Ancef Premix 2,000 MG/100 ML] 2,000 mg IV Q8HR 36 Days bag 12/05/16 [Rx] Metoprolol [Lopressor] 25 mg PO BID #0 12/05/16 [Rx] Oxycodone HCl/Acetaminophen [Percocet 10-325 mg Tablet] 1 tab PO Q6H PRN #20 tablet 12/05/16 [Rx] Saccharomyces Boulardii [Florastor] 250 mg PO BID #80 capsule 10/24/17 [Rx] Ammonium Lactate [Dianelys-Hydrolac] 1 appl TP DAILY 01/04/17 [History] Budesonide/Formoterol 160/4.5 [Symbicort 160/4.5] 2 puff IH BIDR 01/04/17 [ History] Collagenase Oint [Santyl] 1 appl TP DAILY PRN 01/04/17 [History] Glucagon,Human Recombinant [Glucagen] 1 mg IJ DAILY PRN 01/04/17 [History] Guaifenesin [Diabetic Tussin Ex] 10 ml PO Q6H PRN 01/04/17 [History] Insulin LISPRO [Humalog] 0 unit SQ QID PRN 01/04/17 [History] Ipratropium/Albuterol Neb [Duoneb] 3 ml IH Q4H PRN 01/04/17 [History] Methyl Salicylate/Menth/Camph [Salonpas Large Patch] 1 patch TP DAILY PRN [History] Allergies/Adverse Reactions: 3 Allergy/AdvReac Type Severity Reaction Status Date / Time dofetilide [From Tikosyn] Allergy Unresponsiv Verified 01/04/17 15:22 e Iodinated Contrast- Oral and Allergy Palpitation Verified 01/04/17 15:22 IV Dye s [Iodinated Contrast Media - IV Dye] lisinopril AdvReac See Verified 01/04/17 15:22 Comments red dye AdvReac Rash Verified 01/04/17 15:22 Date of admission: 01/04/17 16:05 Primary care physician: Bradley Montgomery MD Consults: 01/04/17 17:10 Consult to Occupational Therapy [CONS] Routine Comment: Evaluate, develop and implement POC Reason for Consult: Patient reports difficulty w/ambulation d/t current generalized weakness and fatigue r/t cancer dx. Please assess for strength, stability, safety, ambulation, and possible assistive needs for post-discharge planning. Consult to Physiologist [CONS] Routine Reason for SW Consult: Please assess pt. for possible home needs for post- discharge planning. patient receiving IV antibitoics at [place] for a infection in her foot. She is coming in to receive blood and is concerned about the bed hold at [facility] 01/04/17 17:11 Consult to Physical Therapy [CONS] Routine Comment: Evaluate, develop and implement POC Reason for Consult: Patient reports difficulty w/ambulation d/t current generalized weakness and fatigue r/t cancer dx. Please assess for strength, stability, safety, ambulation, and possible assistive needs for post-discharge planning. 01/04/17 17:16 Consult to Nutrition [CONS] Routine Comment: Consulting Provider: NUTRITION Reason for Dietary Consult: PO Supplementation Discharging clinician: Higinio Charles - Patient Status Disposition: Transfer SNF Condition: Good Functional capacity at discharge: uses cane/walker Overall status at discharge: patient is progressing back to baseline - Discharge Instructions Follow Up With: Bradley Montgomery MD [Primary Care Provider] - Sandra Fernando MD [Partnered Physician] - - Diet and Activity Activity: as per physical therapy, increase activity as tolerated Diet: low fat, low cholesterol Interval History: Ms. Reynoso is a 66 year old female with medical history of arthritis, atrial fibrillation, metastatic cancer, CHF, COPD, CAD, diabetes controlled by oral antihyperglycemic medications HTN, previous myocardial infarction resulting with stent placement 2, and are a presents from the ED with chief complaint of generalized weakness and fatigue. Patient states she is currently at [facility] receiving IV antibiotic treatment for wound on her foot and labs today showed she had a hemoglobin level 6.8 so she was sent to ED. Patient reports cough, dizziness, generalized weakness and fatigue, shortness of breath but denies recent illness, nausea, vomiting, fever, chills, chest pain, palpitations, abdominal pain. Hospital course: Patient was hospitalized. She received 2 packed red blood cells. Patient tolerated blood transfusion extremely well. This morning a repeat hemoglobin is 9.4. Patient does not have any symptoms in terms of palpitation, chest pain , nausea, vomiting, abdominal pain, diarrhea or dizziness. Patient has a metastatic lung cancer. This is patient wish to go back to jail and continue antibiotics for her foot infection and be there with her family as this is a holiday season. Patient told me that she might not see this holiday season next year in view of her background metastatic lung cancer. Surgical this is patient's wish to go back to [facility] and spend time with the family and continue antibiotic therapy, I will be discharging her back to jail. Plan: Back to jail today. Continue antibiotic therapy. I left a message for oncologist. Plan updated to the patient and she verbalized understanding. At the time of discharge patient does not have any questions, concerns, update or recommendations. - Time Spent with Patient Total time spent providing and/or coordinating discharge services: - Constitutional Vitals: Temp Pulse Resp BP Pulse Ox 99.6 F 85 14 132/73 99 01/05/17 02:00 01/05/17 02:00 01/05/17 03:51 01/05/17 02:00 01/05/17 03:51 General appearance: Present: cooperative, mild distress, A&O X 3, pleasant, loss of weight, answers questions appropriately - Head Head exam: Present: atraumatic, normocephalic - Eye Eye exam: Present: PERRL, conjuntiva pink, sclera anicteric Pupils: Present: PERRL - Neck Neck exam general surgery: Present: supple, trachea midline. Absent: lymphadenopathy - Respiratory Respiratory exam: Present: CTAB. Absent: accessory muscle use, rales, rhonchi, wheezes - Cardiovascular Cardiovascular exam: Present: RRR, +S1, +S2. Absent: diastolic murmur, gallop, rubs, systolic murmur - GI/Abdominal GI/Abdominal exam: Present: normal bowel sounds, soft, no peritoneal signs. Absent: distended, tenderness - Extremities Exam Extremities exam: Present: warm, radial pulses palpable and symmetrical. Absent : calf tenderness, cyanotic, pedal edema - Neurological Exam Neurological exam: Present: CN II-XII intact, oriented X3, no focal deficits. Absent: pronater drift, facial droop, speech deficit - Skin Skin exam: Present: dry, intact
[2017-01-05 07:48] VITALS: BP 133/77
--- NOTE | 2017-01-05 08:05 | Physician Discharge Referral ---
ExtendedCare Referral Info Transfer To: intermediate facility - Diagnosis (1) Anemia Priority: Primary Status: Acute (2) Diabetic foot ulcer Priority: Primary Status: Chronic (3) Metastatic lung cancer (metastasis from lung to other site) Priority: Secondary Status: Chronic (4) Severe protein-calorie malnutrition Priority: Secondary Status: Chronic (5) COPD (chronic obstructive pulmonary disease) Priority: Secondary Status: Chronic (6) CAD (coronary artery disease) Priority: Secondary Status: Chronic - Transfer Medications Home Medications: Atorvastatin Calcium [Lipitor] 80 mg PO HS 12/08/15 [History] DULoxetine [Cymbalta] 30 mg PO BID 12/08/15 [History] Furosemide [Lasix] 40 mg PO DAILY PRN 12/08/15 [History] Nitroglycerin [Nitrostat] 0.4 mg SL Q5M PRN 12/08/15 [History] Ondansetron HCl [Zofran] 4 mg PO Q6H PRN #30 tablet 01/26/16 [Rx] Prochlorperazine Maleate [Compazine] 10 mg PO Q6HR PRN #60 tablet 01/26/16 [Rx] Loratadine [Claritin] 10 mg PO DAILY PRN 02/01/16 [History] Meclizine [Antivert] 12.5 mg PO TID PRN 02/01/16 [History] Gabapentin [Neurontin] 800 mg PO QID #120 tablet 04/27/16 [Rx] OXcarbazepine [Trileptal] 150 mg PO BID #60 tablet 05/26/16 [Rx] Albuterol Sulfate [Proair Respiclick] 2 puff IH Q4H PRN 08/31/16 [History] Cranberry Fruit [Cranberry] 400 mg PO DAILY 08/31/16 [History] Docusate Sodium [Colace] 100 mg PO DAILY PRN 08/31/16 [History] Oxygen 3 l NS HS 08/31/16 [History] Polyethylene Glycol 3350 [MiraLAX Powder Bulk 17.9 Oz] 17 gm PO DAILY PRN [History] Aspirin Enteric Coated [Aspirin EC] 81 mg PO DAILY #30 tablet. 09/27/16 [Rx] Folic Acid 1 mg PO DAILY #30 tablet 10/10/16 [Rx] Magnesium Oxide [Magnesium] 400 mg PO DAILY #30 tablet 10/10/16 [Rx] Potassium Chloride [K-Tab ER] 10 meq PO DAILY #30 tablet.er 10/10/16 [Rx] Omeprazole [PriLOSEC] 20 mg PO DAILY #30 10/23/16 [Rx] Magic Mouthwash [Magic Mouthwash BLM] 10 ml PO QID PRN #500 ml 11/14/16 [Rx] Metformin HCl [Metformin HCl ER] 500 mg PO BID 11/30/16 [History] CeFAZolin Pre 2,000 MG/100 ML [Ancef Premix 2,000 MG/100 ML] 2,000 mg IV Q8HR 36 Days bag 12/05/16 [Rx] Metoprolol [Lopressor] 25 mg PO BID #0 12/05/16 [Rx] Oxycodone HCl/Acetaminophen [Percocet 10-325 mg Tablet] 1 tab PO Q6H PRN #20 tablet 12/05/16 [Rx] Saccharomyces Boulardii [Florastor] 250 mg PO BID #80 capsule 12/05/16 [Rx] Ammonium Lactate [Dianelys-Hydrolac] 1 appl TP DAILY 01/04/17 [History] Budesonide/Formoterol 160/4.5 [Symbicort 160/4.5] 2 puff IH BIDR 01/04/17 [ History] Collagenase Oint [Santyl] 1 appl TP DAILY PRN 01/04/17 [History] Glucagon,Human Recombinant [Glucagen] 1 mg IJ DAILY PRN 01/04/17 [History] Guaifenesin [Diabetic Tussin Ex] 10 ml PO Q6H PRN 01/04/17 [History] Insulin LISPRO [Humalog] 0 unit SQ QID PRN 01/04/17 [History] Ipratropium/Albuterol Neb [Duoneb] 3 ml IH Q4H PRN 01/04/17 [History] Methyl Salicylate/Menth/Camph [Salonpas Large Patch] 1 patch TP DAILY PRN [History] Allergies/Adverse Reactions: 3 Allergy/AdvReac Type Severity Reaction Status Date / Time dofetilide [From Tikosyn] Allergy Unresponsiv Verified 01/04/17 15:22 e Iodinated Contrast- Oral and Allergy Palpitation Verified 01/04/17 15:22 IV Dye s [Iodinated Contrast Media - IV Dye] lisinopril AdvReac See Verified 01/04/17 15:22 Comments red dye AdvReac Rash Verified 01/04/17 15:22 - Respiratory Orders Smoking Cessation: Smoking cessation has been advised. For more information, call the [place] Tobacco Quit Line at 3-861-EZHI-NOW. - Rehabiliation Orders Rehab Orders: Evaluation for Physical Therapy, Evaluation for Occupational Therapy (Intravenous antibiotics as mentioned previously.) CERTIFICATION: I certify that the transfer of the above named patient to an Extended Care Facility is necessary for the continuing treatment of the diagnosis listed. The above information is true and accurate reflection of patient's current condition. Confidential - Redisclosure prohibited without a patient's written consent.
[2017-01-05] MEDS: OXcarbazepine 150 MG TABLET PO SCH (08:27)
[2017-01-05] MEDS: Gabapentin 400 MG CAPSULE PO SCH (08:27)
[2017-01-05] MEDS: (Saccharomyces Boulardii [Florastor] 250 MG) PO SCH (08:28)
[2017-01-05] MEDS ORDERED: Aspirin Enteric Coated 81 MG Tablet PO SCH (09:00)
[2017-01-05] MEDS ORDERED: Ammonium Lactate 30 APPL/225 GM BOTTLE TP SCH (09:00)
[2017-01-05] MEDS ORDERED: Folic Acid 1 MG TABLET PO SCH (09:00)
[2017-01-05] MEDS ORDERED: CRANBERRY FRUIT 400 MG PO SCH (09:00)
[2017-01-05] MEDS ORDERED: Magnesium Oxide 400 MG TABLET PO SCH (09:00)
[2017-01-05] MEDS: Budesonide/Formoterol 160/4.5 MDI IH SCH (10:42)
--- NOTE | 2017-01-08 09:15 | Electrocardiograph Report ---
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
== END 2017-01-05 11:30 ==
LOC: 3BNU 14:35 → EMEROO 14:35 → 3BNU 17:30
PROVIDERS: ADMIT Registered Nurse; ATTEND Registered Nurse

== ENCOUNTER 2017-06-29 15:01 | Inpatient (IN) ==
--- NOTE | 2017-06-29 15:10 | Emergency Department Note ---
Disposition Clinical Impression: Acute respiratory failure, Altered mental status, Metastatic lung cancer ( metastasis from lung to other site), Urinary tract infection Disposition: Admitted As Inpatient Condition: Critical Referrals: Bradley Montgomery MD [Primary Care Provider] - Forms: ED Satisfaction Letter, Work/School Release General Adult HPI - General Chief complaint: ED General Medical Stated complaint: unresponsive Time Seen by Provider: 06/29/17 15:04 Source: EMS - History of Present Illness Pain Scale: 0 - Related Data Home Medications Medication Instructions Recorded Confirmed Atorvastatin Calcium [Lipitor] 80 mg PO HS 12/08/15 06/29/17 DULoxetine [Cymbalta] 30 mg PO BID 12/08/15 06/29/17 Furosemide [Lasix] 40 mg PO DAILY PRN 12/08/15 06/29/17 Nitroglycerin [Nitrostat] 0.4 mg SL Q5M PRN 12/08/15 06/29/17 Loratadine [Claritin] 10 mg PO DAILY PRN 02/01/16 06/29/17 Meclizine [Antivert] 12.5 mg PO DAILY 02/01/16 06/29/17 Cranberry Fruit [Cranberry] 400 mg PO TID 08/31/16 06/29/17 Oxygen 3 l NS HS 08/31/16 06/29/17 Metformin HCl [Metformin HCl ER] 500 mg PO BID 11/30/16 06/29/17 Budesonide/Formoterol 160/4.5 2 puff IH BIDR 01/04/17 06/29/17 [Symbicort 160/4.5] Collagenase Oint [Santyl] 1 appl TP DAILY PRN 01/04/17 06/29/17 Glucagon,Human Recombinant 1 mg IJ DAILY PRN 01/04/17 06/29/17 [Glucagen] Ipratropium/Albuterol Neb [Duoneb] 3 ml IH Q4H PRN 01/04/17 06/29/17 Acetylcysteine [Nac] 600 mg PO BID 03/15/17 06/29/17 Erlotinib HCl [Tarceva] 150 mg PO DAILY 04/25/17 06/29/17 Acetylcysteine 10% 2 ml IH Q6H 05/28/17 06/29/17 Albuterol Sulfate [Ventolin Hfa] 2 puff IH Q6H PRN 05/28/17 06/29/17 Ondansetron HCl [Zofran] 4 mg PO Q8H PRN 05/28/17 06/29/17 Vancomycin HCl 500 mg PO QID 05/28/17 06/29/17 Cholestyramine (with Sugar) 1 each PO HS 06/29/17 06/29/17 [Cholestyramine Bulk Powder] Previous Rx's Medication Instructions Recorded Gabapentin [Neurontin] 800 mg PO QID #120 tablet 04/27/16 OXcarbazepine [Trileptal] 150 mg PO BID #60 tablet 05/26/16 Aspirin Enteric Coated [Aspirin EC] 81 mg PO DAILY #30 tablet. 09/27/16 Prochlorperazine Maleate 10 mg PO Q6HR PRN #60 tablet 03/15/17 [Compazine] Lactobacillus Acidophilus 1 tab PO BID #60 tablet 03/23/17 [Probiotic Acidophilus] Magic Mouthwash [Magic Mouthwash 10 ml PO QID PRN #500 ml 03/23/17 BLM] Folic Acid 1 mg PO DAILY #30 tablet 04/27/17 Magnesium Oxide [Magnesium] 400 mg PO DAILY #30 tablet 04/27/17 GuaiFENesin/Codeine [Robitussin 5 ml PO Q6HR PRN 15 Days #300 ml 05/14/17 w/Codeine] Dronabinol [Marinol] 1 cap PO BID 30 Days #60 capsule 06/25/17 Lidocaine Patch [Lidoderm 5% patch] 1 each TP AD #30 adh..patch 06/25/17 Morphine Sulfate SR (12 HR) [MS 1 tab PO Q12HR 30 Days #60 tab 06/25/17 Contin] Oxycodone HCl/Acetaminophen 1 tab PO Q6H PRN 30 Days #80 tablet 06/25/17 [Percocet 10-325 mg Tablet] Potassium Chloride [K-Tab ER] 10 meq PO DAILY #30 tablet.er 06/25/17 Allergies Allergy/AdvReac Type Severity Reaction Status Date / Time dofetilide [From Tikosyn] Allergy Unresponsiv Verified 06/25/17 13:46 e lisinopril AdvReac See Verified 06/25/17 13:46 Comments red dye AdvReac Rash Verified 06/25/17 13:46 Past Medical History - Past Medical History Medical history: Reports: arthritis, atrial fibrillation, cancer, CHF, COPD, coronary artery disease, diabetes, hypertension, myocardial infarction, RA Surgical history: Reports: angioplasty/stent, appendectomy, cholecystectomy, other Psychiatric history: Reports: no psych history [employer] history: Reports: no [employer] history - Social History Smoking Status: Current every day smoker Smokeless Tobacco Status: No Alcohol use: Reports: none Drug use: Reports: none Course Vital Signs Temperature 97.0 F L 06/29/17 15:03 Pulse Rate 94 06/29/17 15:03 Respiratory Rate 16 06/29/17 15:03 Blood Pressure 118/73 06/29/17 15:03 O2 Sat by Pulse Oximetry 95 06/29/17 15:03 Temperature 97.0 F L 06/29/17 15:03 Pulse Rate 94 06/29/17 15:03 Respiratory Rate 12 06/29/17 16:16 Blood Pressure 118/73 06/29/17 15:03 O2 Sat by Pulse Oximetry 100 06/29/17 16:16 Oxygen Delivery Oxygen Delivery Room Air Medical Decision Making - Lab Data Result diagrams: 06/29/17 15:07 06/29/17 15:07 Lab Results 06/29/17 06/29/17 06/29/17 Range/Units 15:07 15:07 15:07 WBC 5.3 (4.3-11.1) K/mcL RBC 3.92 (3.82-4.97) M/mcL Hgb 11.3 L (11.5-15.4) g/dL Hct 35.5 (35.3-44.9) % MCV 90.6 (83.0-100.0) fL MCH 28.8 (28.0-33.3) pg MCHC 31.8 (31.6-35.5) g/dL RDW 18.3 H (11.5-14.5) % Plt Count 219 (140-400) K/mcL MPV 9.9 (9.4-12.4) fL Immature Gran % 0.4 (0-4) % Seg Neutrophils % 66.8 % Lymphocytes % 17.6 % Monocytes % 11.8 % Eosinophils % 2.8 % Basophils % 0.6 % Neutrophils # 3.6 (1.6-8.9) K/mcL Lymphocytes # 0.9 (0.6-4.6) K/mcL Monocytes # 0.6 (0.0-1.3) K/mcL Eosinophils # 0.2 (0.0-0.6) K/mcL Basophils # 0.0 (0.0-0.2) K/mcL PT 11.2 (9.4-12.1) Seconds INR 1.0 APTT 26.4 (26.0-36.0) Seconds Sample Site ABG pH (7.32-7.45) pH Units ABG pCO2 (35-45) mmHg ABG pO2 (85-104) mmHg ABG HCO3 (21-27) mEq/L ABG Total CO2 (20-26) mEq/L ABG O2 Saturation (95-98) % ABG Base Excess (-2 to 3) mEq/L Sodium 140 (136-145) mEq/L Potassium 3.7 (3.5-5.1) mEq/L Chloride 99 (98-107) mEq/L Carbon Dioxide 34 H (23-29) mEq/L BUN 18 (8-23) mg/dL Creatinine 0.56 L (0.60-1.20) mg/dL Est GFR ( Amer) > 60 (> 60) Est GFR (Non-Af Amer) > 60 (> 60) BUN/Creatinine Ratio 32 H (6-26) Glucose 112 H (70-105) mg/dL Calculated Osmolality 293 (280-300) Lactic Acid (0.5-2.2) mmol/L Calcium 9.0 (8.6-10.3) mg/dL Total Bilirubin 0.8 (0.3-1.0) mg/dL Direct Bilirubin 0.3 H (0.0-0.2) mg/dL Indirect Bilirubin 0.5 (0.0-1.2) mg/dL AST 41 H (13-39) Units/L ALT 31 (7-52) Units/L Alkaline Phosphatase 129 H (34-104) Units/L Ammonia (16-53) mcmol/L Troponin I < 0.03 (< 0.04) ng/mL Serum Total Protein 5.7 L (6.4-8.9) g/dL Albumin 2.8 L (3.5-5.7) g/dL Globulin 2.9 (2.4-3.5) g/dL Albumin/Globulin Ratio 1.0 L (1.1-2.2) Urine Color (Yellow) Urine Clarity (Clear) Urine pH (5.0-8.0) pH Units Ur Specific [place] (1.010-1.025) Urine Protein (Neg-Trace) mg/dL Urine Glucose (UA) (Normal) mg/dL Urine Ketones (Negative) mg/dL Urine Blood (Negative) Urine Nitrite (Negative) Urine Bilirubin (Negative) Urine Urobilinogen (Normal) mg/dL Ur Leukocyte Esterase (Negative) Urine Microscopic RBC (0-3) per hpf Urine Microscopic WBC (0-3) per hpf Ur Squamous Epith Cells (None-Few) per lpf Urine Bacteria (None-Few) per hpf Hyaline Casts (None-Few) per lpf Ur Culture Indicated? (NO) Salicylates < 2.5 L (15.0-30.0) mg/dL Urine Opiates Screen (Egegqi=655) ng/mL Acetaminophen < 10 L (10-20) mcg/mL Ur Barbiturates Screen (Xmfram=529) ng/mL Ur Phencyclidine Scrn (Cutoff=25) ng/mL Ur Amphetamines Screen (Xnltro=3579) ng/mL U Benzodiazepines Scrn (Mkxmpu=480) ng/mL Urine Cocaine Screen (Cutoff= 300) ng/mL U Marijuana (THC) Screen (Cutoff = 50) ng/mL Ethyl Alcohol < 10 (Less than 10) mg/dL 06/29/17 06/29/17 06/29/17 Range/Units 15:07 15:07 15:12 WBC (4.3-11.1) K/mcL RBC (3.82-4.97) M/mcL Hgb (11.5-15.4) g/dL Hct (35.3-44.9) % MCV (83.0-100.0) fL MCH (28.0-33.3) pg MCHC (31.6-35.5) g/dL RDW (11.5-14.5) % Plt Count (140-400) K/mcL MPV (9.4-12.4) fL Immature Gran % (0-4) % Seg Neutrophils % % Lymphocytes % % Monocytes % % Eosinophils % % Basophils % % Neutrophils # (1.6-8.9) K/mcL Lymphocytes # (0.6-4.6) K/mcL Monocytes # (0.0-1.3) K/mcL Eosinophils # (0.0-0.6) K/mcL Basophils # (0.0-0.2) K/mcL PT (9.4-12.1) Seconds INR APTT (26.0-36.0) Seconds Sample Site L Brach ABG pH 7.44 (7.32-7.45) pH Units ABG pCO2 54 H (35-45) mmHg ABG pO2 61 L (85-104) mmHg ABG HCO3 37 H (21-27) mEq/L ABG Total CO2 39 H (20-26) mEq/L ABG O2 Saturation 91 L (95-98) % ABG Base Excess 11 H (-2 to 3) mEq/L Sodium (136-145) mEq/L Potassium (3.5-5.1) mEq/L Chloride (98-107) mEq/L Carbon Dioxide (23-29) mEq/L BUN (8-23) mg/dL Creatinine (0.60-1.20) mg/dL Est GFR ( Amer) (> 60) Est GFR (Non-Af Amer) (> 60) BUN/Creatinine Ratio (6-26) Glucose (70-105) mg/dL Calculated Osmolality (280-300) Lactic Acid 0.8 (0.5-2.2) mmol/L Calcium (8.6-10.3) mg/dL Total Bilirubin (0.3-1.0) mg/dL Direct Bilirubin (0.0-0.2) mg/dL Indirect Bilirubin (0.0-1.2) mg/dL AST (13-39) Units/L ALT (7-52) Units/L Alkaline Phosphatase (34-104) Units/L Ammonia 23 (16-53) mcmol/L Troponin I (< 0.04) ng/mL Serum Total Protein (6.4-8.9) g/dL Albumin (3.5-5.7) g/dL Globulin (2.4-3.5) g/dL Albumin/Globulin Ratio (1.1-2.2) Urine Color (Yellow) Urine Clarity (Clear) Urine pH (5.0-8.0) pH Units Ur Specific [place] (1.010-1.025) Urine Protein (Neg-Trace) mg/dL Urine Glucose (UA) (Normal) mg/dL Urine Ketones (Negative) mg/dL Urine Blood (Negative) Urine Nitrite (Negative) Urine Bilirubin (Negative) Urine Urobilinogen (Normal) mg/dL Ur Leukocyte Esterase (Negative) Urine Microscopic RBC (0-3) per hpf Urine Microscopic WBC (0-3) per hpf Ur Squamous Epith Cells (None-Few) per lpf Urine Bacteria (None-Few) per hpf Hyaline Casts (None-Few) per lpf Ur Culture Indicated? (NO) Salicylates (15.0-30.0) mg/dL Urine Opiates Screen ([place]ash=136) ng/mL Acetaminophen (10-20) mcg/mL Ur Barbiturates Screen (Mqgolz=076) ng/mL Ur Phencyclidine Scrn (Cutoff=25) ng/mL Ur Amphetamines Screen (Gklish=7877) ng/mL U Benzodiazepines Scrn (Lhrfee=881) ng/mL Urine Cocaine Screen (Cutoff= 300) ng/mL U Marijuana (THC) Screen (Cutoff = 50) ng/mL Ethyl Alcohol (Less than 10) mg/dL 06/29/17 06/29/17 Range/Units 15:24 15:24 WBC (4.3-11.1) K/mcL RBC (3.82-4.97) M/mcL Hgb (11.5-15.4) g/dL Hct (35.3-44.9) % MCV (83.0-100.0) fL MCH (28.0-33.3) pg MCHC (31.6-35.5) g/dL RDW (11.5-14.5) % Plt Count (140-400) K/mcL MPV (9.4-12.4) fL Immature Gran % (0-4) % Seg Neutrophils % % Lymphocytes % % Monocytes % % Eosinophils % % Basophils % % Neutrophils # (1.6-8.9) K/mcL Lymphocytes # (0.6-4.6) K/mcL Monocytes # (0.0-1.3) K/mcL Eosinophils # (0.0-0.6) K/mcL Basophils # (0.0-0.2) K/mcL PT (9.4-12.1) Seconds INR APTT (26.0-36.0) Seconds Sample Site ABG pH (7.32-7.45) pH Units ABG pCO2 (35-45) mmHg ABG pO2 (85-104) mmHg ABG HCO3 (21-27) mEq/L ABG Total CO2 (20-26) mEq/L ABG O2 Saturation (95-98) % ABG Base Excess (-2 to 3) mEq/L Sodium (136-145) mEq/L Potassium (3.5-5.1) mEq/L Chloride (98-107) mEq/L Carbon Dioxide (23-29) mEq/L BUN (8-23) mg/dL Creatinine (0.60-1.20) mg/dL Est GFR ( Amer) (> 60) Est GFR (Non-Af Amer) (> 60) BUN/Creatinine Ratio (6-26) Glucose (70-105) mg/dL Calculated Osmolality (280-300) Lactic Acid (0.5-2.2) mmol/L Calcium (8.6-10.3) mg/dL Total Bilirubin (0.3-1.0) mg/dL Direct Bilirubin (0.0-0.2) mg/dL Indirect Bilirubin (0.0-1.2) mg/dL AST (13-39) Units/L ALT (7-52) Units/L Alkaline Phosphatase (34-104) Units/L Ammonia (16-53) mcmol/L Troponin I (< 0.04) ng/mL Serum Total Protein (6.4-8.9) g/dL Albumin (3.5-5.7) g/dL Globulin (2.4-3.5) g/dL Albumin/Globulin Ratio (1.1-2.2) Urine Color Yellow (Yellow) Urine Clarity Turbid A (Clear) Urine pH 6.5 (5.0-8.0) pH Units Ur Specific [place] 1.023 (1.010-1.025) Urine Protein 30 H (Neg-Trace) mg/dL Urine Glucose (UA) Normal (Normal) mg/dL Urine Ketones 15 H (Negative) mg/dL Urine Blood Small H (Negative) Urine Nitrite Positive A (Negative) Urine Bilirubin Negative (Negative) Urine Urobilinogen Normal (Normal) mg/dL Ur Leukocyte Esterase Large H (Negative) Urine Microscopic RBC 5-15 H (0-3) per hpf Urine Microscopic WBC TNTC H (0-3) per hpf Ur Squamous Epith Cells Many H (None-Few) per lpf Urine Bacteria Many H (None-Few) per hpf Hyaline Casts Few (None-Few) per lpf Ur Culture Indicated? NO. A (NO) Salicylates (15.0-30.0) mg/dL Urine Opiates Screen Positive H (Cyawqg=441) ng/mL Acetaminophen (10-20) mcg/mL Ur Barbiturates Screen Negative (Stpxba=725) ng/mL Ur Phencyclidine Scrn Negative (Cutoff=25) ng/mL Ur Amphetamines Screen Negative (Cnqbug=3490) ng/mL U Benzodiazepines Scrn Negative (Ehoprk=101) ng/mL Urine Cocaine Screen Negative (Cutoff= 300) ng/mL U Marijuana (THC) Screen Positive H (Cutoff = 50) ng/mL Ethyl Alcohol (Less than 10) mg/dL Critical Care Time Critical Care Time: Yes Total Critical Care Time: 30 Attestation: The high probability of a clinically significant, sudden or life threatening deterioration of the [] system(s) required my full and direct attention, intervention and personal management. The aggregate critical care time was [] minutes. This time is in addition to time spent performing reported procedures but includes the following: [] Data Review and interpretation [] Patient assessment and monitoring of vital signs [] Documentation [] Medication orders and management Attestation Statement - Attestation Attestation: I examined this patient and my medical decision-making was reviewed with the Resident Physician. I agree with the documented findings, disposition and treatment plan as described except to the extent set forth below. [id number] time provided Patient arrives by EMS from home. It was reported she had the rather abrupt onset of unresponsiveness. The patient has a history of oxygen-dependent COPD and metastatic lung cancer. She undergoes palliative chemotherapy. Prehospital Accu-Chek was okay. The patient is obtunded but protecting her airway at the time of arrival. She is not hypoxic. 15:20: The patient's pulse ox dropped. I was concerned about her ability to protect her airway. She was urgently endotracheally intubated by the resident physician
[2017-06-29 15:15] LABS: ABG Base Excess 11 mEq/L (-2 to 3); ABG HCO3 37 mEq/L (21-27); ABG Oxygen Saturation 91 % (95-98); ABG PCO2 54 mmHg (35-45); ABG PH 7.44 pH Units (7.32-7.45); ABG PO2 61 mmHg (85-104); ABG TCO2 39 mEq/L (20-26)
[2017-06-29 15:24] LABS: Basophils % 0.6 %; Eosinophils # 0.2 K/mcL (0.0-0.6); Eosinophils % 2.8 %; Hematocrit 35.5 % (35.3-44.9); Hemoglobin 11.3 g/dL (11.5-15.4); Immature Granulocytes % 0.4 % (0-4); Lymphocytes # 0.9 K/mcL (0.6-4.6); Lymphocytes % 17.6 %; Mean Corpuscular HGB Conc 31.8 g/dL (31.6-35.5); Mean Corpuscular Hemoglobin 28.8 pg (28.0-33.3); Mean Corpuscular Volume 90.6 fL (83.0-100.0); Mean Platelet Volume 9.9 fL (9.4-12.4); Monocytes # 0.6 K/mcL (0.0-1.3); Monocytes % 11.8 %; Neutrophils # 3.6 K/mcL (1.6-8.9); Platelet Count 219 K/mcL (140-400); Red Blood Count 3.92 M/mcL (3.82-4.97); Red Cell Distribution Width 18.3 % (11.5-14.5); Segmented Neutrophils % 66.8 %
[2017-06-29 15:30] LABS: Prothrombin Time 11.2 Seconds (9.4-12.1)
[2017-06-29 15:32] LABS: Activated Partial Thrombo Time 26.4 Seconds (26.0-36.0)
[2017-06-29] MEDS ORDERED: 0.9 % Sodium Chloride 1,000 ML IVC ONE (15:37)
[2017-06-29] MEDS ORDERED: 0.9 % Sodium Chloride 1,000 ML ONE ×2 (15:37→17:48)
--- NOTE | 2017-06-29 15:42 | Emergency Department Note ---
Disposition Clinical Impression: Acute respiratory failure Qualifiers: Respiratory failure complication: unspecified whether with hypoxia or hypercapnia Qualified Code(s): J96.00 - Acute respiratory failure, unspecified whether with hypoxia or hypercapnia Altered mental status Qualifiers: Altered mental status type: unspecified Qualified Code(s): R41.82 - Altered mental status, unspecified Metastatic lung cancer (metastasis from lung to other site) Qualifiers: Laterality: unspecified laterality Qualified Code(s): C34.90 - Malignant neoplasm of unspecified part of unspecified bronchus or lung Urinary tract infection Qualifiers: Indwelling urinary catheter type: unspecified Encounter type: initial encounter Disposition: Admitted As Inpatient Condition: Critical Referrals: Bradley Montgomery MD [Primary Care Provider] - Forms: ED Satisfaction Letter, Work/School Release General Adult HPI - General Chief complaint: ED General Medical Stated complaint: unresponsive Time Seen by Provider: 06/29/17 15:04 Source: EMS Mode of arrival: EMS Limitations: altered mental status Nursing Notes Reviewed: Yes Vital Signs Reviewed: Yes - History of Present Illness HPI Narrative: 66-year-old female who presented unresponsive. Family members report that she walked from the kitchen and sat down in her chair and lit a cigarette and then went unresponsive. EMS arrived and she had normal vital signs and a normal glucose but was completely unresponsive. She has a past medical history of stage IV lung cancer. She has metastasis to multiple bony sites. She had palliative chemotherapy and radiation and is currently on palliative medication including oxycodone and morphine. EMS reports normal vital signs entire right and she was unresponsive to sternal rubbing. On arrival to the emergency department she was unresponsive but again did have normal vital signs. I was then called to the bedside after my initial assessment due to the hypoxia was determined then to intubate the patient due to a GCS of 3 and hypoxia. Her was in the room and agreed that she is a full CODE STATUS. He says that he would like her to be intubated if need be at least until her kids can come to see her. Pain Scale: 0 Improves with: nothing Worsens with: nothing Treatments Prior to Arrival: none - Related Data Home Medications Medication Instructions Recorded Confirmed Atorvastatin Calcium [Lipitor] 80 mg PO HS 12/08/15 06/29/17 DULoxetine [Cymbalta] 30 mg PO BID 12/08/15 06/29/17 Furosemide [Lasix] 40 mg PO DAILY PRN 12/08/15 06/29/17 Nitroglycerin [Nitrostat] 0.4 mg SL Q5M PRN 12/08/15 06/29/17 Loratadine [Claritin] 10 mg PO DAILY PRN 02/01/16 06/29/17 Meclizine [Antivert] 12.5 mg PO DAILY 02/01/16 06/29/17 Cranberry Fruit [Cranberry] 400 mg PO TID 08/31/16 06/29/17 Oxygen 3 l NS HS 08/31/16 06/29/17 Metformin HCl [Metformin HCl ER] 500 mg PO BID 11/30/16 06/29/17 Budesonide/Formoterol 160/4.5 2 puff IH BIDR 01/04/17 06/29/17 [Symbicort 160/4.5] Collagenase Oint [Santyl] 1 appl TP DAILY PRN 01/04/17 06/29/17 Glucagon,Human Recombinant 1 mg IJ DAILY PRN 01/04/17 06/29/17 [Glucagen] Ipratropium/Albuterol Neb [Duoneb] 3 ml IH Q4H PRN 01/04/17 06/29/17 Acetylcysteine [Nac] 600 mg PO BID 03/15/17 06/29/17 Erlotinib HCl [Tarceva] 150 mg PO DAILY 04/25/17 06/29/17 Acetylcysteine 10% 2 ml IH Q6H 05/28/17 06/29/17 Albuterol Sulfate [Ventolin Hfa] 2 puff IH Q6H PRN 05/28/17 06/29/17 Ondansetron HCl [Zofran] 4 mg PO Q8H PRN 05/28/17 06/29/17 Vancomycin HCl 500 mg PO QID 05/28/17 06/29/17 Cholestyramine (with Sugar) 1 each PO HS 06/29/17 06/29/17 [Cholestyramine Bulk Powder] Previous Rx's Medication Instructions Recorded Gabapentin [Neurontin] 800 mg PO QID #120 tablet 04/27/16 OXcarbazepine [Trileptal] 150 mg PO BID #60 tablet 05/26/16 Aspirin Enteric Coated [Aspirin EC] 81 mg PO DAILY #30 tablet. 09/27/16 Prochlorperazine Maleate 10 mg PO Q6HR PRN #60 tablet 03/15/17 [Compazine] Lactobacillus Acidophilus 1 tab PO BID #60 tablet 03/23/17 [Probiotic Acidophilus] Magic Mouthwash [Magic Mouthwash 10 ml PO QID PRN #500 ml 03/23/17 BLM] Folic Acid 1 mg PO DAILY #30 tablet 04/27/17 Magnesium Oxide [Magnesium] 400 mg PO DAILY #30 tablet 04/27/17 GuaiFENesin/Codeine [Robitussin 5 ml PO Q6HR PRN 15 Days #300 ml 05/14/17 w/Codeine] Dronabinol [Marinol] 1 cap PO BID 30 Days #60 capsule 06/25/17 Lidocaine Patch [Lidoderm 5% patch] 1 each TP AD #30 adh..patch 06/25/17 Morphine Sulfate SR (12 HR) [MS 1 tab PO Q12HR 30 Days #60 tab 06/25/17 Contin] Oxycodone HCl/Acetaminophen 1 tab PO Q6H PRN 30 Days #80 tablet 06/25/17 [Percocet 10-325 mg Tablet] Potassium Chloride [K-Tab ER] 10 meq PO DAILY #30 tablet.er 06/25/17 Allergies Allergy/AdvReac Type Severity Reaction Status Date / Time dofetilide [From Tikosyn] Allergy Unresponsiv Verified 06/25/17 13:46 e lisinopril AdvReac See Verified 06/25/17 13:46 Comments red dye AdvReac Rash Verified 06/25/17 13:46 Limitations: ROS unobtainable due to patients medical condition Past Medical History - Past Medical History Medical history: Reports: arthritis, atrial fibrillation, cancer, CHF, COPD, coronary artery disease, diabetes, hypertension, myocardial infarction, RA Surgical history: Reports: angioplasty/stent, appendectomy, cholecystectomy, other Psychiatric history: Reports: no psych history BODY WIRER history: Reports: no BODY WIRER history - Social History Smoking Status: Current every day smoker Smokeless Tobacco Status: No Alcohol use: Reports: none Drug use: Reports: none Physical Exam - General Limitations: altered mental status General appearance: other (Unresponsive) - Head Head exam: atraumatic - Eye Eye exam: Present: normal appearance - ENT ENT exam: normal exam, normal oropharynx - Neck Neck exam: Present: normal inspection - Chest Chest inspection: Present: normal inspection - Respiratory Respiratory exam: Present: other (Diminished breath sounds on the right without respiratory distress) - Cardiovascular Cardiovascular exam: Present: regular rate, normal rhythm - Abdominal Exam Abdominal exam: Present: soft, Non-Tender - Extremities Exam Extremities exam: Present: normal inspection - Back Exam Back exam: Present: normal inspection - Neurological Exam Neurological exam: Present: other (GCS of 3. Does not respond to painful stimuli. Does not follow any commands) - Skin Skin exam: Present: warm, dry Course Course Narrative: After she arrived it was determined that she needed to be intubated to protect her airway and because she became hypoxic. See intubation note. Her ABG does not show significant hypoxia or hypercapnia. PH is stable. Her laboratory does demonstrate that she has urinary tract infection. She will be admitted to the ICU for further treatment. Initially she had some hypotension after the sedation for the intubation. This resolved after a fluid bolus. Vital Signs Temperature 97.0 F L 06/29/17 15:03 Pulse Rate 94 06/29/17 15:03 Respiratory Rate 16 06/29/17 15:03 Blood Pressure 118/73 06/29/17 15:03 O2 Sat by Pulse Oximetry 95 06/29/17 15:03 Temperature 97.0 F L 06/29/17 15:03 Pulse Rate 94 06/29/17 15:03 Respiratory Rate 16 06/29/17 15:03 Blood Pressure 118/73 06/29/17 15:03 O2 Sat by Pulse Oximetry 95 06/29/17 15:03 Oxygen Delivery Oxygen Delivery Room Air Procedures - Intubation sedative: Etomidate paralytic: Rocuronium Laryngoscope: Camelia ET Tube Size: 7 ET Tube Uncuffed: No Tube Secured Location: lips Tube Placement Confirmation: visualized tube passing through cords, equal breath sounds bilaterally, no breath sounds over epigastrium, confirmation by capnometry Patient Tolerated Procedure: well, no complications Intubation Complications: hypotension, other (resolved with IV fluids) Medical Decision Making - Medical Records Medical records reviewed: Yes I reviewed the patient's medical records. - Lab Data Lab results reviewed: Yes I reviewed the patient's lab results. Result diagrams: 06/29/17 15:07 06/29/17 15:07 Lab Results 06/29/17 06/29/17 06/29/17 Range/Units 15:07 15:07 15:07 WBC 5.3 (4.3-11.1) K/mcL RBC 3.92 (3.82-4.97) M/mcL Hgb 11.3 L (11.5-15.4) g/dL Hct 35.5 (35.3-44.9) % MCV 90.6 (83.0-100.0) fL MCH 28.8 (28.0-33.3) pg MCHC 31.8 (31.6-35.5) g/dL RDW 18.3 H (11.5-14.5) % Plt Count 219 (140-400) K/mcL MPV 9.9 (9.4-12.4) fL Immature Gran % 0.4 (0-4) % Seg Neutrophils % 66.8 % Lymphocytes % 17.6 % Monocytes % 11.8 % Eosinophils % 2.8 % Basophils % 0.6 % Neutrophils # 3.6 (1.6-8.9) K/mcL Lymphocytes # 0.9 (0.6-4.6) K/mcL Monocytes # 0.6 (0.0-1.3) K/mcL Eosinophils # 0.2 (0.0-0.6) K/mcL Basophils # 0.0 (0.0-0.2) K/mcL PT 11.2 (9.4-12.1) Seconds INR 1.0 APTT 26.4 (26.0-36.0) Seconds Sample Site ABG pH (7.32-7.45) pH Units ABG pCO2 (35-45) mmHg ABG pO2 (85-104) mmHg ABG HCO3 (21-27) mEq/L ABG Total CO2 (20-26) mEq/L ABG O2 Saturation (95-98) % ABG Base Excess (-2 to 3) mEq/L Sodium 140 (136-145) mEq/L Potassium 3.7 (3.5-5.1) mEq/L Chloride 99 (98-107) mEq/L Carbon Dioxide 34 H (23-29) mEq/L BUN 18 (8-23) mg/dL Creatinine 0.56 L (0.60-1.20) mg/dL Est GFR ( Amer) > 60 (> 60) Est GFR (Non-Af Amer) > 60 (> 60) BUN/Creatinine Ratio 32 H (6-26) Glucose 112 H (70-105) mg/dL Calculated Osmolality 293 (280-300) Lactic Acid (0.5-2.2) mmol/L Calcium 9.0 (8.6-10.3) mg/dL Total Bilirubin 0.8 (0.3-1.0) mg/dL Direct Bilirubin 0.3 H (0.0-0.2) mg/dL Indirect Bilirubin 0.5 (0.0-1.2) mg/dL AST 41 H (13-39) Units/L ALT 31 (7-52) Units/L Alkaline Phosphatase 129 H (34-104) Units/L Ammonia (16-53) mcmol/L Troponin I < 0.03 (< 0.04) ng/mL Serum Total Protein 5.7 L (6.4-8.9) g/dL Albumin 2.8 L (3.5-5.7) g/dL Globulin 2.9 (2.4-3.5) g/dL Albumin/Globulin Ratio 1.0 L (1.1-2.2) Urine Color (Yellow) Urine Clarity (Clear) Urine pH (5.0-8.0) pH Units Ur Specific Clayton (1.010-1.025) Urine Protein (Neg-Trace) mg/dL Urine Glucose (UA) (Normal) mg/dL Urine Ketones (Negative) mg/dL Urine Blood (Negative) Urine Nitrite (Negative) Urine Bilirubin (Negative) Urine Urobilinogen (Normal) mg/dL Ur Leukocyte Esterase (Negative) Urine Microscopic RBC (0-3) per hpf Urine Microscopic WBC (0-3) per hpf Ur Squamous Epith Cells (None-Few) per lpf Urine Bacteria (None-Few) per hpf Hyaline Casts (None-Few) per lpf Ur Culture Indicated? (NO) Salicylates < 2.5 L (15.0-30.0) mg/dL Urine Opiates Screen (Wfsudh=256) ng/mL Acetaminophen < 10 L (10-20) mcg/mL Ur Barbiturates Screen (Fprlrf=609) ng/mL Ur Phencyclidine Scrn (Cutoff=25) ng/mL Ur Amphetamines Screen (Ztybqh=0793) ng/mL U Benzodiazepines Scrn (Umpxxh=004) ng/mL Urine Cocaine Screen (Cutoff= 300) ng/mL U Marijuana (THC) Screen (Cutoff = 50) ng/mL Ethyl Alcohol < 10 (Less than 10) mg/dL 06/29/17 06/29/17 06/29/17 Range/Units 15:07 15:07 15:12 WBC (4.3-11.1) K/mcL RBC (3.82-4.97) M/mcL Hgb (11.5-15.4) g/dL Hct (35.3-44.9) % MCV (83.0-100.0) fL MCH (28.0-33.3) pg MCHC (31.6-35.5) g/dL RDW (11.5-14.5) % Plt Count (140-400) K/mcL MPV (9.4-12.4) fL Immature Gran % (0-4) % Seg Neutrophils % % Lymphocytes % % Monocytes % % Eosinophils % % Basophils % % Neutrophils # (1.6-8.9) K/mcL Lymphocytes # (0.6-4.6) K/mcL Monocytes # (0.0-1.3) K/mcL Eosinophils # (0.0-0.6) K/mcL Basophils # (0.0-0.2) K/mcL PT (9.4-12.1) Seconds INR APTT (26.0-36.0) Seconds Sample Site L Brach ABG pH 7.44 (7.32-7.45) pH Units ABG pCO2 54 H (35-45) mmHg ABG pO2 61 L (85-104) mmHg ABG HCO3 37 H (21-27) mEq/L ABG Total CO2 39 H (20-26) mEq/L ABG O2 Saturation 91 L (95-98) % ABG Base Excess 11 H (-2 to 3) mEq/L Sodium (136-145) mEq/L Potassium (3.5-5.1) mEq/L Chloride (98-107) mEq/L Carbon Dioxide (23-29) mEq/L BUN (8-23) mg/dL Creatinine (0.60-1.20) mg/dL Est GFR ( Amer) (> 60) Est GFR (Non-Af Amer) (> 60) BUN/Creatinine Ratio (6-26) Glucose (70-105) mg/dL Calculated Osmolality (280-300) Lactic Acid 0.8 (0.5-2.2) mmol/L Calcium (8.6-10.3) mg/dL Total Bilirubin (0.3-1.0) mg/dL Direct Bilirubin (0.0-0.2) mg/dL Indirect Bilirubin (0.0-1.2) mg/dL AST (13-39) Units/L ALT (7-52) Units/L Alkaline Phosphatase (34-104) Units/L Ammonia 23 (16-53) mcmol/L Troponin I (< 0.04) ng/mL Serum Total Protein (6.4-8.9) g/dL Albumin (3.5-5.7) g/dL Globulin (2.4-3.5) g/dL Albumin/Globulin Ratio (1.1-2.2) Urine Color (Yellow) Urine Clarity (Clear) Urine pH (5.0-8.0) pH Units Ur Specific Clayton (1.010-1.025) Urine Protein (Neg-Trace) mg/dL Urine Glucose (UA) (Normal) mg/dL Urine Ketones (Negative) mg/dL Urine Blood (Negative) Urine Nitrite (Negative) Urine Bilirubin (Negative) Urine Urobilinogen (Normal) mg/dL Ur Leukocyte Esterase (Negative) Urine Microscopic RBC (0-3) per hpf Urine Microscopic WBC (0-3) per hpf Ur Squamous Epith Cells (None-Few) per lpf Urine Bacteria (None-Few) per hpf Hyaline Casts (None-Few) per lpf Ur Culture Indicated? (NO) Salicylates (15.0-30.0) mg/dL Urine Opiates Screen (Qacyan=614) ng/mL Acetaminophen (10-20) mcg/mL Ur Barbiturates Screen (Rxtaug=578) ng/mL Ur Phencyclidine Scrn (Cutoff=25) ng/mL Ur Amphetamines Screen (Udanma=4259) ng/mL U Benzodiazepines Scrn (Mlyxyl=026) ng/mL Urine Cocaine Screen (Cutoff= 300) ng/mL U Marijuana (THC) Screen (Cutoff = 50) ng/mL Ethyl Alcohol (Less than 10) mg/dL 06/29/17 06/29/17 Range/Units 15:24 15:24 WBC (4.3-11.1) K/mcL RBC (3.82-4.97) M/mcL Hgb (11.5-15.4) g/dL Hct (35.3-44.9) % MCV (83.0-100.0) fL MCH (28.0-33.3) pg MCHC (31.6-35.5) g/dL RDW (11.5-14.5) % Plt Count (140-400) K/mcL MPV (9.4-12.4) fL Immature Gran % (0-4) % Seg Neutrophils % % Lymphocytes % % Monocytes % % Eosinophils % % Basophils % % Neutrophils # (1.6-8.9) K/mcL Lymphocytes # (0.6-4.6) K/mcL Monocytes # (0.0-1.3) K/mcL Eosinophils # (0.0-0.6) K/mcL Basophils # (0.0-0.2) K/mcL PT (9.4-12.1) Seconds INR APTT (26.0-36.0) Seconds Sample Site ABG pH (7.32-7.45) pH Units ABG pCO2 (35-45) mmHg ABG pO2 (85-104) mmHg ABG HCO3 (21-27) mEq/L ABG Total CO2 (20-26) mEq/L ABG O2 Saturation (95-98) % ABG Base Excess (-2 to 3) mEq/L Sodium (136-145) mEq/L Potassium (3.5-5.1) mEq/L Chloride (98-107) mEq/L Carbon Dioxide (23-29) mEq/L BUN (8-23) mg/dL Creatinine (0.60-1.20) mg/dL Est GFR ( Amer) (> 60) Est GFR (Non-Af Amer) (> 60) BUN/Creatinine Ratio (6-26) Glucose (70-105) mg/dL Calculated Osmolality (280-300) Lactic Acid (0.5-2.2) mmol/L Calcium (8.6-10.3) mg/dL Total Bilirubin (0.3-1.0) mg/dL Direct Bilirubin (0.0-0.2) mg/dL Indirect Bilirubin (0.0-1.2) mg/dL AST (13-39) Units/L ALT (7-52) Units/L Alkaline Phosphatase (34-104) Units/L Ammonia (16-53) mcmol/L Troponin I (< 0.04) ng/mL Serum Total Protein (6.4-8.9) g/dL Albumin (3.5-5.7) g/dL Globulin (2.4-3.5) g/dL Albumin/Globulin Ratio (1.1-2.2) Urine Color Yellow (Yellow) Urine Clarity Turbid A (Clear) Urine pH 6.5 (5.0-8.0) pH Units Ur Specific Clayton 1.023 (1.010-1.025) Urine Protein 30 H (Neg-Trace) mg/dL Urine Glucose (UA) Normal (Normal) mg/dL Urine Ketones 15 H (Negative) mg/dL Urine Blood Small H (Negative) Urine Nitrite Positive A (Negative) Urine Bilirubin Negative (Negative) Urine Urobilinogen Normal (Normal) mg/dL Ur Leukocyte Esterase Large H (Negative) Urine Microscopic RBC 5-15 H (0-3) per hpf Urine Microscopic WBC TNTC H (0-3) per hpf Ur Squamous Epith Cells Many H (None-Few) per lpf Urine Bacteria Many H (None-Few) per hpf Hyaline Casts Few (None-Few) per lpf Ur Culture Indicated? NO. A (NO) Salicylates (15.0-30.0) mg/dL Urine Opiates Screen Positive H (Xsbmxd=194) ng/mL Acetaminophen (10-20) mcg/mL Ur Barbiturates Screen Negative (Oqycjv=145) ng/mL Ur Phencyclidine Scrn Negative (Cutoff=25) ng/mL Ur Amphetamines Screen Negative (Qrefen=6963) ng/mL U Benzodiazepines Scrn Negative (Jfyvbi=843) ng/mL Urine Cocaine Screen Negative (Cutoff= 300) ng/mL U Marijuana (THC) Screen Positive H (Cutoff = 50) ng/mL Ethyl Alcohol (Less than 10) mg/dL - Radiology Data Radiology results reviewed: Yes I reviewed the patient's radiology results. - EKG Data EKG #1 EKG attestation: Yes I reviewed and interpreted this EKG. EKG shows normal: sinus rhythm Rate: normal Rhythm: NSR Interpretation: other (NSR. No ST deviation.)
[2017-06-29 15:43] LABS: Bilirubin,Urine Negative (Negative); Blood,Urine Small (Negative); Clarity,Urine Turbid (Clear); Color,Urine Yellow (Yellow); Glucose,Urine (UA) Normal (Normal); Ketones,Urine 15 mg/dL (Negative); Leukocyte Esterase,Urine Large (Negative); Nitrite,Urine Positive (Negative); PH,Urine 6.5 pH Units (5.0-8.0); Protein,Urine 30 mg/dL (Neg-Trace); Specific Gravity,Urine 1.023 (1.010-1.025); Urobilinogen,Urine Normal (Normal)
[2017-06-29 15:48] LABS: Amphetamine Screen,Urine Negative ng/mL (Cutoff=1000); Bacteria,Urine Many per hpf (None-Few); Barbiturate Screen,Urine Negative ng/mL (Cutoff=200); Benzodiazepines Screen,Urine Negative ng/mL (Cutoff=200); Cannabinoid Screen,Urine Positive ng/mL (Cutoff = 50); Cocaine Screen,Urine Negative ng/mL (Cutoff= 300); Hyaline Casts,Urine Few per lpf (None-Few); Opiate Screen,Urine Positive ng/mL (Cutoff=300); Phencyclidine Screen,Urine Negative ng/mL (Cutoff=25); Squamous Epithelial Cell,Urine Many per lpf (None-Few); WBC,Urine TNTC per hpf (0-3)
[2017-06-29 15:50] LABS: Troponin I < 0.03 ng/mL (< 0.04)
[2017-06-29 15:59] LABS: Acetaminophen < 10 mcg/mL (10-20); Alanine Aminotransferase 31 Units/L (7-52); Albumin 2.8 g/dL (3.5-5.7); Alkaline Phosphatase 129 Units/L (34-104); Aspartate Amino Transferase 41 Units/L (13-39); BUN/Creatinine Ratio 32 (6-26); Bilirubin,Direct 0.3 mg/dL (0.0-0.2); Bilirubin,Indirect 0.5 mg/dL (0.0-1.2); Bilirubin,Total 0.8 mg/dL (0.3-1.0); Blood Urea Nitrogen 18 mg/dL (8-23); Carbon Dioxide 34 mEq/L (23-29); Chloride 99 mEq/L (98-107); Ethanol < 10 mg/dL (Less than 10); Globulin 2.9 g/dL (2.4-3.5); Glucose 112 mg/dL (70-105); Osmolality,Calculated 293 (280-300); Potassium 3.7 mEq/L (3.5-5.1); Salicylate < 2.5 mg/dL (15.0-30.0); Sodium 140 mEq/L (136-145); Total Protein 5.7 g/dL (6.4-8.9); eGFR For African Americans > 60 (> 60); eGFR For Non-African Americans > 60 (> 60)
[2017-06-29] MEDS ORDERED: cefTRIAXone 1,000 MG in Water for inj. (sterile) 20 ML 10 ML IVP ONE (16:03)
--- NOTE | 2017-06-29 16:33 | Pulmonology History & Physical ---
Date of Encounter: 06/29/17 Time of Encounter: 16:24 Assessment and Plan (1) Acute encephalopathy Current visit: Yes Status: Acute I suspect this is toxic metabolic encephalopathy that is related to medication effect possibly use of THC derivative complicated with opiates CT Head is without acute process Her metabolic panel and CBC are otherwise generally unremarkable. She may have a urinary tract infection which could be complicating this So appears to be dehydrated No clear evidence of seizure activity based upon report from family nor during bedside examination (2) Acute respiratory failure Current visit: Yes Status: Acute This is likely secondary to encephalopathy she had mild hypoxemia which may be a manifestation of her underlying COPD Although she is at risk for pulmonary embolus she was not tachycardic on admission neuro has she been significantly hypoxic done not inclined to send her for CTA at this time given that she is intubated primarily to maintain airway as opposed to impending hypoxemic respiratory failure Currently on the vent repeat ABG pending she is requiring minimal vent support currently FiO2 of 30% and PEEP of 5 Further adjustment of ventilator pending ABG results I suspect was improvement in her mental status she could be easily extubated in the morning We will start ventilator bundle to prevent ventilator associated Start GI prophylaxis to prevent stress ulcers DVT prophylaxis given Qualifiers: Respiratory failure complication: hypoxia and hypercapnia Qualified Code(s) : J96.01 - Acute respiratory failure with hypoxia; J96.02 - Acute respiratory failure with hypercapnia (3) Urinary tract infection Current visit: Yes Status: Acute Urinalysis suggestive of urinary tract infection although it appears to be a dirty sample we will wait on culture but will start empiric ceftriaxone with planned to de-escalate/stop over next 24-48 hours Qualifiers: Indwelling urinary catheter type: unspecified Encounter type: initial encounter Qualified Code(s): T83.511A - Infection and inflammatory reaction due to indwelling urethral catheter, initial encounter; N39.0 - Urinary tract infection, site not specified (4) DVT prophylaxis Current visit: No Status: Acute Lovenox subcutaneous 40 mg given (5) Dehydration Current visit: No Status: Acute Patient received 2 L of crystalloid infusion the emergency department management I feel is appropriate and no further crystalloid needed at this time blood pressure stable and she is not tachycardic (6) Adenocarcinoma of right lung Current visit: No Status: Chronic This is metastatic with overall poor prognosis being followed by oncology and radiation oncology (7) COPD (chronic obstructive pulmonary disease) Current visit: No Status: Chronic Without evidence of acute exacerbation continue bronchodilators while on ventilator Qualifiers: COPD type: emphysema Emphysema type: unspecified Qualified Code(s): J43.9 - Emphysema, unspecified (8) Diabetes mellitus Current visit: No Status: Chronic Start bolus dosing per low intensity sliding scale Qualifiers: Diabetes mellitus type: type 2 Diabetes mellitus jail insulin use: without jail use Diabetes mellitus complication status: with neurologic complications Diabetes mellitus complication detail: with mononeuropathy Qualified Code(s): E11.41 - Type 2 diabetes mellitus with diabetic mononeuropathy (9) Severe protein-calorie malnutrition Current visit: No Status: Chronic Nutrition will be consulted may need enteral nutrition while on vent (10) C. difficile colitis Current visit: Yes Status: Acute The patient has a history of recurrent C. difficile infection and is currently on vancomycin oral as an outpatient after recent visit to her validation analyst. I will continue this as inpatient. In further reflects my judgment not start broad-spectrum antimicrobials without clear source of infection given the risk of worsening of her colitis. She is not presenting in evidence of sepsis severe sepsis or shock nor fulminant colitis/toxic megacolon (11) Goals of care, counseling/discussion Current visit: Yes Status: Acute I had a meeting with the Shane and her elder sister and extended relatives and I explained that her overall prognosis is extremely poor. She has had metastatic cancer for some time and has had extreme wasting over the last few months. Her CODE STATUS was recently changed in the radiation oncology office to D&E are and I confirmed this with the family and they are in agreement that she did not want CPR she is okay for intubation in the short- term but does not want long-term intubation By overall impression is that the patient has terminal cancer and is hospice appropriate. The family is coming to terms with this but want to try to get her off the ventilator as quickly as possible I explained that from what I can gather during my assessment today that it would be very possible to extubate her in the morning or in the upcoming days however does not change the overall prognosis which is very very poor The patient is unable or incompetent to participate in giving a history and/or making treatment decisions. The discussion was necessary for determining treatment decision. This discussion took place in the [ED]. The total meeting time was [15min] History of Present Illness Chief complaint: Altered Mental Status HPI: Ms. Reynoso is a 66 year old female with a past medical history chronic respiratory failure secondary to COPD and metastatic lung cancer she was brought from home by EMS because she had rather abrupt onset of unresponsiveness on admission to the ED she had noted to hypoxemia and concern about ability to protect her airway and she was intubated. Pulmonary was consulted for further evaluation the patient admission to the ICU for ventilator management. ABG was notable for 7.44/54/61 white count was within normal limits no evidence of new anemia BMP was suggestive of chronic compensatory elevation of bicarbonate otherwise unremarkable troponin was within normal limits as was ammonia. Chest x-ray was notable for no acute process she does have a small left-sided pleural effusion chronic elevation of the right hemidiaphragm but no evidence of pneumonia. Head CT was also performed without evidence of acute hemorrhage. Her urine was positive for opiates negative for salicylates or acetaminophen she also had positive THC. I spoke with the family at bedside including her Shane her sister niece and some extended relatives. They states that the patient was acting normal up until about 3 PM when she abruptly "passed out" after taking a sip of water although they said she does not choke on the water. She recently started in appetite stimulant in the form of a THC derivative and this was a secondary that she been taking it she also had received some opiates earlier in the day for chronic pain but this was nothing outside of her new regimen. She has had poor by mouth intake over the last several months and has had a significant weight loss of at least 30 pounds. She is also had recurrent C. difficile infections and was on active treatment with vancomycin. With regards to her cancer treatment she has adenocarcinoma the lung BX and ask M1 stage IV with bone and subcutaneous metastases also multiple lung nodules. She said palliative radiation therapy for the left hip frontal skull and right upper leg soft tissue metastatic disease She has recurrent episodes of C. difficile colitis as a complication She also has a history of rheumatoid arthritis previous history of taking methotrexate and has been on hold since 2017 because of concomitant chemotherapy she does take infliximab however Past Med Surg Social Fam HX - Past Medical History Medical history: arthritis, atrial fibrillation, cancer, CHF, COPD, coronary artery disease, diabetes, hypertension, myocardial infarction, RA Psychiatric history: no psych history - Past Surgical History Surgical History: angioplasty/stent, appendectomy, cholecystectomy, other - Social History Smoking Status: Current every day smoker Smokeless Tobacco Status: No Alcohol use: none Drug use: none - Family History Father Adopted: No Family Member Ethnicity: Non- Living Status: Hx Family Cardiac Disorders: Yes (CAD) Hx Family Respiratory Disorders: Yes Hx Family Cancer: Yes (Lung) Hx Family GI Disorders: No Hx Family Endocrine Disorder: Yes (DM) Hx Family Neuromuscular Disorders: No Hx Family Neurologic Disorders: No Hx Family HEENT Disorders: No Hx Family Autoimmune Disorders: No Mother Adopted: No Family Member Ethnicity: Non- Living Status: Hx Family Cardiac Disorders: Yes (CAD) Hx Family Respiratory Disorders: Yes Hx Family Cancer: Yes (Lung) Brother Family Member Ethnicity: Non- Living Status: Still Living Hx Family Cardiac Disorders: Yes (CAD) Hx Family Cancer: Yes (Lung) Sister Family Member Ethnicity: Non- Living Status: Still Living Hx Family Cardiac Disorders: Yes (CAD) Hx Family Cancer: Yes (Lung) Medications and Allergies Atorvastatin Calcium [Lipitor] 80 mg PO HS 12/08/15 [History] DULoxetine [Cymbalta] 30 mg PO BID 12/08/15 [History] Furosemide [Lasix] 40 mg PO DAILY PRN 12/08/15 [History] Nitroglycerin [Nitrostat] 0.4 mg SL Q5M PRN 12/08/15 [History] Loratadine [Claritin] 10 mg PO DAILY PRN 02/01/16 [History] Meclizine [Antivert] 12.5 mg PO DAILY 02/01/16 [History] Gabapentin [Neurontin] 800 mg PO QID #120 tablet 04/27/16 [Rx] OXcarbazepine [Trileptal] 150 mg PO BID #60 tablet 05/26/16 [Rx] Cranberry Fruit [Cranberry] 400 mg PO TID 08/31/16 [History] Oxygen 3 l NS HS 08/31/16 [History] Aspirin Enteric Coated [Aspirin EC] 81 mg PO DAILY #30 tablet. 09/27/16 [Rx] Metformin HCl [Metformin HCl ER] 500 mg PO BID 11/30/16 [History] Budesonide/Formoterol 160/4.5 [Symbicort 160/4.5] 2 puff IH BIDR 01/04/17 [ History] Collagenase Oint [Santyl] 1 appl TP DAILY PRN 01/04/17 [History] Glucagon,Human Recombinant [Glucagen] 1 mg IJ DAILY PRN 01/04/17 [History] Ipratropium/Albuterol Neb [Duoneb] 3 ml IH Q4H PRN 01/04/17 [History] Acetylcysteine [Nac] 600 mg PO BID 03/15/17 [History] Prochlorperazine Maleate [Compazine] 10 mg PO Q6HR PRN #60 tablet 03/15/17 [Rx] Lactobacillus Acidophilus [Probiotic Acidophilus] 1 tab PO BID #60 tablet [Rx] Magic Mouthwash [Magic Mouthwash BLM] 10 ml PO QID PRN #500 ml 03/23/17 [Rx] Erlotinib HCl [Tarceva] 150 mg PO DAILY 04/25/17 [History] Folic Acid 1 mg PO DAILY #30 tablet 04/27/17 [Rx] Magnesium Oxide [Magnesium] 400 mg PO DAILY #30 tablet 04/27/17 [Rx] GuaiFENesin/Codeine [Robitussin w/Codeine] 5 ml PO Q6HR PRN 15 Days #300 ml 04/01 [Rx] Acetylcysteine 10% 2 ml IH Q6H 05/28/17 [History] Albuterol Sulfate [Ventolin Hfa] 2 puff IH Q6H PRN 05/28/17 [History] Ondansetron HCl [Zofran] 4 mg PO Q8H PRN 05/28/17 [History] Vancomycin HCl 500 mg PO QID 05/28/17 [History] Dronabinol [Marinol] 1 cap PO BID 30 Days #60 capsule 06/25/17 [Rx] Lidocaine Patch [Lidoderm 5% patch] 1 each TP AD #30 adh..patch 06/25/17 [Rx] Morphine Sulfate SR (12 HR) [MS Contin] 1 tab PO Q12HR 30 Days #60 tab 06/25/17 [Rx] Oxycodone HCl/Acetaminophen [Percocet 10-325 mg Tablet] 1 tab PO Q6H PRN 30 Days #80 tablet 06/25/17 [Rx] Potassium Chloride [K-Tab ER] 10 meq PO DAILY #30 tablet.er 06/25/17 [Rx] Cholestyramine (with Sugar) [Cholestyramine Bulk Powder] 1 each PO HS 06/29/17 [ History] 3 Allergy/AdvReac Type Severity Reaction Status Date / Time dofetilide [From Tikosyn] Allergy Unresponsiv Verified 06/25/17 13:46 e lisinopril AdvReac See Verified 06/25/17 13:46 Comments red dye AdvReac Rash Verified 06/25/17 13:46 All Systems: The remainder of the systems were reviewed and are negative Physical Examination Vital Signs: Vital Signs, Last 4 Hours Temp Pulse Resp BP Pulse Ox 06/29/17 15:03 97.0 F L 94 16 118/73 95 I examined the patient in the emergency department. She is currently comatose as a results of induction agents and neuromuscular blockade that it was given prior to intubation Gen. examination is notable for chronic wasting and a frail appearing woman There is no cervical lymphadenopathy her oropharynx is dry She has breath sounds bilaterally with scattered rhonchi noted no overt evidence of wheezing Her heart rate is regular rate and rhythm no audible murmur Her abdomen is soft there is no grimace to palpation her bowel sounds are hyperactive There is no lower extremity edema her pulses are easily palpable and distal extremities are warm and perfused without evidence of cyanosis or mottling She has clubbing in the bilateral upper extremity digits No areas of rash petechiae or purpura Results - Laboratory Findings CBC and BMP: 06/29/17 15:07 06/29/17 15:07 ABG ABG pH 7.44 pH Units (7.32-7.45) 06/29/17 15:12 ABG pCO2 54 mmHg (35-45) H 06/29/17 15:12 ABG pO2 61 mmHg (85-104) L 06/29/17 15:12 ABG O2 Saturation 91 % (95-98) L 06/29/17 15:12 PT/INR, D-dimer PT 11.2 Seconds (9.4-12.1) 06/29/17 15:07 Abnormal lab findings: Abnormal lab results Hgb 11.3 g/dL (11.5-15.4) L 06/29/17 15:07 RDW 18.3 % (11.5-14.5) H 06/29/17 15:07 ABG pCO2 54 mmHg (35-45) H 06/29/17 15:12 ABG pO2 61 mmHg (85-104) L 06/29/17 15:12 ABG HCO3 37 mEq/L (21-27) H 06/29/17 15:12 ABG Total CO2 39 mEq/L (20-26) H 06/29/17 15:12 ABG O2 Saturation 91 % (95-98) L 06/29/17 15:12 ABG Base Excess 11 mEq/L (-2 to 3) H 06/29/17 15:12 Carbon Dioxide 34 mEq/L (23-29) H 06/29/17 15:07 Creatinine 0.56 mg/dL (0.60-1.20) L 06/29/17 15:07 BUN/Creatinine Ratio 32 (6-26) H 06/29/17 15:07 Glucose 112 mg/dL (70-105) H 06/29/17 15:07 Direct Bilirubin 0.3 mg/dL (0.0-0.2) H 06/29/17 15:07 AST 41 Units/L (13-39) H 06/29/17 15:07 Alkaline Phosphatase 129 Units/L (34-104) H 06/29/17 15:07 Serum Total Protein 5.7 g/dL (6.4-8.9) L 06/29/17 15:07 Albumin 2.8 g/dL (3.5-5.7) L 06/29/17 15:07 Albumin/Globulin Ratio 1.0 (1.1-2.2) L 06/29/17 15:07 Urine Clarity Turbid (Clear) A 06/29/17 15:24 Urine Protein 30 mg/dL (Neg-Trace) H 06/29/17 15:24 Urine Ketones 15 mg/dL (Negative) H 06/29/17 15:24 Urine Blood Small (Negative) H 06/29/17 15:24 Urine Nitrite Positive (Negative) A 06/29/17 15:24 Ur Leukocyte Esterase Large (Negative) H 06/29/17 15:24 Urine Microscopic RBC 5-15 per hpf (0-3) H 06/29/17 15:24 Urine Microscopic WBC TNTC per hpf (0-3) H 06/29/17 15:24 Ur Squamous Epith Cells Many per lpf (None-Few) H 06/29/17 15:24 Urine Bacteria Many per hpf (None-Few) H 06/29/17 15:24 Ur Culture Indicated? NO. (NO) A 06/29/17 15:24 Salicylates < 2.5 mg/dL (15.0-30.0) L 06/29/17 15:07 Urine Opiates Screen Positive ng/mL (Cxtlxd=686) H 06/29/17 15:24 Acetaminophen < 10 mcg/mL (10-20) L 06/29/17 15:07 U Marijuana (THC) Screen Positive ng/mL (Cutoff = 50) H 06/29/17 15:24 - Diagnostic Findings Chest x-ray: report reviewed, image reviewed Additional studies: CT head
[2017-06-29] MEDS: FentaNYL (PF) 1,000 MCG in 0.9 % Sodium Chloride 80 ML IVC SCH (16:55)
[2017-06-29] MEDS ORDERED: Naloxone 0.4 MG/ML INJ IVP PRN (17:06)
[2017-06-29] MEDS ORDERED: D5% in Water 1,000 ML IVC PRN (17:17)
[2017-06-29] MEDS ORDERED: *HR* Dextrose 50 % in Water (Syg) 50 ML SYRINGE IVP PRN (17:17)
[2017-06-29] MEDS ORDERED: Dextrose Gel 15 GM/37.5 ML TUBE PO PRN ×2 (17:17)
[2017-06-29] MEDS ORDERED: Lacri-Lube 3.5 GM TUBE BOTH EYES PRN (17:21)
[2017-06-29 17:41] LABS: ABG Base Excess 5 mEq/L (-2 to 3); ABG HCO3 30 mEq/L (21-27); ABG Oxygen Saturation 94 % (95-98); ABG PCO2 42 mmHg (35-45); ABG PH 7.46 pH Units (7.32-7.45); ABG PO2 67 mmHg (85-104); ABG TCO2 31 mEq/L (20-26); Blood Gas Modality ASSIST CONTROL; Blood Gas PEEP 5 cm H2O; Blood Gas Respiration Rate 12; Blood Gas VT 450 cc
[2017-06-29 18:43] LABS: Magnesium 1.9 mg/dL (1.6-2.6)
[2017-06-29] MEDS: Insulin LISPRO 300 UNITS/3 ML VIAL SQ SCH ×2 (19:58→23:29)
[2017-06-29 20:06] LABS: ABG Base Excess 6 mEq/L (-2 to 3); ABG HCO3 30 mEq/L (21-27); ABG Oxygen Saturation 97 % (95-98); ABG PCO2 42 mmHg (35-45); ABG PH 7.46 pH Units (7.32-7.45); ABG PO2 87 mmHg (85-104); ABG TCO2 32 mEq/L (20-26); Blood Gas Modality PRVC; Blood Gas PEEP 5 cm H2O; Blood Gas Respiration Rate 12; Blood Gas VT 450 cc
[2017-06-29] MEDS: Dexmedetomidine HCl 400 MCG/100 ML MLS IVC SCH (20:26)
[2017-06-29] MEDS: Chlorhexidine Rinse 15 ML MOUTHWASH MM SCH (20:26)
[2017-06-29] MEDS: Lacri-Lube 3.5 GM TUBE BOTH EYES SCH ×2 (20:26→23:16)
[2017-06-29] MEDS: Famotidine 20 MG/2 ML VIAL IVP SCH (20:26)
[2017-06-29] MEDS: Vancomycin Oral Soln 125 MG/2.5 ML UDC PO SCH (21:07)
[2017-06-30] MEDS: FentaNYL (PF) 1,000 MCG in 0.9 % Sodium Chloride 80 ML IVC SCH ×2 (00:33→17:59)
[2017-06-30] MEDS: Dexmedetomidine HCl 400 MCG/100 ML MLS IVC SCH ×2 (00:37→17:47)
[2017-06-30] MEDS: Lacri-Lube 3.5 GM TUBE BOTH EYES SCH ×6 (03:56→23:25)
[2017-06-30] MEDS: Insulin LISPRO 300 UNITS/3 ML VIAL SQ SCH ×4 (04:38→23:25)
[2017-06-30] MEDS: Famotidine 20 MG/2 ML VIAL IVP SCH ×2 (04:38→17:48)
[2017-06-30] MEDS: *HR* Enoxaparin 40 MG/0.4 ML SYRINGE SQ SCH (04:38)
[2017-06-30 05:00] LABS: Basophils % 0.4 %; Eosinophils # 0.2 K/mcL (0.0-0.6); Eosinophils % 3.4 %; Hematocrit 30.1 % (35.3-44.9); Immature Granulocytes % 0.2 % (0-4); Lymphocytes # 0.9 K/mcL (0.6-4.6); Lymphocytes % 19.5 %; Mean Corpuscular HGB Conc 30.9 g/dL (31.6-35.5); Mean Corpuscular Hemoglobin 28.4 pg (28.0-33.3); Mean Corpuscular Volume 91.8 fL (83.0-100.0); Mean Platelet Volume 10.2 fL (9.4-12.4); Monocytes # 0.7 K/mcL (0.0-1.3); Monocytes % 14.6 %; Neutrophils # 2.9 K/mcL (1.6-8.9); Platelet Count 179 K/mcL (140-400); Red Blood Count 3.28 M/mcL (3.82-4.97); Red Cell Distribution Width 18.3 % (11.5-14.5); Segmented Neutrophils % 61.9 %
[2017-06-30 05:04] LABS: Hemoglobin 9.3 g/dL (11.5-15.4)
[2017-06-30 05:14] LABS: ABG Base Excess 5 mEq/L (-2 to 3); ABG HCO3 31 mEq/L (21-27); ABG Oxygen Saturation 95 % (95-98); ABG PCO2 49 mmHg (35-45); ABG PO2 79 mmHg (85-104); ABG TCO2 32 mEq/L (20-26); Blood Gas Modality PRVC; Blood Gas PEEP 5 cm H2O; Blood Gas Respiration Rate 12; Blood Gas VT 420 cc
[2017-06-30 05:23] LABS: BUN/Creatinine Ratio 30 (6-26); Blood Urea Nitrogen 13 mg/dL (8-23); Calcium 7.8 mg/dL (8.6-10.3); Carbon Dioxide 26 mEq/L (23-29); Chloride 107 mEq/L (98-107); Glucose 82 mg/dL (70-105); Osmolality,Calculated 289 (280-300); Potassium 3.2 mEq/L (3.5-5.1); Sodium 140 mEq/L (136-145); eGFR For African Americans > 60 (> 60); eGFR For Non-African Americans > 60 (> 60)
--- NOTE | 2017-06-30 06:42 | Pulmonology Progress Note ---
Date of Encounter: 06/30/17 Time of Encounter: 06:42 Assessment and Plan (1) Acute encephalopathy Current Visit: Yes Status: Acute I suspect this is toxic metabolic encephalopathy that is related to medication effect possibly use of THC derivative complicated with opiates CT Head is without acute process Her metabolic panel and CBC are otherwise generally unremarkable. She may have a urinary tract infection which could be complicating this Spontaneous awake trial planned today (2) Acute respiratory failure Current Visit: Yes Status: Acute This is likely secondary to encephalopathy she had mild hypoxemia which may be a manifestation of her underlying COPD Remains on ventilator acceptable gas exchange today Plan for spontaneous awake trial followed by spontaneous breathing trial with improvement in her mental status We will start ventilator bundle to prevent ventilator associated Start GI prophylaxis to prevent stress ulcers DVT prophylaxis given Qualifiers: Respiratory failure complication: hypoxia and hypercapnia Qualified Code(s) : J96.01 - Acute respiratory failure with hypoxia; J96.02 - Acute respiratory failure with hypercapnia (3) Urinary tract infection Current Visit: Yes Status: Acute Urinalysis suggestive of urinary tract infection although it appears to be a dirty sample we will wait on culture but will start empiric ceftriaxone with planned to de-escalate/stop over next 24-48 hours Qualifiers: Indwelling urinary catheter type: unspecified Encounter type: initial encounter Qualified Code(s): T83.511A - Infection and inflammatory reaction due to indwelling urethral catheter, initial encounter; N39.0 - Urinary tract infection, site not specified (4) DVT prophylaxis Current Visit: No Status: Acute Lovenox subcutaneous 40 mg given (5) Dehydration Current Visit: No Status: Acute Patient received 2 L of crystalloid infusion the emergency department management Give a bolus: Weight challenge today because of borderline hypotension (6) Adenocarcinoma of right lung Current Visit: No Status: Chronic This is metastatic with overall poor prognosis being followed by oncology and radiation oncology (7) COPD (chronic obstructive pulmonary disease) Current Visit: No Status: Chronic Without evidence of acute exacerbation continue bronchodilators while on ventilator Qualifiers: COPD type: emphysema Emphysema type: unspecified Qualified Code(s): J43.9 - Emphysema, unspecified (8) Diabetes mellitus Current Visit: No Status: Chronic Start bolus dosing per low intensity sliding scale Qualifiers: Diabetes mellitus type: type 2 Diabetes mellitus terminal manager insulin use: without chcf use Diabetes mellitus complication status: with neurologic complications Diabetes mellitus complication detail: with mononeuropathy Qualified Code(s): E11.41 - Type 2 diabetes mellitus with diabetic mononeuropathy (9) Severe protein-calorie malnutrition Current Visit: No Status: Chronic Nutrition will be consulted may need enteral nutrition while on vent (10) C. difficile colitis Current Visit: Yes Status: Acute The patient has a history of recurrent C. difficile infection and is currently on vancomycin oral as an outpatient after recent visit to her mold cleaner. I will continue this as inpatient. In further reflects my judgment not start broad-spectrum antimicrobials without clear source of infection given the risk of worsening of her colitis. She is not presenting in evidence of sepsis severe sepsis or shock nor fulminant colitis/toxic megacolon (11) Goals of care, counseling/discussion Current Visit: Yes Status: Acute Extremely poor prognosis Family updated at bedside Palliative care consult placed Subjective Principal diagnosis: Acute encephalopathy Interval history: No acute events overnight. She has been on sedation for unclear reasons has been no report of agitation. I have asked the nursing staff to lift her sedation this morning for spontaneous awake trial.. Blood pressure on the lower side this morning but generally overnight it has been stable with acceptable urine output. Remained afebrile without evidence of diarrhea Objective PUL Vital signs: Last Vital Signs Temp 98.3 F 06/30/17 04:59 Pulse 80 06/30/17 06:00 Resp 12 06/30/17 06:01 BP 77/55 06/30/17 06:00 Pulse Ox 100 06/30/17 06:01 General appearance: other (The patient is sedated able to weakly open her eyes to my voice command but not follow any directions) Auscultation: bilateral: clear Cardiovascular: regular rate and rhythm Gastrointestinal: normoactive bowel sounds, soft, non-tender Integumentary: other (No rash or new areas of petechiae/purpura) Extremities: no cyanosis, pulses normal pupils equal and round, unable to assess due to mental status Ventilator Settings Ventilator Settings: Ventilator Settings, Last 8 Hours Ventilator Mode A/C Ventilator Mode A/C Ventilator Mode VC+ Ventilator Mode A/C Ventilator Mode A/C Ventilator Mode A/C Ventilator Mode A/C Ventilator Mode A/C Ventilator Mode A/C Ventilator Tidal Volume 420 Setting Ventilator Tidal Volume 420 Setting Ventilator Tidal Volume 420 Setting Ventilator Tidal Volume 420 Setting Ventilator Tidal Volume 420 Setting Ventilator Tidal Volume 420 Setting Ventilator Tidal Volume 420 Setting Ventilator Tidal Volume 420 Setting Ventilator Tidal Volume 420 Setting Ventilator Tidal Volume 420 Setting Ventilator Tidal Volume 420 Setting Ventilator Tidal Volume 420 Setting Ventilator Tidal Volume 420 Setting Ventilator Respiratory Rate 12 Setting Ventilator Respiratory Rate 12 Setting Ventilator Respiratory Rate 12 Setting Ventilator Respiratory Rate 12 Setting Ventilator Respiratory Rate 12 Setting Ventilator Respiratory Rate 12 Setting Ventilator Respiratory Rate 12 Setting Ventilator Respiratory Rate 12 Setting Ventilator Respiratory Rate 12 Setting Ventilator Respiratory Rate 12 Setting Ventilator Respiratory Rate 12 Setting Ventilator Respiratory Rate 12 Setting Ventilator Respiratory Rate 12 Setting Actual Respiratory Rate 12 Actual Respiratory Rate 14 Actual Respiratory Rate 15 Actual Respiratory Rate 12 Positive End Expiratory 5 Pressure Positive End Expiratory 5 Pressure Positive End Expiratory 5 Pressure Positive End Expiratory 5 Pressure Positive End Expiratory 5 Pressure Positive End Expiratory 5 Pressure Positive End Expiratory 5 Pressure Positive End Expiratory 5 Pressure Positive End Expiratory 5 Pressure Positive End Expiratory 5 Pressure Positive End Expiratory 5 Pressure Positive End Expiratory 5 Pressure Positive End Expiratory 5 Pressure Peak Inspiratory Airway 22 Pressure Peak Inspiratory Airway 22 Pressure Peak Inspiratory Airway 25 Pressure Peak Inspiratory Airway 23 Pressure Results - Laboratory Findings CBC and BMP: 06/30/17 04:40 06/30/17 04:40 ABG ABG pH 7.40 pH Units (7.32-7.45) 06/30/17 05:12 ABG pCO2 49 mmHg (35-45) H 06/30/17 05:12 ABG pO2 79 mmHg (85-104) L 06/30/17 05:12 ABG O2 Saturation 95 % (95-98) 06/30/17 05:12 PT/INR, D-dimer PT 11.2 Seconds (9.4-12.1) 06/29/17 15:07 Abnormal lab findings: Abnormal lab results RBC 3.28 M/mcL (3.82-4.97) L 06/30/17 04:40 Hgb 9.3 g/dL (11.5-15.4) L D 06/30/17 04:40 Hct 30.1 % (35.3-44.9) L 06/30/17 04:40 MCHC 30.9 g/dL (31.6-35.5) L 06/30/17 04:40 RDW 18.3 % (11.5-14.5) H 06/30/17 04:40 ABG pCO2 49 mmHg (35-45) H 06/30/17 05:12 ABG pO2 79 mmHg (85-104) L 06/30/17 05:12 ABG HCO3 31 mEq/L (21-27) H 06/30/17 05:12 ABG Total CO2 32 mEq/L (20-26) H 06/30/17 05:12 ABG Base Excess 5 mEq/L (-2 to 3) H 06/30/17 05:12 Potassium 3.2 mEq/L (3.5-5.1) L 06/30/17 04:40 Creatinine 0.44 mg/dL (0.60-1.20) L 06/30/17 04:40 BUN/Creatinine Ratio 30 (6-26) H 06/30/17 04:40 Calcium 7.8 mg/dL (8.6-10.3) L 06/30/17 04:40 Direct Bilirubin 0.3 mg/dL (0.0-0.2) H 06/29/17 15:07 AST 41 Units/L (13-39) H 06/29/17 15:07 Alkaline Phosphatase 129 Units/L (34-104) H 06/29/17 15:07 Serum Total Protein 5.7 g/dL (6.4-8.9) L 06/29/17 15:07 Albumin 2.8 g/dL (3.5-5.7) L 06/29/17 15:07 Albumin/Globulin Ratio 1.0 (1.1-2.2) L 06/29/17 15:07 Urine Clarity Turbid (Clear) A 06/29/17 15:24 Urine Protein 30 mg/dL (Neg-Trace) H 06/29/17 15:24 Urine Ketones 15 mg/dL (Negative) H 06/29/17 15:24 Urine Blood Small (Negative) H 06/29/17 15:24 Urine Nitrite Positive (Negative) A 06/29/17 15:24 Ur Leukocyte Esterase Large (Negative) H 06/29/17 15:24 Urine Microscopic RBC 5-15 per hpf (0-3) H 06/29/17 15:24 Urine Microscopic WBC TNTC per hpf (0-3) H 06/29/17 15:24 Ur Squamous Epith Cells Many per lpf (None-Few) H 06/29/17 15:24 Urine Bacteria Many per hpf (None-Few) H 06/29/17 15:24 Ur Culture Indicated? NO. (NO) A 06/29/17 15:24 Salicylates < 2.5 mg/dL (15.0-30.0) L 06/29/17 15:07 Urine Opiates Screen Positive ng/mL (Qklyrn=312) H 06/29/17 15:24 Acetaminophen < 10 mcg/mL (10-20) L 06/29/17 15:07 U Marijuana (THC) Screen Positive ng/mL (Cutoff = 50) H 06/29/17 15:24 - Microbiology Findings Microbiology Findings: Microbiology, Last 48 Hours 06/30/17 00:00 Sputum Culture - Preliminary Sputum - Clinical Findings Intake & Output: Intake & Output 06/29/17 06/29/17 06/30/17 15:59 23:59 07:59 Intake Total 1013 222.2 / 222.2 Output Total 550 / 550 Balance 1013 -327.8 / -327.8 Weight 50.7 kg 50.7 kg Consult Discharge Plan - Plan Referrals: Bradley Montgomery MD [Primary Care Provider] -
[2017-06-30] MEDS ORDERED: Potassium Chloride 40 MEQ, Lidocaine 1% 2 ML in D5% in Water 500 ML IVPB ONE (06:53)
[2017-06-30] MEDS ORDERED: *HR* Rocuronium Bromide 100 MG/10 ML VIAL IVC ONE (07:12)
[2017-06-30] MEDS ORDERED: *HR* Etomidate 40 MG/20 ML VIAL IVP ONE (07:12)
[2017-06-30] MEDS ORDERED: *HR* Midazolam HCl 5 MG/5 ML VIAL IVP ONE (07:12)
[2017-06-30] MEDS: Chlorhexidine Rinse 15 ML MOUTHWASH MM SCH ×2 (09:00→19:51)
[2017-06-30] MEDS: cefTRIAXone 2,000 MG in Water for inj. (sterile) 20 ML 20 ML IVP SCH (09:01)
[2017-06-30] MEDS: Vancomycin Oral Soln 125 MG/2.5 ML UDC PO SCH ×4 (11:19→19:52)
[2017-06-30 17:30] LABS: ABG Base Excess 4 mEq/L (-2 to 3); ABG HCO3 28 mEq/L (21-27); ABG Oxygen Saturation 93 % (95-98); ABG PCO2 40 mmHg (35-45); ABG PH 7.45 pH Units (7.32-7.45); ABG PO2 63 mmHg (85-104); ABG TCO2 29 mEq/L (20-26); Blood Gas Modality PRVC; Blood Gas PEEP 5 cm H2O; Blood Gas Respiration Rate 12; Blood Gas VT 420 cc
[2017-07-01] MEDS: Lacri-Lube 3.5 GM TUBE BOTH EYES SCH ×6 (04:12→23:57)
[2017-07-01] MEDS: Insulin LISPRO 300 UNITS/3 ML VIAL SQ SCH ×4 (04:12→23:56)
[2017-07-01 05:44] LABS: ABG Base Excess 6 mEq/L (-2 to 3); ABG HCO3 30 mEq/L (21-27); ABG Oxygen Saturation 97 % (95-98); ABG PCO2 44 mmHg (35-45); ABG PH 7.45 pH Units (7.32-7.45); ABG PO2 87 mmHg (85-104); ABG TCO2 32 mEq/L (20-26); Blood Gas Modality PRVC; Blood Gas PEEP 5 cm H2O; Blood Gas Respiration Rate 12; Blood Gas VT 420 cc
[2017-07-01] MEDS: Famotidine 20 MG/2 ML VIAL IVP SCH ×2 (05:46→18:40)
[2017-07-01] MEDS: *HR* Enoxaparin 40 MG/0.4 ML SYRINGE SQ SCH (05:46)
--- NOTE | 2017-07-01 06:43 | Pulmonology Progress Note ---
Date of Encounter: 07/01/17 Time of Encounter: 06:43 Assessment and Plan (1) Acute respiratory failure Current Visit: Yes Status: Acute This is likely secondary to encephalopathy she had mild hypoxemia which may be a manifestation of her underlying COPD - possibly acute Pneumonia Spontaneous breathing trial planned today with subsequent liberation pending weaning parameters Gen. preventative interventions while on ventilator include: -ventilator bundle to prevent ventilator associated -GI prophylaxis to prevent stress ulcers -DVT prophylaxis given Qualifiers: Respiratory failure complication: hypoxia and hypercapnia Qualified Code(s) : J96.01 - Acute respiratory failure with hypoxia; J96.02 - Acute respiratory failure with hypercapnia (2) Acute encephalopathy Current Visit: Yes Status: Acute I suspect this is toxic metabolic encephalopathy that is related to medication effect possibly use of THC derivative complicated with opiates CT Head is without acute process Her metabolic panel and CBC are otherwise generally unremarkable. Infection possibly pneumonia may have also been can treating to this She is much more awake and following commands today Continue narcotic analgesia for cancer associated pain (3) Pneumonia Current Visit: Yes Status: Acute Gram-negative rods in sputum Patient remains afebrile She is empirically on ceftriaxone which I will continue pending final speciation Given history of C. difficile on chronic basis I am hesitant to brought her antibiotics at this time given's clinical stability Qualifiers: Pneumonia type: due to unspecified organism Laterality: unspecified laterality Lung location: upper lobe of lung Qualified Code(s): J18.1 - Lobar pneumonia, unspecified organism (4) Dehydration Current Visit: No Status: Acute Patient received 2 L of crystalloid infusion the emergency department management Continue volume expansion with colloid (5) Adenocarcinoma of right lung Current Visit: No Status: Chronic This is metastatic with overall poor prognosis being followed by oncology and radiation oncology (6) COPD (chronic obstructive pulmonary disease) Current Visit: No Status: Chronic Without evidence of acute exacerbation continue bronchodilators while on ventilator Qualifiers: COPD type: emphysema Emphysema type: unspecified Qualified Code(s): J43.9 - Emphysema, unspecified (7) Diabetes mellitus Current Visit: No Status: Chronic Start bolus dosing per low intensity sliding scale Qualifiers: Diabetes mellitus type: type 2 Diabetes mellitus prison insulin use: without prison use Diabetes mellitus complication status: with neurologic complications Diabetes mellitus complication detail: with mononeuropathy Qualified Code(s): E11.41 - Type 2 diabetes mellitus with diabetic mononeuropathy (8) Severe protein-calorie malnutrition Current Visit: No Status: Chronic Nutrition will be consulted (9) C. difficile colitis Current Visit: Yes Status: Acute The patient has a history of recurrent C. 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 I will continue this as inpatient. In further reflects my judgment not start broad-spectrum antimicrobials without clear source of infection given the risk of worsening of her colitis. She is not presenting in evidence of sepsis severe sepsis or shock nor fulminant colitis/toxic megacolon (10) DVT prophylaxis Current Visit: No Status: Acute Lovenox subcutaneous 40 mg given (11) Goals of care, counseling/discussion Current Visit: Yes Status: Acute Extremely poor prognosis Plan discussed with patient once extubated about general goals of care and if she would want to pursue further intubation for respiratory failure Family updated at bedside Subjective Principal diagnosis: Acute encephalopathy Interval history: No acute events overnight. More awake and following commands today sedation is on hold. Blood pressure has been soft but continues to have urine output and mean arterial pressure has always been above 60. Remains afebrile. No evidence of diarrhea Objective PUL Vital signs: Last Vital Signs Temp 97.6 F 07/01/17 05:10 Pulse 82 07/01/17 06:00 Resp 19 07/01/17 06:12 BP 77/50 07/01/17 06:12 Pulse Ox 97 07/01/17 06:12 Ventilator Settings Ventilator Settings: Ventilator Settings, Last 8 Hours Ventilator Mode A/C Ventilator Mode VC+ Ventilator Mode A/C Ventilator Mode A/C Ventilator Mode A/C Ventilator Mode A/C Ventilator Mode A/C Ventilator Mode A/C Ventilator Mode A/C Ventilator Tidal Volume 420 Setting Ventilator Tidal Volume 420 Setting Ventilator Tidal Volume 420 Setting Ventilator Tidal Volume 420 Setting Ventilator Tidal Volume 420 Setting Ventilator Tidal Volume 420 Setting Ventilator Tidal Volume 420 Setting Ventilator Tidal Volume 420 Setting Ventilator Tidal Volume 420 Setting Ventilator Tidal Volume 420 Setting Ventilator Tidal Volume 420 Setting Ventilator Tidal Volume 420 Setting Ventilator Respiratory Rate 12 Setting Ventilator Respiratory Rate 12 Setting Ventilator Respiratory Rate 12 Setting Ventilator Respiratory Rate 12 Setting Ventilator Respiratory Rate 12 Setting Ventilator Respiratory Rate 12 Setting Ventilator Respiratory Rate 12 Setting Ventilator Respiratory Rate 12 Setting Ventilator Respiratory Rate 12 Setting Ventilator Respiratory Rate 12 Setting Ventilator Respiratory Rate 12 Setting Ventilator Respiratory Rate 12 Setting Actual Respiratory Rate 19 Actual Respiratory Rate 15 Actual Respiratory Rate 14 Actual Respiratory Rate 16 Positive End Expiratory 5 Pressure Positive End Expiratory 5 Pressure Positive End Expiratory 5 Pressure Positive End Expiratory 5 Pressure Positive End Expiratory 5 Pressure Positive End Expiratory 5 Pressure Positive End Expiratory 5 Pressure Positive End Expiratory 5 Pressure Positive End Expiratory 5 Pressure Positive End Expiratory 5 Pressure Positive End Expiratory 5 Pressure Positive End Expiratory 5 Pressure Positive End Expiratory 5 Pressure Peak Inspiratory Airway 13 Pressure Peak Inspiratory Airway 22 Pressure Peak Inspiratory Airway 21 Pressure Peak Inspiratory Airway 24 Pressure Results - Laboratory Findings CBC and BMP: 06/30/17 04:40 07/01/17 06:54 ABG ABG pH 7.45 pH Units (7.32-7.45) 07/01/17 05:41 ABG pCO2 44 mmHg (35-45) 07/01/17 05:41 ABG pO2 87 mmHg (85-104) 07/01/17 05:41 ABG O2 Saturation 97 % (95-98) 07/01/17 05:41 PT/INR, D-dimer PT 11.2 Seconds (9.4-12.1) 06/29/17 15:07 Abnormal lab findings: Abnormal lab results RBC 3.28 M/mcL (3.82-4.97) L 06/30/17 04:40 Hgb 9.3 g/dL (11.5-15.4) L D 06/30/17 04:40 Hct 30.1 % (35.3-44.9) L 06/30/17 04:40 MCHC 30.9 g/dL (31.6-35.5) L 06/30/17 04:40 RDW 18.3 % (11.5-14.5) H 06/30/17 04:40 ABG HCO3 30 mEq/L (21-27) H 07/01/17 05:41 ABG Total CO2 32 mEq/L (20-26) H 07/01/17 05:41 ABG Base Excess 6 mEq/L (-2 to 3) H 07/01/17 05:41 Potassium 3.2 mEq/L (3.5-5.1) L 06/30/17 04:40 Creatinine 0.44 mg/dL (0.60-1.20) L 06/30/17 04:40 BUN/Creatinine Ratio 30 (6-26) H 06/30/17 04:40 POC Glucose 139 mg/dL (70-99) H 06/30/17 23:07 Calcium 7.8 mg/dL (8.6-10.3) L 06/30/17 04:40 Direct Bilirubin 0.3 mg/dL (0.0-0.2) H 06/29/17 15:07 AST 41 Units/L (13-39) H 06/29/17 15:07 Alkaline Phosphatase 129 Units/L (34-104) H 06/29/17 15:07 Serum Total Protein 5.7 g/dL (6.4-8.9) L 06/29/17 15:07 Albumin 2.8 g/dL (3.5-5.7) L 06/29/17 15:07 Albumin/Globulin Ratio 1.0 (1.1-2.2) L 06/29/17 15:07 Urine Clarity Turbid (Clear) A 06/29/17 15:24 Urine Protein 30 mg/dL (Neg-Trace) H 06/29/17 15:24 Urine Ketones 15 mg/dL (Negative) H 06/29/17 15:24 Urine Blood Small (Negative) H 06/29/17 15:24 Urine Nitrite Positive (Negative) A 06/29/17 15:24 Ur Leukocyte Esterase Large (Negative) H 06/29/17 15:24 Urine Microscopic RBC 5-15 per hpf (0-3) H 06/29/17 15:24 Urine Microscopic WBC TNTC per hpf (0-3) H 06/29/17 15:24 Ur Squamous Epith Cells Many per lpf (None-Few) H 06/29/17 15:24 Urine Bacteria Many per hpf (None-Few) H 06/29/17 15:24 Ur Culture Indicated? NO. (NO) A 06/29/17 15:24 Salicylates < 2.5 mg/dL (15.0-30.0) L 06/29/17 15:07 Urine Opiates Screen Positive ng/mL (Tyrfbt=254) H 06/29/17 15:24 Acetaminophen < 10 mcg/mL (10-20) L 06/29/17 15:07 U Marijuana (THC) Screen Positive ng/mL (Cutoff = 50) H 06/29/17 15:24 - Microbiology Findings Microbiology Findings: Microbiology, Last 48 Hours 06/30/17 00:00 Sputum Culture - Preliminary Sputum - Clinical Findings Intake & Output: Intake & Output 06/30/17 06/30/17 07/01/17 15:59 23:59 07:59 Intake Total 163.8 / 163.8 320 / 320 290 / 290 Output Total 100 / 100 200 / 200 100 / 100 Balance 63.8 / 63.8 120 / 120 190 / 190 Weight 50.7 kg Consult Discharge Plan - Plan Referrals: Bradley Montgomery MD [Primary Care Provider] -
[2017-07-01 07:55] LABS: BUN/Creatinine Ratio 32 (6-26); Blood Urea Nitrogen 10 mg/dL (8-23); Calcium 8.4 mg/dL (8.6-10.3); Carbon Dioxide 28 mEq/L (23-29); Chloride 108 mEq/L (98-107); Glucose 145 mg/dL (70-105); Magnesium 1.7 mg/dL (1.6-2.6); Osmolality,Calculated 294 (280-300); Potassium 3.3 mEq/L (3.5-5.1); Sodium 141 mEq/L (136-145); eGFR For African Americans > 60 (> 60); eGFR For Non-African Americans > 60 (> 60)
[2017-07-01] MEDS: Chlorhexidine Rinse 15 ML MOUTHWASH MM SCH ×2 (07:56→20:17)
[2017-07-01] MEDS: Vancomycin Oral Soln 125 MG/2.5 ML UDC PO SCH ×4 (07:56→21:48)
[2017-07-01] MEDS: cefTRIAXone 2,000 MG in Water for inj. (sterile) 20 ML 20 ML IVP SCH (07:57)
[2017-07-01] MEDS: Dexmedetomidine HCl 400 MCG/100 ML MLS IVC SCH (07:57)
[2017-07-01 08:23] LABS: Basophils # 0.1 K/mcL (0.0-0.2); Eosinophils # 0.2 K/mcL (0.0-0.6); Eosinophils % 3.2 %; Hemoglobin 9.2 g/dL (11.5-15.4); Immature Granulocytes % 0.2 % (0-4); Lymphocytes % 20.1 %; Mean Corpuscular HGB Conc 31.7 g/dL (31.6-35.5); Mean Corpuscular Volume 91.5 fL (83.0-100.0); Mean Platelet Volume 10.7 fL (9.4-12.4); Monocytes # 0.6 K/mcL (0.0-1.3); Neutrophils # 3.3 K/mcL (1.6-8.9); Platelet Count 176 K/mcL (140-400); Red Blood Count 3.17 M/mcL (3.82-4.97); Red Cell Distribution Width 18.2 % (11.5-14.5); Segmented Neutrophils % 64.5 %
[2017-07-01] MEDS ORDERED: *HR* OxyCODONE/APAP 5/325 TABLET PO PRN (11:42)
[2017-07-01] MEDS ORDERED: *HR* OxyCODONE/APAP 7.5/325 TABLET PO PRN (18:10)
[2017-07-01] MEDS ORDERED: Ondansetron 4 MG/2 ML VIAL IVP PRN (20:18)
[2017-07-01] MEDS ORDERED: Ondansetron 4 MG/2 ML VIAL ONE (20:19)
[2017-07-01] MEDS ORDERED: *HR* Metoprolol 5 MG/5 ML VIAL IVP ONE (21:25)
--- NOTE | 2017-07-01 22:37 | Event Note ---
Date of Encounter: 07/01/17 Time of Encounter: 22:35 Nurse notified me of patient having HR in 120s consistently. She has no history of tachyarrythmias. Sinus tachycardia on monitor and previous EKG. BP is in low normal range, so will be conservative in treating tachycardia. I went and saw patient and she is in no distress; sleeping peacefully in bed. We will try low dose lopressor 5 mg IV once, to see if it improves the tachycardia. I advised nurse to monitor HR and BP closely, and notify me of any abnormalities.
[2017-07-01] MEDS: OXYCODONE Oral CONC 10 MG/0.5 ML ORAL.SYG SL PRN (23:04)
[2017-07-02] MEDS: Lacri-Lube 3.5 GM TUBE BOTH EYES SCH ×4 (03:06→19:54)
[2017-07-02] MEDS: OXYCODONE Oral CONC 10 MG/0.5 ML ORAL.SYG SL PRN ×2 (03:32→14:40)
[2017-07-02 04:18] LABS: Basophils % 0.4 %; Eosinophils # 0.1 K/mcL (0.0-0.6); Eosinophils % 2.1 %; Hematocrit 30.1 % (35.3-44.9); Hemoglobin 9.5 g/dL (11.5-15.4); Immature Granulocytes % 0.2 % (0-4); Lymphocytes # 1.1 K/mcL (0.6-4.6); Lymphocytes % 19.3 %; Mean Corpuscular HGB Conc 31.6 g/dL (31.6-35.5); Mean Corpuscular Hemoglobin 29.1 pg (28.0-33.3); Mean Platelet Volume 9.9 fL (9.4-12.4); Monocytes # 0.6 K/mcL (0.0-1.3); Monocytes % 10.8 %; Neutrophils # 3.8 K/mcL (1.6-8.9); Platelet Count 183 K/mcL (140-400); Red Blood Count 3.27 M/mcL (3.82-4.97); Segmented Neutrophils % 67.2 %
[2017-07-02 04:37] LABS: BUN/Creatinine Ratio 21 (6-26); Blood Urea Nitrogen 7 mg/dL (8-23); Calcium 9.1 mg/dL (8.6-10.3); Carbon Dioxide 28 mEq/L (23-29); Chloride 115 mEq/L (98-107); Glucose 106 mg/dL (70-105); Magnesium 1.8 mg/dL (1.6-2.6); Osmolality,Calculated 290 (280-300); Potassium 3.5 mEq/L (3.5-5.1); Sodium 141 mEq/L (136-145); eGFR For African Americans > 60 (> 60); eGFR For Non-African Americans > 60 (> 60)
[2017-07-02] MEDS: Insulin LISPRO 300 UNITS/3 ML VIAL SQ SCH ×3 (05:11→18:25)
[2017-07-02] MEDS: *HR* Enoxaparin 40 MG/0.4 ML SYRINGE SQ SCH (05:25)
[2017-07-02] MEDS: Famotidine 20 MG/2 ML VIAL IVP SCH ×2 (05:25→19:54)
--- NOTE | 2017-07-02 07:33 | Pulmonology Progress Note ---
<[email or web address] jo M - Last Filed: 07/02/17 10:02> Date of Encounter: 07/02/17 Objective PUL Vital signs: Last Vital Signs Temp 97.7 F 07/02/17 07:16 Pulse 112 07/02/17 08:00 Resp 20 07/02/17 08:00 BP 126/85 07/02/17 08:00 Pulse Ox 98 07/02/17 08:00 Results - Laboratory Findings CBC and BMP: 07/02/17 04:08 07/02/17 04:08 ABG ABG pH 7.45 pH Units (7.32-7.45) 07/01/17 05:41 ABG pCO2 44 mmHg (35-45) 07/01/17 05:41 ABG pO2 87 mmHg (85-104) 07/01/17 05:41 ABG O2 Saturation 97 % (95-98) 07/01/17 05:41 PT/INR, D-dimer PT 11.2 Seconds (9.4-12.1) 06/29/17 15:07 Abnormal lab findings: Abnormal lab results RBC 3.27 M/mcL (3.82-4.97) L 07/02/17 04:08 Hgb 9.5 g/dL (11.5-15.4) L 07/02/17 04:08 Hct 30.1 % (35.3-44.9) L 07/02/17 04:08 RDW 18.0 % (11.5-14.5) H 07/02/17 04:08 ABG HCO3 30 mEq/L (21-27) H 07/01/17 05:41 ABG Total CO2 32 mEq/L (20-26) H 07/01/17 05:41 ABG Base Excess 6 mEq/L (-2 to 3) H 07/01/17 05:41 Chloride 115 mEq/L (98-107) H 07/02/17 04:08 BUN 7 mg/dL (8-23) L 07/02/17 04:08 Creatinine 0.34 mg/dL (0.60-1.20) L 07/02/17 04:08 Glucose 106 mg/dL (70-105) H 07/02/17 04:08 POC Glucose 113 mg/dL (70-99) H 05/20/18 23:21 Direct Bilirubin 0.3 mg/dL (0.0-0.2) H 06/29/17 15:07 AST 41 Units/L (13-39) H 06/29/17 15:07 Alkaline Phosphatase 129 Units/L (34-104) H 06/29/17 15:07 Serum Total Protein 5.7 g/dL (6.4-8.9) L 06/29/17 15:07 Albumin 2.8 g/dL (3.5-5.7) L 06/29/17 15:07 Albumin/Globulin Ratio 1.0 (1.1-2.2) L 06/29/17 15:07 Urine Clarity Turbid (Clear) A 06/29/17 15:24 Urine Protein 30 mg/dL (Neg-Trace) H 06/29/17 15:24 Urine Ketones 15 mg/dL (Negative) H 06/29/17 15:24 Urine Blood Small (Negative) H 06/29/17 15:24 Urine Nitrite Positive (Negative) A 06/29/17 15:24 Ur Leukocyte Esterase Large (Negative) H 06/29/17 15:24 Urine Microscopic RBC 5-15 per hpf (0-3) H 06/29/17 15:24 Urine Microscopic WBC TNTC per hpf (0-3) H 06/29/17 15:24 Ur Squamous Epith Cells Many per lpf (None-Few) H 06/29/17 15:24 Urine Bacteria Many per hpf (None-Few) H 06/29/17 15:24 Ur Culture Indicated? NO. (NO) A 06/29/17 15:24 Salicylates < 2.5 mg/dL (15.0-30.0) L 06/29/17 15:07 Urine Opiates Screen Positive ng/mL (Lcgbwl=313) H 06/29/17 15:24 Acetaminophen < 10 mcg/mL (10-20) L 06/29/17 15:07 U Marijuana (THC) Screen Positive ng/mL (Cutoff = 50) H 06/29/17 15:24 - Microbiology Findings Microbiology Findings: Microbiology, Last 48 Hours 06/30/17 00:00 Sputum Culture - Preliminary Sputum Gram Negative Javy - Clinical Findings Intake & Output: Intake & Output 07/01/17 07/02/17 07/02/17 23:59 07:59 15:59 Intake Total 100 / 100 Output Total 100 / 100 150 / 150 Balance -100 / -100 -50 / -50 Weight 50.8 kg Consult Discharge Plan - Plan Referrals: Bradley Montgomery MD [Primary Care Provider] - - Attending Attestation I examined this patient and my medical decision-making was reviewed with the Resident Physician. I agree with the documented findings, disposition and treatment plan as described except to the extent set forth below. Patient seen and examined. Labs, radiology, chart personally reviewed. 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 Cardiovascular: stable GI: Nutrition per dietary and GI prophylaxis per routine. Heme: DVT prophylaxis per routine ID: Continue antibiotics and plan to de-escalation Renal; urine out put and renal funtion reviewed Endorcine: blood glucose is monitored Lines: all lines checked and no evidence of infections Skin: skin care to prevent pressure ulcers per nursing routine care <[email or web address] - Last Filed: 07/02/17 11:29> Date of Encounter: 07/02/17 Time of Encounter: 08:18 Assessment and Plan (1) Acute respiratory failure Current Visit: Yes Status: Acute This is likely secondary to encephalopathy she had mild hypoxemia which may be manifestation of her underlying COPD. Possibly acute pneumonia. Spontaneous breathing trial was done yesterday and the patient was extubated and did well all day yesterday. Genitourinary preventive interventions while on the ventilator included ventilator bundle to [place] ventilator associated GI prophylaxis to prevent stress ulcers DVT prophylaxis given Plan for transfer out of the ICU to the medical floor. Qualifiers: Respiratory failure complication: hypoxia and hypercapnia Qualified Code(s) : J96.01 - Acute respiratory failure with hypoxia; J96.02 - Acute respiratory failure with hypercapnia (2) Acute encephalopathy Current Visit: Yes Status: Acute I suspect this is a toxic metabolic encephalopathy that is related to medication effect possible use of THC derivative complicated with opiates. CT head is without any acute processes Her metabolic panel and CBC are otherwise generally unremarkable. Infection possibly pneumonia may have also been causing her symptoms and we are treating this. She is much more awake and following commands today. Continue narcotic analgesia for cancer associated pain (3) Pneumonia Current Visit: Yes Status: Acute Gram-negative rods on sputum. Patient remains afebrile She is empirically on ceftriaxone which I will continue pending final speciation. Given history of C. difficile and on chronic basis we are hesitant to start her on other antibiotics especially given patient's clinical stability at this time. Qualifiers: Pneumonia type: due to unspecified organism Laterality: unspecified laterality Lung location: upper lobe of lung Qualified Code(s): J18.1 - Lobar pneumonia, unspecified organism (4) Dehydration Current Visit: No Status: Acute Patient received 2 L of crystalloid infusion in the emergency department. Continue volume expansion with colloids (5) C. difficile colitis Current Visit: Yes Status: Acute The patient has a history of recurrent C. 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 I will continue this as an inpatient. At this time would not start broad-spectrum antimicrobials for her clear source of infection given the risk of worsening her colitis. 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 Diabetes mellitus complication status: with neurologic complications Diabetes mellitus complication detail: with mononeuropathy Qualified Code(s): E11.41 - Type 2 diabetes mellitus with diabetic mononeuropathy (8) Adenocarcinoma of right lung Current Visit: No Status: Chronic This is metastatic with overall poor prognosis being followed by oncology and radiation oncology (9) DVT prophylaxis Current Visit: No Status: Acute Lovenox subcutaneous 40 mg given (10) Severe protein-calorie malnutrition Current Visit: No Status: Chronic Nutrition will be consulted await their recommendations (11) Goals of care, counseling/discussion Current Visit: Yes Status: Acute Extremely poor prognosis plan was discussed with family once extubated by general goals of care and she would want to pursue further intubation risk story failure. Family is updated at bedside. Palliative is consultation to speak with family about goals of care, await their recommendations Subjective Principal diagnosis: Acute encephalopathy Interval history: Patient did well overnight there were no acute events. Patient has been drinking water will give speech consult for recommendations. Otherwise no acute needs at this time. Patient is going to be transferred out of the ICU. Patient is still in isolation for C. difficile Objective PUL Vital signs: Last Vital Signs Temp 97.7 F 07/02/17 07:16 Pulse 110 07/02/17 06:00 Resp 14 07/02/17 06:00 BP 106/78 07/02/17 06:00 Pulse Ox 97 07/02/17 06:00 General appearance: no acute distress Eyes: nonicteric ENT: oropharynx moist Neck: supple Effort: normal Auscultation: bilateral: clear Cardiovascular: regular rate and rhythm Gastrointestinal: normoactive bowel sounds, non-distended Extremities: no cyanosis, no edema, no clubbing Musculoskeletal: no deformities, ROM normal normal mental status, non-focal exam, pupils equal and round, motor strength normal and symmetric Results - Laboratory Findings CBC and BMP: 07/02/17 04:08 07/02/17 04:08 ABG ABG pH 7.45 pH Units (7.32-7.45) 07/01/17 05:41 ABG pCO2 44 mmHg (35-45) 07/01/17 05:41 ABG pO2 87 mmHg (85-104) 07/01/17 05:41 ABG O2 Saturation 97 % (95-98) 07/01/17 05:41 PT/INR, D-dimer PT 11.2 Seconds (9.4-12.1) 06/29/17 15:07 Abnormal lab findings: Abnormal lab results RBC 3.27 M/mcL (3.82-4.97) L 07/02/17 04:08 Hgb 9.5 g/dL (11.5-15.4) L 07/02/17 04:08 Hct 30.1 % (35.3-44.9) L 07/02/17 04:08 RDW 18.0 % (11.5-14.5) H 07/02/17 04:08 ABG HCO3 30 mEq/L (21-27) H 07/01/17 05:41 ABG Total CO2 32 mEq/L (20-26) H 07/01/17 05:41 ABG Base Excess 6 mEq/L (-2 to 3) H 07/01/17 05:41 Chloride 115 mEq/L (98-107) H 07/02/17 04:08 BUN 7 mg/dL (8-23) L 07/02/17 04:08 Creatinine 0.34 mg/dL (0.60-1.20) L 07/02/17 04:08 Glucose 106 mg/dL (70-105) H 07/02/17 04:08 POC Glucose 113 mg/dL (70-99) H 07/01/17 23:21 Direct Bilirubin 0.3 mg/dL (0.0-0.2) H 06/29/17 15:07 AST 41 Units/L (13-39) H 06/29/17 15:07 Alkaline Phosphatase 129 Units/L (34-104) H 06/29/17 15:07 Serum Total Protein 5.7 g/dL (6.4-8.9) L 06/29/17 15:07 Albumin 2.8 g/dL (3.5-5.7) L 06/29/17 15:07 Albumin/Globulin Ratio 1.0 (1.1-2.2) L 06/29/17 15:07 Urine Clarity Turbid (Clear) A 06/29/17 15:24 Urine Protein 30 mg/dL (Neg-Trace) H 06/29/17 15:24 Urine Ketones 15 mg/dL (Negative) H 06/29/17 15:24 Urine Blood Small (Negative) H 06/29/17 15:24 Urine Nitrite Positive (Negative) A 06/29/17 15:24 Ur Leukocyte Esterase Large (Negative) H 06/29/17 15:24 Urine Microscopic RBC 5-15 per hpf (0-3) H 06/29/17 15:24 Urine Microscopic WBC TNTC per hpf (0-3) H 06/29/17 15:24 Ur Squamous Epith Cells Many per lpf (None-Few) H 06/29/17 15:24 Urine Bacteria Many per hpf (None-Few) H 06/29/17 15:24 Ur Culture Indicated? NO. (NO) A 06/29/17 15:24 Salicylates < 2.5 mg/dL (15.0-30.0) L 06/29/17 15:07 Urine Opiates Screen Positive ng/mL (Qdlzhc=924) H 06/29/17 15:24 Acetaminophen < 10 mcg/mL (10-20) L 06/29/17 15:07 U Marijuana (THC) Screen Positive ng/mL (Cutoff = 50) H 06/29/17 15:24 - Microbiology Findings Microbiology Findings: Microbiology, Last 48 Hours 06/30/17 00:00 Sputum Culture - Preliminary Sputum Gram Negative Javy - Clinical Findings Intake & Output: Intake & Output 07/01/17 07/01/17 07/02/17 15:59 23:59 07:59 Intake Total 250 / 250 100 / 100 Output Total 125 / 125 100 / 100 150 / 150 Balance 125 / 125 -100 / -100 -50 / -50 Weight 50.8 kg
[2017-07-02] MEDS: cefTRIAXone 2,000 MG in Water for inj. (sterile) 20 ML 20 ML IVP SCH (09:10)
[2017-07-02] MEDS: Chlorhexidine Rinse 15 ML MOUTHWASH MM SCH (09:11)
[2017-07-02] MEDS: Vancomycin Oral Soln 125 MG/2.5 ML UDC PO SCH ×4 (09:11→20:55)
--- NOTE | 2017-07-02 14:27 | Palliative - Consult Note ---
Date of Encounter: 07/02/17 Time of Encounter: 13:00 - Assessment and Plan (1) Metastatic lung cancer (metastasis from lung to other site) Current Visit: Yes Status: Chronic Assessment and plan: Patient is a current patient of Dr. Betancourt. Per report from patient's , patient has been taking chemo therapy pills. Patient remains undecided regarding discharge planning, as to whether going home with hospice versus home health at discharge. Qualifiers: Laterality: unspecified laterality Qualified Code(s): C34.90 - Malignant neoplasm of unspecified part of unspecified bronchus or lung (2) Goals of care, counseling/discussion Current Visit: Yes Status: Acute Assessment and plan: Met with patient's family. Patient expressed desires to go home; however, family is concerned over potential discharge tonight, wishes to wait until tomorrow. Patient also remains to be contemplating of home with home health versus home with hospice. Palliative care will follow up tomorrow for further discharge planning. Patient and family have chosen not to change code status at this time. (3) Acute exacerbation of chronic obstructive airways disease Current Visit: No Status: Acute Assessment and plan: Patient is stable on 3L NC. (4) Dyspnea Current Visit: No Status: Acute Assessment and plan: Patient denies dyspnea at this time. 3L per NC. Qualifiers: Dyspnea type: unspecified Qualified Code(s): R06.00 - Dyspnea, unspecified (5) Anxiety Current Visit: Yes Status: Acute Assessment and plan: Patient reports increased anxiety. Ordered Ativan 0.5 mg PO Q4H PRN for anxiety. (6) Cancer associated pain Current Visit: Yes Status: Acute Palliative-CN HPI - Data of Consult Patient: new to practice Consult date: 07/02/17 Requesting Physician: Wyatt Viveros MD Primary Care Provider: Bradley Montgomery MD - Consult Narrative Palliative Care/Comfort Measures: Palliative care Reason for consult: End of life care History of present illness: Ms. Reynoso is a 66 year old female arrived to [facility] on 06/29/2017 for altered mental status. Patient had presented unresponsive after sitting down to kitchen chair and losing conscientiousness. EMS was called, vital signs and glucose normal. PMH: stage 4 lung cancer, arthritis, atrial fibrillation, CHF, CAD, COPD, DM, HTN, [place], and RA. Patient was intubated and admitted to ICU. Admission diagnosis to ICU include: Acute encephalopathy, Acute Respiratory failure, UTI, Adenocarcinoma of R lung, COPD, Diabetes, and C. Difficile. Initial chest xray showed: Right pleural effusion with relaxation atelectasis right lung base and Chronic interstitial changes may be related to sequela from smoking but are nonspecific. Head CT showed: No acute intracranial abnormality and Diffuse atrophic changes with findings suggesting chronic microvascular ischemia. ICU team managed Acute encephalopathy, ARF, UTI, adenocarcinoma R lung , Dehydration, COPD, CM, C Difficile, and Severe Protein-calorie malnutrition from admission to 07/02/17; patient then transferred to floor patient status under hospitalist care. Palliative care consult for goals of care regarding end of life disease processes. Patient sitting with family at bedside upon arrival. Family present included patient's Shane ([phone] (H), (C)), sons (Umang, , and Den, ), patient's friend (Ana), Patient's sons friend, and Patient's granddaughter. Patient is awake, alert and oriented times 3. Patient reports increased anxiety and onset of chest pain, rated a 5/ 10; notified patient's primary nursing staff. Patient appears to be anxious. Patient has received 1 dose of Percocet in the last 24 hours and 3 doses of Oxycodone in the last 24 hours. Patient denies nausea or vomiting. CC: Wyatt Viveros MD Past Med Surg Social Fam HX - Past Medical History Medical history: arthritis, atrial fibrillation, cancer, CHF, COPD, coronary artery disease, diabetes, hypertension, myocardial infarction, RA Psychiatric history: no psych history - Past Surgical History Surgical History: angioplasty/stent, appendectomy, cholecystectomy, other - Social History Smoking Status: Current every day smoker Smokeless Tobacco Status: No Alcohol use: none Drug use: none - Family History Father Adopted: No Family Member Ethnicity: Non- Living Status: Hx Family Cardiac Disorders: Yes (CAD) Hx Family Respiratory Disorders: Yes Hx Family Cancer: Yes (Lung) Hx Family GI Disorders: No Hx Family Endocrine Disorder: Yes (DM) Hx Family Neuromuscular Disorders: No Hx Family Neurologic Disorders: No Hx Family HEENT Disorders: No Hx Family Autoimmune Disorders: No Mother Adopted: No Family Member Ethnicity: Non- Living Status: Hx Family Cardiac Disorders: Yes (CAD) Hx Family Respiratory Disorders: Yes Hx Family Cancer: Yes (Lung) Brother Family Member Ethnicity: Non- Living Status: Still Living Hx Family Cardiac Disorders: Yes (CAD) Hx Family Cancer: Yes (Lung) Sister Family Member Ethnicity: Non- Living Status: Still Living Hx Family Cardiac Disorders: Yes (CAD) Hx Family Cancer: Yes (Lung) Medications and Allergies Atorvastatin Calcium [Lipitor] 80 mg PO HS 12/08/15 [History] DULoxetine [Cymbalta] 30 mg PO BID 12/08/15 [History] Furosemide [Lasix] 40 mg PO DAILY PRN 12/08/15 [History] Nitroglycerin [Nitrostat] 0.4 mg SL Q5M PRN 12/08/15 [History] Loratadine [Claritin] 10 mg PO DAILY PRN 02/01/16 [History] Meclizine [Antivert] 12.5 mg PO DAILY 02/01/16 [History] Gabapentin [Neurontin] 800 mg PO QID #120 tablet 04/27/16 [Rx] OXcarbazepine [Trileptal] 150 mg PO BID #60 tablet 05/26/16 [Rx] Cranberry Fruit [Cranberry] 400 mg PO TID 08/31/16 [History] Oxygen 3 l NS HS 08/31/16 [History] Aspirin Enteric Coated [Aspirin EC] 81 mg PO DAILY #30 tablet. 09/27/16 [Rx] Metformin HCl [Metformin HCl ER] 500 mg PO BID 11/30/16 [History] Budesonide/Formoterol 160/4.5 [Symbicort 160/4.5] 2 puff IH BIDR 01/04/17 [ History] Collagenase Oint [Santyl] 1 appl TP DAILY PRN 01/04/17 [History] Glucagon,Human Recombinant [Glucagen] 1 mg IJ DAILY PRN 01/04/17 [History] Ipratropium/Albuterol Neb [Duoneb] 3 ml IH Q4H PRN 01/04/17 [History] Acetylcysteine [Nac] 600 mg PO BID 03/15/17 [History] Prochlorperazine Maleate [Compazine] 10 mg PO Q6HR PRN #60 tablet 03/15/17 [Rx] Lactobacillus Acidophilus [Probiotic Acidophilus] 1 tab PO BID #60 tablet [Rx] Magic Mouthwash [Magic Mouthwash BLM] 10 ml PO QID PRN #500 ml 03/23/17 [Rx] Erlotinib HCl [Tarceva] 150 mg PO DAILY 04/25/17 [History] Folic Acid 1 mg PO DAILY #30 tablet 04/27/17 [Rx] Magnesium Oxide [Magnesium] 400 mg PO DAILY #30 tablet 04/27/17 [Rx] GuaiFENesin/Codeine [Robitussin w/Codeine] 5 ml PO Q6HR PRN 15 Days #300 ml 04/01 [Rx] Acetylcysteine 10% 2 ml IH Q6H 05/28/17 [History] Albuterol Sulfate [Ventolin Hfa] 2 puff IH Q6H PRN 05/28/17 [History] Ondansetron HCl [Zofran] 4 mg PO Q8H PRN 05/28/17 [History] Vancomycin HCl 500 mg PO QID 05/28/17 [History] Dronabinol [Marinol] 1 cap PO BID 30 Days #60 capsule 06/25/17 [Rx] Lidocaine Patch [Lidoderm 5% patch] 1 each TP AD #30 adh..patch 06/25/17 [Rx] Morphine Sulfate SR (12 HR) [MS Contin] 1 tab PO Q12HR 30 Days #60 tab 06/25/17 [Rx] Oxycodone HCl/Acetaminophen [Percocet 10-325 mg Tablet] 1 tab PO Q6H PRN 30 Days #80 tablet 06/25/17 [Rx] Potassium Chloride [K-Tab ER] 10 meq PO DAILY #30 tablet.er 06/25/17 [Rx] Cholestyramine (with Sugar) [Cholestyramine Bulk Powder] 1 each PO HS 06/29/17 [ History] 3 Allergy/AdvReac Type Severity Reaction Status Date / Time dofetilide [From Tikosyn] Allergy Unresponsiv Verified 06/25/17 13:46 e lisinopril AdvReac See Verified 06/25/17 13:46 Comments red dye AdvReac Rash Verified 06/25/17 13:46 - Constitutional Constitutional ROS PAL: no decreased appetite, no fatigue - EENT Eyes: no pain Ears: decreased hearing - Cardiovascular Cardiovascular ROS: chest pain, chest pain at rest, chest pain with activity, irregular heart rhythm, syncope - Respiratory Respiratory: dyspnea - Gastrointestinal Gastrointestinal: change in bowel habits, diarrhea, loose stools - Genitourinary Palliative ROS female: no difficulty voiding - Neurological Neurological ROS: syncope, weakness - Psychiatric Psychiatric general PM: anxiety, confusion Palliative Care-Exam - Constitutional Vitals: Temp Pulse Resp BP Pulse Ox 97.8 F 114 18 111/70 98 07/02/17 12:04 07/02/17 12:04 07/02/17 12:04 07/02/17 12:04 07/02/17 12:04 General appearance: Present: cooperative, mild distress - Head Head Exam: Present: atraumatic, normal inspection - Eye Eye exam: Present: EOMI, normal appearance, PERRL. Absent: periorbital swelling , periorbital tenderness - ENT ENT exam: Present: mucous membranes moist - Expanded ENT Exam Mouth Exam: Absent: drooling - Neck Neck exam: Present: full ROM. Absent: tenderness - Respiratory Respiratory exam: Present: accessory muscle use, wheezes. Absent: respiratory distress - Cardiovascular Cardiovascular exam: Present: +S1, +S2 - Expanded Cardiovascular Exam Peripheral pulses: 2+: Radial (L), Radial (R), Dorsalis Pedis (L) PM, Dorsalis Pedis (R) PM - GI/Abdominal Exam GI/Abdominal exam: Present: normal bowel sounds, soft. Absent: tenderness - Rectal Rectal exam: Present: deferred - Extremities Exam Extremities exam: Present: full ROM, pedal edema. Absent: calf tenderness - Neurological Exam Neurological exam: Present: alert, oriented X3, strengths equal and symetr throughout - Expanded Neurological Exam Coma Scale Eye Opening: Spontaneous Coma Scale Motor Response: Obeys Commands Coma Scale Verbal Response: Oriented Coma Scale Total: 15 - Psychiatric Psychiatric exam: Present: anxious - Skin Skin exam: Present: warm Internal Medicine - CN: Reslt - Labs CBC & Chem 7: 07/02/17 04:08 07/02/17 04:08 Labs: Short CBC 07/02/17 Range/Units 04:08 WBC 5.7 (4.3-11.1) K/mcL Hgb 9.5 L (11.5-15.4) g/dL Hct 30.1 L (35.3-44.9) % Plt Count 183 (140-400) K/mcL Neutrophils # 3.8 (1.6-8.9) K/mcL BMP 07/02/17 04:08 Sodium 141 Potassium 3.5 Chloride 115 H Carbon Dioxide 28 BUN 7 L Creatinine 0.34 L Glucose 106 H Calcium 9.1 - ABG Interpretation ABG results: ABG ABG pH 7.45 pH Units (7.32-7.45) 07/01/17 05:41 ABG pCO2 44 mmHg (35-45) 07/01/17 05:41 ABG pO2 87 mmHg (85-104) 07/01/17 05:41 ABG O2 Saturation 97 % (95-98) 07/01/17 05:41 PT/INR, D-dimer PT 11.2 Seconds (9.4-12.1) 06/29/17 15:07 Consult Discharge Plan - Plan Referrals: Bradley Montgomery MD [Primary Care Provider] - Palliative Quality Palliative Quality: Screen for Code Status: Yes, Screen for Goals of Care: Yes, Screen for Pain: Yes, If Pain Regimen Started, Initiate Bowel Regimen: NA, Screen for Nausea/Vomitting: Yes
[2017-07-02] MEDS: Nitroglycerin 0.4 MG TAB.SUBL SL PRN ×3 (14:34→14:49)
--- NOTE | 2017-07-02 14:48 | Electrocardiograph Report ---
[address] [address] Test Date: 2017-06-29 Pat Name: Barbara Reynoso Department: 103 Room: 2A48 Gender: F Aircraft Manager: : 1950 Requested By: Teofilo Lynn Order Number: [id number] Reading MD: Don Pierson Measurements Intervals Hiram Rate: 92 P: 22 FL: 147 QRS: -38 QRSD: 94 T: 68 QT: 304 QTc: 354 Interpretive Statements SINUS RHYTHM WITH SINUS ARRHYTHMIA MARKED LEFT AXIS DEVIATION INCOMPLETE RIGHT BUNDLE BRANCH BLOCK NONSPECIFIC T-WAVE ABNORMALITY Electronically Signed On 07-02-2017 14:46:59 EDT by Don Pierson
[2017-07-02] MEDS ORDERED: *HR* LORazepam Oral Conc 2 MG/ML SL PRN ×2 (15:19→19:28)
[2017-07-02] MEDS ORDERED: Aspirin 325 MG TABLET PO ONE (15:49)
[2017-07-02] MEDS ORDERED: *HR* Heparin 5,000 UNIT/ML VIAL IVP PRN ×2 (16:21)
[2017-07-02] MEDS ORDERED: *HR* Heparin 5,000 UNIT/ML VIAL IVP ONE (16:21)
[2017-07-02] MEDS ORDERED: Heparin 25,000 UNIT/500 ML D5W 25,000 UNIT/500 ML BAG IVC SCH (16:30)
--- NOTE | 2017-07-02 16:31 | Event Note ---
Date of Encounter: 07/02/17 Time of Encounter: 16:05 Patient is a 66y/o female who was admitted to the ICU for acute respiratory failure secondary to PNA requiring intubation, C-diff colitis. She has chronic history of stage IV adenocarcinoma of the lung. Pt was extubated in the ICU on and transferred to today (07/02/17). Pt was seen and examined with family present at bedside, after I was informed of the patient having chest pain. Pt reported of localized, pressure like left sided chest pain that acutely started a few hours ago. EKG reported non significant ST changes and acute elevation of troponins were reported. Pt received SL Nitroglycerin without any improvement of her chest pain. Cardiology (Dr. Franco) was consulted and decision to start pt on heparin gtt was made as per buff wheel fabricator's recommendation. Pt received a dose of Aspirin 325mg PO and lipitor 40mg PO. Pt and family are closely followed by palliative care and are considering hospice care, however at this time, they would like cardiac intervention if necessary. Pt to receive one time dose of Dilaudid 0.5mg IV for pain. Will continue to monitor serial TNI tele monitoring.
[2017-07-02] MEDS ORDERED: OXYCODONE Oral CONC 10 MG/0.5 ML ORAL.SYG SL ONE (16:49)
[2017-07-02 16:53] LABS: Hematocrit 32.9 % (35.3-44.9); Hemoglobin 10.5 g/dL (11.5-15.4); Mean Corpuscular HGB Conc 31.9 g/dL (31.6-35.5); Mean Corpuscular Hemoglobin 29.5 pg (28.0-33.3); Mean Corpuscular Volume 92.4 fL (83.0-100.0); Mean Platelet Volume 10.4 fL (9.4-12.4); Platelet Count 212 K/mcL (140-400); Red Blood Count 3.56 M/mcL (3.82-4.97); Red Cell Distribution Width 18.1 % (11.5-14.5)
[2017-07-02 16:58] LABS: INR 1.1; Prothrombin Time 11.8 Seconds (9.4-12.1)
[2017-07-02 17:01] LABS: Activated Partial Thrombo Time 30.3 Seconds (26.0-36.0)
[2017-07-02] MEDS ORDERED: MORPHINE SUL Oral CONC 10 MG/0.5 ML ORAL.SYG SL ONE (17:13)
[2017-07-02] MEDS ORDERED: MORPHINE SUL Oral CONC 10 MG/0.5 ML ORAL.SYG SL PRN (18:41)
--- NOTE | 2017-07-02 18:41 | Event Note ---
Date of Encounter: 07/02/17 Time of Encounter: 18:37 Pt did c/o CP and her troponin started trending up. My colleague Dr. Griffin did talk to pt and her family initially they requested for heparin gtt and full work up. Pt is in so much discomfort with her cancer related pain and she wanted to be comfortable to go home under hospice care. She does not want an more work up regarding her CP golden, also she had an extensive history of GI bleed and Nose bleed last year, so she is not a candidate for anti coag. Since pt and family wanted comfort care. Will start her on Roxanol 5mg Q3hr PRN anc Cont Ativan. Also pt is trying to sit on the side of bed and falling. So will keep sitter with her tonight to avoid any fall risk.
[2017-07-02] MEDS ORDERED: Dextrose Gel 15 GM/37.5 ML TUBE PO PRN ×2 (19:28)
[2017-07-02] MEDS ORDERED: D5% in Water 1,000 ML IVC PRN (19:28)
[2017-07-02] MEDS ORDERED: *HR* Dextrose 50 % in Water (Syg) 50 ML SYRINGE IVP PRN (19:28)
[2017-07-02] MEDS ORDERED: Naloxone 0.4 MG/ML INJ IVP PRN (19:28)
[2017-07-02] MEDS ORDERED: Ondansetron 4 MG/2 ML VIAL IVP PRN (19:28)
[2017-07-02] MEDS ORDERED: *HR* OxyCODONE/APAP 7.5/325 TABLET PO PRN (19:28)
[2017-07-02] MEDS: MORPHINE SUL Oral CONC 10 MG/0.5 ML ORAL.SYG SL PRN (20:54)
[2017-07-02] MEDS ORDERED: Heparin 1,000 UNITS/500 mL 1,000 ML ONE (23:17)
[2017-07-02] MEDS ORDERED: Isovue-300 50 ML VIAL IVP ONE (23:18)
[2017-07-03] MEDS: Insulin LISPRO 300 UNITS/3 ML VIAL SQ SCH ×4 (00:04→16:15)
[2017-07-03] MEDS: OXYCODONE Oral CONC 10 MG/0.5 ML ORAL.SYG SL PRN ×2 (00:19→06:44)
[2017-07-03] MEDS: MORPHINE SUL Oral CONC 10 MG/0.5 ML ORAL.SYG SL PRN ×2 (03:23→07:34)
[2017-07-03] MEDS: Vancomycin Oral Soln 125 MG/2.5 ML UDC PO SCH ×3 (07:36→16:14)
[2017-07-03] MEDS ORDERED: cefTRIAXone 2,000 MG in Water for inj. (sterile) 20 ML 20 ML IVP SCH (09:00)
--- NOTE | 2017-07-03 11:02 | Palliative Progress Note ---
Date of Encounter: 07/03/17 Time of Encounter: 10:15 - Assessment and plan (1) Metastatic lung cancer (metastasis from lung to other site) Current Visit: Yes Status: Chronic Assessment and plan: Patient has been a patient of [facility]. Patient is deciding whether to continue treatment or return home with hospice. Will update Oncologist with patient's plan. Qualifiers: Laterality: unspecified laterality Qualified Code(s): C34.90 - Malignant neoplasm of unspecified part of unspecified bronchus or lung (2) Goals of care, counseling/discussion Current Visit: Yes Status: Acute Assessment and plan: Spoke with patient whom requested to have a family meeting upon family's arrival to ensure family is ok with patient returning home with Hospice. Requested to call patient's to evaluate planned time of arrival. Family arriving this afternoon for family meeting and discuss discharge plan and code status at that time. 1300: Completed family meeting. Family has decided to go home with [facility] pending availability of IVF PRN for comfort from dehydration. 1318: Spoke with Belinda regarding ability to provide IVF PRN. Belinda spoke with Jaja who agreed to provide IVF as needed strictly for comfort. 1340: Spoke with Richelle and patient will be discharged home today with [facility] with admission occuring at [facility] and hospice to provide transportation home. (3) Acute exacerbation of chronic obstructive airways disease Current Visit: No Status: Acute Assessment and plan: Patient oxygen saturation 100% on 3L NC. Continue Roxanol for pain and dyspea. (4) Dyspnea Current Visit: No Status: Acute Qualifiers: Dyspnea type: unspecified Qualified Code(s): R06.00 - Dyspnea, unspecified (5) Anxiety Current Visit: Yes Status: Acute Assessment and plan: Patient reports increased anxiety. 0 doses of PRN Ativan administered in the last 24 hours. Educated that medication is available pending request from patient; verbalized understanding. (6) Cancer associated pain Current Visit: Yes Status: Acute Assessment and plan: Patient denies pain during assessment; patient has received 3 doses of PRN Roxanol and 2 doses of PRN Oxycodone in the last 24 hours. - Time Spent With Patient Total time spent is greater than 50% in coordination of care (as documented) at patient's floor/unit and/or counseling patient: - Subjective Interval history: Patient sitting up in bedside chair during assessment. Denies pain, dyspnea, and nausea at this time. Reports increased anxiety. Patient has received 0 doses of PRN Ativan in the last 24 hours; educated that medication is available if needed. Desires to go home with [facility] at discharge; however, wants to ensure that this is ok with family prior to making arrangements. Patient requested newswriter to call and find out what time he will be returning. Patient is alert and oriented times 3. Patient expresses desire to go home, be kept comfortable, and not return to the hospital. Patient has received 3 doses of Roxanol in the last 4 hours and 2 doses of Oxycodone in the last 24 hours. Upon chart review, patient had new NSTEMI yesterday afternoon/evening; refused further workup and treatment of cardiac event. - Constitutional Vitals: Abnormal lab results RBC 3.56 M/mcL (3.82-4.97) L 07/02/17 16:41 Hgb 10.5 g/dL (11.5-15.4) L 07/02/17 16:41 Hct 32.9 % (35.3-44.9) L 07/02/17 16:41 RDW 18.1 % (11.5-14.5) H 07/02/17 16:41 ABG HCO3 30 mEq/L (21-27) H 07/01/17 05:41 ABG Total CO2 32 mEq/L (20-26) H 07/01/17 05:41 ABG Base Excess 6 mEq/L (-2 to 3) H 07/01/17 05:41 Chloride 115 mEq/L (98-107) H 07/02/17 04:08 BUN 7 mg/dL (8-23) L 07/02/17 04:08 Creatinine 0.34 mg/dL (0.60-1.20) L 07/02/17 04:08 Glucose 106 mg/dL (70-105) H 07/02/17 04:08 POC Glucose 121 mg/dL (70-99) H 07/03/17 05:54 Direct Bilirubin 0.3 mg/dL (0.0-0.2) H 06/29/17 15:07 AST 41 Units/L (13-39) H 06/29/17 15:07 Alkaline Phosphatase 129 Units/L (34-104) H 06/29/17 15:07 Troponin I 0.12 ng/mL (< 0.04) H* 07/02/17 14:16 Serum Total Protein 5.7 g/dL (6.4-8.9) L 06/29/17 15:07 Albumin 2.8 g/dL (3.5-5.7) L 06/29/17 15:07 Albumin/Globulin Ratio 1.0 (1.1-2.2) L 06/29/17 15:07 Urine Clarity Turbid (Clear) A 06/29/17 15:24 Urine Protein 30 mg/dL (Neg-Trace) H 06/29/17 15:24 Urine Ketones 15 mg/dL (Negative) H 06/29/17 15:24 Urine Blood Small (Negative) H 06/29/17 15:24 Urine Nitrite Positive (Negative) A 06/29/17 15:24 Ur Leukocyte Esterase Large (Negative) H 06/29/17 15:24 Urine Microscopic RBC 5-15 per hpf (0-3) H 06/29/17 15:24 Urine Microscopic WBC TNTC per hpf (0-3) H 06/29/17 15:24 Ur Squamous Epith Cells Many per lpf (None-Few) H 06/29/17 15:24 Urine Bacteria Many per hpf (None-Few) H 06/29/17 15:24 Ur Culture Indicated? NO. (NO) A 06/29/17 15:24 Salicylates < 2.5 mg/dL (15.0-30.0) L 06/29/17 15:07 Urine Opiates Screen Positive ng/mL (Pwmshh=542) H 06/29/17 15:24 Acetaminophen < 10 mcg/mL (10-20) L 06/29/17 15:07 U Marijuana (THC) Screen Positive ng/mL (Cutoff = 50) H 06/29/17 15:24 General appearance: Present: cooperative, mild distress - Head Head exam: Present: atraumatic, normal inspection - Expanded Head Exam Head exam: Absent: Whitmore's sign, general tenderness - Eye Eye exam: Present: EOMI, normal appearance, PERRL. Absent: periorbital swelling , periorbital tenderness Pupils: Present: normal accommodation, PERRL - ENT ENT exam: Present: mucous membranes moist, normal external ear exam - Neck Neck exam: Present: full ROM, normal inspection - Respiratory Respiratory exam: Present: accessory muscle use, rhonchi, wheezes. Absent: respiratory distress - Cardiovascular Cardiovascular exam: Present: +S1, +S2 - GI/Abdominal GI/Abdominal exam: Present: normal bowel sounds - Rectal Rectal exam: Present: deferred - Expanded Exam Female exam: Present: deferred - Extremities Exam Extremities exam: Present: full ROM, pedal edema. Absent: calf tenderness, normal capillary refill, normal inspection - Back Exam Back exam: Present: full ROM, normal inspection - Neurological Exam Neurological exam: Present: alert, oriented X3, strengths equal and symetr throughout. Absent: altered - Psychiatric Psychiatric exam: Present: anxious - Skin Skin exam: Present: dry, warm Palliative Quality Palliative Quality: Screen for Code Status: Yes, Screen for Goals of Care: Yes, Screen for Pain: Yes, If Pain Regimen Started, Initiate Bowel Regimen: NA, Screen for Nausea/Vomitting: Yes - Labs CBC & Chem 7: 07/02/17 16:41 07/02/17 04:08 Labs: Laboratory Results - last 24 hr 07/02/17 07/02/17 07/02/17 04:14 06:38 12:18 WBC RBC Hgb Hct MCV MCH MCHC RDW Plt Count MPV PT INR APTT POC Glucose 102 H 104 H 116 H Troponin I 07/02/17 07/02/17 07/02/17 14:16 16:41 16:41 WBC 7.1 RBC 3.56 L Hgb 10.5 L Hct 32.9 L MCV 92.4 MCH 29.5 MCHC 31.9 RDW 18.1 H Plt Count 212 MPV 10.4 PT 11.8 INR 1.1 APTT 30.3 POC Glucose Troponin I 0.12 H* 07/02/17 07/02/17 07/03/17 16:45 23:17 05:54 WBC RBC Hgb Hct MCV MCH MCHC RDW Plt Count MPV PT INR APTT POC Glucose 145 H 135 H 121 H Troponin I - ABG Interpretation ABG results: ABG ABG pH 7.45 pH Units (7.32-7.45) 07/01/17 05:41 ABG pCO2 44 mmHg (35-45) 07/01/17 05:41 ABG pO2 87 mmHg (85-104) 07/01/17 05:41 ABG O2 Saturation 97 % (95-98) 07/01/17 05:41 PT/INR, D-dimer PT 11.8 Seconds (9.4-12.1) 07/02/17 16:41 Consult Discharge Plan - Plan Referrals: Bradley Montgomery MD [Primary Care Provider] -
--- NOTE | 2017-07-03 14:27 | Discharge Summary ---
- NOTES TO OUTPATIENT PROVIDER Notes to Outpatient Provider: Finish 5 day course of vancomycin for C. difficile Date of Encounter: 07/03/17 Time of Encounter: 11:00 - Discharge Diagnosis (1) Acute encephalopathy Priority: Primary Status: Acute (2) C. difficile colitis Priority: Secondary Status: Acute (3) Cancer associated pain Priority: Secondary Status: Acute (4) Metastatic lung cancer (metastasis from lung to other site) Priority: Secondary Status: Chronic Qualifiers: Laterality: unspecified laterality Qualified Code(s): C34.90 - Malignant neoplasm of unspecified part of unspecified bronchus or lung Hospital course: Patient is a 66-year-old female with past medical history significant for chronic respiratory failure secondary to COPD and metastatic lung cancer who presented to the ER on 06/29/17 due to unresponsiveness. Patient was brought from home by EMS unresponsive and in the ER she was noted to be hypoxic and concerns about ability to protect her airway and she was intubated. During hospital stay, pulmonary was consulted for further evaluation the patient admission to the ICU for ventilator management. Patient was found to have gram-negative rods in sputum and treated for suspected pneumonia. Patients treatment for C. difficile was continued while inpatient as well. Patient was able to be extubated but palliative care was consulted due to poor prognosis. Family has decided to take patient home with hospice. Other care as make recommendations for comfort meds and patient will be discharged home. - Time Spent with Patient Total time spent providing and/or coordinating discharge services: Less than 30 minutes - Discharge Medications Prescriptions: LORazepam Oral Conc [Ativan Oral Conc] 1 mg PO Q4HR PRN 4 Days #15 mls PRN Reason: Anxiety MORPHINE SUL Oral CONC [Roxanol Oral Conc] 5 - 10 mg PO Q2H PRN 4 Days #15 ml PRN Reason: Breakthrough Pain Home Medications: Atorvastatin Calcium [Lipitor] 80 mg PO HS 12/08/15 [History] DULoxetine [Cymbalta] 30 mg PO BID 12/08/15 [History] Furosemide [Lasix] 40 mg PO DAILY PRN 12/08/15 [History] Nitroglycerin [Nitrostat] 0.4 mg SL Q5M PRN 12/08/15 [History] Loratadine [Claritin] 10 mg PO DAILY PRN 02/01/16 [History] Meclizine [Antivert] 12.5 mg PO DAILY 02/01/16 [History] Gabapentin [Neurontin] 800 mg PO QID #120 tablet 04/27/16 [Rx] OXcarbazepine [Trileptal] 150 mg PO BID #60 tablet 05/26/16 [Rx] Cranberry Fruit [Cranberry] 400 mg PO TID 08/31/16 [History] Oxygen 3 l NS HS 08/31/16 [History] Aspirin Enteric Coated [Aspirin EC] 81 mg PO DAILY #30 tablet. 09/27/16 [Rx] Metformin HCl [Metformin HCl ER] 500 mg PO BID 11/30/16 [History] Budesonide/Formoterol 160/4.5 [Symbicort 160/4.5] 2 puff IH BIDR 01/04/17 [ History] Collagenase Oint [Santyl] 1 appl TP DAILY PRN 01/04/17 [History] Glucagon,Human Recombinant [Glucagen] 1 mg IJ DAILY PRN 01/04/17 [History] Ipratropium/Albuterol Neb [Duoneb] 3 ml IH Q4H PRN 01/04/17 [History] Acetylcysteine [Nac] 600 mg PO BID 03/15/17 [History] Prochlorperazine Maleate [Compazine] 10 mg PO Q6HR PRN #60 tablet 03/15/17 [Rx] Lactobacillus Acidophilus [Probiotic Acidophilus] 1 tab PO BID #60 tablet [Rx] Magic Mouthwash [Magic Mouthwash BLM] 10 ml PO QID PRN #500 ml 03/23/17 [Rx] Erlotinib HCl [Tarceva] 150 mg PO DAILY 04/25/17 [History] Folic Acid 1 mg PO DAILY #30 tablet 04/27/17 [Rx] Magnesium Oxide [Magnesium] 400 mg PO DAILY #30 tablet 04/27/17 [Rx] GuaiFENesin/Codeine [ROBITUSSIN w/CODEINE] 5 ml PO Q6HR PRN 15 Days #300 ml 04/01 [Rx] Acetylcysteine 10% 2 ml IH Q6H 05/28/17 [History] Albuterol Sulfate [Ventolin Hfa] 2 puff IH Q6H PRN 05/28/17 [History] Ondansetron HCl [Zofran] 4 mg PO Q8H PRN 05/28/17 [History] Dronabinol [Marinol] 1 cap PO BID 30 Days #60 capsule 06/25/17 [Rx] Lidocaine Patch [Lidoderm 5% patch] 1 each TP AD #30 adh..patch 06/25/17 [Rx] Oxycodone HCl/Acetaminophen [Percocet 10-325 mg Tablet] 1 tab PO Q6H PRN 30 Days #80 tablet 06/25/17 [Rx] Potassium Chloride [K-Tab ER] 10 meq PO DAILY #30 tablet.er 06/25/17 [Rx] Cholestyramine (with Sugar) [Cholestyramine Bulk Powder] 1 each PO HS 06/29/17 [ History] LORazepam Oral Conc [Ativan Oral Conc] 1 mg PO Q4HR PRN 4 Days #15 mls 07/03/17 [Rx] MORPHINE SUL Oral CONC [Roxanol Oral Conc] 5 - 10 mg PO Q2H PRN 4 Days #15 ml [Rx] Vancomycin HCl 500 mg PO QID 5 Days #0 07/03/17 [Rx] Allergies/Adverse Reactions: 3 Allergy/AdvReac Type Severity Reaction Status Date / Time dofetilide [From Tikosyn] Allergy Unresponsiv Verified 06/25/17 13:46 e lisinopril AdvReac See Verified 06/25/17 13:46 Comments red dye AdvReac Rash Verified 06/25/17 13:46 Date of admission: 06/29/17 17:37 Primary care physician: Bradley Montgomery MD Consults: 07/02/17 08:10 Consult to Palliative Care [CONS] Routine Comment: Consulting Provider: Palliative Care [facility] Reason for Consult: end of life care Call Completed: No - Constitutional Vitals: Temp Pulse Resp BP Pulse Ox 97.5 F L 116 19 124/85 100 07/03/17 10:57 07/03/17 10:57 07/03/17 10:57 07/03/17 10:57 07/03/17 10:57 General appearance: Present: no acute distress - Cardiovascular Cardiovascular exam: Present: RRR, +S1, +S2. Absent: diastolic murmur, gallop, rubs, systolic murmur - Patient Status Disposition: Hospice - Home Condition: Critical - Discharge Instructions Follow Up With: Bradley Montgomery MD [Primary Care Provider] -
--- NOTE | 2017-07-03 14:28 | Physician Discharge Referral ---
Home Health/Hosp Referral Info Transfer to: Home Health - Diagnosis (1) Acute encephalopathy Status: Acute (2) C. difficile colitis Status: Acute (3) Cancer associated pain Status: Acute (4) Metastatic lung cancer (metastasis from lung to other site) Status: Chronic - Respiratory Orders Smoking Cessation: Smoking cessation has been advised. For more information, call the [place] Tobacco Quit Line at 6-718-HGNX-NOW. - Services Needed Following services are medically necessary services: Nursing, Home Health Aide - Transfer Medications Prescriptions: LORazepam Oral Conc [Ativan Oral Conc] 1 mg PO Q4HR PRN 4 Days #15 mls PRN Reason: Anxiety MORPHINE SUL Oral CONC [Roxanol Oral Conc] 5 - 10 mg PO Q2H PRN 4 Days #15 ml PRN Reason: Breakthrough Pain Home Medications: Atorvastatin Calcium [Lipitor] 80 mg PO HS 12/08/15 [History] DULoxetine [Cymbalta] 30 mg PO BID 12/08/15 [History] Furosemide [Lasix] 40 mg PO DAILY PRN 12/08/15 [History] Nitroglycerin [Nitrostat] 0.4 mg SL Q5M PRN 12/08/15 [History] Loratadine [Claritin] 10 mg PO DAILY PRN 02/01/16 [History] Meclizine [Antivert] 12.5 mg PO DAILY 02/01/16 [History] Gabapentin [Neurontin] 800 mg PO QID #120 tablet 04/27/16 [Rx] OXcarbazepine [Trileptal] 150 mg PO BID #60 tablet 05/26/16 [Rx] Cranberry Fruit [Cranberry] 400 mg PO TID 08/31/16 [History] Oxygen 3 l NS HS 08/31/16 [History] Aspirin Enteric Coated [Aspirin EC] 81 mg PO DAILY #30 tablet. 09/27/16 [Rx] Metformin HCl [Metformin HCl ER] 500 mg PO BID 11/30/16 [History] Budesonide/Formoterol 160/4.5 [Symbicort 160/4.5] 2 puff IH BIDR 01/04/17 [ History] Collagenase Oint [Santyl] 1 appl TP DAILY PRN 01/04/17 [History] Glucagon,Human Recombinant [Glucagen] 1 mg IJ DAILY PRN 01/04/17 [History] Ipratropium/Albuterol Neb [Duoneb] 3 ml IH Q4H PRN 01/04/17 [History] Acetylcysteine [Nac] 600 mg PO BID 03/15/17 [History] Prochlorperazine Maleate [Compazine] 10 mg PO Q6HR PRN #60 tablet 03/15/17 [Rx] Lactobacillus Acidophilus [Probiotic Acidophilus] 1 tab PO BID #60 tablet [Rx] Magic Mouthwash [Magic Mouthwash BLM] 10 ml PO QID PRN #500 ml 03/23/17 [Rx] Erlotinib HCl [Tarceva] 150 mg PO DAILY 04/25/17 [History] Folic Acid 1 mg PO DAILY #30 tablet 04/27/17 [Rx] Magnesium Oxide [Magnesium] 400 mg PO DAILY #30 tablet 04/27/17 [Rx] GuaiFENesin/Codeine [ROBITUSSIN w/CODEINE] 5 ml PO Q6HR PRN 15 Days #300 ml 04/01 [Rx] Acetylcysteine 10% 2 ml IH Q6H 05/28/17 [History] Albuterol Sulfate [Ventolin Hfa] 2 puff IH Q6H PRN 05/28/17 [History] Ondansetron HCl [Zofran] 4 mg PO Q8H PRN 05/28/17 [History] Dronabinol [Marinol] 1 cap PO BID 30 Days #60 capsule 06/25/17 [Rx] Lidocaine Patch [Lidoderm 5% patch] 1 each TP AD #30 adh..patch 06/25/17 [Rx] Oxycodone HCl/Acetaminophen [Percocet 10-325 mg Tablet] 1 tab PO Q6H PRN 30 Days #80 tablet 06/25/17 [Rx] Potassium Chloride [K-Tab ER] 10 meq PO DAILY #30 tablet.er 06/25/17 [Rx] Cholestyramine (with Sugar) [Cholestyramine Bulk Powder] 1 each PO HS 06/29/17 [ History] LORazepam Oral Conc [Ativan Oral Conc] 1 mg PO Q4HR PRN 4 Days #15 mls 07/03/17 [Rx] MORPHINE SUL Oral CONC [Roxanol Oral Conc] 5 - 10 mg PO Q2H PRN 4 Days #15 ml [Rx] Vancomycin HCl 500 mg PO QID 5 Days #0 07/03/17 [Rx] Allergies/Adverse Reactions: 3 Allergy/AdvReac Type Severity Reaction Status Date / Time dofetilide [From Tikosyn] Allergy Unresponsiv Verified 06/25/17 13:46 e lisinopril AdvReac See Verified 06/25/17 13:46 Comments red dye AdvReac Rash Verified 06/25/17 13:46 Certification: Further, I certify that my clinical findings support that this patient is homebound (i.e. absences from home require considerable and taxing effort and are for medical reasons or mandaen services or infrequently or short duration when for other reasons) because: Homebound Reason: Patient requires assistance of a person or device to safely leave home Attestation: My signature below is to certify that this patient is under my care and that I, or nurse practitioner, or a physician's respiratory therapy assistant working with me, has a face-to -face encounter with this patient.
--- NOTE | 2017-07-03 15:26 | Event Note ---
Date of Encounter: 07/03/17 Time of Encounter: 15:22 [facility] [employer] Certification of Terminal Illness: Hospice Benefit Period Start:07/03/2017 Hospice Benefit Period End:+90 days Palliative Performance Scale (PPS): 30% History: pt with metastatic lung cancer no longer pursuing agressive care, complicated with prob nstemi and copd recently extubated and as already noted no agressive care, therefore I believe that These findings support a life expectancy of six months or less. I attest that I have composed the above narrative based on my review of Barbara Reynoso medical records, or my examination of the patient. Physician Name:[facility] Chemist, [facility], [facility] Palliative care Consultation Service
[2017-07-03 16:03] VITALS: BP 130/85
[2017-07-03] MEDS: Cefepime HCl 2,000 MG in Water for inj. (sterile) 20 ML 20 ML IVP SCH ×2 (16:15→18:00)
--- NOTE | 2017-07-03 19:29 | Electrocardiograph Report ---
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
--- NOTE | 2017-07-03 19:31 | Electrocardiograph Report ---
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
== END 2017-07-03 19:16 | disposition hospice, home (50) | DRG 91 ==
LOC: EMEROO 15:01 → SUATTDRO 17:37 → ICNU 17:37 → 2ANU 07-02 11:21
PROVIDERS: ADMIT Internal Medicine Hospice and Palliative Medicine; ATTEND Hospitalist